=== PATIENT | female | born 1930 | race Caucasian/White ===

== ENCOUNTER 2016-11-25 12:44 | Inpatient (IN) | payer MEDICARE, BC ==
[~2016-11-25] VITALS: Ht 157.5 cm; Wt 88.9 kg
[2016-11-25] VITALS (26 sets, daily range): BP systolic 73–116; BP diastolic 43–83
[2016-11-25] MEDS ORDERED: XARELTO10 MG ORAL (12:52)
[2016-11-25] MEDS ORDERED: METFORMIN HCL500 M1 ORAL (12:52)
[2016-11-25] MEDS ORDERED: ATORVASTATIN CA20 MG ORAL (12:52)
[2016-11-25] MEDS ORDERED: TEMAZEPAM7.5 MG ORAL (12:52)
[2016-11-25] MEDS ORDERED: Ipratropium 0.02% Inh Soln 2.5ml UD HHN ONE (13:00)
[2016-11-25] MEDS ORDERED: Cefepime HCl 2 GM in NS 110 ML IV SCH (13:00)
[2016-11-25] MEDS ORDERED: Albuterol ud Inhalation HHN ONE (13:00)
[2016-11-25 13:15] LABS: MEAN CORPUSCULAR HEMOGLOBIN 27.9 PG (27.0-31.0); MEAN CORPUSCULAR HGB CONC 29.7 G/DL (32.0-36.0); MEAN CORPUSCULAR VOLUME 94 FL (80-99); MEAN PLATELET VOLUME 13.4 FL (6.5-10.1); PLATELET COUNT 172 K/UL (150-450); RED BLOOD COUNT 6.13 M/UL (4.20-5.40); RED CELL DISTRIBUTION WIDTH 17.2 % (11.6-14.8)
[2016-11-25 13:22] LABS: INR 1.2 (0.9-1.1); PROTHROMBIN TIME 12.8 SEC (9.30-11.50)
[2016-11-25] MEDS ORDERED: Cefepime 2gm ONE (13:22)
[2016-11-25 13:26] LABS: WHITE BLOOD COUNT 24.3 K/UL (4.8-10.8)
[2016-11-25 13:32] LABS: APPEARANCE,URINE CLOUDY; KETONES,URINE 1+ (NEGATIVE); LEUKOCYTE ESTERASE ,URINE 2+ (NEGATIVE); NITRITE,URINE NEGATIVE (NEGATIVE); PH,URINE 5 (4.5-8.0); PROTEIN,URINE 2+ (NEGATIVE); UROBILINOGEN,URINE 8 MG/DL (0.0-1.0)
[2016-11-25 13:34] LABS: ALANINE AMINOTRANSFERASE 67 U/L (3-33); ALBUMIN/GLOBULIN RATIO 1.2 (1.0-2.7); ANION GAP 28 (5-15); ASPARTATE AMINO TRANSFERASE 44 U/L (5-40); CALCIUM 9.4 mg/dL (8.6-10.2); CARBON DIOXIDE 19 mEQ/L (20-30); CHLORIDE 117 mEQ/L (98-107); HEMOLYSIS 33; POTASSIUM 5.7 mEQ/L (3.4-4.9); TOTAL PROTEIN 6.5 g/dL (6.6-8.7); TROPONIN I < 0.30 ng/mL (<=0.30)
[2016-11-25 13:35] LABS: REFLEX LACTIC ACID YES OR NO YES
[2016-11-25 13:36] LABS: SODIUM 164 mEQ/L (135-145)
[2016-11-25] MEDS ORDERED: Vancomycin 1 GM in D5W 275 ML IVPB ONE ×2 (13:45→18:00)
[2016-11-25 13:50] LABS: BACTERIA,URINE MANY /HPF; ICTOTEST NEGATIVE; SQUAMOUS EPITHELIAL CELL,UR MANY /LPF (NONE/OCC); WBC,URINE 15-20 /HPF (0 - 2)
[2016-11-25 13:51] LABS: ANISOCYTOSIS 1+; BAND NEUTROPHILS % (MANUAL) 0 % (0-8); BASOPHILS % (MANUAL) 0 % (0-2); EOSINOPHILS % (MANUAL) 0 % (0-3); LYMPHOCYTES % (MANUAL) 5 % (20-45); NEUTROPHILS % (MANUAL) 93 % (45-75); PLATELET ESTIMATE ADEQUATE; PLATELET MORPHOLOGY NORMAL; TOTAL CELLS COUNTED 100
--- NOTE | 2016-11-25 13:51 | Emergency Room Report ---
History of Present Illness General Chief Complaint: Dyspnea/Respdistress Source: EMS, Caregiver Present Illness HPI Patient presents via EMS with ALOC and hypoxia. Apparently not taking in PO for several days. This afternoon, decreased mentation. Also increased respiratory rate. O2 sats 88% in field. Glucose normal. Transport with IV and no other treatment. Full Code. Apparently, patient refused to go to MD or ER until today, where she was too obtunded to refuse. Apparent contact with PMD request take to [facility]. Alleged CVA this year. No other history available. 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 Nursing Documentation: PMH: Agreed, PSxH: Agreed Nursing Documentation-PMH Past Medical History Deferred: Pt Cognitively Impaired Past Medical History: No History, Except For Hx Diabetes: Yes Hx Neurological Problems: Yes Review of Systems All Other Systems: limited Physical Exam Vital Signs Date Time Temp Pulse Resp B/P Pulse Ox O2 Delivery O2 Flow Rate FiO2 11/25/16 12:46 97.5 113 25 90/51 99 Room Air 11/25/16 12:54 60 11/25/16 12:56 15.0 Sp02 EP Interpretation: reviewed, normal General Appearance: moderate distress, Chronically Ill, Stupor Head: normocephalic Eyes: bilateral eye PERRL, bilateral eye normal inspection ENT: dry mucus membranes - black caking of tongue Neck: other - some regidity Respiratory: lungs clear, other - tachypnea Cardiovascular #1: tachycardia Cardiovascular #2: 2+ radial (L), 2+ femoral (R) Gastrointestinal: non tender, abnormal bowel sounds - decreased Genitourinary: normal inspection Musculoskeletal: back normal, gait/station normal, normal range of motion Neurologic: responsive - to pain, other - moves arms, legs with weakness Psychiatric: other - stupor Reflexes: 1+ knee (R), 1+ knee (L) Skin: other - ecchymoses legs and arms with sacral decubitus Procedures Critical Care Time Critical Care Time Total Critical Care Time: 60 min of bedside evaluation and treatment excludes procedures Procedures: CVP, EKG, intubation Reason for Critical care: Hypotension, sepsis, metabolic acidosis, prevention of end organ injury Course: the patient presented with respiratory distress and inadequate tidal volumes. Immediately intubated. Patient responded to initial fluid bolus, but then became hypotensive therefore central line indicated. Somewhat more responsive with better blood pressure. Central line was started. The patient initially responded to aggressive fluid resuscitation but then dropped her pressure again. This required repeat evaluation and ordering more fluids. In addition, antibiotics were initiated. Treated for critical hyperkalemia. Levophed ordered. BP responded with this. Ventilator adjusted in response to blood gas. Consultations: nursing staff, admitting MD, respiratory, caretakers Alternative history: EMS, accounts receivable associate Result: Patient was improved but critical Performed by: Dr. Art Central Line Central Line : Consent: Emergent Central Line Lumen: triple Maximal Sterile Barrier Tech: yes cap, yes mask, yes sterile gown, yes sterile gloves, yes large sterile sheet, yes hand hygiene, yes chlorhexidine prep Central Line Postion: femoral (R) Complications: none Central Line Post Position: sutured, good blood return Attempts: Other - 2 Patient Tolerated: Well Complications: Other - arterial puncture X 1 Progress EBL = 3 ml and 10 ml for lab. After arterial puncture, pressure applied and hemostasis obtained. Intubation Intubation : Consent: Emergent Intubation Method: orotracheal Tube Size (cm): 7.5 Medications: Other - none Breath Sounds after Intubation: equal Intubation Complications: no complications Post Intubation Xray: Yes Attempts: One Patient Tolerated: Well Complications: None Medical Decision Making Diagnostic Impression: Primary Impression: Sepsis Qualified Codes: A41.9 - Sepsis, unspecified organism Additional Impressions: Respiratory failure Qualified Codes: J96.01 - Acute respiratory failure with hypoxia UTI (urinary tract infection) Qualified Codes: N39.0 - Urinary tract infection, site not specified Acute hypernatremia Dehydration Hyperkalemia Renal failure Qualified Codes: N17.9 - Acute kidney failure, unspecified ER Course Patient presents in extremis. Appears septic. See critical care note. Ddx: pneumonia, UTI, other source. Fluid resuscitation (sepsis protocol), antibiotics begun. EKG without acute injury. CXR ET OK. Lactic acid elevated. Elevated sodium and renal failure. Elevated potassium. Potassium treated. Improved mentation with improved BP. BP fluctuating. Discussed with caretakers and family. Discussed with Dr. Sotelo. After 30ml/kg bolus, patient still with hypotension. Levophed ordered. Vent adjusted per my recommendations. Admit ICU, Dr. Briones Laboratory Tests Test 11/25/16 12:58 11/25/16 13:15 11/25/16 14:07 11/25/16 14:19 White Blood Count 24.3 K/UL (4.8-10.8) *H Red Blood Count 6.13 M/UL (4.20-5.40) H Hemoglobin 17.1 G/DL (12.0-16.0) H Hematocrit 57.6 % (37.0-47.0) H Mean Corpuscular Volume 94 FL (80-99) Mean Corpuscular Hemoglobin 27.9 PG (27.0-31.0) Mean Corpuscular Hemoglobin Concent 29.7 G/DL (32.0-36.0) L Red Cell Distribution Width 17.2 % (11.6-14.8) H Platelet Count 172 K/UL (150-450) Mean Platelet Volume 13.4 FL (6.5-10.1) H Neutrophils (%) (Auto) % (45.0-75.0) Lymphocytes (%) (Auto) % (20.0-45.0) Monocytes (%) (Auto) % (1.0-10.0) Eosinophils (%) (Auto) % (0.0-3.0) Basophils (%) (Auto) % (0.0-2.0) Differential Total Cells Counted 100 Neutrophils % (Manual) 93 % (45-75) H Lymphocytes % (Manual) 5 % (20-45) L Monocytes % (Manual) 2 % (1-10) Eosinophils % (Manual) 0 % (0-3) Basophils % (Manual) 0 % (0-2) Band Neutrophils 0 % (0-8) Platelet Estimate Adequate Platelet Morphology Normal Hypochromasia 1+ Anisocytosis 1+ Prothrombin Time 12.8 SEC (9.30-11.50) H Prothrombin Time INR 1.2 (0.9-1.1) H PTT 27 SEC (23-33) Sodium Level 164 mEQ/L (135-145) *H Potassium Level 5.7 mEQ/L (3.4-4.9) H Chloride Level 117 mEQ/L (98-107) H Carbon Dioxide Level 19 mEQ/L (20-30) L Anion Gap 28 (5-15) H Blood Urea Nitrogen 67 mg/dL (7-23) H Creatinine 2.0 mg/dL (0.5-0.9) H Estimate Glomerular Filtration Rate mL/min (>60) Glucose Level 332 mg/dL (74-106) H Lactic Acid Level 7.60 mmol/L (0.66-2.22) H 6.30 mmol/L (0.66-2.22) H Calcium Level 9.4 mg/dL (8.6-10.2) Total Bilirubin 2.4 mg/dL (0.0-1.2) H Direct Bilirubin 1.1 mg/dL (0.1-0.3) H Aspartate Amino Transferase (AST) 44 U/L (5-40) H Alanine Aminotransferase (ALT) 67 U/L (3-33) H Alkaline Phosphatase 103 U/L (35-104) Total Creatine Kinase 60 U/L (26-140) Troponin I < 0.30 ng/mL (<=0.30) Pro-B-Type Natriuretic Peptide 6407 pg/mL (0-450) H Total Protein 6.5 g/dL (6.6-8.7) L Albumin 3.6 g/dL (3.5-5.2) Globulin 2.9 g/dL Albumin/Globulin Ratio 1.2 (1.0-2.7) Urine Color Yellow Urine Appearance Cloudy Urine pH 5 (4.5-8.0) Urine Specific [place] 1.025 (1.005-1.035) Urine Protein 2+ (NEGATIVE) H Urine Glucose (UA) Negative (NEGATIVE) Urine Ketones 1+ (NEGATIVE) H Urine Occult Blood 2+ (NEGATIVE) H Urine Nitrite Negative (NEGATIVE) Urine Bilirubin 2+ (NEGATIVE) H Urine Ictotest Negative Urine Urobilinogen 8 MG/DL (0.0-1.0) H Urine Leukocyte Esterase 2+ (NEGATIVE) H Urine RBC 5-10 /HPF (0 - 2) H Urine WBC 15-20 /HPF (0 - 2) H Urine Squamous Epithelial Cells Many /LPF (NONE/OCC) H Urine Bacteria Many /HPF (NONE) H Arterial Blood pH 7.368 (7.350-7.450) Arterial Blood Partial Pressure CO2 28.8 mmHg (35.0-45.0) L Arterial Blood Partial Pressure O2 199.0 mmHg (75.0-100.0) H Arterial Blood HCO3 16.2 mmol/L (22.0-26.0) L Arterial Blood Oxygen Saturation 98.9 % (92.0-98.0) H Arterial Blood Base Excess -7.6 Isael Test Positive Test 11/25/16 16:50 11/25/16 16:57 Urine Color Brown Urine Appearance Cloudy Urine pH 5 (4.5-8.0) Urine Specific [place] 1.025 (1.005-1.035) Urine Protein 2+ (NEGATIVE) H Urine Glucose (UA) 1+ (NEGATIVE) H Urine Ketones 1+ (NEGATIVE) H Urine Occult Blood 3+ (NEGATIVE) H Urine Nitrite Negative (NEGATIVE) Urine Bilirubin 2+ (NEGATIVE) H Urine Ictotest Pos Urine Urobilinogen 8 MG/DL (0.0-1.0) H Urine Leukocyte Esterase 3+ (NEGATIVE) H Urine RBC 2-4 /HPF (0 - 2) H Urine WBC 20-30 /HPF (0 - 2) H Urine Squamous Epithelial Cells Many /LPF (NONE/OCC) H Urine Bacteria Moderate /HPF (NONE) H Urine Eosinophils 0 Urine Osmolality Pending Urine Random Sodium 24 mmol/L Urine Random Chloride 25 mmol/L Urine Potassium Timed 76 mmol/L Sodium Level 162 mEQ/L (135-145) *H Potassium Level 3.8 mEQ/L (3.4-4.9) Chloride Level 121 mEQ/L (98-107) H Carbon Dioxide Level 20 mEQ/L (20-30) Anion Gap 21 (5-15) H Blood Urea Nitrogen 64 mg/dL (7-23) H Creatinine 1.8 mg/dL (0.5-0.9) H Estimate Glomerular Filtration Rate mL/min (>60) Glucose Level 380 mg/dL (74-106) H Plasma/Serum Osmolality Pending Uric Acid 13.1 mg/dL (3.0-7.5) H Calcium Level 8.0 mg/dL (8.6-10.2) L Phosphorus Level 4.8 mg/dL (2.5-4.8) Magnesium Level 2.4 mg/dL (1.7-2.5) Total Bilirubin 1.8 mg/dL (0.0-1.2) H Direct Bilirubin 1.1 mg/dL (0.1-0.3) H Aspartate Amino Transferase (AST) 36 U/L (5-40) Alanine Aminotransferase (ALT) 52 U/L (3-33) H Alkaline Phosphatase 81 U/L (35-104) Total Creatine Kinase 54 U/L (26-140) Total Protein 4.9 g/dL (6.6-8.7) L Albumin 2.9 g/dL (3.5-5.2) L Globulin 2.0 g/dL Albumin/Globulin Ratio 1.4 (1.0-2.7) Free Thyroxine 0.64 ng/dL (0.86-1.85) L EKG Diagnostic Results Rate: tachycardiac ST Segments: no acute changes Rhythm Strip Diag. Results EP Interpretation: yes Rhythm: no PVC's, no ectopy - Sinus tach Chest X-Ray Diagnostic Results Chest X-Ray Diagnostic Results : Chest X-Ray Ordered: Yes # of Views/Limited/Complete: 1 View Indication: Other Interpreting ER Provider: Electronically signed by Yassine Art MD Last Vital Signs Date Time Temp Pulse Resp B/P Pulse Ox O2 Delivery O2 Flow Rate FiO2 11/26/16 03:04 94/63 11/26/16 01:30 97 24 99 Mechanical Ventilator 40 11/26/16 00:00 98.4 11/25/16 16:00 15.0 Status: improved Disposition: ADMITTED INPATIENT Condition: Critical Referrals: NON PHYSICIAN (PCP) Yassine Art M.D. Nov 25, 2016 13:51
[2016-11-25 13:52] LABS: HYPOCHROMASIA 1+
[2016-11-25 13:55] LABS: BILIRUBIN,DIRECT 1.1 mg/dL (0.1-0.3)
[2016-11-25] MEDS ORDERED: Calcium Gluconate 1gm/10ml vial IVP ONE (14:00)
[2016-11-25 14:16] LABS: ABG ALLEN TEST POSITIVE; ABG BASE EXCESS -7.6; ABG PCO2 28.8 mmHg (35.0-45.0)
[2016-11-25] MEDS ORDERED: Cefepime HCl 2 GM in D5W 110 ML IVPB SCH (14:45)
--- NOTE | 2016-11-25 14:52 | Infectious Diseases Prog Note ---
Assessment/Plan Problems: (1) Septic shock Assessment & Plan: due to urine infection , possible pyelonephritis, will start cefepime and levaquin empiricaly , and send blood culture and urine culture (2) UTI (urinary tract infection) Assessment & Plan: possible pylonephritis, will send urien culture and start cefepime and levaquin empirically (3) MARYAM (acute kidney injury) Assessment & Plan: due to sepsis , continue ivf with boluses to improve her blood pressure , avoid nephrotixic meds, consult renal , monitor UOP (4) Shock liver Assessment & Plan: due to sepsis , will screen for hepatitis, monitor LFT (5) Acute respiratory failure Assessment & Plan: due to sepsis, S/P intubation , monitor ABG, and CXR , consult pulmonary for further care (6) Diabetes mellitus Assessment & Plan: hold po meds, continue to monitor blood glucose as per unit protocol, keep tight glycemic control (7) Acute hypernatremia Assessment & Plan: due to free volume loss, continue fluids for hydration, monitor sodium level. Subjective Allergies: Coded Allergies: No Known Allergies (Unverified , 11/25/16) Objective Vital Signs Last 24 Hour Vital Signs Date Time Temp Pulse Resp B/P Pulse Ox O2 Delivery O2 Flow Rate FiO2 11/25/16 14:32 109 24 50 11/25/16 13:32 118 28 Mechanical Ventilator 15.0 60 11/25/16 12:57 118 28 102/83 99 Mechanical Ventilator 60 11/25/16 12:56 112 26 60 11/25/16 12:56 112 26 Mechanical Ventilator 15.0 60 11/25/16 12:54 60 11/25/16 12:46 97.5 113 25 90/51 99 Room Air Height (Feet): 5 Height (Inches): 3.00 Weight (Pounds): 120 Laboratory Tests Test 11/25/16 12:58 11/25/16 13:15 11/25/16 14:07 11/25/16 14:19 White Blood Count 24.3 K/UL (4.8-10.8) *H Red Blood Count 6.13 M/UL (4.20-5.40) H Hemoglobin 17.1 G/DL (12.0-16.0) H Hematocrit 57.6 % (37.0-47.0) H Mean Corpuscular Volume 94 FL (80-99) Mean Corpuscular Hemoglobin 27.9 PG (27.0-31.0) Mean Corpuscular Hemoglobin Concent 29.7 G/DL (32.0-36.0) L Red Cell Distribution Width 17.2 % (11.6-14.8) H Platelet Count 172 K/UL (150-450) Mean Platelet Volume 13.4 FL (6.5-10.1) H Neutrophils (%) (Auto) % (45.0-75.0) Lymphocytes (%) (Auto) % (20.0-45.0) Monocytes (%) (Auto) % (1.0-10.0) Eosinophils (%) (Auto) % (0.0-3.0) Basophils (%) (Auto) % (0.0-2.0) Differential Total Cells Counted 100 Neutrophils % (Manual) 93 % (45-75) H Lymphocytes % (Manual) 5 % (20-45) L Monocytes % (Manual) 2 % (1-10) Eosinophils % (Manual) 0 % (0-3) Basophils % (Manual) 0 % (0-2) Band Neutrophils 0 % (0-8) Platelet Estimate Adequate Platelet Morphology Normal Hypochromasia 1+ Anisocytosis 1+ Prothrombin Time 12.8 SEC (9.30-11.50) H Prothromb Time International Ratio 1.2 (0.9-1.1) H Activated Partial Thromboplast Time 27 SEC (23-33) Sodium Level 164 mEQ/L (135-145) *H Potassium Level 5.7 mEQ/L (3.4-4.9) H Chloride Level 117 mEQ/L (98-107) H Carbon Dioxide Level 19 mEQ/L (20-30) L Anion Gap 28 (5-15) H Blood Urea Nitrogen 67 mg/dL (7-23) H Creatinine 2.0 mg/dL (0.5-0.9) H Estimat Glomerular Filtration Rate mL/min (>60) Glucose Level 332 mg/dL (74-106) H Lactic Acid Level 7.60 mmol/L (0.66-2.22) H Pending Calcium Level 9.4 mg/dL (8.6-10.2) Total Bilirubin 2.4 mg/dL (0.0-1.2) H Direct Bilirubin 1.1 mg/dL (0.1-0.3) H Aspartate Amino Transf (AST/SGOT) 44 U/L (5-40) H Alanine Aminotransferase (ALT/SGPT) 67 U/L (3-33) H Alkaline Phosphatase 103 U/L (35-104) Total Creatine Kinase 60 U/L (26-140) Troponin I < 0.30 ng/mL (<=0.30) Pro-B-Type Natriuretic Peptide 6407 pg/mL (0-450) H Total Protein 6.5 g/dL (6.6-8.7) L Albumin 3.6 g/dL (3.5-5.2) Globulin 2.9 g/dL Albumin/Globulin Ratio 1.2 (1.0-2.7) Urine Color Yellow Urine Appearance Cloudy Urine pH 5 (4.5-8.0) Urine Specific [place] 1.025 (1.005-1.035) Urine Protein 2+ (NEGATIVE) H Urine Glucose (UA) Negative (NEGATIVE) Urine Ketones 1+ (NEGATIVE) H Urine Occult Blood 2+ (NEGATIVE) H Urine Nitrite Negative (NEGATIVE) Urine Bilirubin 2+ (NEGATIVE) H Urine Ictotest Negative Urine Urobilinogen 8 MG/DL (0.0-1.0) H Urine Leukocyte Esterase 2+ (NEGATIVE) H Urine RBC 5-10 /HPF (0 - 2) H Urine WBC 15-20 /HPF (0 - 2) H Urine Squamous Epithelial Cells Many /LPF (NONE/OCC) H Urine Bacteria Many /HPF (NONE) H Arterial Blood pH 7.368 (7.350-7.450) Arterial Blood Partial Pressure CO2 28.8 mmHg (35.0-45.0) L Arterial Blood Partial Pressure O2 199.0 mmHg (75.0-100.0) H Arterial Blood HCO3 16.2 mmol/L (22.0-26.0) L Arterial Blood Oxygen Saturation 98.9 % (92.0-98.0) H Arterial Blood Base Excess -7.6 Isael Test Positive Current Medications Medications (Trade) Dose Ordered Sig/Flora Route PRN Reason Start Time Stop Time Status Last Admin Dose Admin Cefepime HCl 2 gm/ Sodium Chloride 110 ml @ 220 mls/hr Q8H IV 11/25/16 13:00 11/26/16 12:59 11/25/16 13:37 Levofloxacin 150 ml @ 150 mls/hr Q24H IV 11/25/16 13:00 11/26/16 12:59 11/25/16 14:08 Sodium Chloride 1,000 ml @ 300 mls/hr Q3H20M IV 11/25/16 13:00 12/25/16 12:59 11/25/16 14:09 Vancomycin HCl/ Dextrose (Vancomycin/D5W) 275 ml @ 183.708 mls/hr ONCE ONCE IVPB 11/25/16 13:45 11/25/16 15:14 Romelia Sotelo M.D. Nov 25, 2016 14:52
[2016-11-25] MEDS ORDERED: Levophed 4mg/4mL Inj IV ONE (15:17)
[2016-11-25] MEDS ORDERED: Vancomycin 1gm inj IVPB ONE (15:17)
[2016-11-25] MEDS ORDERED: Miralax 17gm pkt ORAL PRN (16:00)
[2016-11-25] MEDS ORDERED: Nitroglycerin Subl 0.4mg tab (Bottle Of 25) SL PRN (16:00)
[2016-11-25] MEDS ORDERED: Morphine Sulfate 2mg/ml Inj IVP PRN (16:00)
[2016-11-25] MEDS ORDERED: DuoNeb 0.5-3(2.5)mg/3ml neb HHN PRN (16:00)
--- NOTE | 2016-11-25 16:25 | General Progress Note ---
Assessment/Plan Assessment/Plan 1. Respiratory failure s/p intubation - transfer to ICU. 2. Sepsis 2nd to UTI - cont IV abx per ID. 3. Renal failure 2nd to sepsis 4. Dehydration - cont IVF. 5. Septic Shock - will Transfer to ICU. consult ID and Pulmonary 6. H/O Basal Ganglia ischemic stroke recently 7. 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 8. Hyperlipidemia - restart Lipitor 20 mg one po qhs 9. DM II - SSI ordered. Subjective Date patient seen: Nov 25, 2016 Time patient seen: 16:00 Constitutional: Reports: weakness Cardiovascular: Reports: other - hypotensive Respiratory: Reports: shortness of breath Gastrointestinal/Abdominal: Reports: no symptoms Genitourinary: Reports: no symptoms Neurologic/Psychiatric: Reports: no symptoms Endocrine: Reports: no symptoms Hematologic/Lymphatic: Reports: no symptoms Allergies: Coded Allergies: No Known Allergies (Unverified , 11/25/16) Subjective Pt came in with hypotension, tachypnea and tachycardia. she was intubated in ER and she was seen by ID and Pulm. Objective Last 24 Hour Vital Signs Date Time Temp Pulse Resp B/P Pulse Ox O2 Delivery O2 Flow Rate FiO2 11/25/16 15:50 40 11/25/16 15:39 104/69 11/25/16 15:34 111/64 11/25/16 15:29 73/50 11/25/16 15:24 69/47 11/25/16 14:32 109 24 50 11/25/16 14:30 103 20 82/43 98 Mechanical Ventilator 15.0 50 11/25/16 14:00 100 22 97/64 98 Mechanical Ventilator 15.0 60 11/25/16 13:32 118 28 Mechanical Ventilator 15.0 60 11/25/16 13:30 114 27 104/58 99 Mechanical Ventilator 15.0 60 11/25/16 12:57 118 28 102/83 99 Mechanical Ventilator 60 11/25/16 12:56 112 26 60 11/25/16 12:56 112 26 Mechanical Ventilator 15.0 60 11/25/16 12:54 60 11/25/16 12:46 97.5 113 25 90/51 99 Room Air Laboratory Tests 11/25/16 12:58: White Blood Count 24.3*H, Red Blood Count 6.13H, Hemoglobin 17.1H, Hematocrit 57.6H, Mean Corpuscular Volume 94, Mean Corpuscular Hemoglobin 27.9, Mean Corpuscular Hemoglobin Concent 29.7L, Red Cell Distribution Width 17.2H, Platelet Count 172, Mean Platelet Volume 13.4H, Neutrophils (%) (Auto) , Lymphocytes (%) (Auto) , Monocytes (%) (Auto) , Eosinophils (%) (Auto) , Basophils (%) (Auto) , Differential Total Cells Counted 100, Neutrophils % ( Manual) 93H, Lymphocytes % (Manual) 5L, Monocytes % (Manual) 2, Eosinophils % ( Manual) 0, Basophils % (Manual) 0, Band Neutrophils 0, Platelet Estimate Adequate, Platelet Morphology Normal, Hypochromasia 1+, Anisocytosis 1+, Prothrombin Time 12.8H, Prothromb Time International Ratio 1.2H, Activated Partial Thromboplast Time 27, Sodium Level 164*H, Potassium Level 5.7H, Chloride Level 117H, Carbon Dioxide Level 19L, Anion Gap 28H, Blood Urea Nitrogen 67H, Creatinine 2.0H, Estimat Glomerular Filtration Rate , Glucose Level 332H, Lactic Acid Level 7.60H, Calcium Level 9.4, Total Bilirubin 2.4H, Direct Bilirubin 1.1H, Aspartate Amino Transf (AST/SGOT) 44H, Alanine Aminotransferase (ALT/SGPT) 67H, Alkaline Phosphatase 103, Total Creatine Kinase 60, Troponin I < 0.30, Pro-B-Type Natriuretic Peptide 6407H, Total Protein 6.5L, Albumin 3.6, Globulin 2.9, Albumin/Globulin Ratio 1.2 11/25/16 13:15: Urine Color Yellow, Urine Appearance Cloudy, Urine pH 5, Urine Specific [place] 1.025, Urine Protein 2+H, Urine Glucose (UA) Negative, Urine Ketones 1+H, Urine Occult Blood 2+H, Urine Nitrite Negative, Urine Bilirubin 2+H, Urine Ictotest Negative, Urine Urobilinogen 8H, Urine Leukocyte Esterase 2+H, Urine RBC 5-10H, Urine WBC 15-20H, Urine Squamous Epithelial Cells ManyH, Urine Bacteria ManyH 11/25/16 14:07: Arterial Blood pH 7.368, Arterial Blood Partial Pressure CO2 28.8L, Arterial Blood Partial Pressure O2 199.0H, Arterial Blood HCO3 16.2L, Arterial Blood Oxygen Saturation 98.9H, Arterial Blood Base Excess -7.6, Isael Test Positive 11/25/16 14:19: Lactic Acid Level 6.30H Height (Feet): 5 Height (Inches): 3.00 Weight (Pounds): 120 General Appearance: lethargic, severe distress EENT: normal ENT inspection Neck: non-tender, supple Cardiovascular: tachycardia Respiratory/Chest: respiratory distress Abdomen: decreased bowel sounds, other - impaction Extremities: non-tender Edema: no edema noted Arm (L), no edema noted Arm (R), no edema noted Leg (L), no edema noted Leg (R), no edema noted Pedal (L), no edema noted Pedal (R), no edema noted Generalized Neurologic: responsive Skin: warm/dry Lymphatic: normal anterior cervical (L), normal anterior cervical (R), normal axillary (L), normal axillary (R), normal inguinal (L), normal inguinal (R), normal other, normal posterior cervical (L), normal posterior cervical (R), normal submandibular (L), normal submandibular (R), normal supraclavicular (L), normal supraclavicular (R) TERI JACKSON Nov 25, 2016 16:25
--- NOTE | 2016-11-25 16:58 | Consultation ---
Consult Note Assessment/Plan Renal consult dictated # [id number] OBINNA MADRIGAL Nov 25, 2016 16:58
[2016-11-25] MEDS ORDERED: NovoLOG Insulin Flexpen SUBQ SCH (17:00)
[2016-11-25 17:22] LABS: APPEARANCE,URINE CLOUDY; KETONES,URINE 1+ (NEGATIVE); LEUKOCYTE ESTERASE ,URINE 3+ (NEGATIVE); NITRITE,URINE NEGATIVE (NEGATIVE); PH,URINE 5 (4.5-8.0); PROTEIN,URINE 2+ (NEGATIVE); UROBILINOGEN,URINE 8 MG/DL (0.0-1.0)
[2016-11-25 17:34] LABS: ALANINE AMINOTRANSFERASE 52 U/L (3-33); ALBUMIN/GLOBULIN RATIO 1.4 (1.0-2.7); ANION GAP 21 (5-15); ASPARTATE AMINO TRANSFERASE 36 U/L (5-40); CARBON DIOXIDE 20 mEQ/L (20-30); CHLORIDE 121 mEQ/L (98-107); CREATININE 1.8 mg/dL (0.5-0.9); HEMOLYSIS 5; MAGNESIUM 2.4 mg/dL (1.7-2.5); PHOSPHORUS 4.8 mg/dL (2.5-4.8); POTASSIUM 3.8 mEQ/L (3.4-4.9); TOTAL PROTEIN 4.9 g/dL (6.6-8.7); URIC ACID 13.1 mg/dL (3.0-7.5)
[2016-11-25 17:43] LABS: SODIUM 162 mEQ/L (135-145)
[2016-11-25 18:04] LABS: BACTERIA,URINE MODERATE /HPF; ICTOTEST POS; SQUAMOUS EPITHELIAL CELL,UR MANY /LPF (NONE/OCC); WBC,URINE 20-30 /HPF (0 - 2)
[2016-11-25 18:17] LABS: BILIRUBIN,DIRECT 1.1 mg/dL (0.1-0.3)
--- NOTE | 2016-11-25 18:30 | Consultation ---
DATE OF CONSULTATION: 11/25/2016 INFECTIOUS DISEASE CONSULTATION REQUESTING PHYSICIAN: John Dodge M.D. REASON FOR CONSULTATION: Sepsis and urinary tract infection, recommendations for antibiotics treatment. HISTORY OF PRESENT ILLNESS: The patient is an 86-year-old female with past medical history of diabetes and dementia with cognition impairment, who was brought in by the caregiver to the emergency room at [facility] for respiratory failure and tachypnea. The patient has not been eating or drinking for a week as per the emergency room nursing staff. Unclear, whether she had fever or chills at home. No bowel movement for a week. She became more dehydrated and weak. Today, she was tachypneic with fast breathing. The primary provider was notified and she was sent to the emergency room for further evaluation. The patient was found to be in septic shock with blood pressure of 90/51 and tachypneic, so she was intubated on the scene immediately. Chest x-ray did not show any acute infiltration or effusion, but her urinalysis showed evidence of infection. Her white count was elevated around 24,000 suggesting of sepsis, so she received IV antibiotics in the emergency room and I was consulted by the primary provider for antibiotics treatment and further management. As of note, the patient is intubated and no family member available to provide any history. History was mainly obtained from the medical record and nursing staff in the emergency room. REVIEW OF SYSTEMS: Unable to obtain at this point. PAST MEDICAL HISTORY: Significant for diabetes and dementia. PAST SURGICAL HISTORY: Unknown. MEDICATIONS: The patient received levofloxacin and cefepime and dose of vancomycin in the emergency room. ALLERGIES: She has no known drug allergy. FAMILY HISTORY: Unknown. SOCIAL HISTORY: She lives at home with a caregiver 27/11. No recent drugs, tobacco, or alcohol. LABORATORY DATA: Labs showed white count of 24,023, hemoglobin of 17.1, and platelet count of 172,000. BUN of 67 and creatinine of 2. AST of 44 and ALT of 67. BNP of 6407. Lactic acid of 7.6. Urinalysis showed +2 leukocyte esterase, WBC 15 to 20 and many bacteria. IMAGING: Chest x-ray showed no acute infiltration or effusion. PHYSICAL EXAMINATION: GENERAL: Elderly female, intubated, not on sedation, unresponsive, and not in acute distress, comfortable. VITAL SIGNS: Temperature 97.5 degrees, pulse 109, respirations 24, blood pressure 102/83, and saturation 99% on mechanical ventilation with FiO2 of 60. HEENT: Pupils reactive to light mildly. Pale sclera. Dry oral mucosa with dry mucus. ET tube in place. No facial asymmetry or swelling. NECK: Supple. No lymphadenopathy. CARDIOVASCULAR: She is tachycardic. S1 and S2 positive. No murmur. LUNGS: Diminished breathing sound at the bases. No wheezing or rhonchi. ABDOMEN: Soft and not distended. No guarding. No rebound. Old surgical scar. EXTREMITIES: Dry skin with the bruises and ecchymosis on the upper and lower extremity and skin break mainly in the left lower extremity. SKIN: No hives or rash. Multiple bruises and ecchymosis on both upper and lower extremities. ASSESSMENT AND RECOMMENDATION: 1. Septic shock, suspect due to urine infection, possible pyelonephritis. We will start cefepime and Levaquin empiric treatment with clindamycin for now. Pending blood culture and urine culture results. Tailor antibiotics as needed. 2. Urinary tract infection, possible pyelonephritis. We will send urine culture and start cefepime and Levaquin empiric treatment for double coverage. Pending culture results. 3. Acute renal failure due to sepsis, hypotension, and dehydration. Continue IV fluids with boluses and pressor to improve her systolic blood pressure. Avoid nephrotoxic medicine. Consult Renal. Monitor urine output. 4. Shock liver due to sepsis. We will screen for hepatitis. Monitor liver function test. 5. Acute respiratory failure due to sepsis, status post intubation. Monitor ABG and chest x-ray. Consult Pulmonary for further care. 6. Diabetes. Hold by mouth medications. Monitor blood glucose as per unit protocol. Keep tight glycemic control. 7. Hypernatremia due to free water loss and dehydration. Continue fluids for hydration. Monitor sodium level as per protocol. Thank you for the consult. Infectious Disease will continue to follow. Romelia Sotelo M.D. DR: ARIN JOB#: [id number] CC:
[2016-11-25] MEDS: Heparin 5000 units/ml inj SUBQ SCH (20:51)
[2016-11-25] MEDS ORDERED: Cefepime HCl 2 GM in D5W 110 ML IV SCH (21:00)
[2016-11-25] MEDS ORDERED: Atorvastatin 20mg tab ORAL SCH (21:00)
--- NOTE | 2016-11-25 22:30 | Consultation ---
DATE OF CONSULTATION: 11/25/2016 NEPHROLOGY CONSULTATION: CONSULTING PHYSICIAN: Cesar Logan M.D. REFERRING PHYSICIAN: John Dodge M.D. REASON FOR CONSULTATION: Renal failure and hypernatremia. HISTORY OF PRESENT ILLNESS: This is a very unfortunate 86-year-old female, who was admitted today with a diagnosis of septic shock. The patient is on Levophed. She received a few liters of normal saline. She is intubated. Her eyes are open, but obviously, she cannot give any history. I was asked to see her, because of renal failure with BUN and creatinine of 67 and 2.0 respectively. The patient also has some hyperkalemia with potassium of 5.7 and she is severely hypernatremic with serum sodium of 164. PAST MEDICAL HISTORY: Unobtainable at this point, however per records, the patient has a history of diabetes, history of cognitive impairment, and some neurological problems. MEDICATIONS: Reviewed in the EMR. ALLERGIES: Unknown. SOCIAL HISTORY: Unobtainable. REVIEW OF SYSTEMS: Unobtainable. PHYSICAL EXAMINATION: GENERAL: The patient is an elderly female, eyes open, and she is orally intubated. VITAL SIGNS: Blood pressure is 105/67, pulse 95, and respiratory rate 18. HEENT: Pale conjunctivae. Anicteric sclerae. NECK: Supple. LUNGS: Bilateral rhonchi. HEART: S1 and S2 are without murmurs or rubs. ABDOMEN: Soft and nontender. EXTREMITIES: Bilateral pedal edema. The patient is able to move her both upper as well as lower extremities. LABORATORY FINDINGS: The chemistry panel shows serum sodium of 164, potassium 5.7, chloride 117, CO2 19, BUN 67, creatinine 2.0, and blood sugar 332. AST is 44 and ALT 67. Albumin is 3.6. UA shows 5 to 10 RBCs, 15 to 20 WBCs per high power field, and many bacteria. ASSESSMENT: This is an 86-year-old female, who was admitted with diagnosis of septic shock likely to have a result of urinary tract infection. She was intubated. She has severe hypernatremia and free water deficit. Also she has renal failure, which may be as a result of acute tubular necrosis or just prerenal azotemia. The patient has also underlying chronic kidney disease. PLAN: I would take the liberty to change intravenous fluid to half normal saline 200 mL an hour since the patient's serum sodium is very high and if it goes further up, the patient may have significant adverse reaction and even cardiopulmonary collapse. for hypertension, the patient is on Levophed and we will adjust the dose. The patient's kidney function will be followed very closely as well as her urine output and further recommendations will be given based on those results. The patient is already on IV antibiotics and fully ventilatory support. Thank you very much, Dr. Dodge for this consultation. Cesar Logan M.D. DR: Karla JOB#: [id number] CC: NICO
[2016-11-25] MEDS: NovoLOG Insulin Flexpen SUBQ SCH (23:47)
[2016-11-26] VITALS (42 sets, daily range): BP systolic 82–117; BP diastolic 36–83
--- NOTE | 2016-11-26 01:30 | History and Physical Report ---
DATE OF ADMISSION: 11/25/2016 CHIEF COMPLAINT: Tachycardia, constipation, and altered mental status. HISTORY OF PRESENT ILLNESS: This is an 86-year-old female, who was brought in by paramedics for complaint of tachypnea, tachycardia, and respiratory failure. The patient apparently was not eating for a week and has been constipated for a week at home, according to the patient's caregivers. The patient slowly got worse up until today when the patient started having tachypnea and tachycardia. She was brought in by paramedics for evaluation and in the emergency room. the patient was found to be in respiratory failure with sepsis and septic shock. She was intubated in the emergency room and was started with intravenous antibiotics. The patient received intravenous fluids as well in the emergency room. ID was consulted and the patient was started on levofloxacin, cefepime, and vancomycin in the emergency room. She will be followed by ID and will continue the IV antibiotics per ID. She will be admitted to the intensive care unit and will be followed up by the renal and computer engineering technician as well. PAST MEDICAL HISTORY: Includes history of dementia, diabetes, hypertension, history of basal ganglia, ischemic stroke recently in the [facility], history of right lower extremity DVT and was on Xarelto as outpatient, history of hyperlipidemia, and dementia. PAST SURGICAL HISTORY: Unknown. MEDICATIONS: At home includes Lipitor 20 mg at bedtime, Xarelto 20 mg daily, and metformin for her diabetes. ALLERGIES: No known drug allergies. FAMILY HISTORY: Noncontributory. SOCIAL HISTORY: The patient lives at home with a caregiver 24-hour a day. No history of alcohol use, drug use, or smoking. REVIEW OF SYSTEMS: Negative except per history of present illness. PHYSICAL EXAMINATION: VITAL SIGNS: Includes temperature 97.5, pulse 113, respirations 25, blood pressure 90/61, and pulse ox 99% on room air with O2 mask on the time of admission. GENERAL APPEARANCE: The patient is an elderly fragile woman, intubated, unresponsive, but in no acute distress, and comfortable after intubation. HEENT: Normocephalic and normochromic. Extraocular muscles intact. Pupils are reactive to light. ET-tube is in place. NECK: Supple. No lymphadenopathy. CARDIOVASCULAR: Tachycardiac. Normal S1 and S2. No murmur. LUNGS: Diminished breath sounds. No wheezing or rhonchi. ABDOMEN: Soft, nontender, and nondistended. Positive bowel sounds. EXTREMITIES: No edema, cyanosis, or clubbing. Positive dry skin with multiple bruises and ecchymosis on the upper arms and extremities. SKIN: Shows multiple bruising and ecchymosis on upper and lower extremities. LABORATORY AND DIAGNOSTIC DATA: Includes a WBC 24,000, hemoglobin 17.1, hematocrit 57.6, platelet count 172,000, neutrophil 93%, lymphocytes 5%. Chemistry shows sodium 152, potassium 3.8, chloride 121, bicarbonate 20, BUN 64, creatinine 1.8, and glucose 380. Lactic acid 7.6. Uric acid 13.1. Calcium 8.0, phosphorus 4.1, magnesium 2.4, and total bilirubin 1.8. AST 36, ALT 52, and alkaline phosphatase 81. Total creatine kinase 64. Troponin less than 0.3. Albumin is 2.9. Free T4 0.64, PT 12.8, INR 1.2, and PTT 27. Urine showed 5 to 10 RBCs, 15 to 20 WBCs, many squamous cells, and many bacteria. Urine random sodium is 24, urine random chloride 25, and urine potassium 76. Chest x-ray showed no acute changes. IMPRESSION: 1. This is an 86-year-old female who will be admitted for respiratory failure, septic shock, and sepsis. The patient will be admitted for minimum of 2 nights stay and will be transferred to the intensive care unit. She will be started on intravenous antibiotics Levaquin, cefepime, and Vancomycin. ID, Renal, and Pulmonary will follow the patient in the intensive care unit. 2. Urinary tract infection, possible pyelonephritis. Again continue the intravenous antibiotics. 3. Acute renal failure due to sepsis. Continue hydration and IV Antibiotics. 4. Hypernatremia due to dehydration and loss of free water. We will continue hydration and follow the sodium level. 5. Acute respiratory failure status post intubation will be followed up in the intensive care unit. 6. Diabetes mellitus type 2. The patient will be on sliding scale insulin. 7. History of right lower extremity deep venous thrombosis. We will order venous ultrasound of lower extremity to evaluate if the deep venous thrombosis has resolved. We will continue the patient on heparin and hold Xarelto. 8. History of basal ganglia ischemic stroke few months ago at [facility]. 9. History of hyperlipidemia. We will restart the Lipitor 20 mg at bedtime. John Dodge M.D. DR: GALILEA JOB#: [id number] CC: NICO
[2016-11-26 05:07] LABS: MEAN CORPUSCULAR HEMOGLOBIN 29.6 PG (27.0-31.0); MEAN CORPUSCULAR VOLUME 92 FL (80-99); PLATELET COUNT 115 K/UL (150-450); RED BLOOD COUNT 4.84 M/UL (4.20-5.40); RED CELL DISTRIBUTION WIDTH 16.3 % (11.6-14.8)
[2016-11-26 05:32] LABS: ALANINE AMINOTRANSFERASE 40 U/L (3-33); ALBUMIN/GLOBULIN RATIO 0.9 (1.0-2.7); ANION GAP 16 (5-15); ASPARTATE AMINO TRANSFERASE 23 U/L (5-40); CALCIUM 7.7 mg/dL (8.6-10.2); CARBON DIOXIDE 18 mEQ/L (20-30); CHLORIDE 115 mEQ/L (98-107); CREATININE 1.8 mg/dL (0.5-0.9); HEMOLYSIS 5; POTASSIUM 3.2 mEQ/L (3.4-4.9); SODIUM 149 mEQ/L (135-145); TOTAL PROTEIN 4.9 g/dL (6.6-8.7)
[2016-11-26] MEDS: NovoLOG Insulin Flexpen SUBQ SCH ×4 (05:45→23:37)
[2016-11-26 06:00] LABS: BILIRUBIN,DIRECT 0.6 mg/dL (0.1-0.3)
[2016-11-26 06:33] LABS: REFLEX LACTIC ACID YES OR NO YES
[2016-11-26 07:20] LABS: BAND NEUTROPHILS % (MANUAL) 3 % (0-8); LYMPHOCYTES % (MANUAL) 10 % (20-45); NEUTROPHILS % (MANUAL) 83 % (45-75); TOTAL CELLS COUNTED 100
[2016-11-26 07:21] LABS: ANISOCYTOSIS 1+; BASOPHILS % (MANUAL) 0 % (0-2); EOSINOPHILS % (MANUAL) 0 % (0-3); PLATELET ESTIMATE DECREASED; PLATELET MORPHOLOGY NORMAL
[2016-11-26] MEDS: Heparin 5000 units/ml inj SUBQ SCH ×2 (08:25→20:57)
[2016-11-26] MEDS: Dyna-Hex 2% Top Sol 8oz TOPIC SCH (08:30)
--- NOTE | 2016-11-26 10:57 | Nephrology Progress Note ---
Assessment/Plan Problem List: (1) Hypernatremia Assessment: better (2) ARF (acute renal failure) Assessment: No change oliguric (3) Septic shock (4) Acute respiratory failure (5) Diabetes mellitus (6) UTI (urinary tract infection) Plan Off 05/08 NS start D5W Abxs Vent support Follow BMP Subjective Subjective All noted Intubated Objective Objective Last 24 Hour Vital Signs Date Time Temp Pulse Resp B/P Pulse Ox O2 Delivery O2 Flow Rate FiO2 11/26/16 10:51 79 20 40 11/26/16 10:07 103/57 11/26/16 10:00 87 23 90/50 99 Mechanical Ventilator 40 11/26/16 09:06 86 20 40 11/26/16 09:00 85 20 99/59 100 Mechanical Ventilator 40 11/26/16 09:00 99/59 11/26/16 08:00 98.4 85 18 99/47 100 Mechanical Ventilator 40 11/26/16 08:00 40 11/26/16 08:00 99/47 11/26/16 08:00 84 11/26/16 07:00 82/42 11/26/16 07:00 86 20 82/48 100 Mechanical Ventilator 40 11/26/16 07:00 85 20 40 11/26/16 06:00 90 22 97/52 100 Mechanical Ventilator 40 11/26/16 06:00 97/52 11/26/16 05:30 95 24 93/62 100 Mechanical Ventilator 40 11/26/16 05:22 95 26 40 11/26/16 05:00 98 21 91/56 99 Mechanical Ventilator 40 11/26/16 05:00 93/62 11/26/16 04:30 98.2 94 22 92/60 100 Mechanical Ventilator 40 11/26/16 04:00 40 11/26/16 04:00 89/63 11/26/16 04:00 94 23 89/63 100 Mechanical Ventilator 40 11/26/16 04:00 94 11/26/16 03:30 94 23 91/58 99 Mechanical Ventilator 40 11/26/16 03:10 96 25 40 11/26/16 03:04 94/63 11/26/16 03:00 95 24 94/63 99 Mechanical Ventilator 40 11/26/16 02:30 95 25 90/57 99 Mechanical Ventilator 40 11/26/16 02:00 97 25 99/59 99 Mechanical Ventilator 40 11/26/16 02:00 99/59 11/26/16 01:30 97 24 90/57 99 Mechanical Ventilator 40 11/26/16 01:23 98 26 40 11/26/16 01:00 90/54 11/26/16 01:00 96 24 90/54 99 Mechanical Ventilator 40 11/26/16 00:30 96 24 100/56 99 Mechanical Ventilator 40 11/26/16 00:00 97 11/26/16 00:00 40 11/26/16 00:00 98.4 97 22 95/60 99 Mechanical Ventilator 40 11/26/16 00:00 95/60 11/25/16 23:30 98 22 90/60 99 Mechanical Ventilator 40 11/25/16 23:21 100 21 40 11/25/16 23:00 98 23 86/58 99 Mechanical Ventilator 40 11/25/16 23:00 86/58 11/25/16 22:30 97 23 91/58 99 Mechanical Ventilator 40 11/25/16 22:00 87/59 11/25/16 22:00 101 27 87/59 99 Mechanical Ventilator 40 11/25/16 21:30 99 23 92/67 99 Mechanical Ventilator 40 11/25/16 21:17 99 23 40 11/25/16 21:00 93/65 11/25/16 21:00 100 23 93/65 99 Mechanical Ventilator 40 11/25/16 20:30 100 24 92/65 99 Mechanical Ventilator 40 11/25/16 20:00 102 11/25/16 20:00 97.8 100 25 94/66 99 Mechanical Ventilator 40 11/25/16 20:00 94/66 11/25/16 20:00 40 11/25/16 19:51 104/70 11/25/16 19:30 105 27 106/76 100 Mechanical Ventilator 40 11/25/16 19:28 105 24 40 11/25/16 19:00 103 19 100/83 98 Mechanical Ventilator 40 11/25/16 19:00 108/71 11/25/16 18:30 102 19 104/78 98 Mechanical Ventilator 40 11/25/16 18:15 101 19 109/78 98 Mechanical Ventilator 40 11/25/16 18:00 101 19 108/78 98 Mechanical Ventilator 40 11/25/16 18:00 109/78 11/25/16 17:45 100 19 111/73 99 Mechanical Ventilator 40 11/25/16 17:30 100 19 83/62 99 Mechanical Ventilator 40 11/25/16 17:15 101 19 112/72 99 Mechanical Ventilator 40 11/25/16 17:06 101/68 11/25/16 17:00 101 19 101/68 98 Mechanical Ventilator 40 11/25/16 16:45 95 18 50 11/25/16 16:45 101 20 105/68 98 Mechanical Ventilator 40 11/25/16 16:30 97.4 105 22 116/79 98 Mechanical Ventilator 40 11/25/16 16:30 40 11/25/16 16:30 106 11/25/16 16:19 95 18 105/67 96 Mechanical Ventilator 40 11/25/16 16:00 98.2 99 18 114/61 97 Mechanical Ventilator 15.0 40 11/25/16 15:50 40 11/25/16 15:39 104/69 11/25/16 15:34 111/64 11/25/16 15:30 99 20 111/64 97 Mechanical Ventilator 15.0 50 11/25/16 15:29 73/50 11/25/16 15:24 69/47 11/25/16 15:00 98.0 99 19 73/46 96 Mechanical Ventilator 15.0 50 11/25/16 14:32 109 24 50 11/25/16 14:30 103 20 82/43 98 Mechanical Ventilator 15.0 50 11/25/16 14:00 100 22 97/64 98 Mechanical Ventilator 15.0 60 11/25/16 13:32 118 28 Mechanical Ventilator 15.0 60 11/25/16 13:30 114 27 104/58 99 Mechanical Ventilator 15.0 60 11/25/16 12:57 118 28 102/83 99 Mechanical Ventilator 60 11/25/16 12:56 112 26 60 11/25/16 12:56 112 26 Mechanical Ventilator 15.0 60 11/25/16 12:54 60 11/25/16 12:46 97.5 113 25 90/51 99 Room Air Intake and Output 11/25/16 11/26/16 19:00 07:00 Intake Total 1765.0 ml 2842.5 ml Output Total 110 ml 115 ml Balance 1655.0 ml 2727.5 ml Intake Oral 0 ml Free Water 30 ml IV Total 1765.0 ml 2812.5 ml Output Urine Total 110 ml 115 ml Laboratory Tests 11/25/16 12:58: White Blood Count 24.3*H, Red Blood Count 6.13H, Hemoglobin 17.1H, Hematocrit 57.6H, Mean Corpuscular Volume 94, Mean Corpuscular Hemoglobin 27.9, Mean Corpuscular Hemoglobin Concent 29.7L, Red Cell Distribution Width 17.2H, Platelet Count 172, Mean Platelet Volume 13.4H, Neutrophils (%) (Auto) , Lymphocytes (%) (Auto) , Monocytes (%) (Auto) , Eosinophils (%) (Auto) , Basophils (%) (Auto) , Differential Total Cells Counted 100, Neutrophils % ( Manual) 93H, Lymphocytes % (Manual) 5L, Monocytes % (Manual) 2, Eosinophils % ( Manual) 0, Basophils % (Manual) 0, Band Neutrophils 0, Platelet Estimate Adequate, Platelet Morphology Normal, Hypochromasia 1+, Anisocytosis 1+, Prothrombin Time 12.8H, Prothromb Time International Ratio 1.2H, Activated Partial Thromboplast Time 27, Sodium Level 164*H, Potassium Level 5.7H, Chloride Level 117H, Carbon Dioxide Level 19L, Anion Gap 28H, Blood Urea Nitrogen 67H, Creatinine 2.0H, Estimat Glomerular Filtration Rate , Glucose Level 332H, Lactic Acid Level 7.60H, Calcium Level 9.4, Total Bilirubin 2.4H, Direct Bilirubin 1.1H, Aspartate Amino Transf (AST/SGOT) 44H, Alanine Aminotransferase (ALT/SGPT) 67H, Alkaline Phosphatase 103, Total Creatine Kinase 60, Troponin I < 0.30, Pro-B-Type Natriuretic Peptide 6407H, Total Protein 6.5L, Albumin 3.6, Globulin 2.9, Albumin/Globulin Ratio 1.2 11/25/16 13:15: Urine Color Yellow, Urine Appearance Cloudy, Urine pH 5, Urine Specific [place] 1.025, Urine Protein 2+H, Urine Glucose (UA) Negative, Urine Ketones 1+H, Urine Occult Blood 2+H, Urine Nitrite Negative, Urine Bilirubin 2+H, Urine Ictotest Negative, Urine Urobilinogen 8H, Urine Leukocyte Esterase 2+H, Urine RBC 5-10H, Urine WBC 15-20H, Urine Squamous Epithelial Cells ManyH, Urine Bacteria ManyH 11/25/16 14:07: Arterial Blood pH 7.368, Arterial Blood Partial Pressure CO2 28.8L, Arterial Blood Partial Pressure O2 199.0H, Arterial Blood HCO3 16.2L, Arterial Blood Oxygen Saturation 98.9H, Arterial Blood Base Excess -7.6, Isael Test Positive 11/25/16 14:19: Lactic Acid Level 6.30H 11/25/16 16:50: Urine Color Brown, Urine Appearance Cloudy, Urine pH 5, Urine Specific [place] 1.025, Urine Protein 2+H, Urine Glucose (UA) 1+H, Urine Ketones 1+H, Urine Occult Blood 3+H, Urine Nitrite Negative, Urine Bilirubin 2+H, Urine Ictotest Pos, Urine Urobilinogen 8H, Urine Leukocyte Esterase 3+H, Urine RBC 2-4H, Urine WBC 20-30H, Urine Squamous Epithelial Cells ManyH, Urine Bacteria ModerateH, Urine Eosinophils 0, Urine Random Sodium 24, Urine Random Chloride 25, Urine Potassium Timed 76 11/25/16 16:57: Sodium Level 162*H, Potassium Level 3.8, Chloride Level 121H, Carbon Dioxide Level 20, Anion Gap 21H, Blood Urea Nitrogen 64H, Creatinine 1.8H, Estimat Glomerular Filtration Rate , Glucose Level 380H, Plasma/Serum Osmolality [ Pending], Uric Acid 13.1H, Calcium Level 8.0L, Phosphorus Level 4.8, Magnesium Level 2.4, Total Bilirubin 1.8H, Direct Bilirubin 1.1H, Aspartate Amino Transf ( AST/SGOT) 36, Alanine Aminotransferase (ALT/SGPT) 52H, Alkaline Phosphatase 81, Total Creatine Kinase 54, Total Protein 4.9L, Albumin 2.9L, Globulin 2.0, Albumin/Globulin Ratio 1.4, Free Thyroxine 0.64L 11/25/16 17:30: Urine Osmolality [Pending] 11/26/16 04:20: Sodium Level 149#H, Potassium Level 3.2L, Chloride Level 115H, Carbon Dioxide Level 18L, Anion Gap 16H, Blood Urea Nitrogen 64H, Creatinine 1.8H, Estimat Glomerular Filtration Rate , Glucose Level 248#H, Calcium Level 7.7L, Total Bilirubin 1.4H, Direct Bilirubin 0.6H, Aspartate Amino Transf (AST/SGOT) 23, Alanine Aminotransferase (ALT/SGPT) 40H, Alkaline Phosphatase 79, Total Protein 4.9L, Albumin 2.4L, Globulin 2.5, Albumin/Globulin Ratio 0.9L, White Blood Count 22.0H, Red Blood Count 4.84, Hemoglobin 14.3, Hematocrit 44.8, Mean Corpuscular Volume 92, Mean Corpuscular Hemoglobin 29.6, Mean Corpuscular Hemoglobin Concent 32.0, Red Cell Distribution Width 16.3H, Platelet Count 115L , Mean Platelet Volume 12.0H, Neutrophils (%) (Auto) , Lymphocytes (%) (Auto) , Monocytes (%) (Auto) , Eosinophils (%) (Auto) , Basophils (%) (Auto) , Differential Total Cells Counted 100, Neutrophils % (Manual) 83H, Lymphocytes % (Manual) 10L, Monocytes % (Manual) 4, Eosinophils % (Manual) 0, Basophils % ( Manual) 0, Band Neutrophils 3, Platelet Estimate DecreasedL, Platelet Morphology Normal, Anisocytosis 1+ 11/26/16 06:00: Lactic Acid Level 3.80H 11/26/16 09:30: Lactic Acid Level 2.50H Height (Feet): 5 Height (Inches): 2.00 Weight (Pounds): 173 Cardiovascular: regular rhythm Respiratory/Chest: rhonchi - bilaterally Extremities: trace edema OBINNA MADRIGAL Nov 26, 2016 10:57
[2016-11-26] MEDS ORDERED: 1/2 NS 1000ml IV ONE (11:08)
[2016-11-26] MEDS ORDERED: Cefepime 1gm/D5W 55ml IVPB SCH ×2 (12:00)
--- NOTE | 2016-11-26 12:05 | General Progress Note ---
Assessment/Plan Assessment/Plan 1. Respiratory failure s/p intubation 2. Sepsis 2nd to UTI - cont IV abx. 3. Renal failure 2nd to sepsis - possible ATN - oligouric. 4. Hypernatremia - improved. 5. Septic Shock - in ICU. on presser. 6. H/O Basal Ganglia ischemic stroke recently 7. 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 Venous U/S pending. 8. Hyperlipidemia - Lipitor 20 mg one po qhs 9. DM II - SSI ordered. Subjective Constitutional: Reports: weakness HEENT: Reports: no symptoms Cardiovascular: Reports: no symptoms Respiratory: Reports: other Gastrointestinal/Abdominal: Reports: no symptoms Genitourinary: Reports: other - oligouria Neurologic/Psychiatric: Reports: no symptoms Endocrine: Reports: no symptoms Hematologic/Lymphatic: Reports: no symptoms Allergies: Coded Allergies: No Known Allergies (Unverified , 11/25/16) Subjective Pt is oligouria this morning. no sob or chest pain. she is DNR per family Prachi Blount. Objective Last 24 Hour Vital Signs Date Time Temp Pulse Resp B/P Pulse Ox O2 Delivery O2 Flow Rate FiO2 11/26/16 10:51 79 20 40 11/26/16 10:07 103/57 11/26/16 10:00 87 23 90/50 99 Mechanical Ventilator 40 11/26/16 09:06 86 20 40 11/26/16 09:00 85 20 99/59 100 Mechanical Ventilator 40 11/26/16 09:00 99/59 11/26/16 08:00 98.4 85 18 99/47 100 Mechanical Ventilator 40 11/26/16 08:00 40 11/26/16 08:00 99/47 11/26/16 08:00 84 11/26/16 07:00 82/42 11/26/16 07:00 86 20 82/48 100 Mechanical Ventilator 40 11/26/16 07:00 85 20 40 11/26/16 06:00 90 22 97/52 100 Mechanical Ventilator 40 11/26/16 06:00 97/52 11/26/16 05:30 95 24 93/62 100 Mechanical Ventilator 40 11/26/16 05:22 95 26 40 11/26/16 05:00 98 21 91/56 99 Mechanical Ventilator 40 11/26/16 05:00 93/62 11/26/16 04:30 98.2 94 22 92/60 100 Mechanical Ventilator 40 11/26/16 04:00 40 11/26/16 04:00 89/63 11/26/16 04:00 94 23 89/63 100 Mechanical Ventilator 40 11/26/16 04:00 94 11/26/16 03:30 94 23 91/58 99 Mechanical Ventilator 40 11/26/16 03:10 96 25 40 11/26/16 03:04 94/63 11/26/16 03:00 95 24 94/63 99 Mechanical Ventilator 40 11/26/16 02:30 95 25 90/57 99 Mechanical Ventilator 40 11/26/16 02:00 97 25 99/59 99 Mechanical Ventilator 40 11/26/16 02:00 99/59 11/26/16 01:30 97 24 90/57 99 Mechanical Ventilator 40 11/26/16 01:23 98 26 40 11/26/16 01:00 90/54 11/26/16 01:00 96 24 90/54 99 Mechanical Ventilator 40 11/26/16 00:30 96 24 100/56 99 Mechanical Ventilator 40 11/26/16 00:00 97 11/26/16 00:00 40 11/26/16 00:00 98.4 97 22 95/60 99 Mechanical Ventilator 40 11/26/16 00:00 95/60 11/25/16 23:30 98 22 90/60 99 Mechanical Ventilator 40 11/25/16 23:21 100 21 40 11/25/16 23:00 98 23 86/58 99 Mechanical Ventilator 40 11/25/16 23:00 86/58 11/25/16 22:30 97 23 91/58 99 Mechanical Ventilator 40 11/25/16 22:00 87/59 11/25/16 22:00 101 27 87/59 99 Mechanical Ventilator 40 11/25/16 21:30 99 23 92/67 99 Mechanical Ventilator 40 11/25/16 21:17 99 23 40 11/25/16 21:00 93/65 11/25/16 21:00 100 23 93/65 99 Mechanical Ventilator 40 11/25/16 20:30 100 24 92/65 99 Mechanical Ventilator 40 11/25/16 20:00 102 11/25/16 20:00 97.8 100 25 94/66 99 Mechanical Ventilator 40 11/25/16 20:00 94/66 11/25/16 20:00 40 11/25/16 19:51 104/70 11/25/16 19:30 105 27 106/76 100 Mechanical Ventilator 40 11/25/16 19:28 105 24 40 11/25/16 19:00 103 19 100/83 98 Mechanical Ventilator 40 11/25/16 19:00 108/71 11/25/16 18:30 102 19 104/78 98 Mechanical Ventilator 40 11/25/16 18:15 101 19 109/78 98 Mechanical Ventilator 40 11/25/16 18:00 101 19 108/78 98 Mechanical Ventilator 40 11/25/16 18:00 109/78 11/25/16 17:45 100 19 111/73 99 Mechanical Ventilator 40 11/25/16 17:30 100 19 83/62 99 Mechanical Ventilator 40 11/25/16 17:15 101 19 112/72 99 Mechanical Ventilator 40 11/25/16 17:06 101/68 11/25/16 17:00 101 19 101/68 98 Mechanical Ventilator 40 11/25/16 16:45 95 18 50 11/25/16 16:45 101 20 105/68 98 Mechanical Ventilator 40 11/25/16 16:30 97.4 105 22 116/79 98 Mechanical Ventilator 40 11/25/16 16:30 40 11/25/16 16:30 106 11/25/16 16:19 95 18 105/67 96 Mechanical Ventilator 40 11/25/16 16:00 98.2 99 18 114/61 97 Mechanical Ventilator 15.0 40 11/25/16 15:50 40 11/25/16 15:39 104/69 11/25/16 15:34 111/64 11/25/16 15:30 99 20 111/64 97 Mechanical Ventilator 15.0 50 11/25/16 15:29 73/50 11/25/16 15:24 69/47 11/25/16 15:00 98.0 99 19 73/46 96 Mechanical Ventilator 15.0 50 11/25/16 14:32 109 24 50 11/25/16 14:30 103 20 82/43 98 Mechanical Ventilator 15.0 50 11/25/16 14:00 100 22 97/64 98 Mechanical Ventilator 15.0 60 17 13:32 118 28 Mechanical Ventilator 15.0 60 11/25/16 13:30 114 27 104/58 99 Mechanical Ventilator 15.0 60 11/25/16 12:57 118 28 102/83 99 Mechanical Ventilator 60 11/25/16 12:56 112 26 60 11/25/16 12:56 112 26 Mechanical Ventilator 15.0 60 11/25/16 12:54 60 11/25/16 12:46 97.5 113 25 90/51 99 Room Air Intake and Output 11/25/16 11/26/16 19:00 07:00 Intake Total 1765.0 ml 2842.5 ml Output Total 110 ml 115 ml Balance 1655.0 ml 2727.5 ml Intake Oral 0 ml Free Water 30 ml IV Total 1765.0 ml 2812.5 ml Output Urine Total 110 ml 115 ml Laboratory Tests 11/25/16 12:58: White Blood Count 24.3*H, Red Blood Count 6.13H, Hemoglobin 17.1H, Hematocrit 57.6H, Mean Corpuscular Volume 94, Mean Corpuscular Hemoglobin 27.9, Mean Corpuscular Hemoglobin Concent 29.7L, Red Cell Distribution Width 17.2H, Platelet Count 172, Mean Platelet Volume 13.4H, Neutrophils (%) (Auto) , Lymphocytes (%) (Auto) , Monocytes (%) (Auto) , Eosinophils (%) (Auto) , Basophils (%) (Auto) , Differential Total Cells Counted 100, Neutrophils % ( Manual) 93H, Lymphocytes % (Manual) 5L, Monocytes % (Manual) 2, Eosinophils % ( Manual) 0, Basophils % (Manual) 0, Band Neutrophils 0, Platelet Estimate Adequate, Platelet Morphology Normal, Hypochromasia 1+, Anisocytosis 1+, Prothrombin Time 12.8H, Prothromb Time International Ratio 1.2H, Activated Partial Thromboplast Time 27, Sodium Level 164*H, Potassium Level 5.7H, Chloride Level 117H, Carbon Dioxide Level 19L, Anion Gap 28H, Blood Urea Nitrogen 67H, Creatinine 2.0H, Estimat Glomerular Filtration Rate , Glucose Level 332H, Lactic Acid Level 7.60H, Calcium Level 9.4, Total Bilirubin 2.4H, Direct Bilirubin 1.1H, Aspartate Amino Transf (AST/SGOT) 44H, Alanine Aminotransferase (ALT/SGPT) 67H, Alkaline Phosphatase 103, Total Creatine Kinase 60, Troponin I < 0.30, Pro-B-Type Natriuretic Peptide 6407H, Total Protein 6.5L, Albumin 3.6, Globulin 2.9, Albumin/Globulin Ratio 1.2 11/25/16 13:15: Urine Color Yellow, Urine Appearance Cloudy, Urine pH 5, Urine Specific [place] 1.025, Urine Protein 2+H, Urine Glucose (UA) Negative, Urine Ketones 1+H, Urine Occult Blood 2+H, Urine Nitrite Negative, Urine Bilirubin 2+H, Urine Ictotest Negative, Urine Urobilinogen 8H, Urine Leukocyte Esterase 2+H, Urine RBC 5-10H, Urine WBC 15-20H, Urine Squamous Epithelial Cells ManyH, Urine Bacteria ManyH 11/25/16 14:07: Arterial Blood pH 7.368, Arterial Blood Partial Pressure CO2 28.8L, Arterial Blood Partial Pressure O2 199.0H, Arterial Blood HCO3 16.2L, Arterial Blood Oxygen Saturation 98.9H, Arterial Blood Base Excess -7.6, Isael Test Positive 11/25/16 14:19: Lactic Acid Level 6.30H 11/25/16 16:50: Urine Color Brown, Urine Appearance Cloudy, Urine pH 5, Urine Specific [place] 1.025, Urine Protein 2+H, Urine Glucose (UA) 1+H, Urine Ketones 1+H, Urine Occult Blood 3+H, Urine Nitrite Negative, Urine Bilirubin 2+H, Urine Ictotest Pos, Urine Urobilinogen 8H, Urine Leukocyte Esterase 3+H, Urine RBC 2-4H, Urine WBC 20-30H, Urine Squamous Epithelial Cells ManyH, Urine Bacteria ModerateH, Urine Eosinophils 0, Urine Random Sodium 24, Urine Random Chloride 25, Urine Potassium Timed 76 11/25/16 16:57: Sodium Level 162*H, Potassium Level 3.8, Chloride Level 121H, Carbon Dioxide Level 20, Anion Gap 21H, Blood Urea Nitrogen 64H, Creatinine 1.8H, Estimat Glomerular Filtration Rate , Glucose Level 380H, Plasma/Serum Osmolality [ Pending], Uric Acid 13.1H, Calcium Level 8.0L, Phosphorus Level 4.8, Magnesium Level 2.4, Total Bilirubin 1.8H, Direct Bilirubin 1.1H, Aspartate Amino Transf ( AST/SGOT) 36, Alanine Aminotransferase (ALT/SGPT) 52H, Alkaline Phosphatase 81, Total Creatine Kinase 54, Total Protein 4.9L, Albumin 2.9L, Globulin 2.0, Albumin/Globulin Ratio 1.4, Free Thyroxine 0.64L 7/22/17 17:30: Urine Osmolality [Pending] 11/26/16 04:20: Sodium Level 149#H, Potassium Level 3.2L, Chloride Level 115H, Carbon Dioxide Level 18L, Anion Gap 16H, Blood Urea Nitrogen 64H, Creatinine 1.8H, Estimat Glomerular Filtration Rate , Glucose Level 248#H, Calcium Level 7.7L, Total Bilirubin 1.4H, Direct Bilirubin 0.6H, Aspartate Amino Transf (AST/SGOT) 23, Alanine Aminotransferase (ALT/SGPT) 40H, Alkaline Phosphatase 79, Total Protein 4.9L, Albumin 2.4L, Globulin 2.5, Albumin/Globulin Ratio 0.9L, White Blood Count 22.0H, Red Blood Count 4.84, Hemoglobin 14.3, Hematocrit 44.8, Mean Corpuscular Volume 92, Mean Corpuscular Hemoglobin 29.6, Mean Corpuscular Hemoglobin Concent 32.0, Red Cell Distribution Width 16.3H, Platelet Count 115L , Mean Platelet Volume 12.0H, Neutrophils (%) (Auto) , Lymphocytes (%) (Auto) , Monocytes (%) (Auto) , Eosinophils (%) (Auto) , Basophils (%) (Auto) , Differential Total Cells Counted 100, Neutrophils % (Manual) 83H, Lymphocytes % (Manual) 10L, Monocytes % (Manual) 4, Eosinophils % (Manual) 0, Basophils % ( Manual) 0, Band Neutrophils 3, Platelet Estimate DecreasedL, Platelet Morphology Normal, Anisocytosis 1+ 11/26/16 06:00: Lactic Acid Level 3.80H 11/26/16 09:30: Lactic Acid Level 2.50H Height (Feet): 5 Height (Inches): 2.00 Weight (Pounds): 173 General Appearance: no apparent distress, alert, lethargic Neck: non-tender, normal alignment, supple Cardiovascular: normal peripheral pulses, normal rate, regular rhythm Respiratory/Chest: chest wall non-tender, lungs clear, other - intubated Abdomen: normal bowel sounds, non tender, soft Extremities: normal range of motion, non-tender Edema: no edema noted Arm (L), no edema noted Arm (R), no edema noted Leg (L), no edema noted Leg (R), no edema noted Pedal (L), no edema noted Pedal (R), no edema noted Generalized Neurologic: responsive Skin: warm/dry Lymphatic: normal anterior cervical (L), normal anterior cervical (R), normal axillary (L), normal axillary (R), normal inguinal (L), normal inguinal (R), normal other, normal posterior cervical (L), normal posterior cervical (R), normal submandibular (L), normal submandibular (R), normal supraclavicular (L), normal supraclavicular (R) TERI JACKSON Nov 26, 2016 12:05
--- NOTE | 2016-11-26 12:05 | Pulmonolgy Critical Care Note ---
Critical Care - Asmt/Plan Problems: (1) Respiratory failure (2) Septic shock (3) Acute encephalopathy (4) ARF (acute renal failure) (5) Hypernatremia (6) Diabetes mellitus Respiratory: monitor respiratory rate, adjust FIO2, CXR Cardiac: continue pressors, continue to monitor HR/BP Renal: F/U I&O, keep IV fluid, check electrolytes, other - on D5w 100 cc.hour Infectious Disease: add antibiotics Gastrointestinal: continue feedings/current rate Endocrine: monitor blood sugar, continue sliding scale insulin Hematologic: monitor H/H, transfuse if hgb<8.5 Neurologic: PRN Ativan Affect: PRN ativan Prophylaxis: Protonix Disposition: keep in ICU Notes Reviewed: renal Discussed with: nurses, consultants, case foldercardiology manager - Objective Last 24 Hour Vital Signs Date Time Temp Pulse Resp B/P Pulse Ox O2 Delivery O2 Flow Rate FiO2 11/26/16 10:51 79 20 40 11/26/16 10:07 103/57 11/26/16 10:00 87 23 90/50 99 Mechanical Ventilator 40 11/26/16 09:06 86 20 40 11/26/16 09:00 85 20 99/59 100 Mechanical Ventilator 40 11/26/16 09:00 99/59 11/26/16 08:00 98.4 85 18 99/47 100 Mechanical Ventilator 40 11/26/16 08:00 40 11/26/16 08:00 99/47 11/26/16 08:00 84 11/26/16 07:00 82/42 11/26/16 07:00 86 20 82/48 100 Mechanical Ventilator 40 11/26/16 07:00 85 20 40 11/26/16 06:00 90 22 97/52 100 Mechanical Ventilator 40 11/26/16 06:00 97/52 11/26/16 05:30 95 24 93/62 100 Mechanical Ventilator 40 11/26/16 05:22 95 26 40 11/26/16 05:00 98 21 91/56 99 Mechanical Ventilator 40 11/26/16 05:00 93/62 11/26/16 04:30 98.2 94 22 92/60 100 Mechanical Ventilator 40 11/26/16 04:00 40 11/26/16 04:00 89/63 11/26/16 04:00 94 23 89/63 100 Mechanical Ventilator 40 11/26/16 04:00 94 7/23/17 03:30 94 23 91/58 99 Mechanical Ventilator 40 11/26/16 03:10 96 25 40 11/26/16 03:04 94/63 11/26/16 03:00 95 24 94/63 99 Mechanical Ventilator 40 11/26/16 02:30 95 25 90/57 99 Mechanical Ventilator 40 11/26/16 02:00 97 25 99/59 99 Mechanical Ventilator 40 11/26/16 02:00 99/59 11/26/16 01:30 97 24 90/57 99 Mechanical Ventilator 40 11/26/16 01:23 98 26 40 11/26/16 01:00 90/54 11/26/16 01:00 96 24 90/54 99 Mechanical Ventilator 40 11/26/16 00:30 96 24 100/56 99 Mechanical Ventilator 40 11/26/16 00:00 97 11/26/16 00:00 40 11/26/16 00:00 98.4 97 22 95/60 99 Mechanical Ventilator 40 11/26/16 00:00 95/60 11/25/16 23:30 98 22 90/60 99 Mechanical Ventilator 40 11/25/16 23:21 100 21 40 11/25/16 23:00 98 23 86/58 99 Mechanical Ventilator 40 11/25/16 23:00 86/58 11/25/16 22:30 97 23 91/58 99 Mechanical Ventilator 40 11/25/16 22:00 87/59 11/25/16 22:00 101 27 87/59 99 Mechanical Ventilator 40 11/25/16 21:30 99 23 92/67 99 Mechanical Ventilator 40 11/25/16 21:17 99 23 40 11/25/16 21:00 93/65 11/25/16 21:00 100 23 93/65 99 Mechanical Ventilator 40 11/25/16 20:30 100 24 92/65 99 Mechanical Ventilator 40 11/25/16 20:00 102 11/25/16 20:00 97.8 100 25 94/66 99 Mechanical Ventilator 40 11/25/16 20:00 94/66 11/25/16 20:00 40 11/25/16 19:51 104/70 11/25/16 19:30 105 27 106/76 100 Mechanical Ventilator 40 11/25/16 19:28 105 24 40 11/25/16 19:00 103 19 100/83 98 Mechanical Ventilator 40 11/25/16 19:00 108/71 11/25/16 18:30 102 19 104/78 98 Mechanical Ventilator 40 11/25/16 18:15 101 19 109/78 98 Mechanical Ventilator 40 11/25/16 18:00 101 19 108/78 98 Mechanical Ventilator 40 11/25/16 18:00 109/78 11/25/16 17:45 100 19 111/73 99 Mechanical Ventilator 40 11/25/16 17:30 100 19 83/62 99 Mechanical Ventilator 40 11/25/16 17:15 101 19 112/72 99 Mechanical Ventilator 40 11/25/16 17:06 101/68 11/25/16 17:00 101 19 101/68 98 Mechanical Ventilator 40 11/25/16 16:45 95 18 50 11/25/16 16:45 101 20 105/68 98 Mechanical Ventilator 40 11/25/16 16:30 97.4 105 22 116/79 98 Mechanical Ventilator 40 11/25/16 16:30 40 11/25/16 16:30 106 11/25/16 16:19 95 18 105/67 96 Mechanical Ventilator 40 11/25/16 16:00 98.2 99 18 114/61 97 Mechanical Ventilator 15.0 40 11/25/16 15:50 40 11/25/16 15:39 104/69 11/25/16 15:34 111/64 11/25/16 15:30 99 20 111/64 97 Mechanical Ventilator 15.0 50 11/25/16 15:29 73/50 11/25/16 15:24 69/47 11/25/16 15:00 98.0 99 19 73/46 96 Mechanical Ventilator 15.0 50 11/25/16 14:32 109 24 50 11/25/16 14:30 103 20 82/43 98 Mechanical Ventilator 15.0 50 11/25/16 14:00 100 22 97/64 98 Mechanical Ventilator 15.0 60 11/25/16 13:32 118 28 Mechanical Ventilator 15.0 60 11/25/16 13:30 114 27 104/58 99 Mechanical Ventilator 15.0 60 11/25/16 12:57 118 28 102/83 99 Mechanical Ventilator 60 11/25/16 12:56 112 26 60 11/25/16 12:56 112 26 Mechanical Ventilator 15.0 60 11/25/16 12:54 60 11/25/16 12:46 97.5 113 25 90/51 99 Room Air Status: sedated Condition: critical HEENT: atraumatic Lungs: chest wall tender Heart: HR/BP stable, regular Abdomen: soft, non-tender Decubiti: location Micro: Microbiology Date/Time Source Procedure Growth Status 11/25/16 14:00 Stool Clostridium difficile Toxin Assay - Final Complete 11/25/16 16:50 Urine,Clean Catch Urine Culture - Preliminary NO GROWTH Resulted Accucheck: 190 Critical Care - Subjective ROS Limited/Unobtainable: Yes ICU Day: 2 Intubation Day: 2 Interval Events: 86 year old female BIBA yesterday with ALOC. Pt was in septic shock. got intubated and transferred to ICU. Currently pt is intubated, sedated and on Dopamine drip. FI02: 40 Vent Support Breath Rate: 18 Vent Support Mode: AC Vent Tidal Volume: 600 Sputum Amount: None PIP: 23 I&O: Intake and Output 11/25/16 11/26/16 19:00 07:00 Intake Total 1765.0 ml 2842.5 ml Output Total 110 ml 115 ml Balance 1655.0 ml 2727.5 ml Intake Oral 0 ml Free Water 30 ml IV Total 1765.0 ml 2812.5 ml Output Urine Total 110 ml 115 ml CXR: Clear, ET in good position ET-Tube: 7.5 ET Position: 22 Labs: Laboratory Tests Test 11/25/16 12:58 11/25/16 13:15 11/25/16 14:07 11/25/16 14:19 White Blood Count 24.3 K/UL (4.8-10.8) *H Red Blood Count 6.13 M/UL (4.20-5.40) H Hemoglobin 17.1 G/DL (12.0-16.0) H Hematocrit 57.6 % (37.0-47.0) H Mean Corpuscular Volume 94 FL (80-99) Mean Corpuscular Hemoglobin 27.9 PG (27.0-31.0) Mean Corpuscular Hemoglobin Concent 29.7 G/DL (32.0-36.0) L Red Cell Distribution Width 17.2 % (11.6-14.8) H Platelet Count 172 K/UL (150-450) Mean Platelet Volume 13.4 FL (6.5-10.1) H Neutrophils (%) (Auto) % (45.0-75.0) Lymphocytes (%) (Auto) % (20.0-45.0) Monocytes (%) (Auto) % (1.0-10.0) Eosinophils (%) (Auto) % (0.0-3.0) Basophils (%) (Auto) % (0.0-2.0) Differential Total Cells Counted 100 Neutrophils % (Manual) 93 % (45-75) H Lymphocytes % (Manual) 5 % (20-45) L Monocytes % (Manual) 2 % (1-10) Eosinophils % (Manual) 0 % (0-3) Basophils % (Manual) 0 % (0-2) Band Neutrophils 0 % (0-8) Platelet Estimate Adequate Platelet Morphology Normal Hypochromasia 1+ Anisocytosis 1+ Prothrombin Time 12.8 SEC (9.30-11.50) H Prothromb Time International Ratio 1.2 (0.9-1.1) H Activated Partial Thromboplast Time 27 SEC (23-33) Sodium Level 164 mEQ/L (135-145) *H Potassium Level 5.7 mEQ/L (3.4-4.9) H Chloride Level 117 mEQ/L (98-107) H Carbon Dioxide Level 19 mEQ/L (20-30) L Anion Gap 28 (5-15) H Blood Urea Nitrogen 67 mg/dL (7-23) H Creatinine 2.0 mg/dL (0.5-0.9) H Estimat Glomerular Filtration Rate mL/min (>60) Glucose Level 332 mg/dL (74-106) H Lactic Acid Level 7.60 mmol/L (0.66-2.22) H 6.30 mmol/L (0.66-2.22) H Calcium Level 9.4 mg/dL (8.6-10.2) Total Bilirubin 2.4 mg/dL (0.0-1.2) H Direct Bilirubin 1.1 mg/dL (0.1-0.3) H Aspartate Amino Transf (AST/SGOT) 44 U/L (5-40) H Alanine Aminotransferase (ALT/SGPT) 67 U/L (3-33) H Alkaline Phosphatase 103 U/L (35-104) Total Creatine Kinase 60 U/L (26-140) Troponin I < 0.30 ng/mL (<=0.30) Pro-B-Type Natriuretic Peptide 6407 pg/mL (0-450) H Total Protein 6.5 g/dL (6.6-8.7) L Albumin 3.6 g/dL (3.5-5.2) Globulin 2.9 g/dL Albumin/Globulin Ratio 1.2 (1.0-2.7) Urine Color Yellow Urine Appearance Cloudy Urine pH 5 (4.5-8.0) Urine Specific [place] 1.025 (1.005-1.035) Urine Protein 2+ (NEGATIVE) H Urine Glucose (UA) Negative (NEGATIVE) Urine Ketones 1+ (NEGATIVE) H Urine Occult Blood 2+ (NEGATIVE) H Urine Nitrite Negative (NEGATIVE) Urine Bilirubin 2+ (NEGATIVE) H Urine Ictotest Negative Urine Urobilinogen 8 MG/DL (0.0-1.0) H Urine Leukocyte Esterase 2+ (NEGATIVE) H Urine RBC 5-10 /HPF (0 - 2) H Urine WBC 15-20 /HPF (0 - 2) H Urine Squamous Epithelial Cells Many /LPF (NONE/OCC) H Urine Bacteria Many /HPF (NONE) H Arterial Blood pH 7.368 (7.350-7.450) Arterial Blood Partial Pressure CO2 28.8 mmHg (35.0-45.0) L Arterial Blood Partial Pressure O2 199.0 mmHg (75.0-100.0) H Arterial Blood HCO3 16.2 mmol/L (22.0-26.0) L Arterial Blood Oxygen Saturation 98.9 % (92.0-98.0) H Arterial Blood Base Excess -7.6 Isael Test Positive Test 11/25/16 16:50 11/25/16 16:57 11/25/16 17:30 11/26/16 04:20 Urine Color Brown Urine Appearance Cloudy Urine pH 5 (4.5-8.0) Urine Specific [place] 1.025 (1.005-1.035) Urine Protein 2+ (NEGATIVE) H Urine Glucose (UA) 1+ (NEGATIVE) H Urine Ketones 1+ (NEGATIVE) H Urine Occult Blood 3+ (NEGATIVE) H Urine Nitrite Negative (NEGATIVE) Urine Bilirubin 2+ (NEGATIVE) H Urine Ictotest Pos Urine Urobilinogen 8 MG/DL (0.0-1.0) H Urine Leukocyte Esterase 3+ (NEGATIVE) H Urine RBC 2-4 /HPF (0 - 2) H Urine WBC 20-30 /HPF (0 - 2) H Urine Squamous Epithelial Cells Many /LPF (NONE/OCC) H Urine Bacteria Moderate /HPF (NONE) H Urine Eosinophils 0 Urine Random Sodium 24 mmol/L Urine Random Chloride 25 mmol/L Urine Potassium Timed 76 mmol/L Sodium Level 162 mEQ/L (135-145) *H 149 mEQ/L (135-145) #H Potassium Level 3.8 mEQ/L (3.4-4.9) 3.2 mEQ/L (3.4-4.9) L Chloride Level 121 mEQ/L (98-107) H 115 mEQ/L (98-107) H Carbon Dioxide Level 20 mEQ/L (20-30) 18 mEQ/L (20-30) L Anion Gap 21 (5-15) H 16 (5-15) H Blood Urea Nitrogen 64 mg/dL (7-23) H 64 mg/dL (7-23) H Creatinine 1.8 mg/dL (0.5-0.9) H 1.8 mg/dL (0.5-0.9) H Estimat Glomerular Filtration Rate mL/min (>60) mL/min (>60) Glucose Level 380 mg/dL (74-106) H 248 mg/dL (74-106) #H Plasma/Serum Osmolality Pending Uric Acid 13.1 mg/dL (3.0-7.5) H Calcium Level 8.0 mg/dL (8.6-10.2) L 7.7 mg/dL (8.6-10.2) L Phosphorus Level 4.8 mg/dL (2.5-4.8) Magnesium Level 2.4 mg/dL (1.7-2.5) Total Bilirubin 1.8 mg/dL (0.0-1.2) H 1.4 mg/dL (0.0-1.2) H Direct Bilirubin 1.1 mg/dL (0.1-0.3) H 0.6 mg/dL (0.1-0.3) H Aspartate Amino Transf (AST/SGOT) 36 U/L (5-40) 23 U/L (5-40) Alanine Aminotransferase (ALT/SGPT) 52 U/L (3-33) H 40 U/L (3-33) H Alkaline Phosphatase 81 U/L (35-104) 79 U/L (35-104) Total Creatine Kinase 54 U/L (26-140) Total Protein 4.9 g/dL (6.6-8.7) L 4.9 g/dL (6.6-8.7) L Albumin 2.9 g/dL (3.5-5.2) L 2.4 g/dL (3.5-5.2) L Globulin 2.0 g/dL 2.5 g/dL Albumin/Globulin Ratio 1.4 (1.0-2.7) 0.9 (1.0-2.7) L Free Thyroxine 0.64 ng/dL (0.86-1.85) L Urine Osmolality Pending White Blood Count 22.0 K/UL (4.8-10.8) H Red Blood Count 4.84 M/UL (4.20-5.40) Hemoglobin 14.3 G/DL (12.0-16.0) Hematocrit 44.8 % (37.0-47.0) Mean Corpuscular Volume 92 FL (80-99) Mean Corpuscular Hemoglobin 29.6 PG (27.0-31.0) Mean Corpuscular Hemoglobin Concent 32.0 G/DL (32.0-36.0) Red Cell Distribution Width 16.3 % (11.6-14.8) H Platelet Count 115 K/UL (150-450) L Mean Platelet Volume 12.0 FL (6.5-10.1) H Neutrophils (%) (Auto) % (45.0-75.0) Lymphocytes (%) (Auto) % (20.0-45.0) Monocytes (%) (Auto) % (1.0-10.0) Eosinophils (%) (Auto) % (0.0-3.0) Basophils (%) (Auto) % (0.0-2.0) Differential Total Cells Counted 100 Neutrophils % (Manual) 83 % (45-75) H Lymphocytes % (Manual) 10 % (20-45) L Monocytes % (Manual) 4 % (1-10) Eosinophils % (Manual) 0 % (0-3) Basophils % (Manual) 0 % (0-2) Band Neutrophils 3 % (0-8) Platelet Estimate Decreased L Platelet Morphology Normal Anisocytosis 1+ Test 11/26/16 06:00 11/26/16 09:30 Lactic Acid Level 3.80 mmol/L (0.66-2.22) H 2.50 mmol/L (0.66-2.22) H STEVIE GUO Nov 26, 2016 12:05
[2016-11-26] MEDS ORDERED: DOPamine 400mg/250ml 250 ML IV SCH (12:15)
[2016-11-26] MEDS: DOPamine 400mg/250ml 250 ML IV SCH (12:23)
[2016-11-26 13:23] LABS: REFLEX LACTIC ACID YES OR NO YES
[2016-11-26 19:56] LABS: REFLEX LACTIC ACID YES OR NO YES
--- NOTE | 2016-11-26 20:40 | Infectious Diseases Prog Note ---
Assessment/Plan Problems: (1) Septic shock Assessment & Plan: due to urine infection , possible pyelonephritis, continue cefepime and levaquin empiricaly , await blood culture and urine culture (2) UTI (urinary tract infection) Assessment & Plan: possible pylonephritis, await urine culture and continue cefepime and levaquin empirically (3) MARYAM (acute kidney injury) Assessment & Plan: due to sepsis , continue ivf with boluses to improve her blood pressure , avoid nephrotixic meds, renal is following , monitor UOP (4) Shock liver Assessment & Plan: due to sepsis , will screen for hepatitis, monitor LFT (5) Acute respiratory failure Assessment & Plan: due to sepsis, S/P intubation , monitor ABG, and CXR , consult pulmonary for further care (6) Diabetes mellitus Assessment & Plan: hold po meds, continue to monitor blood glucose as per unit protocol, keep tight glycemic control (7) Acute hypernatremia Assessment & Plan: due to free volume loss, continue fluids for hydration, monitor sodium level. Subjective ROS Limited/Unobtainable: Yes Allergies: Coded Allergies: No Known Allergies (Unverified , 11/25/16) Subjective intubated, on pressor, remained in critical condition Objective Vital Signs Last 24 Hour Vital Signs Date Time Temp Pulse Resp B/P Pulse Ox O2 Delivery O2 Flow Rate FiO2 11/26/16 20:00 98.2 102 25 91/69 99 Mechanical Ventilator 40 11/26/16 20:00 40 11/26/16 20:00 107 11/26/16 19:30 109 22 97/39 98 Mechanical Ventilator 40 11/26/16 19:10 103 24 40 11/26/16 19:00 104 24 97/39 100 Mechanical Ventilator 40 11/26/16 19:00 97/39 11/26/16 18:30 101 24 98/66 100 Mechanical Ventilator 40 11/26/16 18:00 106 24 99/60 100 Mechanical Ventilator 40 11/26/16 18:00 98/66 11/26/16 17:30 105 22 92/56 100 Mechanical Ventilator 40 11/26/16 17:26 109/26 11/26/16 17:00 111 22 109/36 100 Mechanical Ventilator 40 11/26/16 16:51 110 24 40 11/26/16 16:30 99 22 96/60 100 Mechanical Ventilator 40 11/26/16 16:00 40 11/26/16 16:00 94 11/26/16 16:00 97.4 96 22 88/48 100 Mechanical Ventilator 40 11/26/16 16:00 88/48 11/26/16 15:30 95 21 90/44 100 Mechanical Ventilator 40 11/26/16 15:00 98 21 88/59 100 Mechanical Ventilator 40 11/26/16 15:00 88/59 11/26/16 14:57 106 20 40 11/26/16 14:30 105 20 95/57 100 Mechanical Ventilator 40 11/26/16 14:00 103 22 87/56 100 Mechanical Ventilator 40 11/26/16 13:11 103 21 40 11/26/16 13:00 108 20 117/58 100 Mechanical Ventilator 40 11/26/16 12:30 100 21 106/71 100 Mechanical Ventilator 40 11/26/16 12:23 99/56 11/26/16 12:07 102/65 11/26/16 12:00 40 11/26/16 12:00 84 11/26/16 12:00 98.1 88 23 99/56 100 Mechanical Ventilator 40 11/26/16 11:30 85 22 102/65 100 Mechanical Ventilator 40 11/26/16 11:07 113/83 11/26/16 11:00 85 21 113/83 100 Mechanical Ventilator 40 11/26/16 10:51 79 20 40 11/26/16 10:07 103/57 11/26/16 10:00 87 23 90/50 99 Mechanical Ventilator 40 11/26/16 09:06 86 20 40 11/26/16 09:00 85 20 99/59 100 Mechanical Ventilator 40 11/26/16 09:00 99/59 11/26/16 08:00 98.4 85 18 99/47 100 Mechanical Ventilator 40 11/26/16 08:00 40 11/26/16 08:00 99/47 11/26/16 08:00 84 11/26/16 07:00 82/42 11/26/16 07:00 86 20 82/48 100 Mechanical Ventilator 40 11/26/16 07:00 85 20 40 11/26/16 06:00 90 22 97/52 100 Mechanical Ventilator 40 11/26/16 06:00 97/52 11/26/16 05:30 95 24 93/62 100 Mechanical Ventilator 40 11/26/16 05:22 95 26 40 11/26/16 05:00 98 21 91/56 99 Mechanical Ventilator 40 11/26/16 05:00 93/62 11/26/16 04:30 98.2 94 22 92/60 100 Mechanical Ventilator 40 11/26/16 04:00 40 11/26/16 04:00 89/63 11/26/16 04:00 94 23 89/63 100 Mechanical Ventilator 40 11/26/16 04:00 94 11/26/16 03:30 94 23 91/58 99 Mechanical Ventilator 40 11/26/16 03:10 96 25 40 11/26/16 03:04 94/63 11/26/16 03:00 95 24 94/63 99 Mechanical Ventilator 40 11/26/16 02:30 95 25 90/57 99 Mechanical Ventilator 40 11/26/16 02:00 97 25 99/59 99 Mechanical Ventilator 40 11/26/16 02:00 99/59 11/26/16 01:30 97 24 90/57 99 Mechanical Ventilator 40 11/26/16 01:23 98 26 40 11/26/16 01:00 90/54 11/26/16 01:00 96 24 90/54 99 Mechanical Ventilator 40 11/26/16 00:30 96 24 100/56 99 Mechanical Ventilator 40 11/26/16 00:00 97 11/26/16 00:00 40 11/26/16 00:00 98.4 97 22 95/60 99 Mechanical Ventilator 40 11/26/16 00:00 95/60 11/25/16 23:30 98 22 90/60 99 Mechanical Ventilator 40 11/25/16 23:21 100 21 40 11/25/16 23:00 98 23 86/58 99 Mechanical Ventilator 40 11/25/16 23:00 86/58 11/25/16 22:30 97 23 91/58 99 Mechanical Ventilator 40 11/25/16 22:00 87/59 11/25/16 22:00 101 27 87/59 99 Mechanical Ventilator 40 11/25/16 21:30 99 23 92/67 99 Mechanical Ventilator 40 11/25/16 21:17 99 23 40 11/25/16 21:00 93/65 11/25/16 21:00 100 23 93/65 99 Mechanical Ventilator 40 Height (Feet): 5 Height (Inches): 2.00 Weight (Pounds): 173 General Appearance: WD/WN, no acute distress HEENT: normocephalic, atraumatic, anicteric, mucous membranes moist Respiratory/Chest: no respiratory distress, no accessory muscle use, decreased breath sounds, crackles/rales Cardiovascular: normal peripheral pulses, normal rate, regular rhythm, no gallop/murmur, no JVD Abdomen: normal bowel sounds, no organomegaly, non distended, no mass, no scars Extremities: no cyanosis, no clubbing, other - bruises Skin: no rash, no lesions, ulcers Microbiology Date/Time Source Procedure Growth Status 11/25/16 13:31 Blood Blood Culture - Preliminary Resulted 11/25/16 14:00 Stool Clostridium difficile Toxin Assay - Final Complete 11/25/16 16:50 Urine,Clean Catch Urine Culture - Preliminary NO GROWTH Resulted Laboratory Tests Test 11/26/16 04:20 11/26/16 06:00 11/26/16 09:30 11/26/16 12:30 White Blood Count 22.0 K/UL (4.8-10.8) H Red Blood Count 4.84 M/UL (4.20-5.40) Hemoglobin 14.3 G/DL (12.0-16.0) Hematocrit 44.8 % (37.0-47.0) Mean Corpuscular Volume 92 FL (80-99) Mean Corpuscular Hemoglobin 29.6 PG (27.0-31.0) Mean Corpuscular Hemoglobin Concent 32.0 G/DL (32.0-36.0) Red Cell Distribution Width 16.3 % (11.6-14.8) H Platelet Count 115 K/UL (150-450) L Mean Platelet Volume 12.0 FL (6.5-10.1) H Neutrophils (%) (Auto) % (45.0-75.0) Lymphocytes (%) (Auto) % (20.0-45.0) Monocytes (%) (Auto) % (1.0-10.0) Eosinophils (%) (Auto) % (0.0-3.0) Basophils (%) (Auto) % (0.0-2.0) Differential Total Cells Counted 100 Neutrophils % (Manual) 83 % (45-75) H Lymphocytes % (Manual) 10 % (20-45) L Monocytes % (Manual) 4 % (1-10) Eosinophils % (Manual) 0 % (0-3) Basophils % (Manual) 0 % (0-2) Band Neutrophils 3 % (0-8) Platelet Estimate Decreased L Platelet Morphology Normal Anisocytosis 1+ Sodium Level 149 mEQ/L (135-145) #H Potassium Level 3.2 mEQ/L (3.4-4.9) L Chloride Level 115 mEQ/L (98-107) H Carbon Dioxide Level 18 mEQ/L (20-30) L Anion Gap 16 (5-15) H Blood Urea Nitrogen 64 mg/dL (7-23) H Creatinine 1.8 mg/dL (0.5-0.9) H Estimat Glomerular Filtration Rate mL/min (>60) Glucose Level 248 mg/dL (74-106) #H Calcium Level 7.7 mg/dL (8.6-10.2) L Total Bilirubin 1.4 mg/dL (0.0-1.2) H Direct Bilirubin 0.6 mg/dL (0.1-0.3) H Aspartate Amino Transf (AST/SGOT) 23 U/L (5-40) Alanine Aminotransferase (ALT/SGPT) 40 U/L (3-33) H Alkaline Phosphatase 79 U/L (35-104) Total Protein 4.9 g/dL (6.6-8.7) L Albumin 2.4 g/dL (3.5-5.2) L Globulin 2.5 g/dL Albumin/Globulin Ratio 0.9 (1.0-2.7) L Lactic Acid Level 3.80 mmol/L (0.66-2.22) H 2.50 mmol/L (0.66-2.22) H 2.60 mmol/L (0.66-2.22) H Test 11/26/16 19:20 Lactic Acid Level 2.80 mmol/L (0.66-2.22) H Current Medications Medications (Trade) Dose Ordered Sig/Flora Route PRN Reason Start Time Stop Time Status Last Admin Dose Admin Acetaminophen (Tylenol) 650 mg Q4H PRN ORAL fever 11/25/16 16:00 12/25/16 15:59 Albuterol/ Ipratropium (DuoNeb 0.5-3(2.5)mg/3ml) 3 ml Q4H PRN HHN Shortness of Breath 11/25/16 16:00 11/30/16 15:59 Cefepime HCl/ Dextrose (Maxipime/D5W) 55 ml @ 110 mls/hr Q24H IVPB 11/26/16 12:00 12/03/16 11:59 11/26/16 11:09 Chlorhexidine Gluconate 1 applic 1 applic DAILY TOPIC 11/26/16 09:00 12/26/16 08:59 11/26/16 08:30 Dextrose 1,000 ml @ 50 mls/hr Q20H IV 11/26/16 11:00 12/26/16 10:59 11/26/16 11:09 Dextrose (Dextrose 50%) STAT PRN IV Hypoglycemia 11/25/16 16:00 12/25/16 15:59 Dopamine HCl/ Dextrose (DOPamine 400mg/ 250ml) 250 ml @ 14.724 mls/ hr Q24H IV 11/26/16 12:15 12/26/16 12:14 11/26/16 12:23 Heparin Sodium (Porcine) (Heparin 5000 units/ml) 5,000 units EVERY 12 HOURS SUBQ 11/25/16 21:00 12/25/16 20:59 11/25/16 20:51 Insulin Aspart (NovoLOG) EVERY 6 HOURS SUBQ 11/26/16 00:00 12/26/16 00:00 11/26/16 17:27 Levofloxacin 100 ml @ 100 mls/hr Q48H IVPB 11/27/16 14:00 12/04/16 13:59 Morphine Sulfate (Morphine Sulfate) 2 mg Q4H PRN IVP Moderate Pain (Pain Scale 4-6) 11/25/16 16:00 12/02/16 15:59 Nitroglycerin (Ntg) 0.4 mg Q5M PRN SL Prn Chest Pain 11/25/16 16:00 12/25/16 15:59 Norepinephrine Bitartrate/ Dextrose (Levophed/D5W) 250 ml @ 0 mls/hr Q24H IV 11/25/16 17:00 12/25/16 16:59 11/26/16 17:26 Ondansetron HCl (Zofran) 4 mg Q6H PRN IVP Nausea & Vomiting 11/25/16 16:00 12/25/16 15:59 Polyethylene Glycol (Miralax) 17 gm DAILYPRN PRN ORAL Constipation 11/25/16 16:00 12/25/16 15:59 Temazepam (Restoril) 15 mg HSPRN PRN ORAL Insomnia 11/25/16 16:00 12/02/16 15:59 Vancomycin HCl 1 ea 1 ea DAILY PRN MISC PER RX PROTOCOL 11/25/16 16:45 12/25/16 16:44 Romelia Sotelo M.D. Nov 26, 2016 20:40
[2016-11-27] VITALS (38 sets, daily range): BP systolic 61–163; BP diastolic 34–88
[2016-11-27 05:20] LABS: MEAN CORPUSCULAR HEMOGLOBIN 30.3 PG (27.0-31.0); MEAN CORPUSCULAR HGB CONC 33.7 G/DL (32.0-36.0); MEAN CORPUSCULAR VOLUME 90 FL (80-99); MEAN PLATELET VOLUME 13.3 FL (6.5-10.1); PLATELET COUNT 87 K/UL (150-450); RED BLOOD COUNT 4.19 M/UL (4.20-5.40)
[2016-11-27] MEDS: NovoLOG Insulin Flexpen SUBQ SCH ×3 (05:25→18:03)
[2016-11-27 05:44] LABS: WHITE BLOOD COUNT 24.1 K/UL (4.8-10.8)
[2016-11-27 05:55] LABS: ALANINE AMINOTRANSFERASE 28 U/L (3-33); ALBUMIN/GLOBULIN RATIO 1.2 (1.0-2.7); ANION GAP 15 (5-15); ASPARTATE AMINO TRANSFERASE 13 U/L (5-40); CALCIUM 7.5 mg/dL (8.6-10.2); CARBON DIOXIDE 18 mEQ/L (20-30); CHLORIDE 107 mEQ/L (98-107); CREATININE 1.6 mg/dL (0.5-0.9); HEMOLYSIS 39; POTASSIUM 3.4 mEQ/L (3.4-4.9); SODIUM 140 mEQ/L (135-145); TOTAL PROTEIN 4.4 g/dL (6.6-8.7)
[2016-11-27 06:01] LABS: REFLEX LACTIC ACID YES OR NO YES
[2016-11-27 06:27] LABS: MAGNESIUM 1.8 mg/dL (1.7-2.5); PHOSPHORUS 1.5 mg/dL (2.5-4.8)
[2016-11-27] MEDS ORDERED: Vancomycin 1gm/D5W 275ml IVPB ONE ×2 (06:30)
[2016-11-27] MEDS: Dyna-Hex 2% Top Sol 8oz TOPIC SCH (08:24)
[2016-11-27] MEDS: Heparin 5000 units/ml inj SUBQ SCH ×2 (08:30→21:32)
[2016-11-27 08:59] LABS: BAND NEUTROPHILS % (MANUAL) 4 % (0-8); BASOPHILS % (MANUAL) 0 % (0-2); EOSINOPHILS % (MANUAL) 0 % (0-3); LYMPHOCYTES % (MANUAL) 7 % (20-45); NEUTROPHILS % (MANUAL) 86 % (45-75); PLATELET ESTIMATE DECREASED; PLATELET MORPHOLOGY NORMAL; TOTAL CELLS COUNTED 100
[2016-11-27 09:00] LABS: ANISOCYTOSIS 1+
--- NOTE | 2016-11-27 09:15 | Diagnostic Imaging Report ---
Indication: DYSPNEA Technique: XRAY CHEST 1 V Comparison:None Findings: The heart is normal in size. The lungs are clear. There is no pleural fluid. Clips are noted in the left axilla from previous surgery. An endotracheal tube is in place with tip in good position above the karrie. There is scoliosis convex to the right. Degenerative changes are noted in the thoracic spine. Impression: Scoliosis with degenerative change of the spine. Endotracheal tube in good position. Evidence of previous surgery in the left axilla. No acute abnormality.
[2016-11-27 09:49] LABS: ABG ALLEN TEST POSITIVE; ABG BASE EXCESS -5.6
--- NOTE | 2016-11-27 10:55 | Pulmonolgy Critical Care Note ---
Critical Care - Asmt/Plan Problems: (1) Respiratory failure (2) Septic shock (3) Acute encephalopathy (4) ARF (acute renal failure) (5) Hypernatremia (6) Diabetes mellitus Respiratory: monitor respiratory rate, adjust FIO2 Cardiac: continue pressors, continue to monitor HR/BP Renal: F/U I&O Infectious Disease: continue antibiotics Gastrointestinal: continue feedings/current rate Endocrine: monitor blood sugar, check TSH, check HgA1C, continue sliding scale insulin Hematologic: transfuse if hgb<8.5 Neurologic: PRN Ativan, PRN Morphine, keep patient comfortable Affect: PRN ativan Notes Reviewed: quality control auditor, renal Discussed with: nurses, consultants, manager rn casemanager analytical - Objective Last 24 Hour Vital Signs Date Time Temp Pulse Resp B/P Pulse Ox O2 Delivery O2 Flow Rate FiO2 11/27/16 10:40 99 30 40 11/27/16 10:30 107 18 110/70 100 Mechanical Ventilator 40 11/27/16 10:00 98 22 110/68 98 Mechanical Ventilator 40 11/27/16 09:29 100 25 40 11/27/16 09:00 97 22 94/67 97 Mechanical Ventilator 40 11/27/16 09:00 94/67 11/27/16 08:00 98.1 93 22 118/73 97 Mechanical Ventilator 40 11/27/16 08:00 40 11/27/16 08:00 118/73 11/27/16 08:00 103 11/27/16 07:20 92 24 40 11/27/16 07:00 97/66 11/27/16 07:00 99 24 97/66 94 Mechanical Ventilator 40 11/27/16 06:30 98 26 101/76 95 Mechanical Ventilator 40 11/27/16 06:00 114/76 11/27/16 06:00 101 24 114/76 99 Mechanical Ventilator 40 11/27/16 05:30 98 25 106/64 100 Mechanical Ventilator 40 11/27/16 05:21 108/87 11/27/16 05:01 97 24 40 11/27/16 05:00 99 24 108/87 99 Mechanical Ventilator 40 11/27/16 05:00 108/87 11/27/16 04:30 101 23 91/65 100 Mechanical Ventilator 40 11/27/16 04:02 98 11/27/16 04:02 40 11/27/16 04:00 98.5 98 23 90/49 100 Mechanical Ventilator 40 11/27/16 04:00 91/65 11/27/16 03:30 100 23 99/66 100 Mechanical Ventilator 40 11/27/16 03:11 99 21 40 11/27/16 03:00 129/77 11/27/16 03:00 103 24 129/77 100 Mechanical Ventilator 40 11/27/16 02:30 97 23 104/63 100 Mechanical Ventilator 40 11/27/16 02:03 97 23 93/65 99 Mechanical Ventilator 40 11/27/16 02:00 93/65 11/27/16 01:30 99 23 106/66 99 Mechanical Ventilator 40 11/27/16 01:01 99 22 40 11/27/16 01:00 104 23 112/67 100 Mechanical Ventilator 40 11/27/16 01:00 112/67 11/27/16 00:30 98.2 96 22 107/63 100 Mechanical Ventilator 40 11/27/16 00:00 97 20 107/75 98 Mechanical Ventilator 40 11/27/16 00:00 107/75 11/27/16 00:00 97 11/27/16 00:00 40 11/26/16 23:30 92 20 93/57 98 Mechanical Ventilator 40 11/26/16 23:00 92/60 11/26/16 23:00 90 19 40 11/26/16 23:00 91 20 92/60 99 Mechanical Ventilator 40 11/26/16 22:30 92 19 96/56 99 Mechanical Ventilator 40 11/26/16 22:00 104/62 11/26/16 22:00 104/62 11/26/16 22:00 93 20 104/62 99 Mechanical Ventilator 40 11/26/16 21:30 96 20 100/59 100 Mechanical Ventilator 40 11/26/16 21:00 103/50 11/26/16 21:00 103/50 11/26/16 21:00 100 26 103/50 99 Mechanical Ventilator 40 11/26/16 20:52 95 19 40 11/26/16 20:30 102 25 107/74 100 Mechanical Ventilator 40 11/26/16 20:00 98.2 102 25 91/69 99 Mechanical Ventilator 40 11/26/16 20:00 91/69 11/26/16 20:00 91/69 11/26/16 20:00 40 11/26/16 20:00 107 11/26/16 19:30 109 22 97/39 98 Mechanical Ventilator 40 11/26/16 19:10 103 24 40 11/26/16 19:00 104 24 97/39 100 Mechanical Ventilator 40 11/26/16 19:00 97/39 11/26/16 18:30 101 24 98/66 100 Mechanical Ventilator 40 11/26/16 18:00 106 24 99/60 100 Mechanical Ventilator 40 11/26/16 18:00 98/66 11/26/16 17:30 105 22 92/56 100 Mechanical Ventilator 40 11/26/16 17:26 109/26 11/26/16 17:00 111 22 109/36 100 Mechanical Ventilator 40 11/26/16 16:51 110 24 40 11/26/16 16:30 99 22 96/60 100 Mechanical Ventilator 40 11/26/16 16:00 40 11/26/16 16:00 94 11/26/16 16:00 97.4 96 22 88/48 100 Mechanical Ventilator 40 11/26/16 16:00 88/48 11/26/16 15:30 95 21 90/44 100 Mechanical Ventilator 40 11/26/16 15:00 98 21 88/59 100 Mechanical Ventilator 40 11/26/16 15:00 88/59 11/26/16 14:57 106 20 40 11/26/16 14:30 105 20 95/57 100 Mechanical Ventilator 40 11/26/16 14:00 103 22 87/56 100 Mechanical Ventilator 40 11/26/16 13:11 103 21 40 11/26/16 13:00 108 20 117/58 100 Mechanical Ventilator 40 11/26/16 12:30 100 21 106/71 100 Mechanical Ventilator 40 11/26/16 12:23 99/56 11/26/16 12:07 102/65 11/26/16 12:00 40 11/26/16 12:00 84 11/26/16 12:00 98.1 88 23 99/56 100 Mechanical Ventilator 40 11/26/16 11:30 85 22 102/65 100 Mechanical Ventilator 40 11/26/16 11:07 113/83 11/26/16 11:00 85 21 113/83 100 Mechanical Ventilator 40 Status: sedated Condition: critical HEENT: atraumatic Neck: full ROM Lungs: chest wall tender Heart: HR/BP stable, HR/BP unstable Abdomen: soft, non-tender, feeding tube Extremities: no C/C/E, edema Decubiti: location Micro: Microbiology Date/Time Source Procedure Growth Status 11/25/16 13:31 Blood Blood Culture - Preliminary Gram Negative Bacillus 1 Gram Positive Cocci Resulted 11/25/16 12:58 Blood Blood Culture - Preliminary NO GROWTH AFTER 24 HOURS Resulted 11/25/16 13:33 Nasal Nares MRSA Culture - Final NO METHICILLIN RESISTANT STAPH AUREUS... Complete 11/25/16 14:00 Stool Clostridium difficile Toxin Assay - Final Complete 11/25/16 16:50 Urine,Clean Catch Urine Culture - Preliminary NO GROWTH Resulted 11/25/16 13:15 Urine,Clean Catch Urine Culture - Preliminary Gram Negative Bacillus 1 Resulted 11/25/16 13:33 Rectum VRE Culture - Final Enterococcus Faecalis - Vre Complete Accucheck: 234 Critical Care - Subjective ROS Limited/Unobtainable: Yes ICU Day: 3 Intubation Day: 3 Condition: critical EKG Rhythm: Sinus Rhythm FI02: 40 Vent Support Breath Rate: 18 Vent Support Mode: AC Vent Tidal Volume: 600 Sputum Amount: Moderate PIP: 21 Fluids: d5 w 50 cc/hour Drips: levophed and dopamine Tube Feeding Amount: 30 I&O: Intake and Output 11/26/16 11/27/16 19:00 07:00 Intake Total 1685.0 ml 1199.71 ml Output Total 150 ml 770 ml Balance 1535.0 ml 429.71 ml Intake Oral 0 ml 0 ml IV Total 1685.0 ml 899.71 ml Tube Feeding 300 ml Output Urine Total 150 ml 770 ml CXR: clear, ET in good position ET-Tube: 7.5 ET Position: 22 Labs: Laboratory Tests Test 11/26/16 12:30 11/26/16 19:20 11/27/16 05:00 11/27/16 07:45 Lactic Acid Level 2.60 mmol/L (0.66-2.22) H 2.80 mmol/L (0.66-2.22) H 3.90 mmol/L (0.66-2.22) H 3.40 mmol/L (0.66-2.22) H White Blood Count 24.1 K/UL (4.8-10.8) *H Red Blood Count 4.19 M/UL (4.20-5.40) L Hemoglobin 12.7 G/DL (12.0-16.0) Hematocrit 37.7 % (37.0-47.0) Mean Corpuscular Volume 90 FL (80-99) Mean Corpuscular Hemoglobin 30.3 PG (27.0-31.0) Mean Corpuscular Hemoglobin Concent 33.7 G/DL (32.0-36.0) Red Cell Distribution Width 16.0 % (11.6-14.8) H Platelet Count 87 K/UL (150-450) L Mean Platelet Volume 13.3 FL (6.5-10.1) H Neutrophils (%) (Auto) % (45.0-75.0) Lymphocytes (%) (Auto) % (20.0-45.0) Monocytes (%) (Auto) % (1.0-10.0) Eosinophils (%) (Auto) % (0.0-3.0) Basophils (%) (Auto) % (0.0-2.0) Differential Total Cells Counted 100 Neutrophils % (Manual) 86 % (45-75) H Lymphocytes % (Manual) 7 % (20-45) L Monocytes % (Manual) 3 % (1-10) Eosinophils % (Manual) 0 % (0-3) Basophils % (Manual) 0 % (0-2) Band Neutrophils 4 % (0-8) Platelet Estimate Decreased L Platelet Morphology Normal Anisocytosis 1+ Sodium Level 140 mEQ/L (135-145) Potassium Level 3.4 mEQ/L (3.4-4.9) Chloride Level 107 mEQ/L (98-107) Carbon Dioxide Level 18 mEQ/L (20-30) L Anion Gap 15 (5-15) Blood Urea Nitrogen 53 mg/dL (7-23) H Creatinine 1.6 mg/dL (0.5-0.9) H Estimat Glomerular Filtration Rate mL/min (>60) Glucose Level 271 mg/dL (74-106) H Calcium Level 7.5 mg/dL (8.6-10.2) L Phosphorus Level 1.5 mg/dL (2.5-4.8) L Magnesium Level 1.8 mg/dL (1.7-2.5) Total Bilirubin 0.9 mg/dL (0.0-1.2) Aspartate Amino Transf (AST/SGOT) 13 U/L (5-40) Alanine Aminotransferase (ALT/SGPT) 28 U/L (3-33) Alkaline Phosphatase 73 U/L (35-104) Total Protein 4.4 g/dL (6.6-8.7) L Albumin 2.4 g/dL (3.5-5.2) L Globulin 2.0 g/dL Albumin/Globulin Ratio 1.2 (1.0-2.7) Random Vancomycin Level 9.6 ug/mL Test 11/27/16 09:35 Arterial Blood pH 7.456 (7.350-7.450) Arterial Blood Partial Pressure CO2 24.0 mmHg (35.0-45.0) *L Arterial Blood Partial Pressure O2 80.3 mmHg (75.0-100.0) Arterial Blood HCO3 16.8 mmol/L (22.0-26.0) L Arterial Blood Oxygen Saturation 95.2 % (92.0-98.0) Arterial Blood Base Excess -5.6 Isael Test Positive STEVIE GUO Nov 27, 2016 10:55
[2016-11-27] MEDS ORDERED: Meropenem 1 GM in NS 110 ML IVPB ONE (11:00)
[2016-11-27] MEDS: DOPamine 400mg/250ml 250 ML IV SCH (11:40)
--- NOTE | 2016-11-27 12:15 | Diagnostic Imaging Report ---
Indication: Shortness of breath Technique: One view of the chest Comparison: 11/25/2016 Findings: Interim development of patchy consolidation in the left infrahilar region. There is also slight obscuration of left hemidiaphragm, indicating a disease of lung base and possibly small amount of pleural fluid. Right lung and pleural space remain clear. Stable satisfactory position of endotracheal tube. Interim placement of a nasogastric tube, tip of which projects beyond the edge of the image. There are left axillary surgical clips Impression: Patchy left infrahilar and basilar consolidation and possibly pleural fluid, developing over 2 days
--- NOTE | 2016-11-27 14:30 | Infectious Diseases Prog Note ---
Assessment/Plan Problems: (1) HCAP (healthcare-associated pneumonia) Assessment & Plan: with new left infrahilar infiltrates , and persistant leukocytosis , suspect resistant organisms, will start meropenem empirically and send sputum culture, continu levaquin and vancomycin for now (2) Septic shock Assessment & Plan: due to urine infection/ possible pyelonephritis, and pneumonia , with persistant leukocytosis suspect resistant organisms , will switch cefepime to meropenem and continue levaquin with vancomycin empiricaly , pending blood culture and urine culture (3) UTI (urinary tract infection) Assessment & Plan: due to gram negative rods , with possible pylonephritis, will start meropenem , stop cefepime and continue levaquin empirically for now (4) MARYAM (acute kidney injury) Assessment & Plan: improving, due to sepsis , continue ivf with pressors , avoid nephrotixic meds, renal is following , monitor UOP (5) Shock liver Assessment & Plan: due to sepsis , will screen for hepatitis, monitor LFT (6) Acute respiratory failure Assessment & Plan: due to sepsis, S/P intubation , monitor ABG, and CXR , consult pulmonary for further care (7) Diabetes mellitus Assessment & Plan: hold po meds, continue to monitor blood glucose as per unit protocol, keep tight glycemic control (8) Acute hypernatremia Assessment & Plan: due to volume loss, continue fluids for hydration, monitor sodium level. Subjective ROS Limited/Unobtainable: Yes Allergies: Coded Allergies: No Known Allergies (Unverified , 11/25/16) Subjective she is still intubated, on mechanical ventilation and pressor, remained in critical condition Objective Vital Signs Last 24 Hour Vital Signs Date Time Temp Pulse Resp B/P Pulse Ox O2 Delivery O2 Flow Rate FiO2 11/27/16 13:00 93/48 11/27/16 13:00 90 19 93/49 100 Mechanical Ventilator 40 11/27/16 12:58 92 21 40 11/27/16 12:30 91 22 107/57 99 Mechanical Ventilator 40 11/27/16 12:01 97/48 11/27/16 12:00 98.1 80 20 110/70 100 Mechanical Ventilator 40 11/27/16 12:00 110 11/27/16 12:00 40 11/27/16 11:40 88/54 11/27/16 11:18 99 30 Mechanical Ventilator 40 11/27/16 11:00 98/47 11/27/16 11:00 103 20 95/57 100 Mechanical Ventilator 40 11/27/16 10:40 99 30 40 11/27/16 10:30 107 18 110/70 100 Mechanical Ventilator 40 11/27/16 10:00 110/68 11/27/16 10:00 98 22 110/68 98 Mechanical Ventilator 40 11/27/16 09:29 100 25 40 11/27/16 09:00 97 22 94/67 97 Mechanical Ventilator 40 11/27/16 09:00 94/67 11/27/16 08:00 98.1 93 22 118/73 97 Mechanical Ventilator 40 11/27/16 08:00 40 11/27/16 08:00 118/73 11/27/16 08:00 103 11/27/16 07:20 92 24 40 11/27/16 07:00 97/66 11/27/16 07:00 99 24 97/66 94 Mechanical Ventilator 40 11/27/16 06:30 98 26 101/76 95 Mechanical Ventilator 40 11/27/16 06:00 114/76 11/27/16 06:00 101 24 114/76 99 Mechanical Ventilator 40 11/27/16 05:30 98 25 106/64 100 Mechanical Ventilator 40 11/27/16 05:21 108/87 11/27/16 05:01 97 24 40 11/27/16 05:00 99 24 108/87 99 Mechanical Ventilator 40 11/27/16 05:00 108/87 11/27/16 04:30 101 23 91/65 100 Mechanical Ventilator 40 11/27/16 04:02 98 11/27/16 04:02 40 11/27/16 04:00 98.5 98 23 90/49 100 Mechanical Ventilator 40 11/27/16 04:00 91/65 11/27/16 03:30 100 23 99/66 100 Mechanical Ventilator 40 11/27/16 03:11 99 21 40 11/27/16 03:00 129/77 11/27/16 03:00 103 24 129/77 100 Mechanical Ventilator 40 11/27/16 02:30 97 23 104/63 100 Mechanical Ventilator 40 11/27/16 02:03 97 23 93/65 99 Mechanical Ventilator 40 11/27/16 02:00 93/65 11/27/16 01:30 99 23 106/66 99 Mechanical Ventilator 40 11/27/16 01:01 99 22 40 11/27/16 01:00 104 23 112/67 100 Mechanical Ventilator 40 11/27/16 01:00 112/67 11/27/16 00:30 98.2 96 22 107/63 100 Mechanical Ventilator 40 11/27/16 00:00 97 20 107/75 98 Mechanical Ventilator 40 11/27/16 00:00 107/75 11/27/16 00:00 97 11/27/16 00:00 40 11/26/16 23:30 92 20 93/57 98 Mechanical Ventilator 40 11/26/16 23:00 92/60 11/26/16 23:00 90 19 40 11/26/16 23:00 91 20 92/60 99 Mechanical Ventilator 40 11/26/16 22:30 92 19 96/56 99 Mechanical Ventilator 40 11/26/16 22:00 104/62 11/26/16 22:00 104/62 11/26/16 22:00 93 20 104/62 99 Mechanical Ventilator 40 11/26/16 21:30 96 20 100/59 100 Mechanical Ventilator 40 11/26/16 21:00 103/50 11/26/16 21:00 103/50 11/26/16 21:00 100 26 103/50 99 Mechanical Ventilator 40 11/26/16 20:52 95 19 40 11/26/16 20:30 102 25 107/74 100 Mechanical Ventilator 40 11/26/16 20:00 98.2 102 25 91/69 99 Mechanical Ventilator 40 11/26/16 20:00 91/69 11/26/16 20:00 91/69 11/26/16 20:00 40 11/26/16 20:00 107 11/26/16 19:30 109 22 97/39 98 Mechanical Ventilator 40 11/26/16 19:10 103 24 40 11/26/16 19:00 104 24 97/39 100 Mechanical Ventilator 40 11/26/16 19:00 97/39 11/26/16 18:30 101 24 98/66 100 Mechanical Ventilator 40 11/26/16 18:00 106 24 99/60 100 Mechanical Ventilator 40 11/26/16 18:00 98/66 11/26/16 17:30 105 22 92/56 100 Mechanical Ventilator 40 11/26/16 17:26 109/26 11/26/16 17:00 111 22 109/36 100 Mechanical Ventilator 40 11/26/16 16:51 110 24 40 11/26/16 16:30 99 22 96/60 100 Mechanical Ventilator 40 11/26/16 16:00 40 11/26/16 16:00 94 11/26/16 16:00 97.4 96 22 88/48 100 Mechanical Ventilator 40 11/26/16 16:00 88/48 11/26/16 15:30 95 21 90/44 100 Mechanical Ventilator 40 11/26/16 15:00 98 21 88/59 100 Mechanical Ventilator 40 11/26/16 15:00 88/59 11/26/16 14:57 106 20 40 11/26/16 14:30 105 20 95/57 100 Mechanical Ventilator 40 Height (Feet): 5 Height (Inches): 2.00 Weight (Pounds): 175 General Appearance: WD/WN, no acute distress HEENT: normocephalic, atraumatic, anicteric, mucous membranes moist, supple, no JVD Respiratory/Chest: normal breath sounds, no respiratory distress, no accessory muscle use, decreased breath sounds, crackles/rales Cardiovascular: normal peripheral pulses, normal rate, regular rhythm, no gallop/murmur, no JVD Abdomen: normal bowel sounds, soft, non tender, no organomegaly, non distended , no mass Extremities: no cyanosis, no clubbing Skin: no rash, no lesions, ulcers, other - bruises and ecchymosis Lymphatic: no neck adenopathy, no groin adenopathy Microbiology Date/Time Source Procedure Growth Status 11/25/16 13:31 Blood Blood Culture - Preliminary Gram Negative Bacillus 1 Gram Positive Cocci Resulted 11/25/16 12:58 Blood Blood Culture - Preliminary NO GROWTH AFTER 24 HOURS Resulted 11/25/16 13:33 Nasal Nares MRSA Culture - Final NO METHICILLIN RESISTANT STAPH AUREUS... Complete 11/25/16 14:00 Stool Clostridium difficile Toxin Assay - Final Complete 11/25/16 16:50 Urine,Clean Catch Urine Culture - Preliminary NO GROWTH Resulted 11/25/16 13:15 Urine,Clean Catch Urine Culture - Preliminary Gram Negative Bacillus 1 Resulted 11/25/16 13:33 Rectum VRE Culture - Final Enterococcus Faecalis - Vre Complete Laboratory Tests Test 11/26/16 19:20 11/27/16 05:00 7/24/17 07:45 11/27/16 09:35 Lactic Acid Level 2.80 mmol/L (0.66-2.22) H 3.90 mmol/L (0.66-2.22) H 3.40 mmol/L (0.66-2.22) H White Blood Count 24.1 K/UL (4.8-10.8) *H Red Blood Count 4.19 M/UL (4.20-5.40) L Hemoglobin 12.7 G/DL (12.0-16.0) Hematocrit 37.7 % (37.0-47.0) Mean Corpuscular Volume 90 FL (80-99) Mean Corpuscular Hemoglobin 30.3 PG (27.0-31.0) Mean Corpuscular Hemoglobin Concent 33.7 G/DL (32.0-36.0) Red Cell Distribution Width 16.0 % (11.6-14.8) H Platelet Count 87 K/UL (150-450) L Mean Platelet Volume 13.3 FL (6.5-10.1) H Neutrophils (%) (Auto) % (45.0-75.0) Lymphocytes (%) (Auto) % (20.0-45.0) Monocytes (%) (Auto) % (1.0-10.0) Eosinophils (%) (Auto) % (0.0-3.0) Basophils (%) (Auto) % (0.0-2.0) Differential Total Cells Counted 100 Neutrophils % (Manual) 86 % (45-75) H Lymphocytes % (Manual) 7 % (20-45) L Monocytes % (Manual) 3 % (1-10) Eosinophils % (Manual) 0 % (0-3) Basophils % (Manual) 0 % (0-2) Band Neutrophils 4 % (0-8) Platelet Estimate Decreased L Platelet Morphology Normal Anisocytosis 1+ Sodium Level 140 mEQ/L (135-145) Potassium Level 3.4 mEQ/L (3.4-4.9) Chloride Level 107 mEQ/L (98-107) Carbon Dioxide Level 18 mEQ/L (20-30) L Anion Gap 15 (5-15) Blood Urea Nitrogen 53 mg/dL (7-23) H Creatinine 1.6 mg/dL (0.5-0.9) H Estimat Glomerular Filtration Rate mL/min (>60) Glucose Level 271 mg/dL (74-106) H Calcium Level 7.5 mg/dL (8.6-10.2) L Phosphorus Level 1.5 mg/dL (2.5-4.8) L Magnesium Level 1.8 mg/dL (1.7-2.5) Total Bilirubin 0.9 mg/dL (0.0-1.2) Aspartate Amino Transf (AST/SGOT) 13 U/L (5-40) Alanine Aminotransferase (ALT/SGPT) 28 U/L (3-33) Alkaline Phosphatase 73 U/L (35-104) Total Protein 4.4 g/dL (6.6-8.7) L Albumin 2.4 g/dL (3.5-5.2) L Globulin 2.0 g/dL Albumin/Globulin Ratio 1.2 (1.0-2.7) Random Vancomycin Level 9.6 ug/mL Arterial Blood pH 7.456 (7.350-7.450) Arterial Blood Partial Pressure CO2 24.0 mmHg (35.0-45.0) *L Arterial Blood Partial Pressure O2 80.3 mmHg (75.0-100.0) Arterial Blood HCO3 16.8 mmol/L (22.0-26.0) L Arterial Blood Oxygen Saturation 95.2 % (92.0-98.0) Arterial Blood Base Excess -5.6 Isael Test Positive Current Medications Medications (Trade) Dose Ordered Sig/Flora Route PRN Reason Start Time Stop Time Status Last Admin Dose Admin Acetaminophen (Tylenol) 650 mg Q4H PRN ORAL fever 11/25/16 16:00 12/25/16 15:59 Albuterol/ Ipratropium (DuoNeb 0.5-3(2.5)mg/3ml) 3 ml Q4H PRN HHN Shortness of Breath 11/25/16 16:00 11/30/16 15:59 Chlorhexidine Gluconate 1 applic 1 applic DAILY TOPIC 11/26/16 09:00 12/26/16 08:59 11/27/16 08:24 Dextrose (Dextrose 50%) STAT PRN IV Hypoglycemia 11/25/16 16:00 12/25/16 15:59 Dopamine HCl/ Dextrose 250 ml @ 14.724 mls/ hr Q24H IV 11/26/16 12:15 12/26/16 12:14 11/27/16 11:40 Heparin Sodium (Porcine) (Heparin 5000 units/ml) 5,000 units EVERY 12 HOURS SUBQ 11/25/16 21:00 12/25/16 20:59 11/26/16 20:57 Insulin Aspart (NovoLOG) EVERY 6 HOURS SUBQ 11/26/16 00:00 12/26/16 00:00 11/27/16 11:41 Levofloxacin (Levaquin) 100 ml @ 100 mls/hr Q48H IVPB 11/27/16 14:00 12/04/16 13:59 11/27/16 13:47 Meropenem 500 mg/ Sodium Chloride 55 ml @ 110 mls/hr Q12HR IVPB 11/27/16 21:00 12/02/16 20:59 Morphine Sulfate (Morphine Sulfate) 2 mg Q4H PRN IVP Moderate Pain (Pain Scale 4-6) 11/25/16 16:00 12/02/16 15:59 Nitroglycerin (Ntg) 0.4 mg Q5M PRN SL Prn Chest Pain 11/25/16 16:00 12/25/16 15:59 Norepinephrine Bitartrate/ Dextrose (Levophed/D5W) 250 ml @ 0 mls/hr Q24H IV 11/25/16 17:00 12/25/16 16:59 11/27/16 05:21 Ondansetron HCl (Zofran) 4 mg Q6H PRN IVP Nausea & Vomiting 11/25/16 16:00 12/25/16 15:59 Pantoprazole (Protonix) 40 mg DAILY IVP 11/28/16 09:00 12/28/16 08:59 Polyethylene Glycol (Miralax) 17 gm DAILYPRN PRN ORAL Constipation 11/25/16 16:00 12/25/16 15:59 Sodium Chloride (0.45% NS 1000ml) 1,000 ml @ 75 mls/hr [id number] IV 11/27/16 12:00 12/27/16 11:59 11/27/16 12:01 Temazepam (Restoril) 15 mg HSPRN PRN ORAL Insomnia 11/25/16 16:00 12/02/16 15:59 Vancomycin HCl 1 ea 1 ea DAILY PRN MISC PER RX PROTOCOL 11/25/16 16:45 12/25/16 16:44 Romelia Sotelo M.D. Nov 27, 2016 14:30
--- NOTE | 2016-11-27 14:41 | Wound Care Consultation ---
Wound Assessment Wound Assessment #1: Wound Number: #1 Wound Present on Admission: Yes New Wound: No Status Change of Wound: No Wound Location Body Site: sacral Wound Type: pressure ulcer Robbie Test: Does not Robbie Pressure Ulcer Stage: IV/unstageable - unstageable. two ulcers very close in proximity also noted scattered UTD to sacral area extending to left and right aspect of sacral Wound Thickness: Full Thickness Wound Length: 9.0 Wound Width: 15.0 Wound Depth: utd Percent of Wound Luna/Red: 40 Percent of Wound Bed Yellow/Wh: 40 - scattered Percent of Wound Purple/Maroon: 20 Wound Drainage Description: Serosanguineous Wound Drainage Amount: Moderate Wound Drainage Odor: None/Absent Tissue Surrounding Wound: Macerated Wound General Appearance: Reddened, Draining, Necrotic Wound Assessment #2: Wound Number: #2 Wound Present on Admission: Yes New Wound: No Status Change of Wound: No Wound Location Body Site Modif: right, upper Wound Location Body Site: buttocks Wound Type: pressure ulcer Robbie Test: Does not Robbie Pressure Ulcer Stage: IV/unstageable - unstageable. Wound Thickness: Full Thickness Wound Length: 2.0 Wound Width: 2.0 Wound Depth: utd Percent of Wound Luna/Red: 50 Percent of Wound Bed Yellow/Wh: 50 Wound Drainage Description: Serosanguineous Wound Drainage Amount: Moderate Wound Drainage Odor: None/Absent Tissue Surrounding Wound: Macerated Wound General Appearance: Reddened, Necrotic Wound Assessment #3: Wound Number: #3 Wound Present on Admission: Yes New Wound: No Status Change of Wound: No Wound Location Body Site Modif: left, mid, lateral Wound Location Body Site: leg Wound Type: ecchymosis - ruptured. Robbie Test: Does not Robbie Wound Thickness: Partial Thickness Wound Length: 1.0 Wound Width: 1.0 Percent of Wound Luna/Red: 100 Wound Drainage Amount: None Wound Drainage Odor: None/Absent Tissue Surrounding Wound: Denuded Wound General Appearance: Reddened Wound Comment #1 Sacral pressure ulcer UNSTAGEABLE two ulcers very close in proxmity. scattered pressure ulcer UNSTAGEABLE noted to to surrounding sacral wound. #2 Right upper buttock UNSTAGEABLE pressure ulcer. #3 Scattered ecchymosis to left and right upper extremities. #4 Scattered ecchymosis to left lower extremity. noted intact and on site ruptured to left mid lateral leg. noted skin at risk for breakdown. #5 Scattered ecchymosis to right lower extremity. Recommendation. -Local wound care as ordered. -Apply low air loss p200 mattress. -Turn and reposition. -Keep clean and dry. -Optimize nutrition. -Avoid shear and friction. -Heel protectors. -Offload affected sites. -Offload heels and feet. -Assess and notify MD for any further changes of condition to skin noted. ELIZABET JONES Nov 27, 2016 14:41
--- NOTE | 2016-11-27 14:51 | Diagnostic Imaging Report ---
Indication: ABN LABS abnormal renal function tests Technique: Grayscale and duplex images of the kidneys, retroperitoneum, and bladder were obtained. Comparison:None Findings: Right kidney measures 9.3 cm in length. Left kidney measures 10.4 cm in length. Both kidneys demonstrate normal echogenicity. No hydronephrosis. No focal abnormality. Normal inferior vena cava. Bladder is nearly empty, contains a Oliveira catheter. Impression: Oliveira catheter within the bladder. Negative for hydronephrosis.
--- NOTE | 2016-11-27 15:54 | Nephrology Progress Note ---
Assessment/Plan Problem List: (1) Hypernatremia Assessment: resolved (2) ARF (acute renal failure) Assessment: better makes more urine (3) Septic shock Assessment: still on pressors (4) Acute respiratory failure (5) Diabetes mellitus (6) UTI (urinary tract infection) Plan Dc IVF taper pressors as tolerated TF follow labs vent support Discussed with RN Subjective Subjective Eyes open Intubated Objective Objective Last 24 Hour Vital Signs Date Time Temp Pulse Resp B/P Pulse Ox O2 Delivery O2 Flow Rate FiO2 11/27/16 15:28 96 25 40 11/27/16 15:00 88 21 93/53 100 Mechanical Ventilator 40 11/27/16 14:30 94 20 90/39 100 Mechanical Ventilator 40 11/27/16 14:00 98.2 57 19 90/48 100 Mechanical Ventilator 40 11/27/16 13:00 93/48 11/27/16 13:00 90 19 93/49 100 Mechanical Ventilator 40 11/27/16 12:58 92 21 40 11/27/16 12:30 91 22 107/57 99 Mechanical Ventilator 40 11/27/16 12:01 97/48 11/27/16 12:00 98.1 80 20 110/70 100 Mechanical Ventilator 40 11/27/16 12:00 110 11/27/16 12:00 40 11/27/16 11:40 88/54 11/27/16 11:18 99 30 Mechanical Ventilator 40 11/27/16 11:00 98/47 11/27/16 11:00 103 20 95/57 100 Mechanical Ventilator 40 11/27/16 10:40 99 30 40 11/27/16 10:30 107 18 110/70 100 Mechanical Ventilator 40 11/27/16 10:00 110/68 11/27/16 10:00 98 22 110/68 98 Mechanical Ventilator 40 11/27/16 09:29 100 25 40 11/27/16 09:00 97 22 94/67 97 Mechanical Ventilator 40 11/27/16 09:00 94/67 11/27/16 08:00 98.1 93 22 118/73 97 Mechanical Ventilator 40 11/27/16 08:00 40 11/27/16 08:00 118/73 11/27/16 08:00 103 11/27/16 07:20 92 24 40 11/27/16 07:00 97/66 11/27/16 07:00 99 24 97/66 94 Mechanical Ventilator 40 11/27/16 06:30 98 26 101/76 95 Mechanical Ventilator 40 11/27/16 06:00 114/76 11/27/16 06:00 101 24 114/76 99 Mechanical Ventilator 40 11/27/16 05:30 98 25 106/64 100 Mechanical Ventilator 40 11/27/16 05:21 108/87 11/27/16 05:01 97 24 40 11/27/16 05:00 99 24 108/87 99 Mechanical Ventilator 40 11/27/16 05:00 108/87 11/27/16 04:30 101 23 91/65 100 Mechanical Ventilator 40 11/27/16 04:02 98 11/27/16 04:02 40 11/27/16 04:00 98.5 98 23 90/49 100 Mechanical Ventilator 40 11/27/16 04:00 91/65 11/27/16 03:30 100 23 99/66 100 Mechanical Ventilator 40 11/27/16 03:11 99 21 40 11/27/16 03:00 129/77 11/27/16 03:00 103 24 129/77 100 Mechanical Ventilator 40 11/27/16 02:30 97 23 104/63 100 Mechanical Ventilator 40 11/27/16 02:03 97 23 93/65 99 Mechanical Ventilator 40 11/27/16 02:00 93/65 11/27/16 01:30 99 23 106/66 99 Mechanical Ventilator 40 11/27/16 01:01 99 22 40 11/27/16 01:00 104 23 112/67 100 Mechanical Ventilator 40 11/27/16 01:00 112/67 11/27/16 00:30 98.2 96 22 107/63 100 Mechanical Ventilator 40 11/27/16 00:00 97 20 107/75 98 Mechanical Ventilator 40 11/27/16 00:00 107/75 11/27/16 00:00 97 11/27/16 00:00 40 11/26/16 23:30 92 20 93/57 98 Mechanical Ventilator 40 11/26/16 23:00 92/60 11/26/16 23:00 90 19 40 11/26/16 23:00 91 20 92/60 99 Mechanical Ventilator 40 11/26/16 22:30 92 19 96/56 99 Mechanical Ventilator 40 11/26/16 22:00 104/62 11/26/16 22:00 104/62 11/26/16 22:00 93 20 104/62 99 Mechanical Ventilator 40 11/26/16 21:30 96 20 100/59 100 Mechanical Ventilator 40 11/26/16 21:00 103/50 11/26/16 21:00 103/50 11/26/16 21:00 100 26 103/50 99 Mechanical Ventilator 40 11/26/16 20:52 95 19 40 11/26/16 20:30 102 25 107/74 100 Mechanical Ventilator 40 11/26/16 20:00 98.2 102 25 91/69 99 Mechanical Ventilator 40 11/26/16 20:00 91/69 11/26/16 20:00 91/69 11/26/16 20:00 40 11/26/16 20:00 107 11/26/16 19:30 109 22 97/39 98 Mechanical Ventilator 40 11/26/16 19:10 103 24 40 11/26/16 19:00 104 24 97/39 100 Mechanical Ventilator 40 11/26/16 19:00 97/39 11/26/16 18:30 101 24 98/66 100 Mechanical Ventilator 40 11/26/16 18:00 106 24 99/60 100 Mechanical Ventilator 40 11/26/16 18:00 98/66 11/26/16 17:30 105 22 92/56 100 Mechanical Ventilator 40 11/26/16 17:26 109/26 11/26/16 17:00 111 22 109/36 100 Mechanical Ventilator 40 11/26/16 16:51 110 24 40 11/26/16 16:30 99 22 96/60 100 Mechanical Ventilator 40 11/26/16 16:00 40 11/26/16 16:00 94 11/26/16 16:00 97.4 96 22 88/48 100 Mechanical Ventilator 40 11/26/16 16:00 88/48 Intake and Output 11/26/16 11/27/16 19:00 07:00 Intake Total 1685.0 ml 1199.71 ml Output Total 150 ml 770 ml Balance 1535.0 ml 429.71 ml Intake Oral 0 ml 0 ml IV Total 1685.0 ml 899.71 ml Tube Feeding 300 ml Output Urine Total 150 ml 770 ml Laboratory Tests 11/26/16 19:20: Lactic Acid Level 2.80H 11/27/16 05:00: Lactic Acid Level 3.90H, White Blood Count 24.1*H, Red Blood Count 4.19L, Hemoglobin 12.7, Hematocrit 37.7, Mean Corpuscular Volume 90, Mean Corpuscular Hemoglobin 30.3, Mean Corpuscular Hemoglobin Concent 33.7, Red Cell Distribution Width 16.0H, Platelet Count 87L, Mean Platelet Volume 13.3H, Neutrophils (%) (Auto) , Lymphocytes (%) (Auto) , Monocytes (%) (Auto) , Eosinophils (%) (Auto) , Basophils (%) (Auto) , Differential Total Cells Counted 100, Neutrophils % (Manual) 86H, Lymphocytes % (Manual) 7L, Monocytes % (Manual) 3, Eosinophils % (Manual) 0, Basophils % (Manual) 0, Band Neutrophils 4 , Platelet Estimate DecreasedL, Platelet Morphology Normal, Anisocytosis 1+, Sodium Level 140, Potassium Level 3.4, Chloride Level 107, Carbon Dioxide Level 18L, Anion Gap 15, Blood Urea Nitrogen 53H, Creatinine 1.6H, Estimat Glomerular Filtration Rate , Glucose Level 271H, Calcium Level 7.5L, Phosphorus Level 1.5L , Magnesium Level 1.8, Total Bilirubin 0.9, Aspartate Amino Transf (AST/SGOT) 13 , Alanine Aminotransferase (ALT/SGPT) 28, Alkaline Phosphatase 73, Total Protein 4.4L, Albumin 2.4L, Globulin 2.0, Albumin/Globulin Ratio 1.2, Random Vancomycin Level 9.6 11/27/16 07:45: Lactic Acid Level 3.40H 11/27/16 09:35: Arterial Blood pH 7.456H, Arterial Blood Partial Pressure CO2 24.0*L, Arterial Blood Partial Pressure O2 80.3, Arterial Blood HCO3 16.8L, Arterial Blood Oxygen Saturation 95.2, Arterial Blood Base Excess -5.6, Isael Test Positive Height (Feet): 5 Height (Inches): 2.00 Weight (Pounds): 175 Cardiovascular: normal rate Respiratory/Chest: rhonchi - bilaterally Extremities: moderate edema OBINNA MADRIGAL Nov 27, 2016 15:53
[2016-11-27] MEDS ORDERED: 1/2 NS 1000ml IV ONE (16:17)
[2016-11-27] MEDS ORDERED: NS 275ml ONE (16:17)
[2016-11-27] MEDS ORDERED: Tubing IV Secondary IV ONE (16:17)
[2016-11-27] MEDS ORDERED: Potassium Phosphate 30 MM in NS 275 ML IV ONE (17:00)
--- NOTE | 2016-11-27 17:26 | General Progress Note ---
Assessment/Plan Status: stable Assessment/Plan 1. Respiratory failure s/p intubation 2. Sepsis 2nd to UTI - cont IV abx. 3. Renal failure 2nd to sepsis - improved and making more urine. 4. Pneumonia - cont IV abx. 5. Septic Shock - in ICU. on presser and trying to meghan off. 6. H/O Basal Ganglia ischemic stroke recently 7. 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 Venous U/S negative for DVT. 8. Hypernatremia - improved. 9. Hyperlipidemia - Lipitor 20 mg one po qhs 10. DM II - On SSI 11. Sacral Pressure ulcer - cont wound care. Subjective Date patient seen: Nov 27, 2016 Time patient seen: 05:00 Constitutional: Reports: weakness HEENT: Reports: no symptoms Cardiovascular: Reports: no symptoms Respiratory: Reports: other - on Ventilator Gastrointestinal/Abdominal: Reports: no symptoms Genitourinary: Reports: no symptoms Neurologic/Psychiatric: Reports: no symptoms Endocrine: Reports: no symptoms Hematologic/Lymphatic: Reports: no symptoms Allergies: Coded Allergies: No Known Allergies (Unverified , 11/25/16) Subjective Pt is better and started making more urine. No sob or chest pain. she is DNR per family Prachi Blount. Her CXR today showed Lt sided infiltrate. Objective Last 24 Hour Vital Signs Date Time Temp Pulse Resp B/P Pulse Ox O2 Delivery O2 Flow Rate FiO2 11/27/16 16:00 40 11/27/16 16:00 93/65 11/27/16 16:00 90 11/27/16 16:00 100 20 87/40 100 Mechanical Ventilator 40 11/27/16 15:28 96 25 40 11/27/16 15:00 88 21 93/53 100 Mechanical Ventilator 40 11/27/16 15:00 87/40 11/27/16 14:30 94 20 90/39 100 Mechanical Ventilator 40 11/27/16 14:00 98.2 57 19 90/48 100 Mechanical Ventilator 40 11/27/16 14:00 90/39 11/27/16 13:00 93/48 11/27/16 13:00 90 19 93/49 100 Mechanical Ventilator 40 11/27/16 12:58 92 21 40 11/27/16 12:30 91 22 107/57 99 Mechanical Ventilator 40 11/27/16 12:01 97/48 11/27/16 12:00 98.1 80 20 110/70 100 Mechanical Ventilator 40 11/27/16 12:00 110 11/27/16 12:00 40 11/27/16 11:40 88/54 11/27/16 11:18 99 30 Mechanical Ventilator 40 11/27/16 11:00 98/47 11/27/16 11:00 103 20 95/57 100 Mechanical Ventilator 40 11/27/16 10:40 99 30 40 11/27/16 10:30 107 18 110/70 100 Mechanical Ventilator 40 11/27/16 10:00 110/68 11/27/16 10:00 98 22 110/68 98 Mechanical Ventilator 40 11/27/16 09:29 100 25 40 11/27/16 09:00 97 22 94/67 97 Mechanical Ventilator 40 11/27/16 09:00 94/67 11/27/16 08:00 98.1 93 22 118/73 97 Mechanical Ventilator 40 11/27/16 08:00 40 11/27/16 08:00 118/73 11/27/16 08:00 103 11/27/16 07:20 92 24 40 11/27/16 07:00 97/66 11/27/16 07:00 99 24 97/66 94 Mechanical Ventilator 40 11/27/16 06:30 98 26 101/76 95 Mechanical Ventilator 40 11/27/16 06:00 114/76 11/27/16 06:00 101 24 114/76 99 Mechanical Ventilator 40 11/27/16 05:30 98 25 106/64 100 Mechanical Ventilator 40 11/27/16 05:21 108/87 11/27/16 05:01 97 24 40 11/27/16 05:00 99 24 108/87 99 Mechanical Ventilator 40 11/27/16 05:00 108/87 11/27/16 04:30 101 23 91/65 100 Mechanical Ventilator 40 11/27/16 04:02 98 11/27/16 04:02 40 11/27/16 04:00 98.5 98 23 90/49 100 Mechanical Ventilator 40 11/27/16 04:00 91/65 11/27/16 03:30 100 23 99/66 100 Mechanical Ventilator 40 11/27/16 03:11 99 21 40 11/27/16 03:00 129/77 11/27/16 03:00 103 24 129/77 100 Mechanical Ventilator 40 11/27/16 02:30 97 23 104/63 100 Mechanical Ventilator 40 11/27/16 02:03 97 23 93/65 99 Mechanical Ventilator 40 11/27/16 02:00 93/65 11/27/16 01:30 99 23 106/66 99 Mechanical Ventilator 40 11/27/16 01:01 99 22 40 11/27/16 01:00 104 23 112/67 100 Mechanical Ventilator 40 11/27/16 01:00 112/67 11/27/16 00:30 98.2 96 22 107/63 100 Mechanical Ventilator 40 11/27/16 00:00 97 20 107/75 98 Mechanical Ventilator 40 11/27/16 00:00 107/75 11/27/16 00:00 97 11/27/16 00:00 40 11/26/16 23:30 92 20 93/57 98 Mechanical Ventilator 40 11/26/16 23:00 92/60 11/26/16 23:00 90 19 40 11/26/16 23:00 91 20 92/60 99 Mechanical Ventilator 40 11/26/16 22:30 92 19 96/56 99 Mechanical Ventilator 40 11/26/16 22:00 104/62 11/26/16 22:00 104/62 11/26/16 22:00 93 20 104/62 99 Mechanical Ventilator 40 11/26/16 21:30 96 20 100/59 100 Mechanical Ventilator 40 11/26/16 21:00 103/50 11/26/16 21:00 103/50 11/26/16 21:00 100 26 103/50 99 Mechanical Ventilator 40 11/26/16 20:52 95 19 40 11/26/16 20:30 102 25 107/74 100 Mechanical Ventilator 40 11/26/16 20:00 98.2 102 25 91/69 99 Mechanical Ventilator 40 11/26/16 20:00 91/69 11/26/16 20:00 91/69 11/26/16 20:00 40 11/26/16 20:00 107 11/26/16 19:30 109 22 97/39 98 Mechanical Ventilator 40 11/26/16 19:10 103 24 40 11/26/16 19:00 104 24 97/39 100 Mechanical Ventilator 40 11/26/16 19:00 97/39 11/26/16 18:30 101 24 98/66 100 Mechanical Ventilator 40 11/26/16 18:00 106 24 99/60 100 Mechanical Ventilator 40 11/26/16 18:00 98/66 11/26/16 17:30 105 22 92/56 100 Mechanical Ventilator 40 11/26/16 17:26 109/26 Intake and Output 11/26/16 11/27/16 19:00 07:00 Intake Total 1685.0 ml 1199.71 ml Output Total 150 ml 770 ml Balance 1535.0 ml 429.71 ml Intake Oral 0 ml 0 ml IV Total 1685.0 ml 899.71 ml Tube Feeding 300 ml Output Urine Total 150 ml 770 ml Laboratory Tests 11/26/16 19:20: Lactic Acid Level 2.80H 11/27/16 05:00: Lactic Acid Level 3.90H, White Blood Count 24.1*H, Red Blood Count 4.19L, Hemoglobin 12.7, Hematocrit 37.7, Mean Corpuscular Volume 90, Mean Corpuscular Hemoglobin 30.3, Mean Corpuscular Hemoglobin Concent 33.7, Red Cell Distribution Width 16.0H, Platelet Count 87L, Mean Platelet Volume 13.3H, Neutrophils (%) (Auto) , Lymphocytes (%) (Auto) , Monocytes (%) (Auto) , Eosinophils (%) (Auto) , Basophils (%) (Auto) , Differential Total Cells Counted 100, Neutrophils % (Manual) 86H, Lymphocytes % (Manual) 7L, Monocytes % (Manual) 3, Eosinophils % (Manual) 0, Basophils % (Manual) 0, Band Neutrophils 4 , Platelet Estimate DecreasedL, Platelet Morphology Normal, Anisocytosis 1+, Sodium Level 140, Potassium Level 3.4, Chloride Level 107, Carbon Dioxide Level 18L, Anion Gap 15, Blood Urea Nitrogen 53H, Creatinine 1.6H, Estimat Glomerular Filtration Rate , Glucose Level 271H, Calcium Level 7.5L, Phosphorus Level 1.5L , Magnesium Level 1.8, Total Bilirubin 0.9, Aspartate Amino Transf (AST/SGOT) 13 , Alanine Aminotransferase (ALT/SGPT) 28, Alkaline Phosphatase 73, Total Protein 4.4L, Albumin 2.4L, Globulin 2.0, Albumin/Globulin Ratio 1.2, Random Vancomycin Level 9.6 11/27/16 07:45: Lactic Acid Level 3.40H 11/27/16 09:35: Arterial Blood pH 7.456H, Arterial Blood Partial Pressure CO2 24.0*L, Arterial Blood Partial Pressure O2 80.3, Arterial Blood HCO3 16.8L, Arterial Blood Oxygen Saturation 95.2, Arterial Blood Base Excess -5.6, Isael Test Positive 11/27/16 16:00: Hepatitis A IgM Antibody [Pending], Hepatitis B Surface Antigen [Pending], Hepatitis B Core IgM Antibody [Pending], Hepatitis C Antibody [Pending] Height (Feet): 5 Height (Inches): 2.00 Weight (Pounds): 175 General Appearance: no apparent distress, alert EENT: normal ENT inspection Neck: non-tender, normal alignment, supple Cardiovascular: normal peripheral pulses, normal rate Respiratory/Chest: other - on Ventilator Abdomen: normal bowel sounds, non tender, soft Extremities: normal range of motion, non-tender Edema: no edema noted Arm (L), no edema noted Arm (R), no edema noted Leg (L), no edema noted Leg (R), no edema noted Pedal (L), no edema noted Pedal (R), no edema noted Generalized Neurologic: no motor/sensory deficits, alert, responsive Skin: warm/dry Lymphatic: normal anterior cervical (L), normal anterior cervical (R), normal axillary (L), normal axillary (R), normal inguinal (L), normal inguinal (R), normal other, normal posterior cervical (L), normal posterior cervical (R), normal submandibular (L), normal submandibular (R), normal supraclavicular (L), normal supraclavicular (R) TERI JACKSON Nov 27, 2016 17:26
[2016-11-27] MEDS: Meropenem 500mg/NS 55ml IVPB SCH ×2 (21:31)
[2016-11-28] VITALS (40 sets, daily range): BP systolic 59–140; BP diastolic 37–85
[2016-11-28] MEDS: NovoLOG Insulin Flexpen SUBQ SCH ×4 (00:33→18:13)
[2016-11-28 05:26] LABS: MEAN CORPUSCULAR HEMOGLOBIN 29.4 PG (27.0-31.0); MEAN CORPUSCULAR HGB CONC 32.9 G/DL (32.0-36.0); MEAN CORPUSCULAR VOLUME 89 FL (80-99); MEAN PLATELET VOLUME 14.2 FL (6.5-10.1); PLATELET COUNT 77 K/UL (150-450); RED BLOOD COUNT 4.31 M/UL (4.20-5.40); RED CELL DISTRIBUTION WIDTH 16.1 % (11.6-14.8)
[2016-11-28 05:42] LABS: WHITE BLOOD COUNT 26.4 K/UL (4.8-10.8)
[2016-11-28 05:47] LABS: ALANINE AMINOTRANSFERASE 22 U/L (3-33); ANION GAP 14 (5-15); ASPARTATE AMINO TRANSFERASE 13 U/L (5-40); CALCIUM 7.7 mg/dL (8.6-10.2); CARBON DIOXIDE 21 mEQ/L (20-30); CHLORIDE 109 mEQ/L (98-107); CREATININE 1.2 mg/dL (0.5-0.9); HEMOLYSIS 3; MAGNESIUM 1.5 mg/dL (1.7-2.5); PHOSPHORUS 3.3 mg/dL (2.5-4.8); SODIUM 144 mEQ/L (135-145); TOTAL PROTEIN 4.7 g/dL (6.6-8.7)
[2016-11-28] MEDS ORDERED: Lidocaine 1% Plain 30 ml INJ ONE (06:00)
[2016-11-28] MEDS ORDERED: Heparin 2000 units/Ns 1000ml INJ ONE (06:00)
[2016-11-28] MEDS: Meropenem 500mg/NS 55ml IVPB SCH ×4 (09:00→21:23)
[2016-11-28] MEDS: Pantoprazole Inj IVP SCH (09:00)
[2016-11-28] MEDS: Dyna-Hex 2% Top Sol 8oz TOPIC SCH (09:00)
[2016-11-28] MEDS: Heparin 5000 units/ml inj SUBQ SCH ×2 (09:00→21:24)
--- NOTE | 2016-11-28 09:19 | Pulmonolgy Critical Care Note ---
Critical Care - Asmt/Plan Problems: (1) Respiratory failure (2) Septic shock (3) Acute encephalopathy (4) ARF (acute renal failure) (5) Hypernatremia (6) Diabetes mellitus Respiratory: monitor respiratory rate, adjust FIO2, CXR Cardiac: continue to monitor HR/BP Renal: F/U I&O, keep IV fluid, check electrolytes, other - mg and K supplelemtn Infectious Disease: check cultures, continue antibiotics Gastrointestinal: continue feedings/current rate Endocrine: monitor blood sugar Hematologic: monitor H/H, transfuse if hgb<8.5 Neurologic: PRN Ativan, keep patient comfortable Affect: PRN ativan Prophylaxis: Protonix, Heparin Notes Reviewed: account support associate, renal, ID Discussed with: nurses, consultants Critical Care - Objective Last 24 Hour Vital Signs Date Time Temp Pulse Resp B/P Pulse Ox O2 Delivery O2 Flow Rate FiO2 11/28/16 09:00 82 19 100/41 100 Mechanical Ventilator 40 11/28/16 08:30 82 19 89/60 100 Mechanical Ventilator 40 11/28/16 08:00 81 11/28/16 08:00 40 11/28/16 08:00 98.3 86 18 86/49 100 Mechanical Ventilator 40 11/28/16 08:00 86/49 11/28/16 07:49 87 23 40 11/28/16 07:30 87 22 99/45 100 Mechanical Ventilator 40 11/28/16 07:00 86 21 84/45 100 Mechanical Ventilator 40 11/28/16 06:00 80 22 111/53 100 Mechanical Ventilator 40 11/28/16 06:00 111/53 11/28/16 05:30 83 23 110/85 100 Mechanical Ventilator 40 11/28/16 05:00 87 24 101/85 100 Mechanical Ventilator 40 11/28/16 05:00 101/85 11/28/16 04:54 92 27 40 11/28/16 04:30 85 23 95/72 100 Mechanical Ventilator 40 11/28/16 04:00 99.2 91 23 63/41 100 Mechanical Ventilator 40 11/28/16 04:00 85 11/28/16 04:00 40 11/28/16 04:00 61/37 11/28/16 03:30 89 20 134/83 99 Mechanical Ventilator 40 11/28/16 03:06 112 24 40 11/28/16 03:00 97 20 120/76 99 Mechanical Ventilator 40 11/28/16 03:00 134/83 11/28/16 02:30 101 19 126/74 98 Mechanical Ventilator 40 11/28/16 02:00 101 20 127/68 99 Mechanical Ventilator 40 11/28/16 02:00 127/68 11/28/16 01:30 97 21 120/75 99 Mechanical Ventilator 40 11/28/16 01:00 97 21 140/75 99 Mechanical Ventilator 40 11/28/16 01:00 140/75 11/28/16 00:45 90 19 40 11/28/16 00:30 81 20 131/74 99 Mechanical Ventilator 40 11/28/16 00:09 57/35 11/28/16 00:00 40 11/28/16 00:00 98.8 81 20 59/37 99 Mechanical Ventilator 40 11/28/16 00:00 98 11/28/16 00:00 59/37 11/27/16 23:30 89 23 61/34 99 Mechanical Ventilator 40 11/27/16 23:27 112 24 40 11/27/16 23:00 97 20 163/88 100 Mechanical Ventilator 40 11/27/16 23:00 163/88 11/27/16 22:30 100 20 89/54 100 Mechanical Ventilator 40 11/27/16 22:00 101 19 118/63 100 Mechanical Ventilator 40 11/27/16 22:00 118/63 11/27/16 21:16 98 18 40 11/27/16 21:00 102/67 11/27/16 21:00 97 19 90/37 100 Mechanical Ventilator 40 11/27/16 20:30 98.6 99 19 67/37 100 Mechanical Ventilator 40 11/27/16 20:00 40 11/27/16 20:00 98.6 97 19 99/67 100 Mechanical Ventilator 40 11/27/16 20:00 92 11/27/16 19:13 99 18 40 11/27/16 19:00 98.3 59 19 98/45 100 Mechanical Ventilator 40 11/27/16 18:00 99/72 11/27/16 18:00 98 20 99/72 100 Mechanical Ventilator 40 11/27/16 17:30 97 19 99/56 100 Mechanical Ventilator 40 11/27/16 17:12 99 21 40 11/27/16 17:00 99/56 11/27/16 17:00 94 19 100/57 99 Mechanical Ventilator 40 11/27/16 16:00 40 11/27/16 16:00 93/65 11/27/16 16:00 90 11/27/16 16:00 100 20 87/40 100 Mechanical Ventilator 40 11/27/16 15:28 96 25 40 11/27/16 15:00 88 21 93/53 100 Mechanical Ventilator 40 11/27/16 15:00 87/40 11/27/16 14:30 94 20 90/39 100 Mechanical Ventilator 40 11/27/16 14:00 98.2 57 19 90/48 100 Mechanical Ventilator 40 11/27/16 14:00 90/39 11/27/16 13:00 93/48 11/27/16 13:00 90 19 93/49 100 Mechanical Ventilator 40 11/27/16 12:58 92 21 40 11/27/16 12:30 91 22 107/57 99 Mechanical Ventilator 40 11/27/16 12:01 97/48 11/27/16 12:00 98.1 80 20 110/70 100 Mechanical Ventilator 40 11/27/16 12:00 110 11/27/16 12:00 40 11/27/16 11:40 88/54 11/27/16 11:18 99 30 Mechanical Ventilator 40 11/27/16 11:00 98/47 11/27/16 11:00 103 20 95/57 100 Mechanical Ventilator 40 11/27/16 10:40 99 30 40 11/27/16 10:30 107 18 110/70 100 Mechanical Ventilator 40 11/27/16 10:00 110/68 11/27/16 10:00 98 22 110/68 98 Mechanical Ventilator 40 11/27/16 09:29 100 25 40 Status: awake Condition: critical HEENT: atraumatic, normocephalic Lungs: clear, chest wall tender Heart: HR/BP stable Abdomen: soft, non-tender, active bowel sounds Extremities: no C/C/E, edema Micro: Microbiology Date/Time Source Procedure Growth Status 11/25/16 13:31 Blood Blood Culture - Preliminary Gram Negative Bacillus 1 Staphylococcus Simulans Resulted 11/25/16 12:58 Blood Blood Culture - Preliminary NO GROWTH AFTER 48 HOURS Resulted 11/25/16 13:33 Nasal Nares MRSA Culture - Final NO METHICILLIN RESISTANT STAPH AUREUS... Complete 11/25/16 14:00 Stool Clostridium difficile Toxin Assay - Final Complete 11/25/16 16:50 Urine,Clean Catch Urine Culture - Final NO GROWTH AFTER 48 HOURS Complete 11/25/16 13:15 Urine,Clean Catch Urine Culture - Final Escherichia Coli Complete 11/25/16 13:33 Rectum VRE Culture - Final Enterococcus Faecalis - Vre Complete Accucheck: 150 Critical Care - Subjective ROS Limited/Unobtainable: No Condition: critical EKG Rhythm: Sinus Rhythm FI02: 40 Vent Support Breath Rate: 18 Vent Support Mode: AC Vent Tidal Volume: 600 Sputum Amount: None PIP: 23 Secretions: small Fluids: levophed 5 ug, dopamin 3 ug Drips: 1/2 NS 75 cc/hour Tube Feeding Amount: 30 I&O: Intake and Output 11/27/16 11/28/16 19:00 07:00 Intake Total 2072.80 ml 1548.46 ml Output Total 1440 ml 2060 ml Balance 632.80 ml -511.54 ml Free Water 120 ml 220 ml IV Total 1622.80 ml 1118.46 ml Tube Feeding 330 ml 210 ml Output Urine Total 1440 ml 2060 ml # Bowel Movements 6 2 CXR: no acute disease ET-Tube: 7.5 ET Position: 22 Labs: Laboratory Tests Test 11/27/16 09:35 11/27/16 16:00 11/28/16 05:00 11/28/16 06:15 Arterial Blood pH 7.456 (7.350-7.450) Arterial Blood Partial Pressure CO2 24.0 mmHg (35.0-45.0) *L Arterial Blood Partial Pressure O2 80.3 mmHg (75.0-100.0) Arterial Blood HCO3 16.8 mmol/L (22.0-26.0) L Arterial Blood Oxygen Saturation 95.2 % (92.0-98.0) Arterial Blood Base Excess -5.6 Isael Test Positive Hepatitis A IgM Antibody Pending Hepatitis B Surface Antigen Pending Hepatitis B Core IgM Antibody Pending Hepatitis C Antibody Pending White Blood Count 26.4 K/UL (4.8-10.8) *H Red Blood Count 4.31 M/UL (4.20-5.40) Hemoglobin 12.6 G/DL (12.0-16.0) Hematocrit 38.4 % (37.0-47.0) Mean Corpuscular Volume 89 FL (80-99) Mean Corpuscular Hemoglobin 29.4 PG (27.0-31.0) Mean Corpuscular Hemoglobin Concent 32.9 G/DL (32.0-36.0) Red Cell Distribution Width 16.1 % (11.6-14.8) H Platelet Count 77 K/UL (150-450) L Mean Platelet Volume 14.2 FL (6.5-10.1) H Neutrophils (%) (Auto) % (45.0-75.0) Lymphocytes (%) (Auto) % (20.0-45.0) Monocytes (%) (Auto) % (1.0-10.0) Eosinophils (%) (Auto) % (0.0-3.0) Basophils (%) (Auto) % (0.0-2.0) Neutrophils % (Manual) Pending Lymphocytes % (Manual) Pending Platelet Estimate Pending Platelet Morphology Pending Sodium Level 144 mEQ/L (135-145) Potassium Level 3.0 mEQ/L (3.4-4.9) L Chloride Level 109 mEQ/L (98-107) H Carbon Dioxide Level 21 mEQ/L (20-30) Anion Gap 14 (5-15) Blood Urea Nitrogen 38 mg/dL (7-23) H Creatinine 1.2 mg/dL (0.5-0.9) H Estimat Glomerular Filtration Rate mL/min (>60) Glucose Level 201 mg/dL (74-106) H Calcium Level 7.7 mg/dL (8.6-10.2) L Phosphorus Level 3.3 mg/dL (2.5-4.8) Magnesium Level 1.5 mg/dL (1.7-2.5) L Total Bilirubin 0.9 mg/dL (0.0-1.2) Aspartate Amino Transf (AST/SGOT) 13 U/L (5-40) Alanine Aminotransferase (ALT/SGPT) 22 U/L (3-33) Alkaline Phosphatase 103 U/L (35-104) Total Protein 4.7 g/dL (6.6-8.7) L Albumin 2.4 g/dL (3.5-5.2) L Globulin 2.3 g/dL Albumin/Globulin Ratio 1.0 (1.0-2.7) Vancomycin Level Trough 16.5 ug/mL (5.0-12.0) H STEVIE GUO Nov 28, 2016 09:19
[2016-11-28 09:37] LABS: BAND NEUTROPHILS % (MANUAL) 10 % (0-8); LYMPHOCYTES % (MANUAL) 7 % (20-45); NEUTROPHILS % (MANUAL) 80 % (45-75); TOTAL CELLS COUNTED 100
[2016-11-28 09:45] LABS: ANISOCYTOSIS 1+; BASOPHILS % (MANUAL) 0 % (0-2); EOSINOPHILS % (MANUAL) 0 % (0-3); PLATELET ESTIMATE DECREASED; PLATELET MORPHOLOGY NORMAL
[2016-11-28] MEDS ORDERED: Metoclopramide 10mg/2ml Inj IVP PRN (09:45)
--- NOTE | 2016-11-28 11:57 | Diagnostic Imaging Report ---
Indication: Chest pain Technique: One view of the chest Comparison: 11/27/2016 Findings: Interim retraction of nasogastric tube, tip projected just within the stomach, proximal port at or above the expected region of the gastroesophageal junction. Left infrahilar infiltrate persists. Stable satisfactory position of endotracheal tube. Right lung and pleural space are clear except for some perihilar atelectasis Impression: Interim retraction of nasogastric tube, now in insufficiently deep. Recommend advancement Other stable findings as described Findings discussed by phone with patient's nurse at the time of interpretation
[2016-11-28] MEDS: DOPamine 400mg/250ml 250 ML IV SCH (12:04)
--- NOTE | 2016-11-28 12:28 | Diagnostic Imaging Report ---
APPROVED REPORT CPT Code: 34127 Present Symptoms Lower Extremity Pain: Bilateral BILATERAL: Imaging reveals a patent deep venous system bilaterally. There is no evidence of thrombus within the femoral, popliteal or tibial segments. The greater saphenous veins are also within normal limits. Doppler indicates normal spontaneous flow within these segments.
[2016-11-28] MEDS ORDERED: Vancomycin 1gm/D5W 275ml IVPB ONE ×2 (13:00)
--- NOTE | 2016-11-28 14:54 | Infectious Diseases Prog Note ---
Assessment/Plan Problems: (1) HCAP (healthcare-associated pneumonia) Assessment & Plan: on meropenem , levaquin and vancomycin empirically, await sputum culture, improving (2) Septic shock Assessment & Plan: with gram negative rods , source most likely due to urine infection/ possible pyelonephritis, and pneumonia , continue meropenem, levaquin and vancomycin empirically , pending blood culture. one set grew staph simulans which is most likely contamination (3) UTI (urinary tract infection) Assessment & Plan: due to pansensitive E coli , with possible pylonephritis, on meropenem , and levaquin empirically for double coverage pending blood culture results (4) MARYAM (acute kidney injury) Assessment & Plan: improving, due to sepsis , continue ivf with pressors , avoid nephrotixic meds, renal is following , monitor UOP (5) Shock liver Assessment & Plan: due to sepsis , will screen for hepatitis, monitor LFT (6) Acute respiratory failure Assessment & Plan: due to sepsis, S/P intubation , monitor ABG, and CXR , consult pulmonary for further care (7) Diabetes mellitus Assessment & Plan: hold po meds, continue to monitor blood glucose as per unit protocol, keep tight glycemic control (8) Acute hypernatremia Assessment & Plan: due to volume loss, improved , continue fluids for hydration, monitor sodium level. Subjective ROS Limited/Unobtainable: Yes Allergies: Coded Allergies: No Known Allergies (Unverified , 11/25/16) Subjective she is still intubated, on mechanical ventilation , but more awake and alert , tracks with her eyes , on pressor, afebrile Objective Vital Signs Last 24 Hour Vital Signs Date Time Temp Pulse Resp B/P Pulse Ox O2 Delivery O2 Flow Rate FiO2 11/28/16 14:00 90 20 119/57 100 Mechanical Ventilator 40 11/28/16 14:00 119/57 11/28/16 13:30 92 19 109/55 100 Mechanical Ventilator 40 11/28/16 13:04 109/55 11/28/16 13:00 96 20 101/67 100 Mechanical Ventilator 40 11/28/16 12:55 98 18 40 11/28/16 12:04 95/57 11/28/16 12:04 93/56 11/28/16 12:00 98.0 102 20 93/56 100 Mechanical Ventilator 40 11/28/16 12:00 40 11/28/16 12:00 95 11/28/16 11:11 104 20 40 11/28/16 11:00 105 20 95/57 100 Mechanical Ventilator 40 11/28/16 11:00 95/57 11/28/16 10:30 107 20 91/50 98 Mechanical Ventilator 40 11/28/16 10:00 98 19 91/50 100 Mechanical Ventilator 40 11/28/16 09:57 149/78 11/28/16 09:40 105 23 40 11/28/16 09:00 82 19 100/41 100 Mechanical Ventilator 40 11/28/16 08:30 82 19 89/60 100 Mechanical Ventilator 40 11/28/16 08:00 81 11/28/16 08:00 40 11/28/16 08:00 98.3 86 18 86/49 100 Mechanical Ventilator 40 11/28/16 08:00 86/49 11/28/16 07:49 87 23 40 11/28/16 07:30 87 22 99/45 100 Mechanical Ventilator 40 11/28/16 07:00 86 21 84/45 100 Mechanical Ventilator 40 11/28/16 06:00 80 22 111/53 100 Mechanical Ventilator 40 11/28/16 06:00 111/53 11/28/16 05:30 83 23 110/85 100 Mechanical Ventilator 40 11/28/16 05:00 87 24 101/85 100 Mechanical Ventilator 40 11/28/16 05:00 101/85 11/28/16 04:54 92 27 40 11/28/16 04:30 85 23 95/72 100 Mechanical Ventilator 40 11/28/16 04:00 99.2 91 23 63/41 100 Mechanical Ventilator 40 11/28/16 04:00 85 11/28/16 04:00 40 11/28/16 04:00 61/37 11/28/16 03:30 89 20 134/83 99 Mechanical Ventilator 40 11/28/16 03:06 112 24 40 11/28/16 03:00 97 20 120/76 99 Mechanical Ventilator 40 11/28/16 03:00 134/83 11/28/16 02:30 101 19 126/74 98 Mechanical Ventilator 40 11/28/16 02:00 101 20 127/68 99 Mechanical Ventilator 40 11/28/16 02:00 127/68 11/28/16 01:30 97 21 120/75 99 Mechanical Ventilator 40 11/28/16 01:00 97 21 140/75 99 Mechanical Ventilator 40 11/28/16 01:00 140/75 11/28/16 00:45 90 19 40 11/28/16 00:30 81 20 131/74 99 Mechanical Ventilator 40 11/28/16 00:09 57/35 11/28/16 00:00 40 11/28/16 00:00 98.8 81 20 59/37 99 Mechanical Ventilator 40 11/28/16 00:00 98 11/28/16 00:00 59/37 11/27/16 23:30 89 23 61/34 99 Mechanical Ventilator 40 11/27/16 23:27 112 24 40 11/27/16 23:00 97 20 163/88 100 Mechanical Ventilator 40 11/27/16 23:00 163/88 11/27/16 22:30 100 20 89/54 100 Mechanical Ventilator 40 11/27/16 22:00 101 19 118/63 100 Mechanical Ventilator 40 11/27/16 22:00 118/63 11/27/16 21:16 98 18 40 11/27/16 21:00 102/67 11/27/16 21:00 97 19 90/37 100 Mechanical Ventilator 40 11/27/16 20:30 98.6 99 19 67/37 100 Mechanical Ventilator 40 11/27/16 20:00 40 11/27/16 20:00 98.6 97 19 99/67 100 Mechanical Ventilator 40 11/27/16 20:00 92 11/27/16 19:13 99 18 40 11/27/16 19:00 98.3 59 19 98/45 100 Mechanical Ventilator 40 11/27/16 18:00 99/72 11/27/16 18:00 98 20 99/72 100 Mechanical Ventilator 40 11/27/16 17:30 97 19 99/56 100 Mechanical Ventilator 40 11/27/16 17:12 99 21 40 11/27/16 17:00 99/56 11/27/16 17:00 94 19 100/57 99 Mechanical Ventilator 40 11/27/16 16:00 40 11/27/16 16:00 93/65 11/27/16 16:00 90 11/27/16 16:00 100 20 87/40 100 Mechanical Ventilator 40 11/27/16 15:28 96 25 40 11/27/16 15:00 88 21 93/53 100 Mechanical Ventilator 40 11/27/16 15:00 87/40 Height (Feet): 5 Height (Inches): 2.00 Weight (Pounds): 172 General Appearance: WD/WN, no acute distress HEENT: normocephalic, atraumatic, anicteric, mucous membranes moist, supple, no JVD, other - pupils dilated due to cataracts surgery Respiratory/Chest: normal breath sounds, no respiratory distress, no accessory muscle use, decreased breath sounds, crackles/rales Cardiovascular: normal peripheral pulses, normal rate, regular rhythm, no gallop/murmur, no JVD Abdomen: normal bowel sounds, soft, non tender, no organomegaly, non distended , no mass, no scars Extremities: no cyanosis, no clubbing Skin: no rash, no lesions Neurologic/Psychiatric: alert, oriented x 3 Lymphatic: no neck adenopathy, no groin adenopathy Musculoskeletal: normal muscle bulk Microbiology Date/Time Source Procedure Growth Status 11/27/16 21:30 Sputum Gram Stain - Final Resulted 11/27/16 21:30 Sputum Sputum Culture Pending Resulted 11/25/16 16:50 Urine,Clean Catch Urine Culture - Final NO GROWTH AFTER 48 HOURS Complete Laboratory Tests Test 11/27/16 16:00 11/28/16 05:00 11/28/16 06:15 Hepatitis A IgM Antibody Negative (Negative) Hepatitis B Surface Antigen Negative (Negative) Hepatitis B Core IgM Antibody Negative (Negative) Hepatitis C Antibody <0.1 s/co ratio White Blood Count 26.4 K/UL (4.8-10.8) *H Red Blood Count 4.31 M/UL (4.20-5.40) Hemoglobin 12.6 G/DL (12.0-16.0) Hematocrit 38.4 % (37.0-47.0) Mean Corpuscular Volume 89 FL (80-99) Mean Corpuscular Hemoglobin 29.4 PG (27.0-31.0) Mean Corpuscular Hemoglobin Concent 32.9 G/DL (32.0-36.0) Red Cell Distribution Width 16.1 % (11.6-14.8) H Platelet Count 77 K/UL (150-450) L Mean Platelet Volume 14.2 FL (6.5-10.1) H Neutrophils (%) (Auto) % (45.0-75.0) Lymphocytes (%) (Auto) % (20.0-45.0) Monocytes (%) (Auto) % (1.0-10.0) Eosinophils (%) (Auto) % (0.0-3.0) Basophils (%) (Auto) % (0.0-2.0) Differential Total Cells Counted 100 Neutrophils % (Manual) 80 % (45-75) H Lymphocytes % (Manual) 7 % (20-45) L Monocytes % (Manual) 3 % (1-10) Eosinophils % (Manual) 0 % (0-3) Basophils % (Manual) 0 % (0-2) Band Neutrophils 10 % (0-8) H Platelet Estimate Decreased L Platelet Morphology Normal Anisocytosis 1+ Sodium Level 144 mEQ/L (135-145) Potassium Level 3.0 mEQ/L (3.4-4.9) L Chloride Level 109 mEQ/L (98-107) H Carbon Dioxide Level 21 mEQ/L (20-30) Anion Gap 14 (5-15) Blood Urea Nitrogen 38 mg/dL (7-23) H Creatinine 1.2 mg/dL (0.5-0.9) H Estimat Glomerular Filtration Rate mL/min (>60) Glucose Level 201 mg/dL (74-106) H Calcium Level 7.7 mg/dL (8.6-10.2) L Phosphorus Level 3.3 mg/dL (2.5-4.8) Magnesium Level 1.5 mg/dL (1.7-2.5) L Total Bilirubin 0.9 mg/dL (0.0-1.2) Aspartate Amino Transf (AST/SGOT) 13 U/L (5-40) Alanine Aminotransferase (ALT/SGPT) 22 U/L (3-33) Alkaline Phosphatase 103 U/L (35-104) Total Protein 4.7 g/dL (6.6-8.7) L Albumin 2.4 g/dL (3.5-5.2) L Globulin 2.3 g/dL Albumin/Globulin Ratio 1.0 (1.0-2.7) Vancomycin Level Trough 16.5 ug/mL (5.0-12.0) H Current Medications Medications (Trade) Dose Ordered Sig/Flora Route PRN Reason Start Time Stop Time Status Last Admin Dose Admin Acetaminophen (Tylenol) 650 mg Q4H PRN ORAL fever 11/25/16 16:00 12/25/16 15:59 Albuterol/ Ipratropium (DuoNeb 0.5-3(2.5)mg/3ml) 3 ml Q4H PRN HHN Shortness of Breath 11/25/16 16:00 11/30/16 15:59 Chlorhexidine Gluconate 1 applic 1 applic DAILY TOPIC 11/26/16 09:00 12/26/16 08:59 11/28/16 09:00 Dextrose (Dextrose 50%) STAT PRN IV Hypoglycemia 11/25/16 16:00 12/25/16 15:59 Dopamine HCl/ Dextrose 250 ml @ 14.724 mls/ hr Q24H IV 11/26/16 12:15 12/26/16 12:14 11/28/16 12:04 Heparin Sodium (Porcine) (Heparin 5000 units/ml) 5,000 units EVERY 12 HOURS SUBQ 11/25/16 21:00 12/25/16 20:59 11/27/16 21:32 Insulin Aspart (NovoLOG) EVERY 6 HOURS SUBQ 11/26/16 00:00 12/26/16 00:00 11/28/16 11:40 Levofloxacin (Levaquin) 100 ml @ 100 mls/hr Q48H IVPB 11/27/16 14:00 12/04/16 13:59 11/27/16 13:47 Meropenem 500 mg/ Sodium Chloride 55 ml @ 110 mls/hr Q12HR IVPB 11/27/16 21:00 12/02/16 20:59 11/28/16 09:00 Metoclopramide HCl (Reglan) 5 mg Q6H PRN IVP Nausea & Vomiting 11/28/16 09:45 12/28/16 09:44 Morphine Sulfate (Morphine Sulfate) 2 mg Q4H PRN IVP Moderate Pain (Pain Scale 4-6) 11/25/16 16:00 12/02/16 15:59 Nitroglycerin (Ntg) 0.4 mg Q5M PRN SL Prn Chest Pain 11/25/16 16:00 12/25/16 15:59 Norepinephrine Bitartrate/ Dextrose (Levophed/D5W) 250 ml @ 0 mls/hr Q24H IV 11/25/16 17:00 12/25/16 16:59 11/28/16 09:57 Ondansetron HCl (Zofran) 4 mg Q6H PRN IVP Nausea & Vomiting 11/25/16 16:00 12/25/16 15:59 Pantoprazole (Protonix) 40 mg DAILY IVP 11/28/16 09:00 12/28/16 08:59 11/28/16 09:00 Polyethylene Glycol (Miralax) 17 gm DAILYPRN PRN ORAL Constipation 11/25/16 16:00 12/25/16 15:59 Sodium Chloride (0.45% NS 1000ml) 1,000 ml @ 75 mls/hr [id number] IV 11/27/16 12:00 12/27/16 11:59 11/28/16 01:36 Temazepam (Restoril) 15 mg HSPRN PRN ORAL Insomnia 11/25/16 16:00 12/02/16 15:59 Vancomycin HCl 1 ea 1 ea DAILY PRN MISC PER RX PROTOCOL 11/25/16 16:45 12/25/16 16:44 Romelia Sotelo M.D. Nov 28, 2016 14:54
--- NOTE | 2016-11-28 16:10 | Nephrology Progress Note ---
Assessment/Plan Problem List: (1) Hypernatremia Assessment: resolved (2) ARF (acute renal failure) Assessment: better (3) Septic shock Assessment: still on pressors but better (4) Acute respiratory failure (5) Diabetes mellitus (6) UTI (urinary tract infection) Plan Dc IVF taper pressors as tolerated TF follow labs vent support Discussed with RN Subjective Subjective In NAD Intubated Objective Objective Last 24 Hour Vital Signs Date Time Temp Pulse Resp B/P Pulse Ox O2 Delivery O2 Flow Rate FiO2 11/28/16 15:30 91 20 97/60 99 Mechanical Ventilator 40 11/28/16 15:06 97 20 40 11/28/16 15:00 97/60 11/28/16 15:00 97 20 85/60 100 Mechanical Ventilator 40 11/28/16 14:00 90 20 119/57 100 Mechanical Ventilator 40 11/28/16 14:00 119/57 11/28/16 13:30 92 19 109/55 100 Mechanical Ventilator 40 11/28/16 13:04 109/55 11/28/16 13:00 96 20 101/67 100 Mechanical Ventilator 40 11/28/16 12:55 98 18 40 11/28/16 12:04 95/57 11/28/16 12:04 93/56 11/28/16 12:00 98.0 102 20 93/56 100 Mechanical Ventilator 40 11/28/16 12:00 40 11/28/16 12:00 95 11/28/16 11:11 104 20 40 11/28/16 11:00 105 20 95/57 100 Mechanical Ventilator 40 11/28/16 11:00 95/57 11/28/16 10:30 107 20 91/50 98 Mechanical Ventilator 40 11/28/16 10:00 98 19 91/50 100 Mechanical Ventilator 40 11/28/16 09:57 149/78 11/28/16 09:40 105 23 40 11/28/16 09:00 82 19 100/41 100 Mechanical Ventilator 40 11/28/16 08:30 82 19 89/60 100 Mechanical Ventilator 40 11/28/16 08:00 81 11/28/16 08:00 40 11/28/16 08:00 98.3 86 18 86/49 100 Mechanical Ventilator 40 11/28/16 08:00 86/49 11/28/16 07:49 87 23 40 11/28/16 07:30 87 22 99/45 100 Mechanical Ventilator 40 11/28/16 07:00 86 21 84/45 100 Mechanical Ventilator 40 11/28/16 06:00 80 22 111/53 100 Mechanical Ventilator 40 11/28/16 06:00 111/53 11/28/16 05:30 83 23 110/85 100 Mechanical Ventilator 40 11/28/16 05:00 87 24 101/85 100 Mechanical Ventilator 40 11/28/16 05:00 101/85 11/28/16 04:54 92 27 40 11/28/16 04:30 85 23 95/72 100 Mechanical Ventilator 40 11/28/16 04:00 99.2 91 23 63/41 100 Mechanical Ventilator 40 11/28/16 04:00 85 11/28/16 04:00 40 11/28/16 04:00 61/37 11/28/16 03:30 89 20 134/83 99 Mechanical Ventilator 40 11/28/16 03:06 112 24 40 11/28/16 03:00 97 20 120/76 99 Mechanical Ventilator 40 11/28/16 03:00 134/83 11/28/16 02:30 101 19 126/74 98 Mechanical Ventilator 40 11/28/16 02:00 101 20 127/68 99 Mechanical Ventilator 40 11/28/16 02:00 127/68 11/28/16 01:30 97 21 120/75 99 Mechanical Ventilator 40 11/28/16 01:00 97 21 140/75 99 Mechanical Ventilator 40 11/28/16 01:00 140/75 11/28/16 00:45 90 19 40 11/28/16 00:30 81 20 131/74 99 Mechanical Ventilator 40 11/28/16 00:09 57/35 11/28/16 00:00 40 11/28/16 00:00 98.8 81 20 59/37 99 Mechanical Ventilator 40 11/28/16 00:00 98 11/28/16 00:00 59/37 11/27/16 23:30 89 23 61/34 99 Mechanical Ventilator 40 11/27/16 23:27 112 24 40 11/27/16 23:00 97 20 163/88 100 Mechanical Ventilator 40 11/27/16 23:00 163/88 11/27/16 22:30 100 20 89/54 100 Mechanical Ventilator 40 11/27/16 22:00 101 19 118/63 100 Mechanical Ventilator 40 11/27/16 22:00 118/63 11/27/16 21:16 98 18 40 11/27/16 21:00 102/67 11/27/16 21:00 97 19 90/37 100 Mechanical Ventilator 40 11/27/16 20:30 98.6 99 19 67/37 100 Mechanical Ventilator 40 11/27/16 20:00 40 11/27/16 20:00 98.6 97 19 99/67 100 Mechanical Ventilator 40 11/27/16 20:00 92 11/27/16 19:13 99 18 40 11/27/16 19:00 98.3 59 19 98/45 100 Mechanical Ventilator 40 11/27/16 18:00 99/72 11/27/16 18:00 98 20 99/72 100 Mechanical Ventilator 40 11/27/16 17:30 97 19 99/56 100 Mechanical Ventilator 40 11/27/16 17:12 99 21 40 11/27/16 17:00 99/56 11/27/16 17:00 94 19 100/57 99 Mechanical Ventilator 40 Intake and Output 11/27/16 11/28/16 19:00 07:00 Intake Total 2072.80 ml 1548.46 ml Output Total 1440 ml 2060 ml Balance 632.80 ml -511.54 ml Free Water 120 ml 220 ml IV Total 1622.80 ml 1118.46 ml Tube Feeding 330 ml 210 ml Output Urine Total 1440 ml 2060 ml # Bowel Movements 6 2 Laboratory Tests 11/28/16 05:00: White Blood Count 26.4*H, Red Blood Count 4.31, Hemoglobin 12.6, Hematocrit 38.4 , Mean Corpuscular Volume 89, Mean Corpuscular Hemoglobin 29.4, Mean Corpuscular Hemoglobin Concent 32.9, Red Cell Distribution Width 16.1H, Platelet Count 77L, Mean Platelet Volume 14.2H, Neutrophils (%) (Auto) , Lymphocytes (%) (Auto) , Monocytes (%) (Auto) , Eosinophils (%) (Auto) , Basophils (%) (Auto) , Differential Total Cells Counted 100, Neutrophils % ( Manual) 80H, Lymphocytes % (Manual) 7L, Monocytes % (Manual) 3, Eosinophils % ( Manual) 0, Basophils % (Manual) 0, Band Neutrophils 10H, Platelet Estimate DecreasedL, Platelet Morphology Normal, Anisocytosis 1+, Sodium Level 144, Potassium Level 3.0L, Chloride Level 109H, Carbon Dioxide Level 21, Anion Gap 14 , Blood Urea Nitrogen 38H, Creatinine 1.2H, Estimat Glomerular Filtration Rate , Glucose Level 201H, Calcium Level 7.7L, Phosphorus Level 3.3, Magnesium Level 1.5L, Total Bilirubin 0.9, Aspartate Amino Transf (AST/SGOT) 13, Alanine Aminotransferase (ALT/SGPT) 22, Alkaline Phosphatase 103, Total Protein 4.7L, Albumin 2.4L, Globulin 2.3, Albumin/Globulin Ratio 1.0 11/28/16 06:15: Vancomycin Level Trough 16.5H Height (Feet): 5 Height (Inches): 2.00 Weight (Pounds): 172 Cardiovascular: normal rate Respiratory/Chest: rhonchi - bilaterally OBINNA MADRIGAL Nov 28, 2016 16:10
[2016-11-28] MEDS ORDERED: KCl 10% 40mEq/30ml liquid NG ONE (16:45)
--- NOTE | 2016-11-28 16:57 | General Progress Note ---
Assessment/Plan Status: stable Assessment/Plan 1. Respiratory failure s/p intubation 2. Sepsis 2nd to UTI - cont IV abx. needs central line. awaiting consent from family. if can't reach them, it is OK to put central line for continue IV abx. with two doctors approval. 3. Renal failure 2nd to sepsis - improved. 4. Pneumonia - cont IV abx. 5. Septic Shock - in ICU. on presser and trying to meghan off. 6. H/O Basal Ganglia ischemic stroke recently 7. 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 Venous U/S negative for DVT. 8. Hypernatremia - resolved. 9. Hyperlipidemia - Lipitor 20 mg one po qhs 10. DM II - On SSI 11. Sacral Pressure ulcer - cont wound care. Subjective Date patient seen: Nov 28, 2016 Time patient seen: 16:45 Constitutional: Reports: no symptoms HEENT: Reports: no symptoms Cardiovascular: Reports: other - hypotension Respiratory: Reports: other - intubated Gastrointestinal/Abdominal: Reports: no symptoms Genitourinary: Reports: no symptoms Neurologic/Psychiatric: Reports: no symptoms Endocrine: Reports: no symptoms Hematologic/Lymphatic: Reports: no symptoms Allergies: Coded Allergies: No Known Allergies (Unverified , 11/25/16) Subjective Pt is better and started making more urine. No sob or chest pain. she still DNR today. Objective Last 24 Hour Vital Signs Date Time Temp Pulse Resp B/P Pulse Ox O2 Delivery O2 Flow Rate FiO2 11/28/16 16:00 40 11/28/16 16:00 90 11/28/16 16:00 105/56 11/28/16 16:00 91 20 95/52 99 Mechanical Ventilator 40 11/28/16 15:30 91 20 97/60 99 Mechanical Ventilator 40 11/28/16 15:06 97 20 40 11/28/16 15:00 97/60 11/28/16 15:00 97 20 85/60 100 Mechanical Ventilator 40 11/28/16 14:00 90 20 119/57 100 Mechanical Ventilator 40 11/28/16 14:00 119/57 11/28/16 13:30 92 19 109/55 100 Mechanical Ventilator 40 11/28/16 13:04 109/55 11/28/16 13:00 96 20 101/67 100 Mechanical Ventilator 40 11/28/16 12:55 98 18 40 11/28/16 12:04 95/57 11/28/16 12:04 93/56 11/28/16 12:00 98.0 102 20 93/56 100 Mechanical Ventilator 40 11/28/16 12:00 40 11/28/16 12:00 95 11/28/16 11:11 104 20 40 11/28/16 11:00 105 20 95/57 100 Mechanical Ventilator 40 11/28/16 11:00 95/57 11/28/16 10:30 107 20 91/50 98 Mechanical Ventilator 40 11/28/16 10:00 98 19 91/50 100 Mechanical Ventilator 40 11/28/16 09:57 149/78 11/28/16 09:40 105 23 40 11/28/16 09:00 82 19 100/41 100 Mechanical Ventilator 40 11/28/16 08:30 82 19 89/60 100 Mechanical Ventilator 40 11/28/16 08:00 81 11/28/16 08:00 40 11/28/16 08:00 98.3 86 18 86/49 100 Mechanical Ventilator 40 11/28/16 08:00 86/49 11/28/16 07:49 87 23 40 11/28/16 07:30 87 22 99/45 100 Mechanical Ventilator 40 11/28/16 07:00 86 21 84/45 100 Mechanical Ventilator 40 11/28/16 06:00 80 22 111/53 100 Mechanical Ventilator 40 11/28/16 06:00 111/53 11/28/16 05:30 83 23 110/85 100 Mechanical Ventilator 40 11/28/16 05:00 87 24 101/85 100 Mechanical Ventilator 40 11/28/16 05:00 101/85 11/28/16 04:54 92 27 40 11/28/16 04:30 85 23 95/72 100 Mechanical Ventilator 40 11/28/16 04:00 99.2 91 23 63/41 100 Mechanical Ventilator 40 11/28/16 04:00 85 11/28/16 04:00 40 11/28/16 04:00 61/37 11/28/16 03:30 89 20 134/83 99 Mechanical Ventilator 40 11/28/16 03:06 112 24 40 11/28/16 03:00 97 20 120/76 99 Mechanical Ventilator 40 11/28/16 03:00 134/83 11/28/16 02:30 101 19 126/74 98 Mechanical Ventilator 40 11/28/16 02:00 101 20 127/68 99 Mechanical Ventilator 40 11/28/16 02:00 127/68 11/28/16 01:30 97 21 120/75 99 Mechanical Ventilator 40 11/28/16 01:00 97 21 140/75 99 Mechanical Ventilator 40 11/28/16 01:00 140/75 11/28/16 00:45 90 19 40 11/28/16 00:30 81 20 131/74 99 Mechanical Ventilator 40 11/28/16 00:09 57/35 11/28/16 00:00 40 11/28/16 00:00 98.8 81 20 59/37 99 Mechanical Ventilator 40 11/28/16 00:00 98 11/28/16 00:00 59/37 11/27/16 23:30 89 23 61/34 99 Mechanical Ventilator 40 11/27/16 23:27 112 24 40 11/27/16 23:00 97 20 163/88 100 Mechanical Ventilator 40 11/27/16 23:00 163/88 11/27/16 22:30 100 20 89/54 100 Mechanical Ventilator 40 11/27/16 22:00 101 19 118/63 100 Mechanical Ventilator 40 11/27/16 22:00 118/63 11/27/16 21:16 98 18 40 11/27/16 21:00 102/67 11/27/16 21:00 97 19 90/37 100 Mechanical Ventilator 40 11/27/16 20:30 98.6 99 19 67/37 100 Mechanical Ventilator 40 11/27/16 20:00 40 11/27/16 20:00 98.6 97 19 99/67 100 Mechanical Ventilator 40 11/27/16 20:00 92 11/27/16 19:13 99 18 40 11/27/16 19:00 98.3 59 19 98/45 100 Mechanical Ventilator 40 11/27/16 18:00 99/72 11/27/16 18:00 98 20 99/72 100 Mechanical Ventilator 40 11/27/16 17:30 97 19 99/56 100 Mechanical Ventilator 40 11/27/16 17:12 99 21 40 11/27/16 17:00 99/56 11/27/16 17:00 94 19 100/57 99 Mechanical Ventilator 40 Intake and Output 11/27/16 11/28/16 19:00 07:00 Intake Total 2072.80 ml 1548.46 ml Output Total 1440 ml 2060 ml Balance 632.80 ml -511.54 ml Free Water 120 ml 220 ml IV Total 1622.80 ml 1118.46 ml Tube Feeding 330 ml 210 ml Output Urine Total 1440 ml 2060 ml # Bowel Movements 6 2 Laboratory Tests 11/28/16 05:00: White Blood Count 26.4*H, Red Blood Count 4.31, Hemoglobin 12.6, Hematocrit 38.4 , Mean Corpuscular Volume 89, Mean Corpuscular Hemoglobin 29.4, Mean Corpuscular Hemoglobin Concent 32.9, Red Cell Distribution Width 16.1H, Platelet Count 77L, Mean Platelet Volume 14.2H, Neutrophils (%) (Auto) , Lymphocytes (%) (Auto) , Monocytes (%) (Auto) , Eosinophils (%) (Auto) , Basophils (%) (Auto) , Differential Total Cells Counted 100, Neutrophils % ( Manual) 80H, Lymphocytes % (Manual) 7L, Monocytes % (Manual) 3, Eosinophils % ( Manual) 0, Basophils % (Manual) 0, Band Neutrophils 10H, Platelet Estimate DecreasedL, Platelet Morphology Normal, Anisocytosis 1+, Sodium Level 144, Potassium Level 3.0L, Chloride Level 109H, Carbon Dioxide Level 21, Anion Gap 14 , Blood Urea Nitrogen 38H, Creatinine 1.2H, Estimat Glomerular Filtration Rate , Glucose Level 201H, Calcium Level 7.7L, Phosphorus Level 3.3, Magnesium Level 1.5L, Total Bilirubin 0.9, Aspartate Amino Transf (AST/SGOT) 13, Alanine Aminotransferase (ALT/SGPT) 22, Alkaline Phosphatase 103, Total Protein 4.7L, Albumin 2.4L, Globulin 2.3, Albumin/Globulin Ratio 1.0 11/28/16 06:15: Vancomycin Level Trough 16.5H Height (Feet): 5 Height (Inches): 2.00 Weight (Pounds): 172 General Appearance: no apparent distress, alert Neck: non-tender, normal alignment, supple Cardiovascular: normal peripheral pulses, normal rate, regular rhythm Respiratory/Chest: lungs clear, normal breath sounds, other - intubated Abdomen: normal bowel sounds, non tender, soft, no organomegaly Extremities: normal range of motion, non-tender Edema: no edema noted Arm (L), no edema noted Arm (R), no edema noted Leg (L), no edema noted Leg (R), no edema noted Pedal (L), no edema noted Pedal (R), no edema noted Generalized Neurologic: no motor/sensory deficits, alert, responsive Skin: warm/dry Lymphatic: normal anterior cervical (L), normal anterior cervical (R), normal axillary (L), normal axillary (R), normal inguinal (L), normal inguinal (R), normal other, normal posterior cervical (L), normal posterior cervical (R), normal submandibular (L), normal submandibular (R), normal supraclavicular (L), normal supraclavicular (R) TERI JACKSON Nov 28, 2016 16:57
[2016-11-29] VITALS (46 sets, daily range): BP systolic 81–159; BP diastolic 53–90
[2016-11-29] MEDS: NovoLOG Insulin Flexpen SUBQ SCH ×5 (00:16→23:37)
[2016-11-29 05:20] LABS: MEAN CORPUSCULAR HEMOGLOBIN 29.4 PG (27.0-31.0); MEAN CORPUSCULAR HGB CONC 33.2 G/DL (32.0-36.0); MEAN CORPUSCULAR VOLUME 89 FL (80-99); MEAN PLATELET VOLUME 14.3 FL (6.5-10.1); PLATELET COUNT 70 K/UL (150-450); RED BLOOD COUNT 4.02 M/UL (4.20-5.40); RED CELL DISTRIBUTION WIDTH 16.5 % (11.6-14.8)
[2016-11-29 05:53] LABS: WHITE BLOOD COUNT 23.2 K/UL (4.8-10.8)
[2016-11-29 05:58] LABS: ALANINE AMINOTRANSFERASE 18 U/L (3-33); ALBUMIN/GLOBULIN RATIO 0.8 (1.0-2.7); ANION GAP 13 (5-15); ASPARTATE AMINO TRANSFERASE 14 U/L (5-40); CALCIUM 7.6 mg/dL (8.6-10.2); CARBON DIOXIDE 19 mEQ/L (20-30); CHLORIDE 112 mEQ/L (98-107); CREATININE 0.8 mg/dL (0.5-0.9); HEMOLYSIS 7; MAGNESIUM 1.8 mg/dL (1.7-2.5); PHOSPHORUS 1.9 mg/dL (2.5-4.8); POTASSIUM 4.3 mEQ/L (3.4-4.9); SODIUM 144 mEQ/L (135-145); TOTAL PROTEIN 4.5 g/dL (6.6-8.7)
[2016-11-29 05:59] LABS: PROTHROMBIN TIME 10.6 SEC (9.30-11.50)
[2016-11-29 08:40] LABS: LYMPHOCYTES % (MANUAL) 6 % (20-45); NEUTROPHILS % (MANUAL) 90 % (45-75); TOTAL CELLS COUNTED 100
[2016-11-29 08:41] LABS: ANISOCYTOSIS 1+; BAND NEUTROPHILS % (MANUAL) 0 % (0-8); BASOPHILS % (MANUAL) 0 % (0-2); EOSINOPHILS % (MANUAL) 0 % (0-3); PLATELET ESTIMATE DECREASED; PLATELET MORPHOLOGY NORMAL
--- NOTE | 2016-11-29 08:45 | General Progress Note ---
Assessment/Plan Status: stable Assessment/Plan 1. Respiratory failure s/p intubation 2. Sepsis 2nd to UTI - improving. WBC decreasing. cont IV abx. needs central line. awaiting consent from family. if can't reach them, it is OK to put central line for continue IV abx. with two doctors approval. 3. Renal failure 2nd to sepsis - resolved. 4. Pneumonia - cont IV abx. 5. Septic Shock - in ICU. on presser and trying to meghan off. 6. H/O Basal Ganglia ischemic stroke recently 7. 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 Venous U/S negative for DVT. 8. Hypernatremia - resolved. 9. Hyperlipidemia - start lipitor 20 mg in a few days when she is better. 10. DM II - On SSI 11. Sacral Pressure ulcer - cont wound care. Subjective Date patient seen: Nov 29, 2016 Time patient seen: 08:30 Constitutional: Reports: no symptoms HEENT: Reports: no symptoms Cardiovascular: Reports: no symptoms Respiratory: Reports: other - intubated Gastrointestinal/Abdominal: Reports: no symptoms Genitourinary: Reports: no symptoms Neurologic/Psychiatric: Reports: no symptoms Endocrine: Reports: no symptoms Hematologic/Lymphatic: Reports: no symptoms Allergies: Coded Allergies: No Known Allergies (Unverified , 11/25/16) Subjective Pt is better and renal function returned to normal. No sob or chest pain. she still intubated and her WBC decreasing today. Awake and respond to command by closing her eyes. Objective Last 24 Hour Vital Signs Date Time Temp Pulse Resp B/P Pulse Ox O2 Delivery O2 Flow Rate FiO2 11/29/16 08:00 40 11/29/16 07:02 100 22 40 11/29/16 06:00 105/64 11/29/16 06:00 90 20 110/59 100 Mechanical Ventilator 40 11/29/16 05:30 95 20 101/60 100 Mechanical Ventilator 40 11/29/16 05:08 81 18 40 11/29/16 05:00 90 19 120/65 100 Mechanical Ventilator 40 11/29/16 04:30 87 18 124/67 100 Mechanical Ventilator 40 11/29/16 04:16 122/67 11/29/16 04:00 40 11/29/16 04:00 108/68 11/29/16 04:00 98.2 90 18 108/68 100 Mechanical Ventilator 40 11/29/16 04:00 95 11/29/16 03:12 90 18 40 11/29/16 03:00 106/70 11/29/16 03:00 90 18 115/61 100 Mechanical Ventilator 40 11/29/16 02:30 92 18 96/64 100 Mechanical Ventilator 40 11/29/16 02:00 90 18 115/61 100 Mechanical Ventilator 40 11/29/16 02:00 115/61 11/29/16 01:11 96 23 40 11/29/16 01:00 93 20 110/58 97 Mechanical Ventilator 40 11/29/16 01:00 87/57 11/29/16 00:30 94 20 109/58 97 Mechanical Ventilator 40 11/29/16 00:00 96 11/29/16 00:00 93/59 11/29/16 00:00 98.8 96 20 93/59 99 Mechanical Ventilator 40 11/29/16 00:00 40 11/28/16 23:30 96 20 99/55 99 Mechanical Ventilator 40 11/28/16 23:16 92 18 40 11/28/16 23:00 106/57 11/28/16 23:00 84 21 108/68 100 Mechanical Ventilator 40 11/28/16 22:30 92 18 102/60 100 Mechanical Ventilator 40 11/28/16 22:00 84 21 108/68 100 Mechanical Ventilator 40 11/28/16 22:00 102/66 11/28/16 21:30 83 21 110/62 100 Mechanical Ventilator 40 11/28/16 21:05 86 20 40 11/28/16 21:00 111/71 11/28/16 21:00 82 22 111/71 100 Mechanical Ventilator 40 11/28/16 20:30 79 22 72/48 100 Mechanical Ventilator 40 11/28/16 20:00 98.6 87 22 74/45 100 Mechanical Ventilator 40 11/28/16 20:00 88 11/28/16 20:00 40 11/28/16 20:00 74/45 11/28/16 19:18 96 21 40 11/28/16 19:00 108/65 11/28/16 19:00 92 20 109/61 99 Mechanical Ventilator 40 11/28/16 18:00 95/56 11/28/16 18:00 93 19 86/58 99 Mechanical Ventilator 40 11/28/16 17:30 93 19 40 11/28/16 17:30 91 20 87/55 99 Mechanical Ventilator 40 11/28/16 17:00 87/52 11/28/16 17:00 98.1 94 21 91/58 98 Mechanical Ventilator 40 11/28/16 16:00 40 11/28/16 16:00 90 11/28/16 16:00 105/56 11/28/16 16:00 91 20 95/52 99 Mechanical Ventilator 40 11/28/16 15:30 91 20 97/60 99 Mechanical Ventilator 40 11/28/16 15:06 97 20 40 11/28/16 15:00 97/60 11/28/16 15:00 97 20 85/60 100 Mechanical Ventilator 40 11/28/16 14:00 90 20 119/57 100 Mechanical Ventilator 40 11/28/16 14:00 119/57 11/28/16 13:30 92 19 109/55 100 Mechanical Ventilator 40 11/28/16 13:04 109/55 11/28/16 13:00 96 20 101/67 100 Mechanical Ventilator 40 11/28/16 12:55 98 18 40 11/28/16 12:04 95/57 11/28/16 12:04 93/56 11/28/16 12:00 98.0 102 20 93/56 100 Mechanical Ventilator 40 11/28/16 12:00 40 11/28/16 12:00 95 11/28/16 11:11 104 20 40 11/28/16 11:00 105 20 95/57 100 Mechanical Ventilator 40 11/28/16 11:00 95/57 11/28/16 10:30 107 20 91/50 98 Mechanical Ventilator 40 11/28/16 10:00 98 19 91/50 100 Mechanical Ventilator 40 11/28/16 09:57 149/78 11/28/16 09:40 105 23 40 11/28/16 09:00 82 19 100/41 100 Mechanical Ventilator 40 Intake and Output 11/28/16 11/29/16 19:00 07:00 Intake Total 1801.890 ml 810.96 ml Output Total 2285 ml 1250 ml Balance -483.110 ml -439.04 ml Free Water 120 ml 180 ml IV Total 1291.890 ml 270.96 ml Tube Feeding 360 ml 360 ml Other 30 ml Output Urine Total 2285 ml 1250 ml Laboratory Tests 11/29/16 04:20: White Blood Count 23.2*H, Red Blood Count 4.02L, Hemoglobin 11.8L, Hematocrit 35.6L, Mean Corpuscular Volume 89, Mean Corpuscular Hemoglobin 29.4, Mean Corpuscular Hemoglobin Concent 33.2, Red Cell Distribution Width 16.5H, Platelet Count 70L, Mean Platelet Volume 14.3H, Neutrophils (%) (Auto) , Lymphocytes (%) (Auto) , Monocytes (%) (Auto) , Eosinophils (%) (Auto) , Basophils (%) (Auto) , Neutrophils % (Manual) [Pending], Lymphocytes % (Manual) [Pending], Platelet Estimate [Pending], Platelet Morphology [Pending], Prothrombin Time 10.6, Prothromb Time International Ratio 1.0, Activated Partial Thromboplast Time 40H, Sodium Level 144, Potassium Level 4.3, Chloride Level 112H, Carbon Dioxide Level 19L, Anion Gap 13, Blood Urea Nitrogen 27H, Creatinine 0.8, Estimat Glomerular Filtration Rate , Glucose Level 188H, Calcium Level 7.6L, Phosphorus Level 1.9L, Magnesium Level 1.8, Total Bilirubin 0.7, Aspartate Amino Transf (AST/SGOT) 14, Alanine Aminotransferase (ALT/SGPT) 18, Alkaline Phosphatase 145H, Total Protein 4.5L, Albumin 2.0L, Globulin 2.5, Albumin/Globulin Ratio 0.8L Height (Feet): 5 Height (Inches): 2.00 Weight (Pounds): 190 General Appearance: no apparent distress, alert EENT: normal ENT inspection Neck: non-tender, normal alignment, supple Cardiovascular: normal peripheral pulses, normal rate, regular rhythm Respiratory/Chest: lungs clear, normal breath sounds, other - intubated Abdomen: normal bowel sounds, non tender, soft Extremities: normal range of motion, non-tender Edema: no edema noted Arm (L), no edema noted Arm (R), no edema noted Leg (L), no edema noted Leg (R), no edema noted Pedal (L), no edema noted Pedal (R), no edema noted Generalized Neurologic: alert, responsive Skin: warm/dry Lymphatic: normal anterior cervical (L), normal anterior cervical (R), normal axillary (L), normal axillary (R), normal inguinal (L), normal inguinal (R), normal other, normal posterior cervical (L), normal posterior cervical (R), normal submandibular (L), normal submandibular (R), normal supraclavicular (L), normal supraclavicular (R) TERI JACKSON Nov 29, 2016 08:45
[2016-11-29] MEDS: Meropenem 500mg/NS 55ml IVPB SCH ×2 (08:59)
[2016-11-29] MEDS: Pantoprazole Inj IVP SCH (08:59)
[2016-11-29] MEDS: Heparin 5000 units/ml inj SUBQ SCH ×2 (08:59→20:40)
[2016-11-29] MEDS: Dyna-Hex 2% Top Sol 8oz TOPIC SCH (09:00)
[2016-11-29 09:42] LABS: ABG BASE EXCESS -1.9; ABG PCO2 28.8 mmHg (35.0-45.0)
[2016-11-29 09:43] LABS: ABG ALLEN TEST POSITIVE
--- NOTE | 2016-11-29 11:16 | Pulmonolgy Critical Care Note ---
Critical Care - Asmt/Plan Problems: (1) Respiratory failure (2) Septic shock (3) Acute encephalopathy (4) ARF (acute renal failure) (5) Hypernatremia (6) Diabetes mellitus Respiratory: adjust tidal volume, adjust FIO2, CXR, ABG Cardiac: continue pressors, continue to monitor HR/BP Renal: F/U I&O, keep IV fluid Infectious Disease: check cultures, continue antibiotics Gastrointestinal: continue feedings/current rate Endocrine: monitor blood sugar, check TSH, continue sliding scale insulin Hematologic: monitor H/H, transfuse if hgb<8.5 Neurologic: PRN Ativan, keep patient comfortable Affect: PRN ativan Prophylaxis: Protonix Notes Reviewed: coding compliance manager, cardio Discussed with: nurses, consultants, disability case managerpre press manager - Objective Last 24 Hour Vital Signs Date Time Temp Pulse Resp B/P Pulse Ox O2 Delivery O2 Flow Rate FiO2 11/29/16 11:00 102 20 89/55 97 Mechanical Ventilator 40 11/29/16 10:30 109 19 90/62 97 Mechanical Ventilator 40 11/29/16 10:00 91 19 101/64 99 Mechanical Ventilator 40 11/29/16 09:30 90 19 106/64 100 Mechanical Ventilator 40 11/29/16 09:04 100 20 40 11/29/16 09:00 100 20 99/60 99 Mechanical Ventilator 40 11/29/16 08:30 97 19 99/62 98 Mechanical Ventilator 40 11/29/16 08:00 40 11/29/16 08:00 98.2 102 20 92/58 98 Mechanical Ventilator 40 11/29/16 08:00 100 11/29/16 07:30 96 21 109/71 99 Mechanical Ventilator 40 11/29/16 07:02 100 22 40 11/29/16 07:00 92 19 102/66 99 Mechanical Ventilator 40 11/29/16 06:30 92 19 105/64 97 Mechanical Ventilator 40 11/29/16 06:00 105/64 11/29/16 06:00 90 20 110/59 100 Mechanical Ventilator 40 11/29/16 05:30 95 20 101/60 100 Mechanical Ventilator 40 11/29/16 05:08 81 18 40 11/29/16 05:00 90 19 120/65 100 Mechanical Ventilator 40 11/29/16 04:30 87 18 124/67 100 Mechanical Ventilator 40 11/29/16 04:16 122/67 11/29/16 04:00 40 11/29/16 04:00 108/68 11/29/16 04:00 98.2 90 18 108/68 100 Mechanical Ventilator 40 11/29/16 04:00 95 11/29/16 03:12 90 18 40 11/29/16 03:00 106/70 11/29/16 03:00 90 18 115/61 100 Mechanical Ventilator 40 11/29/16 02:30 92 18 96/64 100 Mechanical Ventilator 40 11/29/16 02:00 90 18 115/61 100 Mechanical Ventilator 40 11/29/16 02:00 115/61 11/29/16 01:11 96 23 40 11/29/16 01:00 93 20 110/58 97 Mechanical Ventilator 40 11/29/16 01:00 87/57 11/29/16 00:30 94 20 109/58 97 Mechanical Ventilator 40 11/29/16 00:00 96 11/29/16 00:00 93/59 11/29/16 00:00 98.8 96 20 93/59 99 Mechanical Ventilator 40 11/29/16 00:00 40 11/28/16 23:30 96 20 99/55 99 Mechanical Ventilator 40 11/28/16 23:16 92 18 40 11/28/16 23:00 106/57 11/28/16 23:00 84 21 108/68 100 Mechanical Ventilator 40 11/28/16 22:30 92 18 102/60 100 Mechanical Ventilator 40 11/28/16 22:00 84 21 108/68 100 Mechanical Ventilator 40 11/28/16 22:00 102/66 11/28/16 21:30 83 21 110/62 100 Mechanical Ventilator 40 11/28/16 21:05 86 20 40 11/28/16 21:00 111/71 11/28/16 21:00 82 22 111/71 100 Mechanical Ventilator 40 11/28/16 20:30 79 22 72/48 100 Mechanical Ventilator 40 11/28/16 20:00 98.6 87 22 74/45 100 Mechanical Ventilator 40 11/28/16 20:00 88 11/28/16 20:00 40 11/28/16 20:00 74/45 11/28/16 19:18 96 21 40 11/28/16 19:00 108/65 11/28/16 19:00 92 20 109/61 99 Mechanical Ventilator 40 11/28/16 18:00 95/56 11/28/16 18:00 93 19 86/58 99 Mechanical Ventilator 40 11/28/16 17:30 93 19 40 11/28/16 17:30 91 20 87/55 99 Mechanical Ventilator 40 11/28/16 17:00 87/52 11/28/16 17:00 98.1 94 21 91/58 98 Mechanical Ventilator 40 11/28/16 16:00 40 11/28/16 16:00 90 11/28/16 16:00 105/56 11/28/16 16:00 91 20 95/52 99 Mechanical Ventilator 40 11/28/16 15:30 91 20 97/60 99 Mechanical Ventilator 40 11/28/16 15:06 97 20 40 11/28/16 15:00 97/60 11/28/16 15:00 97 20 85/60 100 Mechanical Ventilator 40 11/28/16 14:00 90 20 119/57 100 Mechanical Ventilator 40 11/28/16 14:00 119/57 11/28/16 13:30 92 19 109/55 100 Mechanical Ventilator 40 11/28/16 13:04 109/55 11/28/16 13:00 96 20 101/67 100 Mechanical Ventilator 40 11/28/16 12:55 98 18 40 11/28/16 12:04 95/57 11/28/16 12:04 93/56 11/28/16 12:00 98.0 102 20 93/56 100 Mechanical Ventilator 40 11/28/16 12:00 40 11/28/16 12:00 95 Status: sedated Condition: critical Neck: full ROM Lungs: clear, chest wall tender Heart: HR/BP stable, HR/BP unstable Abdomen: soft, active bowel sounds, feeding tube Decubiti: stage Micro: Microbiology Date/Time Source Procedure Growth Status 11/27/16 21:30 Sputum Gram Stain - Final Resulted 11/27/16 21:30 Sputum Sputum Culture Pending Resulted Accucheck: 158 Critical Care - Subjective ROS Limited/Unobtainable: Yes ICU Day: 4 Intubation Day: 4 Condition: critical EKG Rhythm: Sinus Rhythm FI02: 40 Vent Support Breath Rate: 18 Vent Support Mode: AC Vent Tidal Volume: 600 Sputum Amount: Small PIP: 26 Drips: levophed 3, dopamin 3 ug Tube Feeding Amount: 30 I&O: Intake and Output 11/28/16 11/29/16 19:00 07:00 Intake Total 1801.890 ml 810.96 ml Output Total 2285 ml 1250 ml Balance -483.110 ml -439.04 ml Free Water 120 ml 180 ml IV Total 1291.890 ml 270.96 ml Tube Feeding 360 ml 360 ml Other 30 ml Output Urine Total 2285 ml 1250 ml CXR: no change ET-Tube: 7.5 ET Position: 23 Labs: Laboratory Tests Test 11/29/16 04:20 11/29/16 09:15 White Blood Count 23.2 K/UL (4.8-10.8) *H Red Blood Count 4.02 M/UL (4.20-5.40) L Hemoglobin 11.8 G/DL (12.0-16.0) L Hematocrit 35.6 % (37.0-47.0) L Mean Corpuscular Volume 89 FL (80-99) Mean Corpuscular Hemoglobin 29.4 PG (27.0-31.0) Mean Corpuscular Hemoglobin Concent 33.2 G/DL (32.0-36.0) Red Cell Distribution Width 16.5 % (11.6-14.8) H Platelet Count 70 K/UL (150-450) L Mean Platelet Volume 14.3 FL (6.5-10.1) H Neutrophils (%) (Auto) % (45.0-75.0) Lymphocytes (%) (Auto) % (20.0-45.0) Monocytes (%) (Auto) % (1.0-10.0) Eosinophils (%) (Auto) % (0.0-3.0) Basophils (%) (Auto) % (0.0-2.0) Differential Total Cells Counted 100 Neutrophils % (Manual) 90 % (45-75) H Lymphocytes % (Manual) 6 % (20-45) L Monocytes % (Manual) 4 % (1-10) Eosinophils % (Manual) 0 % (0-3) Basophils % (Manual) 0 % (0-2) Band Neutrophils 0 % (0-8) Platelet Estimate Decreased L Platelet Morphology Normal Anisocytosis 1+ Prothrombin Time 10.6 SEC (9.30-11.50) Prothromb Time International Ratio 1.0 (0.9-1.1) Activated Partial Thromboplast Time 40 SEC (23-33) H Sodium Level 144 mEQ/L (135-145) Potassium Level 4.3 mEQ/L (3.4-4.9) Chloride Level 112 mEQ/L (98-107) H Carbon Dioxide Level 19 mEQ/L (20-30) L Anion Gap 13 (5-15) Blood Urea Nitrogen 27 mg/dL (7-23) H Creatinine 0.8 mg/dL (0.5-0.9) Estimat Glomerular Filtration Rate mL/min (>60) Glucose Level 188 mg/dL (74-106) H Calcium Level 7.6 mg/dL (8.6-10.2) L Phosphorus Level 1.9 mg/dL (2.5-4.8) L Magnesium Level 1.8 mg/dL (1.7-2.5) Total Bilirubin 0.7 mg/dL (0.0-1.2) Aspartate Amino Transf (AST/SGOT) 14 U/L (5-40) Alanine Aminotransferase (ALT/SGPT) 18 U/L (3-33) Alkaline Phosphatase 145 U/L (35-104) H Total Protein 4.5 g/dL (6.6-8.7) L Albumin 2.0 g/dL (3.5-5.2) L Globulin 2.5 g/dL Albumin/Globulin Ratio 0.8 (1.0-2.7) L Arterial Blood pH 7.467 (7.350-7.450) Arterial Blood Partial Pressure CO2 28.8 mmHg (35.0-45.0) L Arterial Blood Partial Pressure O2 86.1 mmHg (75.0-100.0) Arterial Blood HCO3 20.3 mmol/L (22.0-26.0) L Arterial Blood Oxygen Saturation 96.6 % (92.0-98.0) Arterial Blood Base Excess -1.9 Isael Test Positive STEVIE GUO Nov 29, 2016 11:16
[2016-11-29] MEDS ORDERED: Sodium Phosphate 20 MM in NS 275 ML IVPB ONE (12:00)
[2016-11-29] MEDS: DOPamine 400mg/250ml 250 ML IV SCH (12:15)
[2016-11-29] MEDS ORDERED: 1/2 NS 1000ml IV ONE ×2 (13:39→13:56)
[2016-11-29] MEDS ORDERED: NS 275ml ONE ×2 (13:39→13:56)
[2016-11-29] MEDS ORDERED: Tubing IV Secondary IV ONE ×2 (13:39→13:56)
--- NOTE | 2016-11-29 14:05 | Nephrology Progress Note ---
Assessment/Plan Problem List: (1) Hypernatremia Assessment: resolved (2) ARF (acute renal failure) Assessment: ok (3) Septic shock Assessment: still on pressors but better (4) Acute respiratory failure (5) Diabetes mellitus (6) UTI (urinary tract infection) Plan taper pressors as tolerated TF follow labs vent support Discussed with RN Subjective Subjective In NAD Intubated Objective Objective Last 24 Hour Vital Signs Date Time Temp Pulse Resp B/P Pulse Ox O2 Delivery O2 Flow Rate FiO2 11/29/16 13:12 92 18 40 11/29/16 12:15 113/69 11/29/16 12:00 98.3 84 18 113/69 100 Mechanical Ventilator 40 11/29/16 12:00 87 11/29/16 12:00 40 11/29/16 11:30 98 18 94/58 99 Mechanical Ventilator 40 11/29/16 11:29 98 24 40 11/29/16 11:00 102 20 89/55 97 Mechanical Ventilator 40 11/29/16 10:30 109 19 90/62 97 Mechanical Ventilator 40 11/29/16 10:00 91 19 101/64 99 Mechanical Ventilator 40 11/29/16 09:30 90 19 106/64 100 Mechanical Ventilator 40 11/29/16 09:04 100 20 40 11/29/16 09:00 100 20 99/60 99 Mechanical Ventilator 40 11/29/16 08:30 97 19 99/62 98 Mechanical Ventilator 40 11/29/16 08:00 40 11/29/16 08:00 98.2 102 20 92/58 98 Mechanical Ventilator 40 11/29/16 08:00 100 11/29/16 07:30 96 21 109/71 99 Mechanical Ventilator 40 11/29/16 07:02 100 22 40 11/29/16 07:00 92 19 102/66 99 Mechanical Ventilator 40 11/29/16 06:30 92 19 105/64 97 Mechanical Ventilator 40 11/29/16 06:00 105/64 11/29/16 06:00 90 20 110/59 100 Mechanical Ventilator 40 11/29/16 05:30 95 20 101/60 100 Mechanical Ventilator 40 11/29/16 05:08 81 18 40 11/29/16 05:00 90 19 120/65 100 Mechanical Ventilator 40 11/29/16 04:30 87 18 124/67 100 Mechanical Ventilator 40 11/29/16 04:16 122/67 7/26/17 04:00 40 11/29/16 04:00 108/68 11/29/16 04:00 98.2 90 18 108/68 100 Mechanical Ventilator 40 11/29/16 04:00 95 11/29/16 03:12 90 18 40 11/29/16 03:00 106/70 11/29/16 03:00 90 18 115/61 100 Mechanical Ventilator 40 11/29/16 02:30 92 18 96/64 100 Mechanical Ventilator 40 11/29/16 02:00 90 18 115/61 100 Mechanical Ventilator 40 11/29/16 02:00 115/61 11/29/16 01:11 96 23 40 11/29/16 01:00 93 20 110/58 97 Mechanical Ventilator 40 11/29/16 01:00 87/57 11/29/16 00:30 94 20 109/58 97 Mechanical Ventilator 40 11/29/16 00:00 96 11/29/16 00:00 93/59 11/29/16 00:00 98.8 96 20 93/59 99 Mechanical Ventilator 40 11/29/16 00:00 40 11/28/16 23:30 96 20 99/55 99 Mechanical Ventilator 40 11/28/16 23:16 92 18 40 11/28/16 23:00 106/57 11/28/16 23:00 84 21 108/68 100 Mechanical Ventilator 40 11/28/16 22:30 92 18 102/60 100 Mechanical Ventilator 40 11/28/16 22:00 84 21 108/68 100 Mechanical Ventilator 40 11/28/16 22:00 102/66 11/28/16 21:30 83 21 110/62 100 Mechanical Ventilator 40 11/28/16 21:05 86 20 40 11/28/16 21:00 111/71 11/28/16 21:00 82 22 111/71 100 Mechanical Ventilator 40 11/28/16 20:30 79 22 72/48 100 Mechanical Ventilator 40 11/28/16 20:00 98.6 87 22 74/45 100 Mechanical Ventilator 40 11/28/16 20:00 88 11/28/16 20:00 40 11/28/16 20:00 74/45 11/28/16 19:18 96 21 40 11/28/16 19:00 108/65 11/28/16 19:00 92 20 109/61 99 Mechanical Ventilator 40 11/28/16 18:00 95/56 11/28/16 18:00 93 19 86/58 99 Mechanical Ventilator 40 11/28/16 17:30 93 19 40 11/28/16 17:30 91 20 87/55 99 Mechanical Ventilator 40 11/28/16 17:00 87/52 11/28/16 17:00 98.1 94 21 91/58 98 Mechanical Ventilator 40 11/28/16 16:00 40 11/28/16 16:00 90 11/28/16 16:00 105/56 11/28/16 16:00 91 20 95/52 99 Mechanical Ventilator 40 11/28/16 15:30 91 20 97/60 99 Mechanical Ventilator 40 11/28/16 15:06 97 20 40 11/28/16 15:00 97/60 11/28/16 15:00 97 20 85/60 100 Mechanical Ventilator 40 Intake and Output 11/28/16 11/29/16 19:00 07:00 Intake Total 1801.890 ml 810.96 ml Output Total 2285 ml 1250 ml Balance -483.110 ml -439.04 ml Free Water 120 ml 180 ml IV Total 1291.890 ml 270.96 ml Tube Feeding 360 ml 360 ml Other 30 ml Output Urine Total 2285 ml 1250 ml Laboratory Tests 11/29/16 04:20: White Blood Count 23.2*H, Red Blood Count 4.02L, Hemoglobin 11.8L, Hematocrit 35.6L, Mean Corpuscular Volume 89, Mean Corpuscular Hemoglobin 29.4, Mean Corpuscular Hemoglobin Concent 33.2, Red Cell Distribution Width 16.5H, Platelet Count 70L, Mean Platelet Volume 14.3H, Neutrophils (%) (Auto) , Lymphocytes (%) (Auto) , Monocytes (%) (Auto) , Eosinophils (%) (Auto) , Basophils (%) (Auto) , Differential Total Cells Counted 100, Neutrophils % ( Manual) 90H, Lymphocytes % (Manual) 6L, Monocytes % (Manual) 4, Eosinophils % ( Manual) 0, Basophils % (Manual) 0, Band Neutrophils 0, Platelet Estimate DecreasedL, Platelet Morphology Normal, Anisocytosis 1+, Prothrombin Time 10.6, Prothromb Time International Ratio 1.0, Activated Partial Thromboplast Time 40H , Sodium Level 144, Potassium Level 4.3, Chloride Level 112H, Carbon Dioxide Level 19L, Anion Gap 13, Blood Urea Nitrogen 27H, Creatinine 0.8, Estimat Glomerular Filtration Rate , Glucose Level 188H, Calcium Level 7.6L, Phosphorus Level 1.9L, Magnesium Level 1.8, Total Bilirubin 0.7, Aspartate Amino Transf ( AST/SGOT) 14, Alanine Aminotransferase (ALT/SGPT) 18, Alkaline Phosphatase 145H , Total Protein 4.5L, Albumin 2.0L, Globulin 2.5, Albumin/Globulin Ratio 0.8L 11/29/16 09:15: Arterial Blood pH 7.467H, Arterial Blood Partial Pressure CO2 28.8L, Arterial Blood Partial Pressure O2 86.1, Arterial Blood HCO3 20.3L, Arterial Blood Oxygen Saturation 96.6, Arterial Blood Base Excess -1.9, Isael Test Positive Height (Feet): 5 Height (Inches): 2.00 Weight (Pounds): 190 Cardiovascular: normal rate Respiratory/Chest: rhonchi - bilaterally Extremities: other - no edema OBINNA MADRIGAL Nov 29, 2016 14:05
--- NOTE | 2016-11-29 15:46 | Diagnostic Imaging Report ---
Indications: Needs long-term IV access Technique: Procedure performed at bedside. Procedural timeout performed. Ultrasound confirms patent compressible right basilic vein. Total sterile technique, including sterile probe cover and sterile gel, sterile gloves, hand hygiene, hat, mask,, sterile gown, large sterile drape, and preparation with 2% chlorhexidine utilized. Local anesthesia with 1% lidocaine. Under real-time ultrasound guidance, puncture right basilic vein using 21-gauge needle, passage 0.018 guidewire, exchange for 5 [place] peel-away sheath. 5 [place] dual-lumen power PICC cut to 38 cm. It was inserted through the peel-away sheath. Peel-away sheath and guidewire removed. Catheter fixed to the skin. Both catheter ports aspirated and flushed. Patient tolerated procedure well, without immediate complication. Followup chest x-ray obtained, documents catheter tip position at the mid superior vena cava Impression: Successful bedside placement of right arm PICC under sonographic guidance, as described above.
--- NOTE | 2016-11-29 15:49 | Diagnostic Imaging Report ---
Indication: DYSPNEA Technique: One view of the chest Comparison: 7 25 x 17 Findings: Stable satisfactory position of endotracheal tube. Improved position of nasogastric tube. Left infrahilar disease persists. Questionable minimal left pleural fluid, unchanged free of. Right lung and pleural space remain clear. Left axillary surgical clips are again demonstrated Impression: Improved position of nasogastric tube Otherwise unchanged, over one day, findings as described
--- NOTE | 2016-11-29 17:02 | Infectious Diseases Prog Note ---
Assessment/Plan Problems: (1) HCAP (healthcare-associated pneumonia) Assessment & Plan: on meropenem , levaquin and vancomycin empirically, will stop levaquin and meropenem and start ertapenem for bacteremia(proteus mirabilis ), continue vancomycin await sputum culture. (2) Septic shock Assessment & Plan: with MDR proteus mirabilis , source most likely due to urine infection/ possible pyelonephritis, will switch meropenem to ertapenem , stop levaquin and continue vancomycin empirically for now , pending sputum culture. one set grew staph simulans which is most likely contamination (3) UTI (urinary tract infection) Assessment & Plan: due to pansensitive E coli , with possible pylonephritis, now on ertapenem to cover bacteremia (4) MARYAM (acute kidney injury) Assessment & Plan: improving, due to sepsis , continue ivf with pressors , avoid nephrotixic meds, renal is following , monitor UOP (5) Shock liver Assessment & Plan: due to sepsis , screening for hepatitis is negative , monitor LFT (6) Acute respiratory failure Assessment & Plan: due to sepsis, S/P intubation , monitor ABG, and CXR , consult pulmonary for further care (7) Diabetes mellitus Assessment & Plan: hold po meds, continue to monitor blood glucose as per unit protocol, keep tight glycemic control (8) Acute hypernatremia Assessment & Plan: due to volume loss, improved , continue fluids for hydration, monitor sodium level. Subjective ROS Limited/Unobtainable: Yes Allergies: Coded Allergies: No Known Allergies (Unverified , 11/25/16) Subjective she is still intubated, on mechanical ventilation , awake and alert , tracks with her eyes , on pressor, afebrile Objective Vital Signs Last 24 Hour Vital Signs Date Time Temp Pulse Resp B/P Pulse Ox O2 Delivery O2 Flow Rate FiO2 11/29/16 16:53 101 29 40 11/29/16 16:00 98.7 97 20 113/70 100 Mechanical Ventilator 40 11/29/16 16:00 99 11/29/16 16:00 40 11/29/16 15:30 94 18 110/70 100 Mechanical Ventilator 40 11/29/16 15:25 90 18 40 11/29/16 15:00 93 20 106/81 100 Mechanical Ventilator 40 11/29/16 14:30 97 18 115/65 100 Mechanical Ventilator 40 11/29/16 14:00 94 18 114/70 100 Mechanical Ventilator 40 11/29/16 13:30 94 18 91/59 100 Mechanical Ventilator 40 11/29/16 13:12 92 18 40 11/29/16 13:00 89 18 118/69 100 Mechanical Ventilator 40 11/29/16 12:30 90 18 114/69 100 Mechanical Ventilator 40 11/29/16 12:15 113/69 11/29/16 12:00 98.3 84 18 113/69 100 Mechanical Ventilator 40 11/29/16 12:00 87 11/29/16 12:00 40 11/29/16 11:30 98 18 94/58 99 Mechanical Ventilator 40 11/29/16 11:29 98 24 40 11/29/16 11:00 102 20 89/55 97 Mechanical Ventilator 40 11/29/16 10:30 109 19 90/62 97 Mechanical Ventilator 40 11/29/16 10:00 91 19 101/64 99 Mechanical Ventilator 40 11/29/16 09:30 90 19 106/64 100 Mechanical Ventilator 40 11/29/16 09:04 100 20 40 11/29/16 09:00 100 20 99/60 99 Mechanical Ventilator 40 11/29/16 08:30 97 19 99/62 98 Mechanical Ventilator 40 11/29/16 08:00 40 11/29/16 08:00 98.2 102 20 92/58 98 Mechanical Ventilator 40 11/29/16 08:00 100 11/29/16 07:30 96 21 109/71 99 Mechanical Ventilator 40 11/29/16 07:02 100 22 40 11/29/16 07:00 92 19 102/66 99 Mechanical Ventilator 40 11/29/16 06:30 92 19 105/64 97 Mechanical Ventilator 40 11/29/16 06:00 105/64 11/29/16 06:00 90 20 110/59 100 Mechanical Ventilator 40 11/29/16 05:30 95 20 101/60 100 Mechanical Ventilator 40 11/29/16 05:08 81 18 40 11/29/16 05:00 90 19 120/65 100 Mechanical Ventilator 40 11/29/16 04:30 87 18 124/67 100 Mechanical Ventilator 40 11/29/16 04:16 122/67 11/29/16 04:00 40 11/29/16 04:00 108/68 11/29/16 04:00 98.2 90 18 108/68 100 Mechanical Ventilator 40 11/29/16 04:00 95 11/29/16 03:12 90 18 40 11/29/16 03:00 106/70 11/29/16 03:00 90 18 115/61 100 Mechanical Ventilator 40 11/29/16 02:30 92 18 96/64 100 Mechanical Ventilator 40 11/29/16 02:00 90 18 115/61 100 Mechanical Ventilator 40 11/29/16 02:00 115/61 11/29/16 01:11 96 23 40 11/29/16 01:00 93 20 110/58 97 Mechanical Ventilator 40 11/29/16 01:00 87/57 11/29/16 00:30 94 20 109/58 97 Mechanical Ventilator 40 11/29/16 00:00 96 11/29/16 00:00 93/59 11/29/16 00:00 98.8 96 20 93/59 99 Mechanical Ventilator 40 11/29/16 00:00 40 11/28/16 23:30 96 20 99/55 99 Mechanical Ventilator 40 11/28/16 23:16 92 18 40 11/28/16 23:00 106/57 11/28/16 23:00 84 21 108/68 100 Mechanical Ventilator 40 11/28/16 22:30 92 18 102/60 100 Mechanical Ventilator 40 11/28/16 22:00 84 21 108/68 100 Mechanical Ventilator 40 11/28/16 22:00 102/66 11/28/16 21:30 83 21 110/62 100 Mechanical Ventilator 40 11/28/16 21:05 86 20 40 11/28/16 21:00 111/71 11/28/16 21:00 82 22 111/71 100 Mechanical Ventilator 40 11/28/16 20:30 79 22 72/48 100 Mechanical Ventilator 40 11/28/16 20:00 98.6 87 22 74/45 100 Mechanical Ventilator 40 11/28/16 20:00 88 11/28/16 20:00 40 11/28/16 20:00 74/45 11/28/16 19:18 96 21 40 11/28/16 19:00 108/65 11/28/16 19:00 92 20 109/61 99 Mechanical Ventilator 40 11/28/16 18:00 95/56 11/28/16 18:00 93 19 86/58 99 Mechanical Ventilator 40 11/28/16 17:30 93 19 40 11/28/16 17:30 91 20 87/55 99 Mechanical Ventilator 40 11/28/16 17:00 87/52 11/28/16 17:00 98.1 94 21 91/58 98 Mechanical Ventilator 40 Height (Feet): 5 Height (Inches): 2.00 Weight (Pounds): 190 General Appearance: WD/WN, no acute distress HEENT: normocephalic, atraumatic, anicteric, mucous membranes moist, supple, no JVD Respiratory/Chest: chest wall non-tender, normal breath sounds, no respiratory distress, no accessory muscle use, decreased breath sounds, crackles/rales Cardiovascular: normal peripheral pulses, normal rate, regular rhythm, no gallop/murmur, no JVD Abdomen: normal bowel sounds, soft, non tender, no organomegaly, non distended , no mass Extremities: no cyanosis, no clubbing Skin: no rash, no lesions Microbiology Date/Time Source Procedure Growth Status 11/27/16 21:30 Sputum Gram Stain - Final Resulted 11/27/16 21:30 Sputum Sputum Culture Pending Resulted Laboratory Tests Test 11/29/16 04:20 11/29/16 09:15 White Blood Count 23.2 K/UL (4.8-10.8) *H Red Blood Count 4.02 M/UL (4.20-5.40) L Hemoglobin 11.8 G/DL (12.0-16.0) L Hematocrit 35.6 % (37.0-47.0) L Mean Corpuscular Volume 89 FL (80-99) Mean Corpuscular Hemoglobin 29.4 PG (27.0-31.0) Mean Corpuscular Hemoglobin Concent 33.2 G/DL (32.0-36.0) Red Cell Distribution Width 16.5 % (11.6-14.8) H Platelet Count 70 K/UL (150-450) L Mean Platelet Volume 14.3 FL (6.5-10.1) H Neutrophils (%) (Auto) % (45.0-75.0) Lymphocytes (%) (Auto) % (20.0-45.0) Monocytes (%) (Auto) % (1.0-10.0) Eosinophils (%) (Auto) % (0.0-3.0) Basophils (%) (Auto) % (0.0-2.0) Differential Total Cells Counted 100 Neutrophils % (Manual) 90 % (45-75) H Lymphocytes % (Manual) 6 % (20-45) L Monocytes % (Manual) 4 % (1-10) Eosinophils % (Manual) 0 % (0-3) Basophils % (Manual) 0 % (0-2) Band Neutrophils 0 % (0-8) Platelet Estimate Decreased L Platelet Morphology Normal Anisocytosis 1+ Prothrombin Time 10.6 SEC (9.30-11.50) Prothromb Time International Ratio 1.0 (0.9-1.1) Activated Partial Thromboplast Time 40 SEC (23-33) H Sodium Level 144 mEQ/L (135-145) Potassium Level 4.3 mEQ/L (3.4-4.9) Chloride Level 112 mEQ/L (98-107) H Carbon Dioxide Level 19 mEQ/L (20-30) L Anion Gap 13 (5-15) Blood Urea Nitrogen 27 mg/dL (7-23) H Creatinine 0.8 mg/dL (0.5-0.9) Estimat Glomerular Filtration Rate mL/min (>60) Glucose Level 188 mg/dL (74-106) H Calcium Level 7.6 mg/dL (8.6-10.2) L Phosphorus Level 1.9 mg/dL (2.5-4.8) L Magnesium Level 1.8 mg/dL (1.7-2.5) Total Bilirubin 0.7 mg/dL (0.0-1.2) Aspartate Amino Transf (AST/SGOT) 14 U/L (5-40) Alanine Aminotransferase (ALT/SGPT) 18 U/L (3-33) Alkaline Phosphatase 145 U/L (35-104) H Total Protein 4.5 g/dL (6.6-8.7) L Albumin 2.0 g/dL (3.5-5.2) L Globulin 2.5 g/dL Albumin/Globulin Ratio 0.8 (1.0-2.7) L Arterial Blood pH 7.467 (7.350-7.450) Arterial Blood Partial Pressure CO2 28.8 mmHg (35.0-45.0) L Arterial Blood Partial Pressure O2 86.1 mmHg (75.0-100.0) Arterial Blood HCO3 20.3 mmol/L (22.0-26.0) L Arterial Blood Oxygen Saturation 96.6 % (92.0-98.0) Arterial Blood Base Excess -1.9 Isael Test Positive Current Medications Medications (Trade) Dose Ordered Sig/Flora Route PRN Reason Start Time Stop Time Status Last Admin Dose Admin Acetaminophen (Tylenol) 650 mg Q4H PRN ORAL fever 11/25/16 16:00 12/25/16 15:59 Albuterol/ Ipratropium (DuoNeb 0.5-3(2.5)mg/3ml) 3 ml Q4H PRN HHN Shortness of Breath 11/25/16 16:00 11/30/16 15:59 Chlorhexidine Gluconate 1 applic 1 applic DAILY TOPIC 11/26/16 09:00 12/26/16 08:59 11/28/16 09:00 Dextrose (Dextrose 50%) STAT PRN IV Hypoglycemia 11/25/16 16:00 12/25/16 15:59 Dopamine HCl/ Dextrose (DOPamine 400mg/ 250ml) 250 ml @ 14.724 mls/ hr Q24H IV 11/26/16 12:15 12/26/16 12:14 11/28/16 12:04 Ertapenem/Sodium Chloride (INVanz/Sodium Chloride) 55 ml @ 110 mls/hr ONCE ONCE IV 11/29/16 21:00 11/29/16 21:29 Heparin Sodium (Porcine) (Heparin 5000 units/ml) 5,000 units EVERY 12 HOURS SUBQ 11/25/16 21:00 12/25/16 20:59 11/29/16 08:59 Insulin Aspart (NovoLOG) EVERY 6 HOURS SUBQ 11/26/16 00:00 12/26/16 00:00 11/29/16 12:22 Metoclopramide HCl 5 mg 5 mg Q6H PRN IVP Nausea & Vomiting 11/28/16 09:45 12/28/16 09:44 Morphine Sulfate (Morphine Sulfate) 2 mg Q4H PRN IVP Moderate Pain (Pain Scale 4-6) 11/25/16 16:00 12/02/16 15:59 Nitroglycerin (Ntg) 0.4 mg Q5M PRN SL Prn Chest Pain 11/25/16 16:00 12/25/16 15:59 Norepinephrine Bitartrate/ Dextrose (Levophed/D5W) 250 ml @ 0 mls/hr Q24H IV 11/25/16 17:00 12/25/16 16:59 11/29/16 04:16 Ondansetron HCl (Zofran) 4 mg Q6H PRN IVP Nausea & Vomiting 11/25/16 16:00 12/25/16 15:59 Pantoprazole (Protonix) 40 mg DAILY IVP 11/28/16 09:00 12/28/16 08:59 11/29/16 08:59 Polyethylene Glycol (Miralax) 17 gm DAILYPRN PRN ORAL Constipation 11/25/16 16:00 12/25/16 15:59 Temazepam (Restoril) 15 mg HSPRN PRN ORAL Insomnia 11/25/16 16:00 12/02/16 15:59 Vancomycin HCl 1 ea 1 ea DAILY PRN MISC PER RX PROTOCOL 11/25/16 16:45 12/25/16 16:44 Romelia Sotelo M.D. Nov 29, 2016 17:02
[2016-11-29] MEDS ORDERED: Ertapenem 1 GM in NS 55 ML IV ONE (21:00)
[2016-11-30] VITALS (51 sets, daily range): BP systolic 74–130; BP diastolic 51–102
[2016-11-30] MEDS: DOPamine 400mg/250ml 250 ML IV SCH ×2 (00:26→14:00)
--- NOTE | 2016-11-30 01:01 | Cardiology Report ---
APPROVED REPORT EKG Measurement Heart [id number] CO 124P86 [id number] Sinus tachycardia Biatrial enlargement Pulmonary disease pattern Left anterior fascicular block Nonspecific ST and T wave abnormality Abnormal ECG
[2016-11-30] MEDS: Dyna-Hex 2% Top Sol 8oz TOPIC SCH (04:22)
[2016-11-30] MEDS: NovoLOG Insulin Flexpen SUBQ SCH ×4 (05:40→23:32)
[2016-11-30 06:01] LABS: MEAN CORPUSCULAR HEMOGLOBIN 28.8 PG (27.0-31.0); MEAN CORPUSCULAR HGB CONC 32.5 G/DL (32.0-36.0); MEAN CORPUSCULAR VOLUME 89 FL (80-99); MEAN PLATELET VOLUME 15.1 FL (6.5-10.1); PLATELET COUNT 72 K/UL (150-450); RED BLOOD COUNT 4.51 M/UL (4.20-5.40); RED CELL DISTRIBUTION WIDTH 16.5 % (11.6-14.8)
[2016-11-30 06:22] LABS: ALANINE AMINOTRANSFERASE 25 U/L (3-33); ALBUMIN/GLOBULIN RATIO 0.7 (1.0-2.7); ANION GAP 13 (5-15); ASPARTATE AMINO TRANSFERASE 22 U/L (5-40); CALCIUM 8.2 mg/dL (8.6-10.2); CARBON DIOXIDE 18 mEQ/L (20-30); CHLORIDE 111 mEQ/L (98-107); CREATININE 0.7 mg/dL (0.5-0.9); HEMOLYSIS 14; MAGNESIUM 1.8 mg/dL (1.7-2.5); PHOSPHORUS 2.9 mg/dL (2.5-4.8); POTASSIUM 4.1 mEQ/L (3.4-4.9); SODIUM 142 mEQ/L (135-145)
[2016-11-30 07:38] LABS: ANISOCYTOSIS 1+; BAND NEUTROPHILS % (MANUAL) 0 % (0-8); BASOPHILS % (MANUAL) 0 % (0-2); EOSINOPHILS % (MANUAL) 0 % (0-3); LYMPHOCYTES % (MANUAL) 3 % (20-45); NEUTROPHILS % (MANUAL) 89 % (45-75); PLATELET ESTIMATE DECREASED; PLATELET MORPHOLOGY NORMAL; TOTAL CELLS COUNTED 100
--- NOTE | 2016-11-30 08:36 | General Progress Note ---
Assessment/Plan Status: stable Assessment/Plan 1. Respiratory failure s/p intubation - May consider weaning off by Pulmonary. 2. Sepsis 2nd to UTI - improving. WBC decreasing. 3. Renal failure 2nd to sepsis - resolved. 4. Pneumonia - improved. cont IV abx. 5. Septic Shock - in ICU. on presser and trying to meghan off. 6. H/O Basal Ganglia ischemic stroke recently 7. 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 Venous U/S negative for DVT. 8. Hypernatremia - resolved. 9. Hyperlipidemia - start lipitor 20 mg in a few days when she is better and off vent. 10. DM II - On SSI 11. Sacral Pressure ulcer - cont wound care. Subjective Date patient seen: Nov 30, 2016 Time patient seen: 08:30 Constitutional: Reports: no symptoms HEENT: Reports: no symptoms Cardiovascular: Reports: no symptoms Respiratory: Reports: other - on Vent Gastrointestinal/Abdominal: Reports: no symptoms Genitourinary: Reports: no symptoms Neurologic/Psychiatric: Reports: no symptoms Endocrine: Reports: no symptoms Hematologic/Lymphatic: Reports: no symptoms Allergies: Coded Allergies: No Known Allergies (Unverified , 11/25/16) Subjective Pt is better and renal function returned to normal. No sob or chest pain. she still intubated and her WBC decreasing as well. Awake and respond to command by closing her eyes and continue to improve. Objective Last 24 Hour Vital Signs Date Time Temp Pulse Resp B/P Pulse Ox O2 Delivery O2 Flow Rate FiO2 11/30/16 08:00 108 20 91/53 100 Mechanical Ventilator 40 11/30/16 07:14 98 18 40 11/30/16 07:00 90 18 127/77 100 Mechanical Ventilator 40 11/30/16 06:30 101 18 85/68 100 Mechanical Ventilator 40 11/30/16 06:00 115 18 88/61 100 Mechanical Ventilator 40 11/30/16 05:30 106 18 130/102 100 Mechanical Ventilator 40 11/30/16 05:21 116 18 40 11/30/16 05:00 112 18 94/62 99 Mechanical Ventilator 40 11/30/16 04:30 94 18 124/83 100 Mechanical Ventilator 40 11/30/16 04:00 98.3 112 18 107/75 99 Mechanical Ventilator 40 11/30/16 04:00 108 11/30/16 04:00 40 11/30/16 03:30 99 18 107/75 99 Mechanical Ventilator 40 11/30/16 03:19 99 18 40 11/30/16 03:00 96 18 127/71 99 Mechanical Ventilator 40 11/30/16 02:30 98 17 112/74 99 Mechanical Ventilator 40 11/30/16 02:00 105 18 91/64 100 Mechanical Ventilator 40 11/30/16 01:30 92 18 110/71 100 Mechanical Ventilator 40 11/30/16 01:08 102 18 40 11/30/16 01:00 104 18 113/60 99 Mechanical Ventilator 40 11/30/16 00:30 99 18 118/71 99 Mechanical Ventilator 40 11/30/16 00:26 113/68 11/30/16 00:00 40 11/30/16 00:00 109 11/30/16 00:00 96 18 116/75 100 Mechanical Ventilator 40 11/29/16 23:30 97.9 109 18 159/87 100 Mechanical Ventilator 40 11/29/16 23:19 116 18 40 11/29/16 23:00 91 18 159/87 100 Mechanical Ventilator 40 11/29/16 22:30 85 18 125/80 99 Mechanical Ventilator 40 11/29/16 22:00 99 18 83/58 99 Mechanical Ventilator 40 11/29/16 21:30 118 18 83/58 100 Mechanical Ventilator 40 11/29/16 21:00 125 18 81/53 100 Mechanical Ventilator 40 11/29/16 20:56 126 18 40 11/29/16 20:30 96 18 115/90 100 Mechanical Ventilator 40 11/29/16 20:00 92 11/29/16 20:00 115 18 93/69 100 Mechanical Ventilator 40 11/29/16 20:00 40 11/29/16 19:40 93/69 11/29/16 19:30 91 18 93/69 100 Mechanical Ventilator 40 11/29/16 19:10 115 18 40 11/29/16 19:00 98.1 104 18 119/72 99 Mechanical Ventilator 40 11/29/16 18:30 99 18 119/72 99 Mechanical Ventilator 40 17 18:00 87 18 109/65 99 Mechanical Ventilator 40 17 17:30 96 18 109/69 99 Mechanical Ventilator 40 11/29/16 17:00 94 18 110/70 100 Mechanical Ventilator 40 17 16:53 101 29 40 11/29/16 16:30 94 18 110/59 99 Mechanical Ventilator 40 11/29/16 16:00 98.7 97 20 113/70 100 Mechanical Ventilator 40 11/29/16 16:00 99 11/29/16 16:00 40 11/29/16 15:30 94 18 110/70 100 Mechanical Ventilator 40 11/29/16 15:25 90 18 40 11/29/16 15:00 93 20 106/81 100 Mechanical Ventilator 40 11/29/16 14:30 97 18 115/65 100 Mechanical Ventilator 40 11/29/16 14:00 94 18 114/70 100 Mechanical Ventilator 40 11/29/16 13:30 94 18 91/59 100 Mechanical Ventilator 40 11/29/16 13:12 92 18 40 11/29/16 13:00 89 18 118/69 100 Mechanical Ventilator 40 11/29/16 12:30 90 18 114/69 100 Mechanical Ventilator 40 11/29/16 12:15 113/69 11/29/16 12:00 98.3 84 18 113/69 100 Mechanical Ventilator 40 11/29/16 12:00 87 11/29/16 12:00 40 11/29/16 11:30 98 18 94/58 99 Mechanical Ventilator 40 11/29/16 11:29 98 24 40 11/29/16 11:00 102 20 89/55 97 Mechanical Ventilator 40 11/29/16 10:30 109 19 90/62 97 Mechanical Ventilator 40 11/29/16 10:00 91 19 101/64 99 Mechanical Ventilator 40 11/29/16 09:30 90 19 106/64 100 Mechanical Ventilator 40 11/29/16 09:04 100 20 40 11/29/16 09:00 100 20 99/60 99 Mechanical Ventilator 40 Intake and Output 11/29/16 11/30/16 19:00 07:00 Intake Total 635.33 ml 604.23 ml Output Total 380 ml 450 ml Balance 255.33 ml 154.23 ml Free Water 60 ml 60 ml IV Total 275.33 ml 184.23 ml Tube Feeding 300 ml 360 ml Output Urine Total 380 ml 450 ml Laboratory Tests 11/29/16 09:15: Arterial Blood pH 7.467H, Arterial Blood Partial Pressure CO2 28.8L, Arterial Blood Partial Pressure O2 86.1, Arterial Blood HCO3 20.3L, Arterial Blood Oxygen Saturation 96.6, Arterial Blood Base Excess -1.9, Isael Test Positive 11/30/16 04:50: White Blood Count 17.0H, Red Blood Count 4.51, Hemoglobin 13.0, Hematocrit 39.9 , Mean Corpuscular Volume 89, Mean Corpuscular Hemoglobin 28.8, Mean Corpuscular Hemoglobin Concent 32.5, Red Cell Distribution Width 16.5H, Platelet Count 72L, Mean Platelet Volume 15.1H, Neutrophils (%) (Auto) , Lymphocytes (%) (Auto) , Monocytes (%) (Auto) , Eosinophils (%) (Auto) , Basophils (%) (Auto) , Differential Total Cells Counted 100, Neutrophils % ( Manual) 89H, Lymphocytes % (Manual) 3L, Monocytes % (Manual) 8, Eosinophils % ( Manual) 0, Basophils % (Manual) 0, Band Neutrophils 0, Platelet Estimate DecreasedL, Platelet Morphology Normal, Anisocytosis 1+, Sodium Level 142, Potassium Level 4.1, Chloride Level 111H, Carbon Dioxide Level 18L, Anion Gap 13 , Blood Urea Nitrogen 22, Creatinine 0.7, Estimat Glomerular Filtration Rate , Glucose Level 231H, Calcium Level 8.2L, Phosphorus Level 2.9, Magnesium Level 1.8, Total Bilirubin 0.7, Aspartate Amino Transf (AST/SGOT) 22, Alanine Aminotransferase (ALT/SGPT) 25, Alkaline Phosphatase 113H, Total Protein 5.0L, Albumin 2.1L, Globulin 2.9, Albumin/Globulin Ratio 0.7L Height (Feet): 5 Height (Inches): 2.00 Weight (Pounds): 189 General Appearance: no apparent distress, alert Neck: non-tender, normal alignment, supple Cardiovascular: normal peripheral pulses, normal rate, regular rhythm Respiratory/Chest: chest wall non-tender, lungs clear, normal breath sounds Abdomen: normal bowel sounds, non tender, soft Extremities: normal range of motion, non-tender Edema: no edema noted Arm (L), no edema noted Arm (R), no edema noted Leg (L), no edema noted Leg (R), no edema noted Pedal (L), no edema noted Pedal (R), no edema noted Generalized Neurologic: alert, responsive Skin: warm/dry Lymphatic: normal anterior cervical (L), normal anterior cervical (R), normal axillary (L), normal axillary (R), normal inguinal (L), normal inguinal (R), normal other, normal posterior cervical (L), normal posterior cervical (R), normal submandibular (L), normal submandibular (R), normal supraclavicular (L), normal supraclavicular (R) TERI JACKSON Nov 30, 2016 08:36
[2016-11-30 08:50] LABS: ABG BASE EXCESS -1.9; ABG PCO2 23.9 mmHg (35.0-45.0)
[2016-11-30 08:51] LABS: ABG ALLEN TEST POSITIVE
[2016-11-30] MEDS: Heparin 5000 units/ml inj SUBQ SCH ×2 (09:00→20:15)
[2016-11-30] MEDS: Pantoprazole Inj IVP SCH (09:09)
--- NOTE | 2016-11-30 09:17 | Wound Care Consultation ---
Wound Assessment Wound Assessment : Wound Number: #1 Wound Present on Admission: Yes New Wound: No Status Change of Wound: Yes - ruptured ecchymosis Wound Location Body Site Modif: right Wound Location Body Site: arm - forearm Wound Type: ecchymosis - ruptured. Robbie Test: Does not Robbie Wound Thickness: Partial Thickness Wound Length: 1.0 Wound Width: 1.0 Percent of Wound [place]/Red: 100 Wound Drainage Amount: None Wound Drainage Odor: None/Absent Tissue Surrounding Wound: Intact - with scattered ecchymosis Wound General Appearance: Reddened, Bleeding - minimal Wound Comment #1 right forearm ruptured ecchymosis with out flap . Recommendation. -Local wound care as ordered. -Keep clean and dry. - Turn and reposition. -Offload. -Avoid shear and friction. -Assess and notify MD for any further changes of condition noted to skin. ELIZABET JONES Nov 30, 2016 09:17
--- NOTE | 2016-11-30 10:53 | Diagnostic Imaging Report ---
Indications: DYSPNEA Technique: Portal AP chest Findings: Comparison: 11/29/16 Mild left lung volume loss, hazy opacity in or overlying the left lung base persist, unchanged. Right lung and pleura remain relatively clear. Heart size and pulmonary vasculature remain within normal limits. Lines and tubes remain in place. IMPRESSION: Stable left basal pleural/parenchymal opacity No new abnormality
--- NOTE | 2016-11-30 11:27 | Pulmonolgy Critical Care Note ---
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 Discussed with: nurses, consultants Critical Care - Objective Last 24 Hour Vital Signs Date Time Temp Pulse Resp B/P Pulse Ox O2 Delivery O2 Flow Rate FiO2 11/30/16 11:00 91/52 11/30/16 11:00 100 22 91/62 100 Mechanical Ventilator 40 11/30/16 10:30 104 21 90/58 100 Mechanical Ventilator 40 11/30/16 10:00 100 21 92/63 100 Mechanical Ventilator 40 11/30/16 10:00 90/58 11/30/16 09:30 102 22 82/55 100 Mechanical Ventilator 40 11/30/16 09:00 101/55 11/30/16 09:00 108 21 101/55 100 Mechanical Ventilator 40 11/30/16 08:43 110 21 40 11/30/16 08:30 113 20 93/57 100 Mechanical Ventilator 40 11/30/16 08:00 108 20 91/53 100 Mechanical Ventilator 40 11/30/16 08:00 110 11/30/16 08:00 91/53 11/30/16 08:00 40 11/30/16 07:45 109 22 102/60 100 Mechanical Ventilator 40 11/30/16 07:30 110 20 110/74 100 Mechanical Ventilator 40 11/30/16 07:15 98.5 108 20 99/67 100 Mechanical Ventilator 40 11/30/16 07:14 98 18 40 11/30/16 07:00 117/77 11/30/16 07:00 90 18 127/77 100 Mechanical Ventilator 40 11/30/16 06:30 101 18 85/68 100 Mechanical Ventilator 40 11/30/16 06:00 115 18 88/61 100 Mechanical Ventilator 40 11/30/16 05:30 106 18 130/102 100 Mechanical Ventilator 40 11/30/16 05:21 116 18 40 11/30/16 05:00 112 18 94/62 99 Mechanical Ventilator 40 11/30/16 04:30 94 18 124/83 100 Mechanical Ventilator 40 11/30/16 04:00 98.3 112 18 107/75 99 Mechanical Ventilator 40 11/30/16 04:00 108 11/30/16 04:00 40 11/30/16 03:30 99 18 107/75 99 Mechanical Ventilator 40 11/30/16 03:19 99 18 40 11/30/16 03:00 96 18 127/71 99 Mechanical Ventilator 40 11/30/16 02:30 98 17 112/74 99 Mechanical Ventilator 40 11/30/16 02:00 105 18 91/64 100 Mechanical Ventilator 40 11/30/16 01:30 92 18 110/71 100 Mechanical Ventilator 40 11/30/16 01:08 102 18 40 11/30/16 01:00 104 18 113/60 99 Mechanical Ventilator 40 11/30/16 00:30 99 18 118/71 99 Mechanical Ventilator 40 11/30/16 00:26 113/68 11/30/16 00:00 40 11/30/16 00:00 109 11/30/16 00:00 96 18 116/75 100 Mechanical Ventilator 40 11/29/16 23:30 97.9 109 18 159/87 100 Mechanical Ventilator 40 11/29/16 23:19 116 18 40 11/29/16 23:00 91 18 159/87 100 Mechanical Ventilator 40 11/29/16 22:30 85 18 125/80 99 Mechanical Ventilator 40 11/29/16 22:00 99 18 83/58 99 Mechanical Ventilator 40 11/29/16 21:30 118 18 83/58 100 Mechanical Ventilator 40 11/29/16 21:00 125 18 81/53 100 Mechanical Ventilator 40 11/29/16 20:56 126 18 40 11/29/16 20:30 96 18 115/90 100 Mechanical Ventilator 40 11/29/16 20:00 92 11/29/16 20:00 115 18 93/69 100 Mechanical Ventilator 40 11/29/16 20:00 40 11/29/16 19:40 93/69 11/29/16 19:30 91 18 93/69 100 Mechanical Ventilator 40 11/29/16 19:10 115 18 40 11/29/16 19:00 98.1 104 18 119/72 99 Mechanical Ventilator 40 11/29/16 18:30 99 18 119/72 99 Mechanical Ventilator 40 11/29/16 18:00 87 18 109/65 99 Mechanical Ventilator 40 11/29/16 17:30 96 18 109/69 99 Mechanical Ventilator 40 11/29/16 17:00 94 18 110/70 100 Mechanical Ventilator 40 11/29/16 16:53 101 29 40 11/29/16 16:30 94 18 110/59 99 Mechanical Ventilator 40 11/29/16 16:00 98.7 97 20 113/70 100 Mechanical Ventilator 40 11/29/16 16:00 99 11/29/16 16:00 40 11/29/16 15:30 94 18 110/70 100 Mechanical Ventilator 40 11/29/16 15:25 90 18 40 11/29/16 15:00 93 20 106/81 100 Mechanical Ventilator 40 11/29/16 14:30 97 18 115/65 100 Mechanical Ventilator 40 11/29/16 14:00 94 18 114/70 100 Mechanical Ventilator 40 11/29/16 13:30 94 18 91/59 100 Mechanical Ventilator 40 11/29/16 13:12 92 18 40 11/29/16 13:00 89 18 118/69 100 Mechanical Ventilator 40 11/29/16 12:30 90 18 114/69 100 Mechanical Ventilator 40 11/29/16 12:15 113/69 11/29/16 12:00 98.3 84 18 113/69 100 Mechanical Ventilator 40 11/29/16 12:00 87 11/29/16 12:00 40 11/29/16 11:30 98 18 94/58 99 Mechanical Ventilator 40 11/29/16 11:29 98 24 40 Status: sedated Condition: critical HEENT: atraumatic Neck: full ROM Lungs: clear Heart: HR/BP stable, HR/BP unstable, regular Abdomen: soft, active bowel sounds, feeding tube Extremities: edema Decubiti: location Micro: Microbiology Date/Time Source Procedure Growth Status 11/28/16 17:40 Blood Blood Culture - Preliminary NO GROWTH AFTER 24 HOURS Resulted 11/28/16 16:25 Blood Blood Culture - Preliminary NO GROWTH AFTER 24 HOURS Resulted 11/27/16 21:30 Sputum Gram Stain - Final Resulted 11/27/16 21:30 Sputum Culture - Preliminary YEAST Resulted Accucheck: 208 Critical Care - Subjective FI02: 40 Vent Support Breath Rate: 18 Vent Support Mode: AC Vent Tidal Volume: 600 Sputum Amount: Small PIP: 16 Tube Feeding Amount: 30 I&O: Intake and Output 11/29/16 11/30/16 19:00 07:00 Intake Total 635.33 ml 624.31 ml Output Total 380 ml 450 ml Balance 255.33 ml 174.31 ml Free Water 60 ml 60 ml IV Total 275.33 ml 204.31 ml Tube Feeding 300 ml 360 ml Output Urine Total 380 ml 450 ml ET-Tube: 7.5 ET Position: 23 STEVIE GUO Nov 30, 2016 11:27
--- NOTE | 2016-11-30 15:22 | Nephrology Progress Note ---
Assessment/Plan Problem List: (1) Hypernatremia Assessment: resolved (2) ARF (acute renal failure) Assessment: ok (3) Septic shock Assessment: still on pressors but better (4) Acute respiratory failure (5) Diabetes mellitus (6) UTI (urinary tract infection) Plan taper pressors as tolerated TF follow labs vent support Discussed with RN Discussed with ID IVF only boluses for SBP in low 80s Subjective Subjective In NAD Intubated Objective Objective Last 24 Hour Vital Signs Date Time Temp Pulse Resp B/P Pulse Ox O2 Delivery O2 Flow Rate FiO2 11/30/16 15:00 108 19 90/63 100 Mechanical Ventilator 40 11/30/16 14:42 109 17 40 11/30/16 14:30 101 22 91/58 97 Mechanical Ventilator 40 11/30/16 14:00 108 19 90/58 97 Mechanical Ventilator 40 11/30/16 14:00 80/53 11/30/16 13:50 85/58 11/30/16 13:30 117 22 81/58 97 Mechanical Ventilator 40 11/30/16 13:00 112 20 88/59 100 Mechanical Ventilator 40 11/30/16 13:00 88/59 11/30/16 12:40 126 18 40 11/30/16 12:30 40 11/30/16 12:30 105 22 124/58 100 Mechanical Ventilator 40 11/30/16 12:00 40 11/30/16 12:00 104 11/30/16 12:00 103/62 11/30/16 12:00 98.5 103 22 103/62 100 Mechanical Ventilator 40 11/30/16 11:30 40 11/30/16 11:30 105 22 90/58 100 Mechanical Ventilator 40 11/30/16 11:25 107 19 40 11/30/16 11:00 91/52 11/30/16 11:00 90/63 11/30/16 11:00 100 22 91/62 100 Mechanical Ventilator 40 11/30/16 10:30 104 21 90/58 100 Mechanical Ventilator 40 11/30/16 10:00 100 21 92/63 100 Mechanical Ventilator 40 11/30/16 10:00 90/58 11/30/16 09:30 102 22 82/55 100 Mechanical Ventilator 40 11/30/16 09:00 101/55 11/30/16 09:00 108 21 101/55 100 Mechanical Ventilator 40 11/30/16 08:43 110 21 40 11/30/16 08:30 113 20 93/57 100 Mechanical Ventilator 40 11/30/16 08:00 108 20 91/53 100 Mechanical Ventilator 40 11/30/16 08:00 110 11/30/16 08:00 91/53 11/30/16 08:00 40 11/30/16 07:45 109 22 102/60 100 Mechanical Ventilator 40 11/30/16 07:30 110 20 110/74 100 Mechanical Ventilator 40 11/30/16 07:15 98.5 108 20 99/67 100 Mechanical Ventilator 40 11/30/16 07:14 98 18 40 11/30/16 07:00 117/77 11/30/16 07:00 90 18 127/77 100 Mechanical Ventilator 40 11/30/16 06:30 101 18 85/68 100 Mechanical Ventilator 40 11/30/16 06:00 115 18 88/61 100 Mechanical Ventilator 40 11/30/16 05:30 106 18 130/102 100 Mechanical Ventilator 40 11/30/16 05:21 116 18 40 11/30/16 05:00 112 18 94/62 99 Mechanical Ventilator 40 11/30/16 04:30 94 18 124/83 100 Mechanical Ventilator 40 11/30/16 04:00 98.3 112 18 107/75 99 Mechanical Ventilator 40 11/30/16 04:00 108 11/30/16 04:00 40 11/30/16 03:30 99 18 107/75 99 Mechanical Ventilator 40 11/30/16 03:19 99 18 40 11/30/16 03:00 96 18 127/71 99 Mechanical Ventilator 40 11/30/16 02:30 98 17 112/74 99 Mechanical Ventilator 40 11/30/16 02:00 105 18 91/64 100 Mechanical Ventilator 40 11/30/16 01:30 92 18 110/71 100 Mechanical Ventilator 40 11/30/16 01:08 102 18 40 11/30/16 01:00 104 18 113/60 99 Mechanical Ventilator 40 11/30/16 00:30 99 18 118/71 99 Mechanical Ventilator 40 11/30/16 00:26 113/68 11/30/16 00:00 40 11/30/16 00:00 109 11/30/16 00:00 96 18 116/75 100 Mechanical Ventilator 40 11/29/16 23:30 97.9 109 18 159/87 100 Mechanical Ventilator 40 11/29/16 23:19 116 18 40 11/29/16 23:00 91 18 159/87 100 Mechanical Ventilator 40 11/29/16 22:30 85 18 125/80 99 Mechanical Ventilator 40 11/29/16 22:00 99 18 83/58 99 Mechanical Ventilator 40 11/29/16 21:30 118 18 83/58 100 Mechanical Ventilator 40 11/29/16 21:00 125 18 81/53 100 Mechanical Ventilator 40 11/29/16 20:56 126 18 40 11/29/16 20:30 96 18 115/90 100 Mechanical Ventilator 40 11/29/16 20:00 92 11/29/16 20:00 115 18 93/69 100 Mechanical Ventilator 40 11/29/16 20:00 40 11/29/16 19:40 93/69 11/29/16 19:30 91 18 93/69 100 Mechanical Ventilator 40 11/29/16 19:10 115 18 40 11/29/16 19:00 98.1 104 18 119/72 99 Mechanical Ventilator 40 11/29/16 18:30 99 18 119/72 99 Mechanical Ventilator 40 11/29/16 18:00 87 18 109/65 99 Mechanical Ventilator 40 11/29/16 17:30 96 18 109/69 99 Mechanical Ventilator 40 11/29/16 17:00 94 18 110/70 100 Mechanical Ventilator 40 11/29/16 16:53 101 29 40 11/29/16 16:30 94 18 110/59 99 Mechanical Ventilator 40 11/29/16 16:00 98.7 97 20 113/70 100 Mechanical Ventilator 40 11/29/16 16:00 99 11/29/16 16:00 40 11/29/16 15:30 94 18 110/70 100 Mechanical Ventilator 40 11/29/16 15:25 90 18 40 Intake and Output 11/29/16 11/30/16 19:00 07:00 Intake Total 635.33 ml 624.31 ml Output Total 380 ml 450 ml Balance 255.33 ml 174.31 ml Free Water 60 ml 60 ml IV Total 275.33 ml 204.31 ml Tube Feeding 300 ml 360 ml Output Urine Total 380 ml 450 ml Laboratory Tests 11/30/16 04:50: White Blood Count 17.0H, Red Blood Count 4.51, Hemoglobin 13.0, Hematocrit 39.9 , Mean Corpuscular Volume 89, Mean Corpuscular Hemoglobin 28.8, Mean Corpuscular Hemoglobin Concent 32.5, Red Cell Distribution Width 16.5H, Platelet Count 72L, Mean Platelet Volume 15.1H, Neutrophils (%) (Auto) , Lymphocytes (%) (Auto) , Monocytes (%) (Auto) , Eosinophils (%) (Auto) , Basophils (%) (Auto) , Differential Total Cells Counted 100, Neutrophils % ( Manual) 89H, Lymphocytes % (Manual) 3L, Monocytes % (Manual) 8, Eosinophils % ( Manual) 0, Basophils % (Manual) 0, Band Neutrophils 0, Platelet Estimate DecreasedL, Platelet Morphology Normal, Anisocytosis 1+, Sodium Level 142, Potassium Level 4.1, Chloride Level 111H, Carbon Dioxide Level 18L, Anion Gap 13 , Blood Urea Nitrogen 22, Creatinine 0.7, Estimat Glomerular Filtration Rate , Glucose Level 231H, Calcium Level 8.2L, Phosphorus Level 2.9, Magnesium Level 1.8, Total Bilirubin 0.7, Aspartate Amino Transf (AST/SGOT) 22, Alanine Aminotransferase (ALT/SGPT) 25, Alkaline Phosphatase 113H, Total Protein 5.0L, Albumin 2.1L, Globulin 2.9, Albumin/Globulin Ratio 0.7L 11/30/16 08:39: Arterial Blood pH 7.520H, Arterial Blood Partial Pressure CO2 23.9*L, Arterial Blood Partial Pressure O2 115.6H, Arterial Blood HCO3 19.3L, Arterial Blood Oxygen Saturation 98.1H, Arterial Blood Base Excess -1.9, Isael Test Positive Height (Feet): 5 Height (Inches): 2.00 Weight (Pounds): 189 Cardiovascular: normal rate Respiratory/Chest: rhonchi - bilaterally Extremities: moderate edema OBINNA MDARIGAL Nov 30, 2016 15:22
--- NOTE | 2016-11-30 15:47 | Infectious Diseases Prog Note ---
Assessment/Plan Problems: (1) HCAP (healthcare-associated pneumonia) Assessment & Plan: on ertapenem and vancomycin for bacteremia (proteus mirabilis ), sputum culture grew yeast, most likely contaminant. (2) Septic shock Assessment & Plan: refractory to pressors , rule out adrenal insufficiency , will order cortisol level , blood culture grew MDR proteus mirabilis , source most likely urine infection/ possible pyelonephritis, on ertapenem , and vancomycin . one set grew staph simulans which is most likely contamination (3) UTI (urinary tract infection) Assessment & Plan: due to pansensitive E coli , with possible pylonephritis, on ertapenem to cover for bacteremia too (4) MARYAM (acute kidney injury) Assessment & Plan: improving, due to sepsis , continue ivf with pressors, avoid nephrotixic meds, renal is following , monitor UOP (5) Shock liver Assessment & Plan: improving, due to sepsis , screening for hepatitis is negative , monitor LFT (6) Acute respiratory failure Assessment & Plan: due to sepsis, S/P intubation , monitor ABG, and CXR , consult pulmonary for further care (7) Diabetes mellitus Assessment & Plan: hold po meds, continue to monitor blood glucose as per unit protocol, keep tight glycemic control Subjective ROS Limited/Unobtainable: Yes Allergies: Coded Allergies: No Known Allergies (Unverified , 11/25/16) Subjective she is still intubated, on mechanical ventilation , alert , tracks with her eyes , dosen't follow commands, still on two pressors, afebrile Objective Vital Signs Last 24 Hour Vital Signs Date Time Temp Pulse Resp B/P Pulse Ox O2 Delivery O2 Flow Rate FiO2 11/30/16 15:00 108 19 90/63 100 Mechanical Ventilator 40 11/30/16 14:42 109 17 40 11/30/16 14:30 101 22 91/58 97 Mechanical Ventilator 40 11/30/16 14:00 108 19 90/58 97 Mechanical Ventilator 40 11/30/16 14:00 80/53 11/30/16 13:50 85/58 11/30/16 13:30 117 22 81/58 97 Mechanical Ventilator 40 11/30/16 13:00 112 20 88/59 100 Mechanical Ventilator 40 11/30/16 13:00 88/59 11/30/16 12:40 126 18 40 11/30/16 12:30 40 11/30/16 12:30 105 22 124/58 100 Mechanical Ventilator 40 11/30/16 12:00 40 11/30/16 12:00 104 11/30/16 12:00 103/62 11/30/16 12:00 98.5 103 22 103/62 100 Mechanical Ventilator 40 11/30/16 11:30 40 11/30/16 11:30 105 22 90/58 100 Mechanical Ventilator 40 11/30/16 11:25 107 19 40 11/30/16 11:00 91/52 11/30/16 11:00 90/63 11/30/16 11:00 100 22 91/62 100 Mechanical Ventilator 40 11/30/16 10:30 104 21 90/58 100 Mechanical Ventilator 40 11/30/16 10:00 100 21 92/63 100 Mechanical Ventilator 40 11/30/16 10:00 90/58 11/30/16 09:30 102 22 82/55 100 Mechanical Ventilator 40 11/30/16 09:00 101/55 11/30/16 09:00 108 21 101/55 100 Mechanical Ventilator 40 11/30/16 08:43 110 21 40 11/30/16 08:30 113 20 93/57 100 Mechanical Ventilator 40 11/30/16 08:00 108 20 91/53 100 Mechanical Ventilator 40 11/30/16 08:00 110 11/30/16 08:00 91/53 11/30/16 08:00 40 11/30/16 07:45 109 22 102/60 100 Mechanical Ventilator 40 11/30/16 07:30 110 20 110/74 100 Mechanical Ventilator 40 11/30/16 07:15 98.5 108 20 99/67 100 Mechanical Ventilator 40 11/30/16 07:14 98 18 40 11/30/16 07:00 117/77 11/30/16 07:00 90 18 127/77 100 Mechanical Ventilator 40 11/30/16 06:30 101 18 85/68 100 Mechanical Ventilator 40 11/30/16 06:00 115 18 88/61 100 Mechanical Ventilator 40 11/30/16 05:30 106 18 130/102 100 Mechanical Ventilator 40 11/30/16 05:21 116 18 40 11/30/16 05:00 112 18 94/62 99 Mechanical Ventilator 40 11/30/16 04:30 94 18 124/83 100 Mechanical Ventilator 40 11/30/16 04:00 98.3 112 18 107/75 99 Mechanical Ventilator 40 11/30/16 04:00 108 11/30/16 04:00 40 11/30/16 03:30 99 18 107/75 99 Mechanical Ventilator 40 11/30/16 03:19 99 18 40 11/30/16 03:00 96 18 127/71 99 Mechanical Ventilator 40 11/30/16 02:30 98 17 112/74 99 Mechanical Ventilator 40 11/30/16 02:00 105 18 91/64 100 Mechanical Ventilator 40 11/30/16 01:30 92 18 110/71 100 Mechanical Ventilator 40 11/30/16 01:08 102 18 40 11/30/16 01:00 104 18 113/60 99 Mechanical Ventilator 40 11/30/16 00:30 99 18 118/71 99 Mechanical Ventilator 40 11/30/16 00:26 113/68 11/30/16 00:00 40 11/30/16 00:00 109 11/30/16 00:00 96 18 116/75 100 Mechanical Ventilator 40 11/29/16 23:30 97.9 109 18 159/87 100 Mechanical Ventilator 40 11/29/16 23:19 116 18 40 11/29/16 23:00 91 18 159/87 100 Mechanical Ventilator 40 11/29/16 22:30 85 18 125/80 99 Mechanical Ventilator 40 11/29/16 22:00 99 18 83/58 99 Mechanical Ventilator 40 11/29/16 21:30 118 18 83/58 100 Mechanical Ventilator 40 11/29/16 21:00 125 18 81/53 100 Mechanical Ventilator 40 11/29/16 20:56 126 18 40 11/29/16 20:30 96 18 115/90 100 Mechanical Ventilator 40 11/29/16 20:00 92 11/29/16 20:00 115 18 93/69 100 Mechanical Ventilator 40 11/29/16 20:00 40 11/29/16 19:40 93/69 11/29/16 19:30 91 18 93/69 100 Mechanical Ventilator 40 11/29/16 19:10 115 18 40 11/29/16 19:00 98.1 104 18 119/72 99 Mechanical Ventilator 40 11/29/16 18:30 99 18 119/72 99 Mechanical Ventilator 40 11/29/16 18:00 87 18 109/65 99 Mechanical Ventilator 40 11/29/16 17:30 96 18 109/69 99 Mechanical Ventilator 40 11/29/16 17:00 94 18 110/70 100 Mechanical Ventilator 40 11/29/16 16:53 101 29 40 11/29/16 16:30 94 18 110/59 99 Mechanical Ventilator 40 11/29/16 16:00 98.7 97 20 113/70 100 Mechanical Ventilator 40 11/29/16 16:00 99 11/29/16 16:00 40 Height (Feet): 5 Height (Inches): 2.00 Weight (Pounds): 189 General Appearance: WD/WN, no acute distress HEENT: normocephalic, atraumatic, anicteric, mucous membranes moist Respiratory/Chest: chest wall non-tender, normal breath sounds, no respiratory distress, no accessory muscle use, decreased breath sounds, crackles/rales Cardiovascular: normal peripheral pulses, normal rate, regular rhythm, no gallop/murmur Abdomen: normal bowel sounds, soft, non tender, non distended, no mass Extremities: no cyanosis, no clubbing Skin: no rash, no lesions Microbiology Date/Time Source Procedure Growth Status 11/28/16 17:40 Blood Blood Culture - Preliminary NO GROWTH AFTER 24 HOURS Resulted 11/28/16 16:25 Blood Blood Culture - Preliminary NO GROWTH AFTER 24 HOURS Resulted 11/27/16 21:30 Sputum Gram Stain - Final Resulted 11/27/16 21:30 Sputum Culture - Preliminary YEAST Resulted Laboratory Tests Test 11/30/16 04:50 11/30/16 08:39 White Blood Count 17.0 K/UL (4.8-10.8) H Red Blood Count 4.51 M/UL (4.20-5.40) Hemoglobin 13.0 G/DL (12.0-16.0) Hematocrit 39.9 % (37.0-47.0) Mean Corpuscular Volume 89 FL (80-99) Mean Corpuscular Hemoglobin 28.8 PG (27.0-31.0) Mean Corpuscular Hemoglobin Concent 32.5 G/DL (32.0-36.0) Red Cell Distribution Width 16.5 % (11.6-14.8) H Platelet Count 72 K/UL (150-450) L Mean Platelet Volume 15.1 FL (6.5-10.1) H Neutrophils (%) (Auto) % (45.0-75.0) Lymphocytes (%) (Auto) % (20.0-45.0) Monocytes (%) (Auto) % (1.0-10.0) Eosinophils (%) (Auto) % (0.0-3.0) Basophils (%) (Auto) % (0.0-2.0) Differential Total Cells Counted 100 Neutrophils % (Manual) 89 % (45-75) H Lymphocytes % (Manual) 3 % (20-45) L Monocytes % (Manual) 8 % (1-10) Eosinophils % (Manual) 0 % (0-3) Basophils % (Manual) 0 % (0-2) Band Neutrophils 0 % (0-8) Platelet Estimate Decreased L Platelet Morphology Normal Anisocytosis 1+ Sodium Level 142 mEQ/L (135-145) Potassium Level 4.1 mEQ/L (3.4-4.9) Chloride Level 111 mEQ/L (98-107) H Carbon Dioxide Level 18 mEQ/L (20-30) L Anion Gap 13 (5-15) Blood Urea Nitrogen 22 mg/dL (7-23) Creatinine 0.7 mg/dL (0.5-0.9) Estimat Glomerular Filtration Rate mL/min (>60) Glucose Level 231 mg/dL (74-106) H Calcium Level 8.2 mg/dL (8.6-10.2) L Phosphorus Level 2.9 mg/dL (2.5-4.8) Magnesium Level 1.8 mg/dL (1.7-2.5) Total Bilirubin 0.7 mg/dL (0.0-1.2) Aspartate Amino Transf (AST/SGOT) 22 U/L (5-40) Alanine Aminotransferase (ALT/SGPT) 25 U/L (3-33) Alkaline Phosphatase 113 U/L (35-104) H Total Protein 5.0 g/dL (6.6-8.7) L Albumin 2.1 g/dL (3.5-5.2) L Globulin 2.9 g/dL Albumin/Globulin Ratio 0.7 (1.0-2.7) L Arterial Blood pH 7.520 (7.350-7.450) Arterial Blood Partial Pressure CO2 23.9 mmHg (35.0-45.0) *L Arterial Blood Partial Pressure O2 115.6 mmHg (75.0-100.0) H Arterial Blood HCO3 19.3 mmol/L (22.0-26.0) L Arterial Blood Oxygen Saturation 98.1 % (92.0-98.0) H Arterial Blood Base Excess -1.9 Isael Test Positive Current Medications Medications (Trade) Dose Ordered Sig/Flora Route PRN Reason Start Time Stop Time Status Last Admin Dose Admin Acetaminophen (Tylenol) 650 mg Q4H PRN ORAL fever 11/25/16 16:00 12/25/16 15:59 Albuterol/ Ipratropium (DuoNeb 0.5-3(2.5)mg/3ml) 3 ml Q4H PRN HHN Shortness of Breath 11/25/16 16:00 11/30/16 15:59 Chlorhexidine Gluconate (Emmie-Hex 2%) 1 applic DAILY TOPIC 11/26/16 09:00 12/26/16 08:59 11/30/16 04:22 Dextrose (Dextrose 50%) STAT PRN IV Hypoglycemia 11/25/16 16:00 12/25/16 15:59 Dopamine HCl/ Dextrose 250 ml @ 9.66 mls/hr Q24H IV 11/30/16 14:00 12/30/16 13:59 11/30/16 14:00 Ertapenem 1 gm/ Sodium Chloride 55 ml @ 110 mls/hr Q24H IVPB 11/30/16 21:00 12/05/16 20:59 Heparin Sodium (Porcine) (Heparin 5000 units/ml) 5,000 units EVERY 12 HOURS SUBQ 11/25/16 21:00 12/25/16 20:59 11/29/16 08:59 Insulin Aspart (NovoLOG) EVERY 6 HOURS SUBQ 11/26/16 00:00 12/26/16 00:00 11/30/16 11:17 Metoclopramide HCl 5 mg 5 mg Q6H PRN IVP Nausea & Vomiting 11/28/16 09:45 12/28/16 09:44 Morphine Sulfate (Morphine Sulfate) 2 mg Q4H PRN IVP Moderate Pain (Pain Scale 4-6) 11/25/16 16:00 12/02/16 15:59 Nitroglycerin (Ntg) 0.4 mg Q5M PRN SL Prn Chest Pain 11/25/16 16:00 12/25/16 15:59 Norepinephrine Bitartrate/ Dextrose (Levophed/D5W) 250 ml @ 0 mls/hr Q24H IV 11/25/16 17:00 12/25/16 16:59 11/30/16 13:50 Ondansetron HCl (Zofran) 4 mg Q6H PRN IVP Nausea & Vomiting 11/25/16 16:00 12/25/16 15:59 Pantoprazole (Protonix) 40 mg DAILY IVP 11/28/16 09:00 12/28/16 08:59 11/30/16 09:09 Polyethylene Glycol (Miralax) 17 gm DAILYPRN PRN ORAL Constipation 11/25/16 16:00 12/25/16 15:59 Sodium Chloride (NS) 250 ml @ 999 mls/hr ONCE PRN IV PRN SBP < 90 11/30/16 14:30 12/30/16 14:29 Temazepam (Restoril) 15 mg HSPRN PRN ORAL Insomnia 11/25/16 16:00 12/02/16 15:59 Vancomycin HCl 1 ea 1 ea DAILY PRN MISC PER RX PROTOCOL 11/25/16 16:45 12/25/16 16:44 Romelia Sotelo M.D. Nov 30, 2016 15:47
[2016-11-30] MEDS: Ertapenem 1gm in NS 55ml IVPB SCH (20:15)
[2016-11-30] MEDS ORDERED: Metoclopramide 10mg/2ml Inj IVP PRN (23:00)
[2016-12-01] VITALS (46 sets, daily range): BP systolic 78–142; BP diastolic 49–85
[2016-12-01] MEDS: Dyna-Hex 2% Top Sol 8oz TOPIC SCH (03:13)
[2016-12-01] MEDS: NovoLOG Insulin Flexpen SUBQ SCH ×4 (05:37→23:57)
[2016-12-01 05:53] LABS: ALANINE AMINOTRANSFERASE 26 U/L (3-33); ANION GAP 12 (5-15); ASPARTATE AMINO TRANSFERASE 26 U/L (5-40); CALCIUM 8.2 mg/dL (8.6-10.2); CARBON DIOXIDE 21 mEQ/L (20-30); CHLORIDE 110 mEQ/L (98-107); CREATININE 0.6 mg/dL (0.5-0.9); HEMOLYSIS 3; SODIUM 143 mEQ/L (135-145); TOTAL PROTEIN 4.6 g/dL (6.6-8.7)
[2016-12-01 06:09] LABS: MEAN CORPUSCULAR HEMOGLOBIN 30.7 PG (27.0-31.0); MEAN CORPUSCULAR HGB CONC 34.2 G/DL (32.0-36.0); MEAN CORPUSCULAR VOLUME 90 FL (80-99); MEAN PLATELET VOLUME 13.7 FL (6.5-10.1); PLATELET COUNT 58 K/UL (150-450); RED BLOOD COUNT 3.87 M/UL (4.20-5.40); RED CELL DISTRIBUTION WIDTH 16.4 % (11.6-14.8); WHITE BLOOD COUNT 15.7 K/UL (4.8-10.8)
[2016-12-01 07:20] LABS: PHOSPHORUS 2.2 MG/DL (2.5-4.9)
[2016-12-01 07:21] LABS: MAGNESIUM 1.7 MG/DL (1.5-2.4)
[2016-12-01 08:31] LABS: ANISOCYTOSIS 1+; BAND NEUTROPHILS % (MANUAL) 0 % (0-8); BASOPHILS % (MANUAL) 0 % (0-2); EOSINOPHILS % (MANUAL) 0 % (0-3); LYMPHOCYTES % (MANUAL) 11 % (20-45); METAMYELOCYTES % 3 % (0-0); NEUTROPHILS % (MANUAL) 70 % (45-75); PLATELET ESTIMATE DECREASED; PLATELET MORPHOLOGY NORMAL; TOTAL CELLS COUNTED 100
[2016-12-01] MEDS: Pantoprazole Inj IVP SCH (08:49)
--- NOTE | 2016-12-01 08:49 | General Progress Note ---
Assessment/Plan Status: stable Assessment/Plan 1. Respiratory failure s/p intubation - continue trials for weaning off vent. 2. Sepsis 2nd to UTI - improving. WBC decreasing. 3. Renal failure 2nd to sepsis - resolved. 4. Pneumonia - improved. cont IV abx. 5. Septic Shock - in ICU. on presser and trying to meghan off. 6. H/O Basal Ganglia ischemic stroke recently 7. 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 Venous U/S negative for DVT. 8. Hypernatremia - resolved. 9. Therombocytopenia - hold heparin for now. recheck CBC tomorrow. 10. Hyperlipidemia - start lipitor 20 mg in a few days when she is better and off vent. 11. DM II - On SSI 12. Sacral Pressure ulcer - cont wound care. Subjective Date patient seen: Dec 01, 2016 Time patient seen: 08:20 Constitutional: Reports: no symptoms HEENT: Reports: no symptoms Cardiovascular: Reports: no symptoms Respiratory: Reports: other - intubated Gastrointestinal/Abdominal: Reports: no symptoms Genitourinary: Reports: no symptoms Neurologic/Psychiatric: Reports: no symptoms Endocrine: Reports: no symptoms Hematologic/Lymphatic: Reports: no symptoms Allergies: Coded Allergies: No Known Allergies (Unverified , 11/25/16) Subjective Pt is better and but still intubated. she became bradycardic when try to wean her off vent yesterday. Her WBC improving. Awake and respond to command by closing her eyes. Objective Last 24 Hour Vital Signs Date Time Temp Pulse Resp B/P Pulse Ox O2 Delivery O2 Flow Rate FiO2 12/01/16 08:00 40 12/01/16 08:00 104 12/01/16 07:04 99 18 40 12/01/16 07:00 99 18 108/71 99 Mechanical Ventilator 40 12/01/16 06:00 101 18 112/68 99 Mechanical Ventilator 40 12/01/16 05:30 102 18 111/76 99 Mechanical Ventilator 40 12/01/16 05:24 94 18 40 12/01/16 05:00 97 18 106/73 99 Mechanical Ventilator 40 12/01/16 04:30 97 18 115/71 98 Mechanical Ventilator 40 12/01/16 04:00 98.3 101 18 104/73 98 Mechanical Ventilator 40 12/01/16 04:00 40 12/01/16 04:00 112 12/01/16 03:30 96 18 110/68 99 Mechanical Ventilator 40 12/01/16 03:21 97 18 40 12/01/16 03:00 99 18 106/70 99 Mechanical Ventilator 40 12/01/16 02:30 99 18 122/73 99 Mechanical Ventilator 40 12/01/16 02:00 92 18 123/83 99 Mechanical Ventilator 40 12/01/16 01:30 97 18 114/74 99 Mechanical Ventilator 40 12/01/16 01:25 96 18 40 12/01/16 01:00 97 18 104/71 99 Mechanical Ventilator 40 12/01/16 00:30 100 18 105/65 99 Mechanical Ventilator 40 12/01/16 00:00 105 12/01/16 00:00 40 12/01/16 00:00 98.3 103 18 113/70 99 Mechanical Ventilator 40 11/30/16 23:30 101 18 117/66 98 Mechanical Ventilator 40 11/30/16 23:26 99 18 40 11/30/16 23:00 99 18 116/74 98 Mechanical Ventilator 40 11/30/16 22:30 98 18 111/69 98 Mechanical Ventilator 40 11/30/16 22:00 100 18 98/69 99 Mechanical Ventilator 40 11/30/16 21:30 102 18 102/75 98 Mechanical Ventilator 40 11/30/16 21:17 96 18 40 11/30/16 21:00 100 18 98/69 99 Mechanical Ventilator 40 11/30/16 20:30 105 18 81/51 98 Mechanical Ventilator 40 11/30/16 20:00 40 11/30/16 20:00 97.5 103 18 91/62 98 Mechanical Ventilator 40 11/30/16 20:00 104 11/30/16 19:14 103 18 40 11/30/16 19:00 100 18 111/65 99 Mechanical Ventilator 40 11/30/16 18:30 103 20 86/54 98 Mechanical Ventilator 40 11/30/16 18:00 111 18 74/51 97 Mechanical Ventilator 40 11/30/16 17:30 120 20 103/70 96 Mechanical Ventilator 40 11/30/16 17:01 95 17 40 11/30/16 17:00 93 19 85/55 99 Mechanical Ventilator 40 11/30/16 16:30 98.3 99 18 84/59 97 Mechanical Ventilator 40 11/30/16 16:00 106 11/30/16 16:00 101 22 98/66 100 Mechanical Ventilator 40 11/30/16 16:00 98/66 11/30/16 15:45 103 20 96/65 98 Mechanical Ventilator 40 11/30/16 15:30 106 20 87/62 100 Mechanical Ventilator 40 11/30/16 15:15 104 19 89/59 100 Mechanical Ventilator 40 11/30/16 15:00 108 19 90/63 100 Mechanical Ventilator 40 11/30/16 15:00 89/59 11/30/16 14:42 109 17 40 11/30/16 14:30 101 22 91/58 97 Mechanical Ventilator 40 11/30/16 14:00 108 19 90/58 97 Mechanical Ventilator 40 11/30/16 14:00 80/53 11/30/16 13:50 85/58 11/30/16 13:30 117 22 81/58 97 Mechanical Ventilator 40 11/30/16 13:00 112 20 88/59 100 Mechanical Ventilator 40 11/30/16 13:00 88/59 11/30/16 12:40 126 18 40 11/30/16 12:30 40 11/30/16 12:30 105 22 124/58 100 Mechanical Ventilator 40 11/30/16 12:00 40 11/30/16 12:00 104 11/30/16 12:00 103/62 11/30/16 12:00 98.5 103 22 103/62 100 Mechanical Ventilator 40 11/30/16 11:30 40 11/30/16 11:30 105 22 90/58 100 Mechanical Ventilator 40 11/30/16 11:25 107 19 40 11/30/16 11:00 91/52 11/30/16 11:00 90/63 11/30/16 11:00 100 22 91/62 100 Mechanical Ventilator 40 11/30/16 10:30 104 21 90/58 100 Mechanical Ventilator 40 11/30/16 10:00 100 21 92/63 100 Mechanical Ventilator 40 11/30/16 10:00 90/58 11/30/16 09:30 102 22 82/55 100 Mechanical Ventilator 40 11/30/16 09:00 101/55 11/30/16 09:00 108 21 101/55 100 Mechanical Ventilator 40 11/30/16 08:43 110 21 40 Intake and Output 11/30/16 12/01/16 19:00 07:00 Intake Total 783.94 ml 306.04 ml Output Total 285 ml 215 ml Balance 498.94 ml 91.04 ml Free Water 200 ml IV Total 223.94 ml 306.04 ml Tube Feeding 360 ml Output Urine Total 285 ml 215 ml Laboratory Tests 11/30/16 18:00: Cortisol 35.8 12/01/16 04:10: White Blood Count 15.7H, Red Blood Count 3.87L, Hemoglobin 11.9L, Hematocrit 34.8L, Mean Corpuscular Volume 90, Mean Corpuscular Hemoglobin 30.7, Mean Corpuscular Hemoglobin Concent 34.2, Red Cell Distribution Width 16.4H, Platelet Count 58L, Mean Platelet Volume 13.7H, Neutrophils (%) (Auto) , Lymphocytes (%) (Auto) , Monocytes (%) (Auto) , Eosinophils (%) (Auto) , Basophils (%) (Auto) , Differential Total Cells Counted 100, Neutrophils % ( Manual) 70, Lymphocytes % (Manual) 11L, Monocytes % (Manual) 16H, Eosinophils % (Manual) 0, Basophils % (Manual) 0, Metamyelocytes % 3H, Band Neutrophils 0, Platelet Estimate DecreasedL, Platelet Morphology Normal, Anisocytosis 1+, Sodium Level 143, Potassium Level 4.0, Chloride Level 110H, Carbon Dioxide Level 21, Anion Gap 12, Blood Urea Nitrogen 22, Creatinine 0.6, Estimat Glomerular Filtration Rate , Glucose Level 215H, Lactic Acid Level 1.90, Calcium Level 8.2L, Phosphorus Level 2.2L, Magnesium Level 1.7, Total Bilirubin 0.6, Aspartate Amino Transf (AST/SGOT) 26, Alanine Aminotransferase (ALT/SGPT) 26, Alkaline Phosphatase 107H, Total Protein 4.6L, Albumin 2.3L, Globulin 2.3, Albumin/Globulin Ratio 1.0, Cortisol AM Sample 24.2H, Random Vancomycin Level 10.2 Height (Feet): 5 Height (Inches): 2.00 Weight (Pounds): 195 General Appearance: no apparent distress, alert EENT: normal ENT inspection Neck: non-tender, normal alignment, supple Cardiovascular: normal peripheral pulses, normal rate, regular rhythm Respiratory/Chest: chest wall non-tender, lungs clear, normal breath sounds, other - intubated Abdomen: normal bowel sounds, non tender, soft Extremities: normal range of motion, non-tender Edema: no edema noted Arm (L), no edema noted Arm (R), no edema noted Leg (L), no edema noted Leg (R), no edema noted Pedal (L), no edema noted Pedal (R), no edema noted Generalized Neurologic: responsive Skin: warm/dry Lymphatic: normal anterior cervical (L), normal anterior cervical (R), normal axillary (L), normal axillary (R), normal inguinal (L), normal inguinal (R), normal other, normal posterior cervical (L), normal posterior cervical (R), normal submandibular (L), normal submandibular (R), normal supraclavicular (L), normal supraclavicular (R) TERI JACKSON Dec 01, 2016 08:49
[2016-12-01] MEDS: Heparin 5000 units/ml inj SUBQ SCH ×2 (08:50→21:00)
[2016-12-01] MEDS: Vancomycin 1250mg/D5W 250ml IVPB SCH (08:52)
[2016-12-01 08:56] LABS: ABG ALLEN TEST POSITIVE; ABG BASE EXCESS -0.6; ABG PCO2 28.3 mmHg (35.0-45.0)
--- NOTE | 2016-12-01 11:25 | Pulmonolgy Critical Care Note ---
Critical Care - Asmt/Plan Problems: (1) Respiratory failure (2) Septic shock (3) Acute encephalopathy (4) ARF (acute renal failure) (5) Hypernatremia (6) Diabetes mellitus Respiratory: monitor respiratory rate, adjust FIO2, weaning trial Cardiac: continue pressors, continue to monitor HR/BP Renal: F/U I&O, keep IV fluid Infectious Disease: check cultures Gastrointestinal: continue feedings/current rate, hold feedings Endocrine: monitor blood sugar, check HgA1C, continue sliding scale insulin Hematologic: transfuse if hgb<8.5 Neurologic: PRN Ativan, PRN Morphine, keep patient comfortable Affect: PRN ativan Notes Reviewed: surgical processor, renal Discussed with: nurses, consultants, case management coordinatortouring production manager - Objective Last 24 Hour Vital Signs Date Time Temp Pulse Resp B/P Pulse Ox O2 Delivery O2 Flow Rate FiO2 12/01/16 11:10 95 22 40 12/01/16 10:30 63 20 100/66 98 Mechanical Ventilator 40 12/01/16 10:00 95 21 100/64 98 Mechanical Ventilator 40 12/01/16 09:30 99 18 107/71 98 Mechanical Ventilator 40 12/01/16 09:00 97 18 112/70 98 Mechanical Ventilator 40 12/01/16 08:59 98 12/01/16 08:59 100 12 40 12/01/16 08:30 102 18 101/60 98 Mechanical Ventilator 40 12/01/16 08:00 40 12/01/16 08:00 104 12/01/16 08:00 102 18 101/65 99 Mechanical Ventilator 40 12/01/16 07:30 97.8 102 18 104/66 99 Mechanical Ventilator 40 12/01/16 07:04 99 18 40 12/01/16 07:00 99 18 108/71 99 Mechanical Ventilator 40 12/01/16 06:00 101 18 112/68 99 Mechanical Ventilator 40 12/01/16 05:30 102 18 111/76 99 Mechanical Ventilator 40 12/01/16 05:24 94 18 40 12/01/16 05:00 97 18 106/73 99 Mechanical Ventilator 40 12/01/16 04:30 97 18 115/71 98 Mechanical Ventilator 40 12/01/16 04:00 98.3 101 18 104/73 98 Mechanical Ventilator 40 12/01/16 04:00 40 12/01/16 04:00 112 12/01/16 03:30 96 18 110/68 99 Mechanical Ventilator 40 12/01/16 03:21 97 18 40 12/01/16 03:00 99 18 106/70 99 Mechanical Ventilator 40 12/01/16 02:30 99 18 122/73 99 Mechanical Ventilator 40 12/01/16 02:00 92 18 123/83 99 Mechanical Ventilator 40 12/01/16 01:30 97 18 114/74 99 Mechanical Ventilator 40 12/01/16 01:25 96 18 40 12/01/16 01:00 97 18 104/71 99 Mechanical Ventilator 40 12/01/16 00:30 100 18 105/65 99 Mechanical Ventilator 40 12/01/16 00:00 105 12/01/16 00:00 40 12/01/16 00:00 98.3 103 18 113/70 99 Mechanical Ventilator 40 11/30/16 23:30 101 18 117/66 98 Mechanical Ventilator 40 11/30/16 23:26 99 18 40 11/30/16 23:00 99 18 116/74 98 Mechanical Ventilator 40 11/30/16 22:30 98 18 111/69 98 Mechanical Ventilator 40 11/30/16 22:00 100 18 98/69 99 Mechanical Ventilator 40 11/30/16 21:30 102 18 102/75 98 Mechanical Ventilator 40 11/30/16 21:17 96 18 40 11/30/16 21:00 100 18 98/69 99 Mechanical Ventilator 40 11/30/16 20:30 105 18 81/51 98 Mechanical Ventilator 40 11/30/16 20:00 40 11/30/16 20:00 97.5 103 18 91/62 98 Mechanical Ventilator 40 11/30/16 20:00 104 11/30/16 19:14 103 18 40 11/30/16 19:00 100 18 111/65 99 Mechanical Ventilator 40 11/30/16 18:30 103 20 86/54 98 Mechanical Ventilator 40 11/30/16 18:00 111 18 74/51 97 Mechanical Ventilator 40 11/30/16 17:30 120 20 103/70 96 Mechanical Ventilator 40 11/30/16 17:01 95 17 40 11/30/16 17:00 93 19 85/55 99 Mechanical Ventilator 40 11/30/16 16:30 98.3 99 18 84/59 97 Mechanical Ventilator 40 11/30/16 16:00 106 11/30/16 16:00 101 22 98/66 100 Mechanical Ventilator 40 11/30/16 16:00 98/66 11/30/16 15:45 103 20 96/65 98 Mechanical Ventilator 40 11/30/16 15:30 106 20 87/62 100 Mechanical Ventilator 40 11/30/16 15:15 104 19 89/59 100 Mechanical Ventilator 40 11/30/16 15:00 108 19 90/63 100 Mechanical Ventilator 40 11/30/16 15:00 89/59 11/30/16 14:42 109 17 40 11/30/16 14:30 101 22 91/58 97 Mechanical Ventilator 40 11/30/16 14:00 108 19 90/58 97 Mechanical Ventilator 40 11/30/16 14:00 80/53 11/30/16 13:50 85/58 11/30/16 13:30 117 22 81/58 97 Mechanical Ventilator 40 11/30/16 13:00 112 20 88/59 100 Mechanical Ventilator 40 11/30/16 13:00 88/59 11/30/16 12:40 126 18 40 11/30/16 12:30 40 11/30/16 12:30 105 22 124/58 100 Mechanical Ventilator 40 11/30/16 12:00 40 11/30/16 12:00 104 11/30/16 12:00 103/62 11/30/16 12:00 98.5 103 22 103/62 100 Mechanical Ventilator 40 11/30/16 11:30 40 11/30/16 11:30 105 22 90/58 100 Mechanical Ventilator 40 11/30/16 11:25 107 19 40 Status: sedated Condition: critical HEENT: atraumatic Neck: full ROM Lungs: clear Heart: HR/BP stable, HR/BP unstable Abdomen: non-tender, active bowel sounds Extremities: no C/C/E, edema Decubiti: location Micro: Microbiology Date/Time Source Procedure Growth Status 11/28/16 17:40 Blood Blood Culture - Preliminary NO GROWTH AFTER 48 HOURS Resulted 11/28/16 16:25 Blood Blood Culture - Preliminary NO GROWTH AFTER 48 HOURS Resulted Accucheck: 194 Critical Care - Subjective ROS Limited/Unobtainable: No Condition: critical EKG Rhythm: Sinus Rhythm FI02: 40 Vent Support Breath Rate: 10 Vent Support Mode: IMV/SIMV Vent Tidal Volume: 600 Sputum Amount: Small PIP: 20 Drips: levophed 3 ug, dopamin Tube Feeding Amount: 30 I&O: Intake and Output 11/30/16 12/01/16 18:59 06:59 Intake Total 783.11 ml 336.03 ml Output Total 300 ml 225 ml Balance 483.11 ml 111.03 ml Free Water 200 ml IV Total 223.11 ml 306.03 ml Tube Feeding 360 ml 30 ml Output Urine Total 300 ml 225 ml CXR: no change ET-Tube: 7.5 ET Position: 23 Labs: Laboratory Tests Test 11/30/16 18:00 12/01/16 04:10 12/01/16 08:48 Cortisol 35.8 ug/dL White Blood Count 15.7 K/UL (4.8-10.8) H Red Blood Count 3.87 M/UL (4.20-5.40) L Hemoglobin 11.9 G/DL (12.0-16.0) L Hematocrit 34.8 % (37.0-47.0) L Mean Corpuscular Volume 90 FL (80-99) Mean Corpuscular Hemoglobin 30.7 PG (27.0-31.0) Mean Corpuscular Hemoglobin Concent 34.2 G/DL (32.0-36.0) Red Cell Distribution Width 16.4 % (11.6-14.8) H Platelet Count 58 K/UL (150-450) L Mean Platelet Volume 13.7 FL (6.5-10.1) H Neutrophils (%) (Auto) % (45.0-75.0) Lymphocytes (%) (Auto) % (20.0-45.0) Monocytes (%) (Auto) % (1.0-10.0) Eosinophils (%) (Auto) % (0.0-3.0) Basophils (%) (Auto) % (0.0-2.0) Differential Total Cells Counted 100 Neutrophils % (Manual) 70 % (45-75) Lymphocytes % (Manual) 11 % (20-45) L Monocytes % (Manual) 16 % (1-10) H Eosinophils % (Manual) 0 % (0-3) Basophils % (Manual) 0 % (0-2) Metamyelocytes % 3 % (0-0) H Band Neutrophils 0 % (0-8) Platelet Estimate Decreased L Platelet Morphology Normal Anisocytosis 1+ Sodium Level 143 mEQ/L (135-145) Potassium Level 4.0 mEQ/L (3.4-4.9) Chloride Level 110 mEQ/L (98-107) H Carbon Dioxide Level 21 mEQ/L (20-30) Anion Gap 12 (5-15) Blood Urea Nitrogen 22 mg/dL (7-23) Creatinine 0.6 mg/dL (0.5-0.9) Estimat Glomerular Filtration Rate mL/min (>60) Glucose Level 215 mg/dL (74-106) H Lactic Acid Level 1.90 mmol/L (0.66-2.22) Calcium Level 8.2 mg/dL (8.6-10.2) L Phosphorus Level 2.2 MG/DL (2.5-4.9) L Magnesium Level 1.7 MG/DL (1.5-2.4) Total Bilirubin 0.6 mg/dL (0.0-1.2) Aspartate Amino Transf (AST/SGOT) 26 U/L (5-40) Alanine Aminotransferase (ALT/SGPT) 26 U/L (3-33) Alkaline Phosphatase 107 U/L (35-104) H Total Protein 4.6 g/dL (6.6-8.7) L Albumin 2.3 g/dL (3.5-5.2) L Globulin 2.3 g/dL Albumin/Globulin Ratio 1.0 (1.0-2.7) Cortisol AM Sample 24.2 ug/dL (6.0-20.0) H Random Vancomycin Level 10.2 ug/mL Arterial Blood pH 7.499 (7.350-7.450) Arterial Blood Partial Pressure CO2 28.3 mmHg (35.0-45.0) L Arterial Blood Partial Pressure O2 83.0 mmHg (75.0-100.0) Arterial Blood HCO3 21.5 mmol/L (22.0-26.0) L Arterial Blood Oxygen Saturation 96.1 % (92.0-98.0) Arterial Blood Base Excess -0.6 Isael Test Positive TSEVIE GUO Dec 01, 2016 11:25
[2016-12-01] MEDS: DOPamine 400mg/250ml 250 ML IV SCH (13:57)
--- NOTE | 2016-12-01 14:49 | Nephrology Progress Note ---
Assessment/Plan Problem List: (1) Hypernatremia Assessment: resolved (2) ARF (acute renal failure) Assessment: ok (3) Septic shock Assessment: still on pressors but better (4) Acute respiratory failure (5) Diabetes mellitus (6) UTI (urinary tract infection) Plan taper pressors as tolerated TF follow labs vent support Discussed with RN IVF only boluses for SBP in low 80s Subjective Subjective In NAD Intubated Objective Objective Last 24 Hour Vital Signs Date Time Temp Pulse Resp B/P Pulse Ox O2 Delivery O2 Flow Rate FiO2 12/01/16 13:57 105/67 12/01/16 13:57 106/57 12/01/16 13:00 105 20 111/70 99 Mechanical Ventilator 40 12/01/16 13:00 103 19 40 12/01/16 13:00 40 12/01/16 12:30 104 22 108/70 98 Mechanical Ventilator 40 12/01/16 12:00 97.7 102 23 90/49 98 Mechanical Ventilator 40 12/01/16 12:00 40 12/01/16 12:00 98 12/01/16 11:30 96 23 115/71 98 Mechanical Ventilator 40 12/01/16 11:10 95 22 40 12/01/16 11:00 97 20 108/61 98 Mechanical Ventilator 40 12/01/16 10:30 63 20 100/66 98 Mechanical Ventilator 40 12/01/16 10:00 95 21 100/64 98 Mechanical Ventilator 40 12/01/16 09:30 99 18 107/71 98 Mechanical Ventilator 40 12/01/16 09:00 97 18 112/70 98 Mechanical Ventilator 40 12/01/16 09:00 40 12/01/16 08:59 98 12/01/16 08:59 100 12 40 12/01/16 08:30 102 18 101/60 98 Mechanical Ventilator 40 12/01/16 08:00 40 12/01/16 08:00 104 12/01/16 08:00 102 18 101/65 99 Mechanical Ventilator 40 12/01/16 07:30 97.8 102 18 104/66 99 Mechanical Ventilator 40 12/01/16 07:04 99 18 40 12/01/16 07:00 99 18 108/71 99 Mechanical Ventilator 40 12/01/16 06:00 101 18 112/68 99 Mechanical Ventilator 40 12/01/16 05:30 102 18 111/76 99 Mechanical Ventilator 40 12/01/16 05:24 94 18 40 12/01/16 05:00 97 18 106/73 99 Mechanical Ventilator 40 12/01/16 04:30 97 18 115/71 98 Mechanical Ventilator 40 12/01/16 04:00 98.3 101 18 104/73 98 Mechanical Ventilator 40 12/01/16 04:00 40 12/01/16 04:00 112 12/01/16 03:30 96 18 110/68 99 Mechanical Ventilator 40 12/01/16 03:21 97 18 40 12/01/16 03:00 99 18 106/70 99 Mechanical Ventilator 40 12/01/16 02:30 99 18 122/73 99 Mechanical Ventilator 40 12/01/16 02:00 92 18 123/83 99 Mechanical Ventilator 40 12/01/16 01:30 97 18 114/74 99 Mechanical Ventilator 40 12/01/16 01:25 96 18 40 12/01/16 01:00 97 18 104/71 99 Mechanical Ventilator 40 12/01/16 00:30 100 18 105/65 99 Mechanical Ventilator 40 12/01/16 00:00 105 12/01/16 00:00 40 12/01/16 00:00 98.3 103 18 113/70 99 Mechanical Ventilator 40 11/30/16 23:30 101 18 117/66 98 Mechanical Ventilator 40 11/30/16 23:26 99 18 40 11/30/16 23:00 99 18 116/74 98 Mechanical Ventilator 40 11/30/16 22:30 98 18 111/69 98 Mechanical Ventilator 40 11/30/16 22:00 100 18 98/69 99 Mechanical Ventilator 40 11/30/16 21:30 102 18 102/75 98 Mechanical Ventilator 40 11/30/16 21:17 96 18 40 11/30/16 21:00 100 18 98/69 99 Mechanical Ventilator 40 11/30/16 20:30 105 18 81/51 98 Mechanical Ventilator 40 11/30/16 20:00 40 11/30/16 20:00 97.5 103 18 91/62 98 Mechanical Ventilator 40 11/30/16 20:00 104 11/30/16 19:14 103 18 40 11/30/16 19:00 100 18 111/65 99 Mechanical Ventilator 40 11/30/16 18:30 103 20 86/54 98 Mechanical Ventilator 40 11/30/16 18:00 111 18 74/51 97 Mechanical Ventilator 40 11/30/16 17:30 120 20 103/70 96 Mechanical Ventilator 40 11/30/16 17:01 95 17 40 11/30/16 17:00 93 19 85/55 99 Mechanical Ventilator 40 11/30/16 16:30 98.3 99 18 84/59 97 Mechanical Ventilator 40 11/30/16 16:00 106 11/30/16 16:00 101 22 98/66 100 Mechanical Ventilator 40 11/30/16 16:00 98/66 11/30/16 15:45 103 20 96/65 98 Mechanical Ventilator 40 11/30/16 15:30 106 20 87/62 100 Mechanical Ventilator 40 11/30/16 15:15 104 19 89/59 100 Mechanical Ventilator 40 11/30/16 15:00 108 19 90/63 100 Mechanical Ventilator 40 11/30/16 15:00 89/59 Intake and Output 11/30/16 12/01/16 19:00 07:00 Intake Total 783.94 ml 306.04 ml Output Total 285 ml 215 ml Balance 498.94 ml 91.04 ml Free Water 200 ml IV Total 223.94 ml 306.04 ml Tube Feeding 360 ml Output Urine Total 285 ml 215 ml Laboratory Tests 11/30/16 18:00: Cortisol 35.8 12/01/16 04:10: White Blood Count 15.7H, Red Blood Count 3.87L, Hemoglobin 11.9L, Hematocrit 34.8L, Mean Corpuscular Volume 90, Mean Corpuscular Hemoglobin 30.7, Mean Corpuscular Hemoglobin Concent 34.2, Red Cell Distribution Width 16.4H, Platelet Count 58L, Mean Platelet Volume 13.7H, Neutrophils (%) (Auto) , Lymphocytes (%) (Auto) , Monocytes (%) (Auto) , Eosinophils (%) (Auto) , Basophils (%) (Auto) , Differential Total Cells Counted 100, Neutrophils % ( Manual) 70, Lymphocytes % (Manual) 11L, Monocytes % (Manual) 16H, Eosinophils % (Manual) 0, Basophils % (Manual) 0, Metamyelocytes % 3H, Band Neutrophils 0, Platelet Estimate DecreasedL, Platelet Morphology Normal, Anisocytosis 1+, Sodium Level 143, Potassium Level 4.0, Chloride Level 110H, Carbon Dioxide Level 21, Anion Gap 12, Blood Urea Nitrogen 22, Creatinine 0.6, Estimat Glomerular Filtration Rate , Glucose Level 215H, Lactic Acid Level 1.90, Calcium Level 8.2L, Phosphorus Level 2.2L, Magnesium Level 1.7, Total Bilirubin 0.6, Aspartate Amino Transf (AST/SGOT) 26, Alanine Aminotransferase (ALT/SGPT) 26, Alkaline Phosphatase 107H, Total Protein 4.6L, Albumin 2.3L, Globulin 2.3, Albumin/Globulin Ratio 1.0, Cortisol AM Sample 24.2H, Random Vancomycin Level 10.2 12/01/16 08:48: Arterial Blood pH 7.499H, Arterial Blood Partial Pressure CO2 28.3L, Arterial Blood Partial Pressure O2 83.0, Arterial Blood HCO3 21.5L, Arterial Blood Oxygen Saturation 96.1, Arterial Blood Base Excess -0.6, Isael Test Positive Height (Feet): 5 Height (Inches): 2.00 Weight (Pounds): 195 Cardiovascular: normal rate Respiratory/Chest: rhonchi - bilaterally Extremities: moderate edema OBINNA MADRIGAL Dec 01, 2016 14:49
[2016-12-01] MEDS ORDERED: NS 275ml ONE (16:37)
[2016-12-01] MEDS ORDERED: Tubing IV Secondary IV ONE (16:37)
--- NOTE | 2016-12-01 17:51 | Infectious Diseases Prog Note ---
Assessment/Plan Problems: (1) HCAP (healthcare-associated pneumonia) Assessment & Plan: on ertapenem and vancomycin for bacteremia (proteus mirabilis ), sputum culture grew yeast, most likely contaminant. (2) Septic shock Assessment & Plan: refractory to pressors , rule out adrenal insufficiency , will order cortisol level , blood culture grew MDR proteus mirabilis , source most likely urine infection/ possible pyelonephritis, on ertapenem , and vancomycin . one set grew staph simulans which is most likely contamination (3) UTI (urinary tract infection) Assessment & Plan: due to pansensitive E coli , with possible pylonephritis, on ertapenem to cover for bacteremia too (4) MARYAM (acute kidney injury) Assessment & Plan: improving, due to sepsis , continue ivf with pressors, avoid nephrotixic meds, renal is following , monitor UOP (5) Shock liver Assessment & Plan: improving, due to sepsis , screening for hepatitis is negative , monitor LFT (6) Acute respiratory failure Assessment & Plan: due to sepsis, S/P intubation , monitor ABG, and CXR , consult pulmonary for further care (7) Diabetes mellitus Assessment & Plan: hold po meds, continue to monitor blood glucose as per unit protocol, keep tight glycemic control Subjective ROS Limited/Unobtainable: Yes Allergies: Coded Allergies: No Known Allergies (Unverified , 11/25/16) Subjective she is still intubated, on mechanical ventilation , alert , tracks with her eyes , dosen't follow commands, still on two pressors, afebrile Objective Vital Signs Last 24 Hour Vital Signs Date Time Temp Pulse Resp B/P Pulse Ox O2 Delivery O2 Flow Rate FiO2 12/01/16 17:06 97 20 40 12/01/16 16:00 99 12/01/16 15:00 103 21 93/61 99 Mechanical Ventilator 40 12/01/16 14:35 106 20 40 12/01/16 14:30 101 21 86/63 99 Mechanical Ventilator 40 12/01/16 14:00 104 20 83/52 99 Mechanical Ventilator 40 12/01/16 13:57 105/67 12/01/16 13:57 106/57 12/01/16 13:30 100 19 105/67 99 Mechanical Ventilator 40 12/01/16 13:00 105 20 111/70 99 Mechanical Ventilator 40 12/01/16 13:00 103 19 40 12/01/16 13:00 40 12/01/16 12:30 104 22 108/70 98 Mechanical Ventilator 40 12/01/16 12:00 97.7 102 23 90/49 98 Mechanical Ventilator 40 12/01/16 12:00 40 12/01/16 12:00 98 12/01/16 11:30 96 23 115/71 98 Mechanical Ventilator 40 12/01/16 11:10 95 22 40 12/01/16 11:00 97 20 108/61 98 Mechanical Ventilator 40 12/01/16 10:30 63 20 100/66 98 Mechanical Ventilator 40 12/01/16 10:00 95 21 100/64 98 Mechanical Ventilator 40 12/01/16 09:30 99 18 107/71 98 Mechanical Ventilator 40 12/01/16 09:00 97 18 112/70 98 Mechanical Ventilator 40 12/01/16 09:00 40 12/01/16 08:59 98 12/01/16 08:59 100 12 40 12/01/16 08:30 102 18 101/60 98 Mechanical Ventilator 40 12/01/16 08:00 40 12/01/16 08:00 104 12/01/16 08:00 102 18 101/65 99 Mechanical Ventilator 40 12/01/16 07:30 97.8 102 18 104/66 99 Mechanical Ventilator 40 12/01/16 07:04 99 18 40 12/01/16 07:00 99 18 108/71 99 Mechanical Ventilator 40 12/01/16 06:00 101 18 112/68 99 Mechanical Ventilator 40 12/01/16 05:30 102 18 111/76 99 Mechanical Ventilator 40 12/01/16 05:24 94 18 40 12/01/16 05:00 97 18 106/73 99 Mechanical Ventilator 40 12/01/16 04:30 97 18 115/71 98 Mechanical Ventilator 40 12/01/16 04:00 98.3 101 18 104/73 98 Mechanical Ventilator 40 12/01/16 04:00 40 12/01/16 04:00 112 12/01/16 03:30 96 18 110/68 99 Mechanical Ventilator 40 12/01/16 03:21 97 18 40 12/01/16 03:00 99 18 106/70 99 Mechanical Ventilator 40 12/01/16 02:30 99 18 122/73 99 Mechanical Ventilator 40 12/01/16 02:00 92 18 123/83 99 Mechanical Ventilator 40 12/01/16 01:30 97 18 114/74 99 Mechanical Ventilator 40 12/01/16 01:25 96 18 40 12/01/16 01:00 97 18 104/71 99 Mechanical Ventilator 40 12/01/16 00:30 100 18 105/65 99 Mechanical Ventilator 40 12/01/16 00:00 105 12/01/16 00:00 40 12/01/16 00:00 98.3 103 18 113/70 99 Mechanical Ventilator 40 11/30/16 23:30 101 18 117/66 98 Mechanical Ventilator 40 11/30/16 23:26 99 18 40 11/30/16 23:00 99 18 116/74 98 Mechanical Ventilator 40 11/30/16 22:30 98 18 111/69 98 Mechanical Ventilator 40 11/30/16 22:00 100 18 98/69 99 Mechanical Ventilator 40 11/30/16 21:30 102 18 102/75 98 Mechanical Ventilator 40 11/30/16 21:17 96 18 40 11/30/16 21:00 100 18 98/69 99 Mechanical Ventilator 40 11/30/16 20:30 105 18 81/51 98 Mechanical Ventilator 40 11/30/16 20:00 40 11/30/16 20:00 97.5 103 18 91/62 98 Mechanical Ventilator 40 11/30/16 20:00 104 11/30/16 19:14 103 18 40 11/30/16 19:00 100 18 111/65 99 Mechanical Ventilator 40 11/30/16 18:30 103 20 86/54 98 Mechanical Ventilator 40 11/30/16 18:00 111 18 74/51 97 Mechanical Ventilator 40 Height (Feet): 5 Height (Inches): 2.00 Weight (Pounds): 195 General Appearance: WD/WN, no acute distress HEENT: normocephalic, atraumatic, anicteric, mucous membranes moist, supple, no JVD Respiratory/Chest: no respiratory distress, no accessory muscle use, decreased breath sounds, crackles/rales Cardiovascular: normal peripheral pulses, normal rate, regular rhythm, no gallop/murmur, no JVD Abdomen: normal bowel sounds, soft, non tender, no organomegaly, non distended , no mass Extremities: no cyanosis, no clubbing Skin: no rash, no lesions, ulcers Laboratory Tests Test 11/30/16 18:00 12/01/16 04:10 12/01/16 08:48 Cortisol 35.8 ug/dL White Blood Count 15.7 K/UL (4.8-10.8) H Red Blood Count 3.87 M/UL (4.20-5.40) L Hemoglobin 11.9 G/DL (12.0-16.0) L Hematocrit 34.8 % (37.0-47.0) L Mean Corpuscular Volume 90 FL (80-99) Mean Corpuscular Hemoglobin 30.7 PG (27.0-31.0) Mean Corpuscular Hemoglobin Concent 34.2 G/DL (32.0-36.0) Red Cell Distribution Width 16.4 % (11.6-14.8) H Platelet Count 58 K/UL (150-450) L Mean Platelet Volume 13.7 FL (6.5-10.1) H Neutrophils (%) (Auto) % (45.0-75.0) Lymphocytes (%) (Auto) % (20.0-45.0) Monocytes (%) (Auto) % (1.0-10.0) Eosinophils (%) (Auto) % (0.0-3.0) Basophils (%) (Auto) % (0.0-2.0) Differential Total Cells Counted 100 Neutrophils % (Manual) 70 % (45-75) Lymphocytes % (Manual) 11 % (20-45) L Monocytes % (Manual) 16 % (1-10) H Eosinophils % (Manual) 0 % (0-3) Basophils % (Manual) 0 % (0-2) Metamyelocytes % 3 % (0-0) H Band Neutrophils 0 % (0-8) Platelet Estimate Decreased L Platelet Morphology Normal Anisocytosis 1+ Sodium Level 143 mEQ/L (135-145) Potassium Level 4.0 mEQ/L (3.4-4.9) Chloride Level 110 mEQ/L (98-107) H Carbon Dioxide Level 21 mEQ/L (20-30) Anion Gap 12 (5-15) Blood Urea Nitrogen 22 mg/dL (7-23) Creatinine 0.6 mg/dL (0.5-0.9) Estimat Glomerular Filtration Rate mL/min (>60) Glucose Level 215 mg/dL (74-106) H Lactic Acid Level 1.90 mmol/L (0.66-2.22) Calcium Level 8.2 mg/dL (8.6-10.2) L Phosphorus Level 2.2 MG/DL (2.5-4.9) L Magnesium Level 1.7 MG/DL (1.5-2.4) Total Bilirubin 0.6 mg/dL (0.0-1.2) Aspartate Amino Transf (AST/SGOT) 26 U/L (5-40) Alanine Aminotransferase (ALT/SGPT) 26 U/L (3-33) Alkaline Phosphatase 107 U/L (35-104) H Total Protein 4.6 g/dL (6.6-8.7) L Albumin 2.3 g/dL (3.5-5.2) L Globulin 2.3 g/dL Albumin/Globulin Ratio 1.0 (1.0-2.7) Cortisol AM Sample 24.2 ug/dL (6.0-20.0) H Random Vancomycin Level 10.2 ug/mL Arterial Blood pH 7.499 (7.350-7.450) Arterial Blood Partial Pressure CO2 28.3 mmHg (35.0-45.0) L Arterial Blood Partial Pressure O2 83.0 mmHg (75.0-100.0) Arterial Blood HCO3 21.5 mmol/L (22.0-26.0) L Arterial Blood Oxygen Saturation 96.1 % (92.0-98.0) Arterial Blood Base Excess -0.6 Isael Test Positive Current Medications Medications (Trade) Dose Ordered Sig/Flora Route PRN Reason Start Time Stop Time Status Last Admin Dose Admin Acetaminophen (Tylenol) 650 mg Q4H PRN ORAL fever 11/25/16 16:00 12/25/16 15:59 Chlorhexidine Gluconate (Emmie-Hex 2%) 1 applic DAILY TOPIC 11/26/16 09:00 12/26/16 08:59 12/01/16 03:13 Dextrose (Dextrose 50%) STAT PRN IV Hypoglycemia 11/25/16 16:00 12/25/16 15:59 Dopamine HCl/ Dextrose 250 ml @ 9.66 mls/hr Q24H IV 11/30/16 14:00 12/30/16 13:59 12/01/16 13:57 Ertapenem 1 gm/ Sodium Chloride 55 ml @ 110 mls/hr Q24H IVPB 11/30/16 21:00 12/05/16 20:59 11/30/16 20:15 Heparin Sodium (Porcine) (Heparin 5000 units/ml) 5,000 units EVERY 12 HOURS SUBQ 11/25/16 21:00 12/25/16 20:59 11/29/16 08:59 Insulin Aspart (NovoLOG) EVERY 6 HOURS SUBQ 11/26/16 00:00 12/26/16 00:00 12/01/16 12:53 Metoclopramide HCl 5 mg 5 mg Q6H PRN IVP Nausea & Vomiting 11/28/16 09:45 12/28/16 09:44 11/30/16 23:10 Morphine Sulfate (Morphine Sulfate) 2 mg Q4H PRN IVP Moderate Pain (Pain Scale 4-6) 11/25/16 16:00 12/02/16 15:59 Nitroglycerin (Ntg) 0.4 mg Q5M PRN SL Prn Chest Pain 11/25/16 16:00 12/25/16 15:59 Norepinephrine Bitartrate/ Dextrose (Levophed/D5W) 250 ml @ 0 mls/hr Q24H IV 11/25/16 17:00 12/25/16 16:59 12/01/16 13:57 Ondansetron HCl (Zofran) 4 mg Q6H PRN IVP Nausea & Vomiting 11/25/16 16:00 12/25/16 15:59 Pantoprazole (Protonix) 40 mg DAILY IVP 11/28/16 09:00 12/28/16 08:59 12/01/16 08:49 Polyethylene Glycol (Miralax) 17 gm DAILYPRN PRN ORAL Constipation 11/25/16 16:00 12/25/16 15:59 Sodium Chloride 250 ml @ 999 mls/hr ONCE PRN IV PRN SBP < 90 11/30/16 14:30 12/30/16 14:29 Temazepam (Restoril) 15 mg HSPRN PRN ORAL Insomnia 11/25/16 16:00 12/02/16 15:59 Vancomycin HCl 1 ea 1 ea DAILY PRN MISC PER RX PROTOCOL 11/25/16 16:45 12/25/16 16:44 Vancomycin HCl/ Dextrose (Vancomycin 1250mg/D5W 250ml) 250 ml @ 166.667 mls/hr Q24H IVPB 12/01/16 09:00 12/06/16 08:59 12/01/16 08:52 Romelia Sotelo M.D. Dec 01, 2016 17:51
[2016-12-01] MEDS: Ertapenem 1gm in NS 55ml IVPB SCH (21:01)
[2016-12-02] VITALS (48 sets, daily range): BP systolic 66–122; BP diastolic 24–71
[2016-12-02] MEDS: NovoLOG Insulin Flexpen SUBQ SCH ×3 (06:23→17:38)
[2016-12-02] MEDS: Vancomycin 1250mg/D5W 250ml IVPB SCH (08:39)
[2016-12-02] MEDS: Pantoprazole Inj IVP SCH (08:39)
[2016-12-02] MEDS: Heparin 5000 units/ml inj SUBQ SCH (08:39)
[2016-12-02 09:00] LABS: MEAN CORPUSCULAR HEMOGLOBIN 29.3 PG (27.0-31.0); MEAN CORPUSCULAR VOLUME 89 FL (80-99); MEAN PLATELET VOLUME 12.9 FL (6.5-10.1); PLATELET COUNT 65 K/UL (150-450); RED BLOOD COUNT 3.89 M/UL (4.20-5.40); RED CELL DISTRIBUTION WIDTH 16.3 % (11.6-14.8); WHITE BLOOD COUNT 14.3 K/UL (4.8-10.8)
[2016-12-02 09:47] LABS: ANION GAP 8 (5-15); CALCIUM 8.1 mg/dL (8.6-10.2); CARBON DIOXIDE 26 mEQ/L (20-30); CHLORIDE 104 mEQ/L (98-107); CREATININE 0.6 mg/dL (0.5-0.9); HEMOLYSIS 6; POTASSIUM 3.7 mEQ/L (3.4-4.9); SODIUM 138 mEQ/L (135-145)
[2016-12-02 10:46] LABS: BAND NEUTROPHILS % (MANUAL) 3 % (0-8); BASOPHILS % (MANUAL) 0 % (0-2); EOSINOPHILS % (MANUAL) 4 % (0-3); LYMPHOCYTES % (MANUAL) 14 % (20-45); NEUTROPHILS % (MANUAL) 73 % (45-75); PLATELET ESTIMATE DECREASED; PLATELET MORPHOLOGY NORMAL; TOTAL CELLS COUNTED 100
--- NOTE | 2016-12-02 11:16 | Pulmonolgy Critical Care Note ---
Critical Care - Asmt/Plan Problems: (1) Respiratory failure (2) Septic shock (3) Acute encephalopathy (4) ARF (acute renal failure) (5) Hypernatremia (6) Diabetes mellitus Respiratory: monitor respiratory rate, adjust FIO2, CXR Cardiac: continue pressors - taper off dopmain, titrate levophed, continue to monitor HR/BP Renal: check electrolytes Infectious Disease: check cultures, continue antibiotics Gastrointestinal: continue feedings/current rate Endocrine: monitor blood sugar, check TSH Hematologic: monitor H/H Neurologic: PRN Ativan Notes Reviewed: topographical drafter, cardio, renal Discussed with: nurses, consultants, case linerathletic equipment manager - Objective Last 24 Hour Vital Signs Date Time Temp Pulse Resp B/P Pulse Ox O2 Delivery O2 Flow Rate FiO2 12/02/16 11:04 97 22 Mechanical Ventilator 40 12/02/16 11:03 98 22 40 12/02/16 11:00 92 20 118/58 98 Mechanical Ventilator 40 12/02/16 11:00 113/69 12/02/16 10:30 93 20 113/64 99 Mechanical Ventilator 40 12/02/16 10:00 92 20 118/58 98 Mechanical Ventilator 40 12/02/16 09:30 102 22 84/49 98 Mechanical Ventilator 40 12/02/16 09:15 98 22 84/56 98 Mechanical Ventilator 40 12/02/16 09:05 102 22 40 12/02/16 09:05 98 12/02/16 09:00 40 12/02/16 09:00 96 20 94/56 100 Mechanical Ventilator 40 12/02/16 08:45 96 22 93/54 100 Mechanical Ventilator 40 12/02/16 08:30 102 18 90/55 100 Mechanical Ventilator 40 12/02/16 08:15 101 22 103/62 98 Mechanical Ventilator 40 12/02/16 08:00 101 12/02/16 08:00 40 12/02/16 08:00 98.7 82 20 90/55 100 Mechanical Ventilator 40 12/02/16 07:30 96 22 104/62 100 Mechanical Ventilator 40 12/02/16 07:00 87 18 110/71 100 Mechanical Ventilator 40 12/02/16 07:00 101/74 12/02/16 06:59 96 18 40 12/02/16 06:00 91 18 107/66 99 Mechanical Ventilator 40 12/02/16 05:30 98 18 103/66 99 Mechanical Ventilator 40 12/02/16 05:28 97 18 40 12/02/16 05:00 95 18 107/63 99 Mechanical Ventilator 40 12/02/16 04:30 93 18 107/62 99 Mechanical Ventilator 40 12/02/16 04:00 40 12/02/16 04:00 90 12/02/16 04:00 98.0 92 18 110/60 100 Mechanical Ventilator 40 12/02/16 03:33 100 19 40 12/02/16 03:30 94 18 84/57 99 Mechanical Ventilator 40 12/02/16 03:00 95 18 95/60 100 Mechanical Ventilator 40 12/02/16 02:30 95 18 82/54 100 Mechanical Ventilator 40 12/02/16 02:00 94 18 84/55 99 Mechanical Ventilator 40 12/02/16 01:46 95 18 40 12/02/16 01:30 94 18 98/67 99 Mechanical Ventilator 40 12/02/16 01:00 92 18 95/63 100 Mechanical Ventilator 40 12/02/16 00:30 93 18 85/61 100 Mechanical Ventilator 40 12/02/16 00:00 98.2 92 18 95/63 100 Mechanical Ventilator 40 12/02/16 00:00 40 12/02/16 00:00 92 12/01/16 23:39 90 18 40 12/01/16 23:30 93 18 87/63 100 Mechanical Ventilator 40 12/01/16 23:00 93 18 88/57 100 Mechanical Ventilator 40 12/01/16 22:30 100 18 89/57 100 Mechanical Ventilator 40 12/01/16 22:00 99 18 82/58 100 Mechanical Ventilator 40 12/01/16 21:40 110 18 40 12/01/16 21:30 100 18 78/56 100 Mechanical Ventilator 40 12/01/16 21:00 104 18 142/85 100 Mechanical Ventilator 40 12/01/16 20:30 98 18 99/68 100 Mechanical Ventilator 40 12/01/16 20:00 95 12/01/16 20:00 98.0 99 18 89/60 100 Mechanical Ventilator 40 12/01/16 20:00 40 12/01/16 19:29 106 19 40 12/01/16 19:00 105 18 109/68 99 Mechanical Ventilator 40 12/01/16 18:30 101 18 115/69 99 Mechanical Ventilator 40 12/01/16 18:00 102 18 101/62 99 Mechanical Ventilator 40 12/01/16 17:30 98 18 92/73 99 Mechanical Ventilator 40 12/01/16 17:06 97 20 40 12/01/16 17:00 99 18 92/62 99 Mechanical Ventilator 40 12/01/16 16:30 100 18 80/63 96 Mechanical Ventilator 40 12/01/16 16:00 99 12/01/16 16:00 97.9 102 18 100/59 99 Mechanical Ventilator 40 12/01/16 15:30 102 18 80/50 99 Mechanical Ventilator 40 12/01/16 15:00 103 21 93/61 99 Mechanical Ventilator 40 12/01/16 14:35 106 20 40 12/01/16 14:30 101 21 86/63 99 Mechanical Ventilator 40 12/01/16 14:00 104 20 83/52 99 Mechanical Ventilator 40 12/01/16 13:57 105/67 12/01/16 13:57 106/57 12/01/16 13:30 100 19 105/67 99 Mechanical Ventilator 40 12/01/16 13:00 105 20 111/70 99 Mechanical Ventilator 40 12/01/16 13:00 103 19 40 12/01/16 13:00 40 12/01/16 12:30 104 22 108/70 98 Mechanical Ventilator 40 12/01/16 12:00 97.7 102 23 90/49 98 Mechanical Ventilator 40 12/01/16 12:00 40 12/01/16 12:00 98 12/01/16 11:30 96 23 115/71 98 Mechanical Ventilator 40 Status: awake Condition: critical HEENT: atraumatic, normocephalic Lungs: chest wall tender Heart: HR/BP stable Abdomen: soft, non-tender, feeding tube Extremities: no C/C/E, edema Decubiti: location Accucheck: 135 Critical Care - Subjective ROS Limited/Unobtainable: Yes ICU Day: 7 Intubation Day: 7 Condition: critical EKG Rhythm: Sinus Rhythm FI02: 40 Vent Support Breath Rate: 10 Vent Support Mode: IMV/SIMV Vent Tidal Volume: 600 Sputum Amount: None PIP: 14 Fluids: kvo Drips: levophed and dopamin drip Tube Feeding Amount: 30 I&O: Intake and Output 12/01/16 12/02/16 19:00 07:00 Intake Total 1004.57 ml 896.04 ml Output Total 290 ml 420 ml Balance 714.57 ml 476.04 ml Free Water 100 ml 300 ml IV Total 544.57 ml 236.04 ml Tube Feeding 360 ml 360 ml Output Urine Total 290 ml 420 ml CXR: no change ET-Tube: 7.5 ET Position: 23 Labs: Laboratory Tests Test 12/02/16 08:35 12/02/16 08:56 Sodium Level 138 mEQ/L (135-145) Potassium Level 3.7 mEQ/L (3.4-4.9) Chloride Level 104 mEQ/L (98-107) Carbon Dioxide Level 26 mEQ/L (20-30) Anion Gap 8 (5-15) Blood Urea Nitrogen 20 mg/dL (7-23) Creatinine 0.6 mg/dL (0.5-0.9) Estimat Glomerular Filtration Rate mL/min (>60) Glucose Level 176 mg/dL (74-106) H Calcium Level 8.1 mg/dL (8.6-10.2) L White Blood Count 14.3 K/UL (4.8-10.8) H Red Blood Count 3.89 M/UL (4.20-5.40) L Hemoglobin 11.4 G/DL (12.0-16.0) L Hematocrit 34.6 % (37.0-47.0) L Mean Corpuscular Volume 89 FL (80-99) Mean Corpuscular Hemoglobin 29.3 PG (27.0-31.0) Mean Corpuscular Hemoglobin Concent 33.0 G/DL (32.0-36.0) Red Cell Distribution Width 16.3 % (11.6-14.8) H Platelet Count 65 K/UL (150-450) L Mean Platelet Volume 12.9 FL (6.5-10.1) H Neutrophils (%) (Auto) % (45.0-75.0) Lymphocytes (%) (Auto) % (20.0-45.0) Monocytes (%) (Auto) % (1.0-10.0) Eosinophils (%) (Auto) % (0.0-3.0) Basophils (%) (Auto) % (0.0-2.0) Differential Total Cells Counted 100 Neutrophils % (Manual) 73 % (45-75) Lymphocytes % (Manual) 14 % (20-45) L Monocytes % (Manual) 6 % (1-10) Eosinophils % (Manual) 4 % (0-3) H Basophils % (Manual) 0 % (0-2) Band Neutrophils 3 % (0-8) Platelet Estimate Decreased L Platelet Morphology Normal Red Blood Cell Morphology Normal STEVIE GUO Dec 02, 2016 11:16
--- NOTE | 2016-12-02 12:00 | General Progress Note ---
Assessment/Plan Status: stable Assessment/Plan 1. Respiratory failure s/p intubation - continue trials for weaning off vent. 2. Sepsis 2nd to UTI - improved. WBC decreasing. 3. Renal failure 2nd to sepsis - resolved. 4. Pneumonia - improved. cont IV abx. 5. Septic Shock - in ICU. on presser and trying to meghan off. 6. H/O Basal Ganglia ischemic stroke recently 7. H/O Rt lower ext DVT - D/C heparin. Venous U/S negative for DVT. on SCD 8. Hypernatremia - resolved. 9. Thrombocytopenia - D/C heparin due to Thrombocytopenia. improved platlet since yesterday. recheck CBC tomorrow. 10. Hyperlipidemia - start lipitor 20 mg in a few days when she is better and off vent. 11. DM II - On SSI 12. Sacral Pressure ulcer - cont wound care. Subjective Date patient seen: Dec 02, 2016 Time patient seen: 11:30 Constitutional: Reports: no symptoms HEENT: Reports: no symptoms Cardiovascular: Reports: no symptoms Respiratory: Reports: other - intubated Gastrointestinal/Abdominal: Reports: no symptoms Genitourinary: Reports: no symptoms Neurologic/Psychiatric: Reports: no symptoms Endocrine: Reports: no symptoms Hematologic/Lymphatic: Reports: no symptoms Allergies: Coded Allergies: No Known Allergies (Unverified , 11/25/16) Subjective Pt continue to improve. she is better but still intubated. Her WBC improving. Awake and respond to command by closing her eyes. trial of weaning in progress. Objective Last 24 Hour Vital Signs Date Time Temp Pulse Resp B/P Pulse Ox O2 Delivery O2 Flow Rate FiO2 12/02/16 11:15 99 21 94/56 98 Mechanical Ventilator 40 12/02/16 11:04 97 22 Mechanical Ventilator 40 12/02/16 11:03 98 22 40 12/02/16 11:00 92 20 118/58 98 Mechanical Ventilator 40 12/02/16 11:00 113/69 12/02/16 10:30 93 20 113/64 99 Mechanical Ventilator 40 12/02/16 10:00 92 20 118/58 98 Mechanical Ventilator 40 12/02/16 09:30 102 22 84/49 98 Mechanical Ventilator 40 12/02/16 09:15 98 22 84/56 98 Mechanical Ventilator 40 12/02/16 09:05 102 22 40 12/02/16 09:05 98 12/02/16 09:00 40 12/02/16 09:00 96 20 94/56 100 Mechanical Ventilator 40 12/02/16 08:45 96 22 93/54 100 Mechanical Ventilator 40 12/02/16 08:30 102 18 90/55 100 Mechanical Ventilator 40 12/02/16 08:15 101 22 103/62 98 Mechanical Ventilator 40 12/02/16 08:00 101 12/02/16 08:00 40 12/02/16 08:00 98.7 82 20 90/55 100 Mechanical Ventilator 40 12/02/16 07:30 96 22 104/62 100 Mechanical Ventilator 40 12/02/16 07:00 87 18 110/71 100 Mechanical Ventilator 40 12/02/16 07:00 101/74 12/02/16 06:59 96 18 40 12/02/16 06:00 91 18 107/66 99 Mechanical Ventilator 40 12/02/16 05:30 98 18 103/66 99 Mechanical Ventilator 40 12/02/16 05:28 97 18 40 12/02/16 05:00 95 18 107/63 99 Mechanical Ventilator 40 12/02/16 04:30 93 18 107/62 99 Mechanical Ventilator 40 12/02/16 04:00 40 12/02/16 04:00 90 12/02/16 04:00 98.0 92 18 110/60 100 Mechanical Ventilator 40 12/02/16 03:33 100 19 40 12/02/16 03:30 94 18 84/57 99 Mechanical Ventilator 40 12/02/16 03:00 95 18 95/60 100 Mechanical Ventilator 40 12/02/16 02:30 95 18 82/54 100 Mechanical Ventilator 40 12/02/16 02:00 94 18 84/55 99 Mechanical Ventilator 40 12/02/16 01:46 95 18 40 12/02/16 01:30 94 18 98/67 99 Mechanical Ventilator 40 12/02/16 01:00 92 18 95/63 100 Mechanical Ventilator 40 12/02/16 00:30 93 18 85/61 100 Mechanical Ventilator 40 12/02/16 00:00 98.2 92 18 95/63 100 Mechanical Ventilator 40 12/02/16 00:00 40 12/02/16 00:00 92 12/01/16 23:39 90 18 40 12/01/16 23:30 93 18 87/63 100 Mechanical Ventilator 40 12/01/16 23:00 93 18 88/57 100 Mechanical Ventilator 40 12/01/16 22:30 100 18 89/57 100 Mechanical Ventilator 40 12/01/16 22:00 99 18 82/58 100 Mechanical Ventilator 40 12/01/16 21:40 110 18 40 17 21:30 100 18 78/56 100 Mechanical Ventilator 40 12/01/16 21:00 104 18 142/85 100 Mechanical Ventilator 40 12/01/16 20:30 98 18 99/68 100 Mechanical Ventilator 40 12/01/16 20:00 95 12/01/16 20:00 98.0 99 18 89/60 100 Mechanical Ventilator 40 12/01/16 20:00 40 12/01/16 19:29 106 19 40 12/01/16 19:00 105 18 109/68 99 Mechanical Ventilator 40 12/01/16 18:30 101 18 115/69 99 Mechanical Ventilator 40 12/01/16 18:00 102 18 101/62 99 Mechanical Ventilator 40 12/01/16 17:30 98 18 92/73 99 Mechanical Ventilator 40 12/01/16 17:06 97 20 40 12/01/16 17:00 99 18 92/62 99 Mechanical Ventilator 40 12/01/16 16:30 100 18 80/63 96 Mechanical Ventilator 40 12/01/16 16:00 99 12/01/16 16:00 97.9 102 18 100/59 99 Mechanical Ventilator 40 12/01/16 15:30 102 18 80/50 99 Mechanical Ventilator 40 12/01/16 15:00 103 21 93/61 99 Mechanical Ventilator 40 12/01/16 14:35 106 20 40 12/01/16 14:30 101 21 86/63 99 Mechanical Ventilator 40 12/01/16 14:00 104 20 83/52 99 Mechanical Ventilator 40 12/01/16 13:57 105/67 12/01/16 13:57 106/57 12/01/16 13:30 100 19 105/67 99 Mechanical Ventilator 40 12/01/16 13:00 105 20 111/70 99 Mechanical Ventilator 40 12/01/16 13:00 103 19 40 12/01/16 13:00 40 12/01/16 12:30 104 22 108/70 98 Mechanical Ventilator 40 12/01/16 12:00 97.7 102 23 90/49 98 Mechanical Ventilator 40 12/01/16 12:00 40 12/01/16 12:00 98 Intake and Output 12/01/16 12/02/16 19:00 07:00 Intake Total 1004.57 ml 896.04 ml Output Total 290 ml 420 ml Balance 714.57 ml 476.04 ml Free Water 100 ml 300 ml IV Total 544.57 ml 236.04 ml Tube Feeding 360 ml 360 ml Output Urine Total 290 ml 420 ml Laboratory Tests 12/02/16 08:35: Sodium Level 138, Potassium Level 3.7, Chloride Level 104, Carbon Dioxide Level 26, Anion Gap 8, Blood Urea Nitrogen 20, Creatinine 0.6, Estimat Glomerular Filtration Rate , Glucose Level 176H, Calcium Level 8.1L 12/02/16 08:56: White Blood Count 14.3H, Red Blood Count 3.89L, Hemoglobin 11.4L, Hematocrit 34.6L, Mean Corpuscular Volume 89, Mean Corpuscular Hemoglobin 29.3, Mean Corpuscular Hemoglobin Concent 33.0, Red Cell Distribution Width 16.3H, Platelet Count 65L, Mean Platelet Volume 12.9H, Neutrophils (%) (Auto) , Lymphocytes (%) (Auto) , Monocytes (%) (Auto) , Eosinophils (%) (Auto) , Basophils (%) (Auto) , Differential Total Cells Counted 100, Neutrophils % ( Manual) 73, Lymphocytes % (Manual) 14L, Monocytes % (Manual) 6, Eosinophils % ( Manual) 4H, Basophils % (Manual) 0, Band Neutrophils 3, Platelet Estimate DecreasedL, Platelet Morphology Normal, Red Blood Cell Morphology Normal Height (Feet): 5 Height (Inches): 2.00 Weight (Pounds): 198 General Appearance: no apparent distress, alert EENT: normal ENT inspection Neck: non-tender, normal alignment, supple Cardiovascular: normal peripheral pulses, normal rate, regular rhythm Respiratory/Chest: chest wall non-tender, lungs clear, normal breath sounds, no respiratory distress Abdomen: normal bowel sounds, non tender, soft Extremities: normal range of motion, non-tender Edema: no edema noted Arm (L), no edema noted Arm (R), no edema noted Leg (L), no edema noted Leg (R), no edema noted Pedal (L), no edema noted Pedal (R), no edema noted Generalized Neurologic: alert, responsive Skin: warm/dry Lymphatic: normal anterior cervical (L), normal anterior cervical (R), normal axillary (L), normal axillary (R), normal inguinal (L), normal inguinal (R), normal other, normal posterior cervical (L), normal posterior cervical (R), normal submandibular (L), normal submandibular (R), normal supraclavicular (L), normal supraclavicular (R) TERI JACKSON Dec 02, 2016 12:00
--- NOTE | 2016-12-02 16:43 | Nephrology Progress Note ---
Assessment/Plan Problem List: (1) Hypernatremia Assessment: resolved (2) ARF (acute renal failure) Assessment: ok (3) Septic shock Assessment: still on pressors but better (4) Acute respiratory failure (5) Diabetes mellitus (6) UTI (urinary tract infection) Plan off Dopamine TF follow labs vent support Discussed with RN Subjective Subjective In NAD Intubated Objective Objective Last 24 Hour Vital Signs Date Time Temp Pulse Resp B/P Pulse Ox O2 Delivery O2 Flow Rate FiO2 12/02/16 16:30 72 18 93/49 100 Mechanical Ventilator 40 12/02/16 16:25 89/49 12/02/16 16:00 40 12/02/16 16:00 98.6 74 22 93/56 100 Mechanical Ventilator 40 12/02/16 16:00 75 12/02/16 15:30 72 20 93/54 100 Mechanical Ventilator 40 12/02/16 15:08 74 23 40 12/02/16 15:00 76 22 89/53 100 Mechanical Ventilator 40 12/02/16 14:30 75 20 86/54 98 Mechanical Ventilator 40 12/02/16 14:00 75 20 95/56 98 Mechanical Ventilator 40 12/02/16 13:30 76 22 88/51 100 Mechanical Ventilator 40 12/02/16 13:00 80 22 89/55 100 Mechanical Ventilator 40 12/02/16 12:59 77 21 40 12/02/16 12:30 78 24 86/49 100 Mechanical Ventilator 40 12/02/16 12:00 98.7 86 20 81/46 100 Mechanical Ventilator 40 12/02/16 12:00 89 12/02/16 12:00 81/46 12/02/16 11:30 98 20 86/52 100 Mechanical Ventilator 40 12/02/16 11:15 99 21 94/56 98 Mechanical Ventilator 40 12/02/16 11:04 97 22 Mechanical Ventilator 40 12/02/16 11:03 98 22 40 12/02/16 11:00 92 20 118/58 98 Mechanical Ventilator 40 12/02/16 11:00 113/69 12/02/16 10:30 93 20 113/64 99 Mechanical Ventilator 40 12/02/16 10:00 92 20 118/58 98 Mechanical Ventilator 40 12/02/16 09:30 102 22 84/49 98 Mechanical Ventilator 40 12/02/16 09:15 98 22 84/56 98 Mechanical Ventilator 40 12/02/16 09:05 102 22 40 12/02/16 09:05 98 12/02/16 09:00 40 12/02/16 09:00 96 20 94/56 100 Mechanical Ventilator 40 12/02/16 08:45 96 22 93/54 100 Mechanical Ventilator 40 12/02/16 08:30 102 18 90/55 100 Mechanical Ventilator 40 12/02/16 08:15 101 22 103/62 98 Mechanical Ventilator 40 12/02/16 08:00 101 12/02/16 08:00 40 12/02/16 08:00 98.7 82 20 90/55 100 Mechanical Ventilator 40 12/02/16 07:30 96 22 104/62 100 Mechanical Ventilator 40 12/02/16 07:00 87 18 110/71 100 Mechanical Ventilator 40 12/02/16 07:00 101/74 12/02/16 06:59 96 18 40 12/02/16 06:00 91 18 107/66 99 Mechanical Ventilator 40 12/02/16 05:30 98 18 103/66 99 Mechanical Ventilator 40 12/02/16 05:28 97 18 40 12/02/16 05:00 95 18 107/63 99 Mechanical Ventilator 40 12/02/16 04:30 93 18 107/62 99 Mechanical Ventilator 40 12/02/16 04:00 40 12/02/16 04:00 90 12/02/16 04:00 98.0 92 18 110/60 100 Mechanical Ventilator 40 12/02/16 03:33 100 19 40 12/02/16 03:30 94 18 84/57 99 Mechanical Ventilator 40 12/02/16 03:00 95 18 95/60 100 Mechanical Ventilator 40 12/02/16 02:30 95 18 82/54 100 Mechanical Ventilator 40 12/02/16 02:00 94 18 84/55 99 Mechanical Ventilator 40 12/02/16 01:46 95 18 40 12/02/16 01:30 94 18 98/67 99 Mechanical Ventilator 40 12/02/16 01:00 92 18 95/63 100 Mechanical Ventilator 40 12/02/16 00:30 93 18 85/61 100 Mechanical Ventilator 40 12/02/16 00:00 98.2 92 18 95/63 100 Mechanical Ventilator 40 12/02/16 00:00 40 12/02/16 00:00 92 12/01/16 23:39 90 18 40 12/01/16 23:30 93 18 87/63 100 Mechanical Ventilator 40 12/01/16 23:00 93 18 88/57 100 Mechanical Ventilator 40 12/01/16 22:30 100 18 89/57 100 Mechanical Ventilator 40 12/01/16 22:00 99 18 82/58 100 Mechanical Ventilator 40 12/01/16 21:40 110 18 40 12/01/16 21:30 100 18 78/56 100 Mechanical Ventilator 40 12/01/16 21:00 104 18 142/85 100 Mechanical Ventilator 40 12/01/16 20:30 98 18 99/68 100 Mechanical Ventilator 40 12/01/16 20:00 95 12/01/16 20:00 98.0 99 18 89/60 100 Mechanical Ventilator 40 12/01/16 20:00 40 12/01/16 19:29 106 19 40 12/01/16 19:00 105 18 109/68 99 Mechanical Ventilator 40 12/01/16 18:30 101 18 115/69 99 Mechanical Ventilator 40 12/01/16 18:00 102 18 101/62 99 Mechanical Ventilator 40 12/01/16 17:30 98 18 92/73 99 Mechanical Ventilator 40 12/01/16 17:06 97 20 40 12/01/16 17:00 99 18 92/62 99 Mechanical Ventilator 40 Intake and Output 12/01/16 12/02/16 19:00 07:00 Intake Total 1004.57 ml 896.04 ml Output Total 290 ml 420 ml Balance 714.57 ml 476.04 ml Free Water 100 ml 300 ml IV Total 544.57 ml 236.04 ml Tube Feeding 360 ml 360 ml Output Urine Total 290 ml 420 ml Laboratory Tests 12/02/16 08:35: Sodium Level 138, Potassium Level 3.7, Chloride Level 104, Carbon Dioxide Level 26, Anion Gap 8, Blood Urea Nitrogen 20, Creatinine 0.6, Estimat Glomerular Filtration Rate , Glucose Level 176H, Calcium Level 8.1L 12/02/16 08:56: White Blood Count 14.3H, Red Blood Count 3.89L, Hemoglobin 11.4L, Hematocrit 34.6L, Mean Corpuscular Volume 89, Mean Corpuscular Hemoglobin 29.3, Mean Corpuscular Hemoglobin Concent 33.0, Red Cell Distribution Width 16.3H, Platelet Count 65L, Mean Platelet Volume 12.9H, Neutrophils (%) (Auto) , Lymphocytes (%) (Auto) , Monocytes (%) (Auto) , Eosinophils (%) (Auto) , Basophils (%) (Auto) , Differential Total Cells Counted 100, Neutrophils % ( Manual) 73, Lymphocytes % (Manual) 14L, Monocytes % (Manual) 6, Eosinophils % ( Manual) 4H, Basophils % (Manual) 0, Band Neutrophils 3, Platelet Estimate DecreasedL, Platelet Morphology Normal, Red Blood Cell Morphology Normal Height (Feet): 5 Height (Inches): 2.00 Weight (Pounds): 198 Cardiovascular: normal rate Respiratory/Chest: lungs clear Extremities: moderate edema OBINNA MADRIGAL Dec 02, 2016 16:43
[2016-12-02] MEDS: Dyna-Hex 2% Top Sol 8oz TOPIC SCH (20:55)
[2016-12-02] MEDS: Ertapenem 1gm in NS 55ml IVPB SCH (20:55)
--- NOTE | 2016-12-02 23:45 | Infectious Diseases Prog Note ---
Assessment/Plan Problems: (1) Septic shock Assessment & Plan: Cortisol level noted. Due to UTI and septicemia. Still on pressor. 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 (3) UTI (urinary tract infection) Assessment & Plan: Due to E. coli. On ertapenem. Plan a 7-day course probably. (4) MARYAM (acute kidney injury) Assessment & Plan: Resolved. (5) Septicemia Assessment & Plan: BCx grew Proteus and CoNS. Proteus source? On ertapenem and vancomycin IV. Probably need 10-14 days of ertapenem and 5-7 days of vancomycin IV. (6) Acute respiratory failure Assessment & Plan: In the setting of septic shock. (7) HCAP (healthcare-associated pneumonia) Assessment & Plan: SCx noted. On empiric vancomycin and ertapenem. Follow-up CXR. Subjective Allergies: Coded Allergies: No Known Allergies (Unverified , 11/25/16) Objective Vital Signs Last 24 Hour Vital Signs Date Time Temp Pulse Resp B/P Pulse Ox O2 Delivery O2 Flow Rate FiO2 12/02/16 21:55 85 25 40 12/02/16 19:38 79 24 40 12/02/16 19:00 80 24 88/47 100 Mechanical Ventilator 40 12/02/16 18:30 75 22 102/45 100 Mechanical Ventilator 40 12/02/16 18:00 76 22 97/52 98 Mechanical Ventilator 40 12/02/16 17:30 72 24 92/52 100 Mechanical Ventilator 40 12/02/16 17:00 75 24 122/64 100 Mechanical Ventilator 40 12/02/16 16:42 81 22 40 12/02/16 16:30 72 18 93/49 100 Mechanical Ventilator 40 12/02/16 16:25 89/49 12/02/16 16:00 40 12/02/16 16:00 98.6 74 22 93/56 100 Mechanical Ventilator 40 12/02/16 16:00 75 12/02/16 15:30 72 20 93/54 100 Mechanical Ventilator 40 12/02/16 15:08 74 23 40 12/02/16 15:00 76 22 89/53 100 Mechanical Ventilator 40 12/02/16 14:30 75 20 86/54 98 Mechanical Ventilator 40 12/02/16 14:00 75 20 95/56 98 Mechanical Ventilator 40 12/02/16 13:30 76 22 88/51 100 Mechanical Ventilator 40 12/02/16 13:00 80 22 89/55 100 Mechanical Ventilator 40 12/02/16 12:59 77 21 40 12/02/16 12:30 78 24 86/49 100 Mechanical Ventilator 40 12/02/16 12:00 98.7 86 20 81/46 100 Mechanical Ventilator 40 12/02/16 12:00 89 12/02/16 12:00 81/46 12/02/16 11:30 98 20 86/52 100 Mechanical Ventilator 40 12/02/16 11:15 99 21 94/56 98 Mechanical Ventilator 40 12/02/16 11:04 97 22 Mechanical Ventilator 40 12/02/16 11:03 98 22 40 12/02/16 11:00 92 20 118/58 98 Mechanical Ventilator 40 12/02/16 11:00 113/69 12/02/16 10:30 93 20 113/64 99 Mechanical Ventilator 40 12/02/16 10:00 92 20 118/58 98 Mechanical Ventilator 40 12/02/16 09:30 102 22 84/49 98 Mechanical Ventilator 40 12/02/16 09:15 98 22 84/56 98 Mechanical Ventilator 40 12/02/16 09:05 102 22 40 12/02/16 09:05 98 12/02/16 09:00 40 12/02/16 09:00 96 20 94/56 100 Mechanical Ventilator 40 12/02/16 08:45 96 22 93/54 100 Mechanical Ventilator 40 12/02/16 08:30 102 18 90/55 100 Mechanical Ventilator 40 12/02/16 08:15 101 22 103/62 98 Mechanical Ventilator 40 12/02/16 08:00 101 12/02/16 08:00 40 12/02/16 08:00 98.7 82 20 90/55 100 Mechanical Ventilator 40 12/02/16 07:30 96 22 104/62 100 Mechanical Ventilator 40 12/02/16 07:00 87 18 110/71 100 Mechanical Ventilator 40 12/02/16 07:00 101/74 12/02/16 06:59 96 18 40 12/02/16 06:00 91 18 107/66 99 Mechanical Ventilator 40 12/02/16 05:30 98 18 103/66 99 Mechanical Ventilator 40 12/02/16 05:28 97 18 40 12/02/16 05:00 95 18 107/63 99 Mechanical Ventilator 40 12/02/16 04:30 93 18 107/62 99 Mechanical Ventilator 40 12/02/16 04:00 40 12/02/16 04:00 90 12/02/16 04:00 98.0 92 18 110/60 100 Mechanical Ventilator 40 12/02/16 03:33 100 19 40 12/02/16 03:30 94 18 84/57 99 Mechanical Ventilator 40 12/02/16 03:00 95 18 95/60 100 Mechanical Ventilator 40 12/02/16 02:30 95 18 82/54 100 Mechanical Ventilator 40 12/02/16 02:00 94 18 84/55 99 Mechanical Ventilator 40 12/02/16 01:46 95 18 40 12/02/16 01:30 94 18 98/67 99 Mechanical Ventilator 40 12/02/16 01:00 92 18 95/63 100 Mechanical Ventilator 40 12/02/16 00:30 93 18 85/61 100 Mechanical Ventilator 40 12/02/16 00:00 98.2 92 18 95/63 100 Mechanical Ventilator 40 12/02/16 00:00 40 12/02/16 00:00 92 Height (Feet): 5 Height (Inches): 2.00 Weight (Pounds): 198 Laboratory Tests Test 12/02/16 08:35 12/02/16 08:56 12/02/16 18:00 Sodium Level 138 mEQ/L (135-145) Potassium Level 3.7 mEQ/L (3.4-4.9) Chloride Level 104 mEQ/L (98-107) Carbon Dioxide Level 26 mEQ/L (20-30) Anion Gap 8 (5-15) Blood Urea Nitrogen 20 mg/dL (7-23) Creatinine 0.6 mg/dL (0.5-0.9) Estimat Glomerular Filtration Rate mL/min (>60) Glucose Level 176 mg/dL (74-106) H Calcium Level 8.1 mg/dL (8.6-10.2) L White Blood Count 14.3 K/UL (4.8-10.8) H Red Blood Count 3.89 M/UL (4.20-5.40) L Hemoglobin 11.4 G/DL (12.0-16.0) L Hematocrit 34.6 % (37.0-47.0) L Mean Corpuscular Volume 89 FL (80-99) Mean Corpuscular Hemoglobin 29.3 PG (27.0-31.0) Mean Corpuscular Hemoglobin Concent 33.0 G/DL (32.0-36.0) Red Cell Distribution Width 16.3 % (11.6-14.8) H Platelet Count 65 K/UL (150-450) L Mean Platelet Volume 12.9 FL (6.5-10.1) H Neutrophils (%) (Auto) % (45.0-75.0) Lymphocytes (%) (Auto) % (20.0-45.0) Monocytes (%) (Auto) % (1.0-10.0) Eosinophils (%) (Auto) % (0.0-3.0) Basophils (%) (Auto) % (0.0-2.0) Differential Total Cells Counted 100 Neutrophils % (Manual) 73 % (45-75) Lymphocytes % (Manual) 14 % (20-45) L Monocytes % (Manual) 6 % (1-10) Eosinophils % (Manual) 4 % (0-3) H Basophils % (Manual) 0 % (0-2) Band Neutrophils 3 % (0-8) Platelet Estimate Decreased L Platelet Morphology Normal Red Blood Cell Morphology Normal Cortisol PM Sample 23.1 ug/dL (3.0-12.0) H Current Medications Medications (Trade) Dose Ordered Sig/Flora Route PRN Reason Start Time Stop Time Status Last Admin Dose Admin Acetaminophen (Tylenol) 650 mg Q4H PRN ORAL fever 11/25/16 16:00 12/25/16 15:59 Chlorhexidine Gluconate (Emmie-Hex 2%) 1 applic QHS TOPIC 12/02/16 21:00 01/01/17 20:59 12/02/16 20:55 Dextrose (Dextrose 50%) STAT PRN IV Hypoglycemia 11/25/16 16:00 12/25/16 15:59 Ertapenem 1 gm/ Sodium Chloride 55 ml @ 110 mls/hr Q24H IVPB 11/30/16 21:00 12/05/16 20:59 12/02/16 20:55 Insulin Aspart (NovoLOG) EVERY 6 HOURS SUBQ 11/26/16 00:00 12/26/16 00:00 12/02/16 17:38 Metoclopramide HCl 5 mg 5 mg Q6H PRN IVP Nausea & Vomiting 11/28/16 09:45 12/28/16 09:44 11/30/16 23:10 Nitroglycerin (Ntg) 0.4 mg Q5M PRN SL Prn Chest Pain 11/25/16 16:00 12/25/16 15:59 Norepinephrine Bitartrate/ Dextrose (Levophed/D5W) 250 ml @ 0 mls/hr Q24H IV 11/25/16 17:00 12/25/16 16:59 12/01/16 13:57 Ondansetron HCl (Zofran) 4 mg Q6H PRN IVP Nausea & Vomiting 11/25/16 16:00 12/25/16 15:59 Pantoprazole (Protonix) 40 mg DAILY IVP 11/28/16 09:00 12/28/16 08:59 12/02/16 08:39 Polyethylene Glycol (Miralax) 17 gm DAILYPRN PRN ORAL Constipation 11/25/16 16:00 12/25/16 15:59 Sodium Chloride 250 ml @ 999 mls/hr ONCE PRN IV PRN SBP < 90 11/30/16 14:30 12/30/16 14:29 Vancomycin HCl 1 ea 1 ea DAILY PRN MISC PER RX PROTOCOL 11/25/16 16:45 12/25/16 16:44 Vancomycin HCl/ Dextrose (Vancomycin 1250mg/D5W 250ml) 250 ml @ 166.667 mls/hr Q24H IVPB 12/01/16 09:00 12/06/16 08:59 12/02/16 08:39 BEATRIZ FELIX Dec 02, 2016 23:45
[2016-12-03] VITALS (45 sets, daily range): BP systolic 75–112; BP diastolic 38–77
[2016-12-03] MEDS: NovoLOG Insulin Flexpen SUBQ SCH ×4 (00:12→17:41)
[2016-12-03 05:33] LABS: MEAN CORPUSCULAR HEMOGLOBIN 29.2 PG (27.0-31.0); MEAN CORPUSCULAR HGB CONC 32.8 G/DL (32.0-36.0); MEAN CORPUSCULAR VOLUME 89 FL (80-99); MEAN PLATELET VOLUME 13.1 FL (6.5-10.1); PLATELET COUNT 71 K/UL (150-450); RED BLOOD COUNT 3.38 M/UL (4.20-5.40); RED CELL DISTRIBUTION WIDTH 16.5 % (11.6-14.8); WHITE BLOOD COUNT 13.7 K/UL (4.8-10.8)
[2016-12-03 06:13] LABS: ALANINE AMINOTRANSFERASE 29 U/L (3-33); ALBUMIN/GLOBULIN RATIO 1.2 (1.0-2.7); ANION GAP 9 (5-15); ASPARTATE AMINO TRANSFERASE 28 U/L (5-40); CALCIUM 8.1 mg/dL (8.6-10.2); CARBON DIOXIDE 25 mEQ/L (20-30); CHLORIDE 106 mEQ/L (98-107); CREATININE 0.6 mg/dL (0.5-0.9); HEMOLYSIS 5; MAGNESIUM 1.7 mg/dL (1.7-2.5); PHOSPHORUS 2.4 mg/dL (2.5-4.8); POTASSIUM 3.9 mEQ/L (3.4-4.9); SODIUM 140 mEQ/L (135-145); TOTAL PROTEIN 3.8 g/dL (6.6-8.7)
[2016-12-03] MEDS: Pantoprazole Inj IVP SCH (08:50)
[2016-12-03] MEDS: Vancomycin 1250mg/D5W 250ml IVPB SCH (08:51)
[2016-12-03 09:18] LABS: ANISOCYTOSIS 1+; BAND NEUTROPHILS % (MANUAL) 2 % (0-8); BASOPHILS % (MANUAL) 0 % (0-2); EOSINOPHILS % (MANUAL) 0 % (0-3); HYPOCHROMASIA 1+; LYMPHOCYTES % (MANUAL) 8 % (20-45); NEUTROPHILS % (MANUAL) 79 % (45-75); PLATELET ESTIMATE DECREASED; PLATELET MORPHOLOGY NORMAL; TOTAL CELLS COUNTED 100
[2016-12-03 09:34] LABS: ABG ALLEN TEST POSITIVE; ABG BASE EXCESS 1.2; ABG PCO2 29.9 mmHg (35.0-45.0)
--- NOTE | 2016-12-03 10:13 | General Progress Note ---
Assessment/Plan Status: stable Assessment/Plan 1. Respiratory failure s/p intubation - continue trials for weaning off vent. 2. Sepsis 2nd to UTI - improved. WBC decreasing. 3. Renal failure 2nd to sepsis - resolved. 4. Pneumonia - improved. cont IV abx. 5. Septic Shock - in ICU. on presser and trying to meghan off. off dopamine drip. 6. H/O Basal Ganglia ischemic stroke recently 7. H/O Rt lower ext DVT - off heparin due to thrombocytopenia. Venous U/S negative for DVT. on SCD 8. Hypernatremia - resolved. 9. Thrombocytopenia - Off heparin due to Thrombocytopenia. improved platlet count. 10. Hyperlipidemia - start lipitor 20 mg in a few days when she is better and off vent. 11. DM II - On SSI 12. Sacral Pressure ulcer - cont wound care. Subjective Date patient seen: Dec 03, 2016 Time patient seen: 10:10 Constitutional: Reports: weakness HEENT: Reports: no symptoms Cardiovascular: Reports: no symptoms, other Respiratory: Reports: other - intubated Gastrointestinal/Abdominal: Reports: no symptoms Genitourinary: Reports: no symptoms Neurologic/Psychiatric: Reports: weakness Endocrine: Reports: no symptoms Hematologic/Lymphatic: Reports: no symptoms Allergies: Coded Allergies: No Known Allergies (Unverified , 11/25/16) Subjective Pt continue to improve. she is better but still intubated and on pressor. off dopamine though. Her WBC improving. Awake and respond to command by closing her eyes. trial of weaning in progress. Objective Last 24 Hour Vital Signs Date Time Temp Pulse Resp B/P Pulse Ox O2 Delivery O2 Flow Rate FiO2 12/03/16 09:08 77 22 40 12/03/16 09:08 98 12/03/16 09:00 77 21 87/38 98 Mechanical Ventilator 40 12/03/16 08:30 80 18 90/48 100 Mechanical Ventilator 40 12/03/16 08:00 70 12/03/16 08:00 98.5 74 20 89/50 99 Mechanical Ventilator 40 12/03/16 08:00 40 12/03/16 07:30 80 18 92/50 100 Mechanical Ventilator 40 12/03/16 07:12 72 11 40 12/03/16 07:00 80 18 91/62 100 Mechanical Ventilator 40 12/03/16 06:30 70 18 89/52 100 Mechanical Ventilator 40 12/03/16 06:00 72 18 90/52 100 Mechanical Ventilator 40 12/03/16 05:30 72 18 95/49 100 Mechanical Ventilator 40 12/03/16 05:00 75 18 105/46 98 Mechanical Ventilator 40 12/03/16 05:00 72 19 40 12/03/16 04:30 71 18 102/77 100 Mechanical Ventilator 40 12/03/16 04:00 71 12/03/16 04:00 98.6 70 18 90/49 100 Mechanical Ventilator 40 12/03/16 04:00 40 12/03/16 03:30 70 18 77/46 100 Mechanical Ventilator 40 12/03/16 03:10 69 18 40 12/03/16 03:00 70 18 85/45 100 Mechanical Ventilator 40 12/03/16 02:30 70 18 88/44 100 Mechanical Ventilator 40 12/03/16 02:00 71 18 82/47 100 Mechanical Ventilator 40 12/03/16 01:30 71 18 89/41 100 Mechanical Ventilator 40 12/03/16 01:25 70 18 40 12/03/16 01:00 70 18 78/45 100 Mechanical Ventilator 40 12/03/16 00:30 70 18 85/40 100 Mechanical Ventilator 40 12/03/16 00:00 70 12/03/16 00:00 98.4 70 18 75/49 100 Mechanical Ventilator 40 12/03/16 00:00 40 12/02/16 23:45 71 18 40 12/02/16 23:00 66 18 90/41 100 Mechanical Ventilator 40 12/02/16 22:30 72 18 66/41 100 Mechanical Ventilator 40 12/02/16 22:00 72 18 90/49 100 Mechanical Ventilator 40 12/02/16 21:55 85 25 40 12/02/16 21:30 73 24 75/40 100 Mechanical Ventilator 40 12/02/16 21:00 76 24 70/41 100 Mechanical Ventilator 40 12/02/16 20:00 80 12/02/16 20:00 40 12/02/16 20:00 98.6 80 24 68/24 100 Mechanical Ventilator 40 12/02/16 19:38 79 24 40 12/02/16 19:00 80 24 88/47 100 Mechanical Ventilator 40 12/02/16 18:30 75 22 102/45 100 Mechanical Ventilator 40 12/02/16 18:00 76 22 97/52 98 Mechanical Ventilator 40 12/02/16 17:30 72 24 92/52 100 Mechanical Ventilator 40 12/02/16 17:00 75 24 122/64 100 Mechanical Ventilator 40 12/02/16 16:42 81 22 40 12/02/16 16:30 72 18 93/49 100 Mechanical Ventilator 40 12/02/16 16:25 89/49 12/02/16 16:00 40 12/02/16 16:00 98.6 74 22 93/56 100 Mechanical Ventilator 40 12/02/16 16:00 75 12/02/16 15:30 72 20 93/54 100 Mechanical Ventilator 40 12/02/16 15:08 74 23 40 12/02/16 15:00 76 22 89/53 100 Mechanical Ventilator 40 12/02/16 14:30 75 20 86/54 98 Mechanical Ventilator 40 12/02/16 14:00 75 20 95/56 98 Mechanical Ventilator 40 12/02/16 13:30 76 22 88/51 100 Mechanical Ventilator 40 12/02/16 13:00 80 22 89/55 100 Mechanical Ventilator 40 12/02/16 12:59 77 21 40 12/02/16 12:30 78 24 86/49 100 Mechanical Ventilator 40 12/02/16 12:00 98.7 86 20 81/46 100 Mechanical Ventilator 40 12/02/16 12:00 89 12/02/16 12:00 81/46 12/02/16 11:30 98 20 86/52 100 Mechanical Ventilator 40 12/02/16 11:15 99 21 94/56 98 Mechanical Ventilator 40 12/02/16 11:04 97 22 Mechanical Ventilator 40 12/02/16 11:03 98 22 40 12/02/16 11:00 92 20 118/58 98 Mechanical Ventilator 40 12/02/16 11:00 113/69 12/02/16 10:30 93 20 113/64 99 Mechanical Ventilator 40 Intake and Output 12/02/16 12/03/16 19:00 07:00 Intake Total 939.93 ml 623.75 ml Output Total 580 ml 483 ml Balance 359.93 ml 140.75 ml Free Water 200 ml 200 ml IV Total 379.93 ml 63.75 ml Tube Feeding 360 ml 360 ml Output Urine Total 580 ml 480 ml Stool Total 3 ml # Bowel Movements 6 Laboratory Tests 12/02/16 18:00: Cortisol PM Sample 23.1H 12/03/16 04:00: White Blood Count 13.7H, Red Blood Count 3.38L, Hemoglobin 9.9L, Hematocrit 30.1L, Mean Corpuscular Volume 89, Mean Corpuscular Hemoglobin 29.2, Mean Corpuscular Hemoglobin Concent 32.8, Red Cell Distribution Width 16.5H, Platelet Count 71L, Mean Platelet Volume 13.1H, Neutrophils (%) (Auto) , Lymphocytes (%) (Auto) , Monocytes (%) (Auto) , Eosinophils (%) (Auto) , Basophils (%) (Auto) , Differential Total Cells Counted 100, Neutrophils % ( Manual) 79H, Lymphocytes % (Manual) 8L, Monocytes % (Manual) 11H, Eosinophils % (Manual) 0, Basophils % (Manual) 0, Band Neutrophils 2, Platelet Estimate DecreasedL, Platelet Morphology Normal, Hypochromasia 1+, Anisocytosis 1+, Sodium Level 140, Potassium Level 3.9, Chloride Level 106, Carbon Dioxide Level 25, Anion Gap 9, Blood Urea Nitrogen 22, Creatinine 0.6, Estimat Glomerular Filtration Rate , Glucose Level 127H, Calcium Level 8.1L, Phosphorus Level 2.4L , Magnesium Level 1.7, Total Bilirubin 0.4, Aspartate Amino Transf (AST/SGOT) 28 , Alanine Aminotransferase (ALT/SGPT) 29, Alkaline Phosphatase 84, Total Protein 3.8L, Albumin 2.1L, Globulin 1.7, Albumin/Globulin Ratio 1.2 12/03/16 09:15: Arterial Blood pH 7.512H, Arterial Blood Partial Pressure CO2 29.9L, Arterial Blood Partial Pressure O2 91.3, Arterial Blood HCO3 23.4, Arterial Blood Oxygen Saturation 96.4, Arterial Blood Base Excess 1.2, Isael Test Positive Height (Feet): 5 Height (Inches): 2.00 Weight (Pounds): 192 General Appearance: no apparent distress, alert EENT: normal ENT inspection Neck: non-tender, normal alignment, supple Cardiovascular: normal peripheral pulses, normal rate, regular rhythm Respiratory/Chest: chest wall non-tender, lungs clear, normal breath sounds, other - intubated Abdomen: normal bowel sounds, non tender, soft Extremities: normal range of motion, non-tender Edema: no edema noted Arm (L), no edema noted Arm (R), no edema noted Leg (L), no edema noted Leg (R), no edema noted Pedal (L), no edema noted Pedal (R), no edema noted Generalized Neurologic: alert, responsive Skin: warm/dry Lymphatic: normal anterior cervical (L), normal anterior cervical (R), normal axillary (L), normal axillary (R), normal inguinal (L), normal inguinal (R), normal other, normal posterior cervical (L), normal posterior cervical (R), normal submandibular (L), normal submandibular (R), normal supraclavicular (L), normal supraclavicular (R) TERI JACKSON Dec 03, 2016 10:13
--- NOTE | 2016-12-03 11:14 | Pulmonolgy Critical Care Note ---
Critical Care - Asmt/Plan Problems: (1) Respiratory failure (2) Septic shock (3) Acute encephalopathy (4) ARF (acute renal failure) (5) Hypernatremia (6) Diabetes mellitus Respiratory: monitor respiratory rate, adjust FIO2, CXR Cardiac: continue to monitor HR/BP Renal: F/U I&O, keep IV fluid, increase IV fluid, check electrolytes Infectious Disease: check cultures, continue antibiotics Gastrointestinal: continue feedings/current rate Endocrine: check TSH, check HgA1C, continue sliding scale insulin Hematologic: transfuse if hgb<8.5 Neurologic: keep patient comfortable Prophylaxis: Protonix, Heparin Notes 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, 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, 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 Discussed with: nurses, consultants, social work case managermanager exchange - Objective Last 24 Hour Vital Signs Date Time Temp Pulse Resp B/P Pulse Ox O2 Delivery O2 Flow Rate FiO2 12/03/16 11:00 65 21 90/48 100 Mechanical Ventilator 40 12/03/16 10:30 67 20 96/47 100 Mechanical Ventilator 40 12/03/16 10:00 71 20 102/68 98 Mechanical Ventilator 40 12/03/16 09:08 77 22 40 12/03/16 09:08 98 12/03/16 09:00 77 21 87/38 98 Mechanical Ventilator 40 12/03/16 08:30 80 18 90/48 100 Mechanical Ventilator 40 12/03/16 08:00 70 12/03/16 08:00 98.5 74 20 89/50 99 Mechanical Ventilator 40 12/03/16 08:00 40 12/03/16 07:30 80 18 92/50 100 Mechanical Ventilator 40 12/03/16 07:12 72 11 40 12/03/16 07:00 80 18 91/62 100 Mechanical Ventilator 40 12/03/16 06:30 70 18 89/52 100 Mechanical Ventilator 40 12/03/16 06:00 72 18 90/52 100 Mechanical Ventilator 40 12/03/16 05:30 72 18 95/49 100 Mechanical Ventilator 40 12/03/16 05:00 75 18 105/46 98 Mechanical Ventilator 40 12/03/16 05:00 72 19 40 12/03/16 04:30 71 18 102/77 100 Mechanical Ventilator 40 12/03/16 04:00 71 12/03/16 04:00 98.6 70 18 90/49 100 Mechanical Ventilator 40 12/03/16 04:00 40 12/03/16 03:30 70 18 77/46 100 Mechanical Ventilator 40 12/03/16 03:10 69 18 40 12/03/16 03:00 70 18 85/45 100 Mechanical Ventilator 40 12/03/16 02:30 70 18 88/44 100 Mechanical Ventilator 40 12/03/16 02:00 71 18 82/47 100 Mechanical Ventilator 40 12/03/16 01:30 71 18 89/41 100 Mechanical Ventilator 40 12/03/16 01:25 70 18 40 12/03/16 01:00 70 18 78/45 100 Mechanical Ventilator 40 12/03/16 00:30 70 18 85/40 100 Mechanical Ventilator 40 12/03/16 00:00 70 12/03/16 00:00 98.4 70 18 75/49 100 Mechanical Ventilator 40 12/03/16 00:00 40 12/02/16 23:45 71 18 40 12/02/16 23:00 66 18 90/41 100 Mechanical Ventilator 40 12/02/16 22:30 72 18 66/41 100 Mechanical Ventilator 40 12/02/16 22:00 72 18 90/49 100 Mechanical Ventilator 40 12/02/16 21:55 85 25 40 12/02/16 21:30 73 24 75/40 100 Mechanical Ventilator 40 12/02/16 21:00 76 24 70/41 100 Mechanical Ventilator 40 12/02/16 20:00 80 12/02/16 20:00 40 12/02/16 20:00 98.6 80 24 68/24 100 Mechanical Ventilator 40 12/02/16 19:38 79 24 40 12/02/16 19:00 80 24 88/47 100 Mechanical Ventilator 40 12/02/16 18:30 75 22 102/45 100 Mechanical Ventilator 40 12/02/16 18:00 76 22 97/52 98 Mechanical Ventilator 40 12/02/16 17:30 72 24 92/52 100 Mechanical Ventilator 40 12/02/16 17:00 75 24 122/64 100 Mechanical Ventilator 40 12/02/16 16:42 81 22 40 12/02/16 16:30 72 18 93/49 100 Mechanical Ventilator 40 12/02/16 16:25 89/49 12/02/16 16:00 40 12/02/16 16:00 98.6 74 22 93/56 100 Mechanical Ventilator 40 12/02/16 16:00 75 12/02/16 15:30 72 20 93/54 100 Mechanical Ventilator 40 12/02/16 15:08 74 23 40 12/02/16 15:00 76 22 89/53 100 Mechanical Ventilator 40 12/02/16 14:30 75 20 86/54 98 Mechanical Ventilator 40 12/02/16 14:00 75 20 95/56 98 Mechanical Ventilator 40 12/02/16 13:30 76 22 88/51 100 Mechanical Ventilator 40 12/02/16 13:00 80 22 89/55 100 Mechanical Ventilator 40 12/02/16 12:59 77 21 40 12/02/16 12:30 78 24 86/49 100 Mechanical Ventilator 40 12/02/16 12:00 98.7 86 20 81/46 100 Mechanical Ventilator 40 12/02/16 12:00 89 12/02/16 12:00 81/46 12/02/16 11:30 98 20 86/52 100 Mechanical Ventilator 40 12/02/16 11:15 99 21 94/56 98 Mechanical Ventilator 40 Status: sedated Condition: grave HEENT: atraumatic Neck: full ROM Lungs: chest wall tender Heart: HR/BP unstable Abdomen: soft, active bowel sounds, feeding tube Extremities: edema Decubiti: location Accucheck: 120 Critical Care - Subjective ROS Limited/Unobtainable: No ICU Day: 8 Intubation Day: 8 Condition: critical EKG Rhythm: Sinus Rhythm FI02: 40 Vent Support Breath Rate: 10 Vent Support Mode: IMV/SIMV Vent Tidal Volume: 600 Sputum Amount: Large PIP: 19 Fluids: KVO Tube Feeding Amount: 30 I&O: Intake and Output 12/02/16 12/03/16 19:00 07:00 Intake Total 939.93 ml 623.75 ml Output Total 580 ml 483 ml Balance 359.93 ml 140.75 ml Free Water 200 ml 200 ml IV Total 379.93 ml 63.75 ml Tube Feeding 360 ml 360 ml Output Urine Total 580 ml 480 ml Stool Total 3 ml # Bowel Movements 6 CXR: ET in good position ET-Tube: 7.5 ET Position: 23 Labs: Laboratory Tests Test 12/02/16 18:00 12/03/16 04:00 12/03/16 09:15 Cortisol PM Sample 23.1 ug/dL (3.0-12.0) H White Blood Count 13.7 K/UL (4.8-10.8) H Red Blood Count 3.38 M/UL (4.20-5.40) L Hemoglobin 9.9 G/DL (12.0-16.0) L Hematocrit 30.1 % (37.0-47.0) L Mean Corpuscular Volume 89 FL (80-99) Mean Corpuscular Hemoglobin 29.2 PG (27.0-31.0) Mean Corpuscular Hemoglobin Concent 32.8 G/DL (32.0-36.0) Red Cell Distribution Width 16.5 % (11.6-14.8) H Platelet Count 71 K/UL (150-450) L Mean Platelet Volume 13.1 FL (6.5-10.1) H Neutrophils (%) (Auto) % (45.0-75.0) Lymphocytes (%) (Auto) % (20.0-45.0) Monocytes (%) (Auto) % (1.0-10.0) Eosinophils (%) (Auto) % (0.0-3.0) Basophils (%) (Auto) % (0.0-2.0) Differential Total Cells Counted 100 Neutrophils % (Manual) 79 % (45-75) H Lymphocytes % (Manual) 8 % (20-45) L Monocytes % (Manual) 11 % (1-10) H Eosinophils % (Manual) 0 % (0-3) Basophils % (Manual) 0 % (0-2) Band Neutrophils 2 % (0-8) Platelet Estimate Decreased L Platelet Morphology Normal Hypochromasia 1+ Anisocytosis 1+ Sodium Level 140 mEQ/L (135-145) Potassium Level 3.9 mEQ/L (3.4-4.9) Chloride Level 106 mEQ/L (98-107) Carbon Dioxide Level 25 mEQ/L (20-30) Anion Gap 9 (5-15) Blood Urea Nitrogen 22 mg/dL (7-23) Creatinine 0.6 mg/dL (0.5-0.9) Estimat Glomerular Filtration Rate mL/min (>60) Glucose Level 127 mg/dL (74-106) H Calcium Level 8.1 mg/dL (8.6-10.2) L Phosphorus Level 2.4 mg/dL (2.5-4.8) L Magnesium Level 1.7 mg/dL (1.7-2.5) Total Bilirubin 0.4 mg/dL (0.0-1.2) Aspartate Amino Transf (AST/SGOT) 28 U/L (5-40) Alanine Aminotransferase (ALT/SGPT) 29 U/L (3-33) Alkaline Phosphatase 84 U/L (35-104) Total Protein 3.8 g/dL (6.6-8.7) L Albumin 2.1 g/dL (3.5-5.2) L Globulin 1.7 g/dL Albumin/Globulin Ratio 1.2 (1.0-2.7) Arterial Blood pH 7.512 (7.350-7.450) Arterial Blood Partial Pressure CO2 29.9 mmHg (35.0-45.0) L Arterial Blood Partial Pressure O2 91.3 mmHg (75.0-100.0) Arterial Blood HCO3 23.4 mmol/L (22.0-26.0) Arterial Blood Oxygen Saturation 96.4 % (92.0-98.0) Arterial Blood Base Excess 1.2 Isael Test Positive STEVIE GUO Dec 03, 2016 11:13
--- NOTE | 2016-12-03 11:50 | Nephrology Progress Note ---
Assessment/Plan Assessment 1) MARYAM recovered 2) Hypernatremia resolved 3) Septic shock is better 4) HCAP + UTI \5) Clinically euvolemic Plan: Continue current measures Subjective Subjective She is strill on the vent, still on TF, off of pressors Objective Objective Last 24 Hour Vital Signs Date Time Temp Pulse Resp B/P Pulse Ox O2 Delivery O2 Flow Rate FiO2 12/03/16 11:19 73 19 40 12/03/16 11:00 65 21 90/48 100 Mechanical Ventilator 40 12/03/16 10:30 67 20 96/47 100 Mechanical Ventilator 40 12/03/16 10:00 71 20 102/68 98 Mechanical Ventilator 40 12/03/16 09:08 77 22 40 12/03/16 09:08 98 12/03/16 09:00 77 21 87/38 98 Mechanical Ventilator 40 12/03/16 08:30 80 18 90/48 100 Mechanical Ventilator 40 12/03/16 08:00 70 12/03/16 08:00 98.5 74 20 89/50 99 Mechanical Ventilator 40 12/03/16 08:00 40 12/03/16 07:30 80 18 92/50 100 Mechanical Ventilator 40 12/03/16 07:12 72 11 40 12/03/16 07:00 80 18 91/62 100 Mechanical Ventilator 40 12/03/16 06:30 70 18 89/52 100 Mechanical Ventilator 40 12/03/16 06:00 72 18 90/52 100 Mechanical Ventilator 40 12/03/16 05:30 72 18 95/49 100 Mechanical Ventilator 40 12/03/16 05:00 75 18 105/46 98 Mechanical Ventilator 40 12/03/16 05:00 72 19 40 12/03/16 04:30 71 18 102/77 100 Mechanical Ventilator 40 12/03/16 04:00 71 12/03/16 04:00 98.6 70 18 90/49 100 Mechanical Ventilator 40 12/03/16 04:00 40 12/03/16 03:30 70 18 77/46 100 Mechanical Ventilator 40 12/03/16 03:10 69 18 40 12/03/16 03:00 70 18 85/45 100 Mechanical Ventilator 40 12/03/16 02:30 70 18 88/44 100 Mechanical Ventilator 40 12/03/16 02:00 71 18 82/47 100 Mechanical Ventilator 40 12/03/16 01:30 71 18 89/41 100 Mechanical Ventilator 40 12/03/16 01:25 70 18 40 12/03/16 01:00 70 18 78/45 100 Mechanical Ventilator 40 12/03/16 00:30 70 18 85/40 100 Mechanical Ventilator 40 12/03/16 00:00 70 12/03/16 00:00 98.4 70 18 75/49 100 Mechanical Ventilator 40 12/03/16 00:00 40 12/02/16 23:45 71 18 40 12/02/16 23:00 66 18 90/41 100 Mechanical Ventilator 40 12/02/16 22:30 72 18 66/41 100 Mechanical Ventilator 40 12/02/16 22:00 72 18 90/49 100 Mechanical Ventilator 40 12/02/16 21:55 85 25 40 12/02/16 21:30 73 24 75/40 100 Mechanical Ventilator 40 12/02/16 21:00 76 24 70/41 100 Mechanical Ventilator 40 12/02/16 20:00 80 12/02/16 20:00 40 12/02/16 20:00 98.6 80 24 68/24 100 Mechanical Ventilator 40 12/02/16 19:38 79 24 40 12/02/16 19:00 80 24 88/47 100 Mechanical Ventilator 40 12/02/16 18:30 75 22 102/45 100 Mechanical Ventilator 40 12/02/16 18:00 76 22 97/52 98 Mechanical Ventilator 40 12/02/16 17:30 72 24 92/52 100 Mechanical Ventilator 40 12/02/16 17:00 75 24 122/64 100 Mechanical Ventilator 40 12/02/16 16:42 81 22 40 12/02/16 16:30 72 18 93/49 100 Mechanical Ventilator 40 12/02/16 16:25 89/49 12/02/16 16:00 40 12/02/16 16:00 98.6 74 22 93/56 100 Mechanical Ventilator 40 12/02/16 16:00 75 12/02/16 15:30 72 20 93/54 100 Mechanical Ventilator 40 12/02/16 15:08 74 23 40 12/02/16 15:00 76 22 89/53 100 Mechanical Ventilator 40 12/02/16 14:30 75 20 86/54 98 Mechanical Ventilator 40 12/02/16 14:00 75 20 95/56 98 Mechanical Ventilator 40 12/02/16 13:30 76 22 88/51 100 Mechanical Ventilator 40 12/02/16 13:00 80 22 89/55 100 Mechanical Ventilator 40 12/02/16 12:59 77 21 40 12/02/16 12:30 78 24 86/49 100 Mechanical Ventilator 40 12/02/16 12:00 98.7 86 20 81/46 100 Mechanical Ventilator 40 12/02/16 12:00 89 12/02/16 12:00 81/46 Intake and Output 12/02/16 12/03/16 19:00 07:00 Intake Total 939.93 ml 623.75 ml Output Total 580 ml 483 ml Balance 359.93 ml 140.75 ml Free Water 200 ml 200 ml IV Total 379.93 ml 63.75 ml Tube Feeding 360 ml 360 ml Output Urine Total 580 ml 480 ml Stool Total 3 ml # Bowel Movements 6 Laboratory Tests 12/02/16 18:00: Cortisol PM Sample 23.1H 12/03/16 04:00: White Blood Count 13.7H, Red Blood Count 3.38L, Hemoglobin 9.9L, Hematocrit 30.1L, Mean Corpuscular Volume 89, Mean Corpuscular Hemoglobin 29.2, Mean Corpuscular Hemoglobin Concent 32.8, Red Cell Distribution Width 16.5H, Platelet Count 71L, Mean Platelet Volume 13.1H, Neutrophils (%) (Auto) , Lymphocytes (%) (Auto) , Monocytes (%) (Auto) , Eosinophils (%) (Auto) , Basophils (%) (Auto) , Differential Total Cells Counted 100, Neutrophils % ( Manual) 79H, Lymphocytes % (Manual) 8L, Monocytes % (Manual) 11H, Eosinophils % (Manual) 0, Basophils % (Manual) 0, Band Neutrophils 2, Platelet Estimate DecreasedL, Platelet Morphology Normal, Hypochromasia 1+, Anisocytosis 1+, Sodium Level 140, Potassium Level 3.9, Chloride Level 106, Carbon Dioxide Level 25, Anion Gap 9, Blood Urea Nitrogen 22, Creatinine 0.6, Estimat Glomerular Filtration Rate , Glucose Level 127H, Calcium Level 8.1L, Phosphorus Level 2.4L , Magnesium Level 1.7, Total Bilirubin 0.4, Aspartate Amino Transf (AST/SGOT) 28 , Alanine Aminotransferase (ALT/SGPT) 29, Alkaline Phosphatase 84, Total Protein 3.8L, Albumin 2.1L, Globulin 1.7, Albumin/Globulin Ratio 1.2 12/03/16 09:15: Arterial Blood pH 7.512H, Arterial Blood Partial Pressure CO2 29.9L, Arterial Blood Partial Pressure O2 91.3, Arterial Blood HCO3 23.4, Arterial Blood Oxygen Saturation 96.4, Arterial Blood Base Excess 1.2, Isael Test Positive Height (Feet): 5 Height (Inches): 2.00 Weight (Pounds): 192 General Appearance: WD/WN, no apparent distress, other EENT: PERRL/EOMI, TMs normal Neck: normal alignment, supple Cardiovascular: normal rate, regular rhythm, no JVD Respiratory/Chest: lungs clear Abdomen: normal bowel sounds, non tender Neurologic: other - lethargic ELMA GREWAL Dec 03, 2016 11:50
[2016-12-03] MEDS ORDERED: NS 275ml ONE (13:57)
[2016-12-03] MEDS ORDERED: Tubing IV Secondary IV ONE (13:57)
[2016-12-03] MEDS: Ertapenem 1gm in NS 55ml IVPB SCH (21:09)
[2016-12-03] MEDS: Dyna-Hex 2% Top Sol 8oz TOPIC SCH (21:09)
--- NOTE | 2016-12-03 23:09 | Infectious Diseases Prog Note ---
Assessment/Plan Problems: (1) Septic shock Assessment & Plan: Cortisol level noted. Due to UTI and septicemia. Still on pressor. WBC continuing to trend down. 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 (3) UTI (urinary tract infection) Assessment & Plan: Due to E. coli. On ertapenem. Plan a 7-day course probably. (4) MARYAM (acute kidney injury) Assessment & Plan: Resolved. (5) Septicemia Assessment & Plan: BCx grew Proteus and CoNS. Proteus source? On ertapenem and vancomycin IV. Probably need 10-14 days of ertapenem and 5-7 days of vancomycin IV. (6) Acute respiratory failure Assessment & Plan: In the setting of septic shock. (7) HCAP (healthcare-associated pneumonia) Assessment & Plan: SCx noted. On empiric vancomycin and ertapenem. Follow-up CXR. Subjective Allergies: Coded Allergies: No Known Allergies (Unverified , 11/25/16) Objective Vital Signs Last 24 Hour Vital Signs Date Time Temp Pulse Resp B/P Pulse Ox O2 Delivery O2 Flow Rate FiO2 12/03/16 21:14 68 18 40 12/03/16 19:30 66 24 40 12/03/16 19:00 66 20 98/45 100 Mechanical Ventilator 40 12/03/16 18:30 64 20 97/44 100 Mechanical Ventilator 40 12/03/16 18:00 67 21 95/50 100 Mechanical Ventilator 40 12/03/16 17:30 66 21 90/46 100 Mechanical Ventilator 40 12/03/16 17:27 98/49 12/03/16 17:00 68 23 98/49 100 Mechanical Ventilator 40 12/03/16 16:53 67 24 40 12/03/16 16:30 71 22 96/51 99 Mechanical Ventilator 40 12/03/16 16:00 98.1 68 20 102/53 100 Mechanical Ventilator 40 12/03/16 16:00 69 12/03/16 16:00 40 12/03/16 15:30 68 21 98/52 100 Mechanical Ventilator 40 12/03/16 15:16 74 15 40 12/03/16 15:00 67 22 106/53 100 Mechanical Ventilator 40 12/03/16 14:30 68 21 106/51 100 Mechanical Ventilator 40 12/03/16 14:00 66 20 112/49 100 Mechanical Ventilator 40 12/03/16 13:30 69 21 112/52 100 Mechanical Ventilator 40 12/03/16 13:24 65 23 40 12/03/16 13:00 67 21 97/42 100 Mechanical Ventilator 40 12/03/16 12:00 98.5 69 20 90/47 98 Mechanical Ventilator 40 12/03/16 12:00 40 12/03/16 12:00 68 12/03/16 11:30 65 21 90/50 100 Mechanical Ventilator 40 12/03/16 11:19 73 19 40 12/03/16 11:00 65 21 90/48 100 Mechanical Ventilator 40 12/03/16 10:30 67 20 96/47 100 Mechanical Ventilator 40 12/03/16 10:00 71 20 102/68 98 Mechanical Ventilator 40 12/03/16 09:08 77 22 40 12/03/16 09:08 98 12/03/16 09:00 77 21 87/38 98 Mechanical Ventilator 40 12/03/16 08:30 80 18 90/48 100 Mechanical Ventilator 40 12/03/16 08:00 70 12/03/16 08:00 98.5 74 20 89/50 99 Mechanical Ventilator 40 12/03/16 08:00 40 12/03/16 07:30 80 18 92/50 100 Mechanical Ventilator 40 12/03/16 07:12 72 11 40 12/03/16 07:00 80 18 91/62 100 Mechanical Ventilator 40 12/03/16 06:30 70 18 89/52 100 Mechanical Ventilator 40 12/03/16 06:00 72 18 90/52 100 Mechanical Ventilator 40 12/03/16 05:30 72 18 95/49 100 Mechanical Ventilator 40 12/03/16 05:00 75 18 105/46 98 Mechanical Ventilator 40 12/03/16 05:00 72 19 40 12/03/16 04:30 71 18 102/77 100 Mechanical Ventilator 40 12/03/16 04:00 71 12/03/16 04:00 98.6 70 18 90/49 100 Mechanical Ventilator 40 12/03/16 04:00 40 12/03/16 03:30 70 18 77/46 100 Mechanical Ventilator 40 12/03/16 03:10 69 18 40 12/03/16 03:00 70 18 85/45 100 Mechanical Ventilator 40 12/03/16 02:30 70 18 88/44 100 Mechanical Ventilator 40 12/03/16 02:00 71 18 82/47 100 Mechanical Ventilator 40 12/03/16 01:30 71 18 89/41 100 Mechanical Ventilator 40 12/03/16 01:25 70 18 40 12/03/16 01:00 70 18 78/45 100 Mechanical Ventilator 40 12/03/16 00:30 70 18 85/40 100 Mechanical Ventilator 40 12/03/16 00:00 70 12/03/16 00:00 98.4 70 18 75/49 100 Mechanical Ventilator 40 12/03/16 00:00 40 12/02/16 23:45 71 18 40 Height (Feet): 5 Height (Inches): 2.00 Weight (Pounds): 192 Laboratory Tests Test 12/03/16 04:00 12/03/16 09:15 White Blood Count 13.7 K/UL (4.8-10.8) H Red Blood Count 3.38 M/UL (4.20-5.40) L Hemoglobin 9.9 G/DL (12.0-16.0) L Hematocrit 30.1 % (37.0-47.0) L Mean Corpuscular Volume 89 FL (80-99) Mean Corpuscular Hemoglobin 29.2 PG (27.0-31.0) Mean Corpuscular Hemoglobin Concent 32.8 G/DL (32.0-36.0) Red Cell Distribution Width 16.5 % (11.6-14.8) H Platelet Count 71 K/UL (150-450) L Mean Platelet Volume 13.1 FL (6.5-10.1) H Neutrophils (%) (Auto) % (45.0-75.0) Lymphocytes (%) (Auto) % (20.0-45.0) Monocytes (%) (Auto) % (1.0-10.0) Eosinophils (%) (Auto) % (0.0-3.0) Basophils (%) (Auto) % (0.0-2.0) Differential Total Cells Counted 100 Neutrophils % (Manual) 79 % (45-75) H Lymphocytes % (Manual) 8 % (20-45) L Monocytes % (Manual) 11 % (1-10) H Eosinophils % (Manual) 0 % (0-3) Basophils % (Manual) 0 % (0-2) Band Neutrophils 2 % (0-8) Platelet Estimate Decreased L Platelet Morphology Normal Hypochromasia 1+ Anisocytosis 1+ Sodium Level 140 mEQ/L (135-145) Potassium Level 3.9 mEQ/L (3.4-4.9) Chloride Level 106 mEQ/L (98-107) Carbon Dioxide Level 25 mEQ/L (20-30) Anion Gap 9 (5-15) Blood Urea Nitrogen 22 mg/dL (7-23) Creatinine 0.6 mg/dL (0.5-0.9) Estimat Glomerular Filtration Rate mL/min (>60) Glucose Level 127 mg/dL (74-106) H Calcium Level 8.1 mg/dL (8.6-10.2) L Phosphorus Level 2.4 mg/dL (2.5-4.8) L Magnesium Level 1.7 mg/dL (1.7-2.5) Total Bilirubin 0.4 mg/dL (0.0-1.2) Aspartate Amino Transf (AST/SGOT) 28 U/L (5-40) Alanine Aminotransferase (ALT/SGPT) 29 U/L (3-33) Alkaline Phosphatase 84 U/L (35-104) Total Protein 3.8 g/dL (6.6-8.7) L Albumin 2.1 g/dL (3.5-5.2) L Globulin 1.7 g/dL Albumin/Globulin Ratio 1.2 (1.0-2.7) Arterial Blood pH 7.512 (7.350-7.450) Arterial Blood Partial Pressure CO2 29.9 mmHg (35.0-45.0) L Arterial Blood Partial Pressure O2 91.3 mmHg (75.0-100.0) Arterial Blood HCO3 23.4 mmol/L (22.0-26.0) Arterial Blood Oxygen Saturation 96.4 % (92.0-98.0) Arterial Blood Base Excess 1.2 Isael Test Positive Current Medications Medications (Trade) Dose Ordered Sig/Flora Route PRN Reason Start Time Stop Time Status Last Admin Dose Admin Acetaminophen (Tylenol) 650 mg Q4H PRN ORAL fever 11/25/16 16:00 12/25/16 15:59 Chlorhexidine Gluconate (Emmie-Hex 2%) 1 applic QHS TOPIC 12/02/16 21:00 01/01/17 20:59 12/03/16 21:09 Dextrose (Dextrose 50%) STAT PRN IV Hypoglycemia 11/25/16 16:00 12/25/16 15:59 Ertapenem 1 gm/ Sodium Chloride 55 ml @ 110 mls/hr Q24H IVPB 11/30/16 21:00 12/05/16 20:59 12/03/16 21:09 Insulin Aspart (NovoLOG) EVERY 6 HOURS SUBQ 11/26/16 00:00 12/26/16 00:00 12/03/16 17:41 Metoclopramide HCl 5 mg 5 mg Q6H PRN IVP Nausea & Vomiting 11/28/16 09:45 12/28/16 09:44 11/30/16 23:10 Nitroglycerin (Ntg) 0.4 mg Q5M PRN SL Prn Chest Pain 11/25/16 16:00 12/25/16 15:59 Norepinephrine Bitartrate/ Dextrose (Levophed/D5W) 250 ml @ 0 mls/hr Q24H IV 11/25/16 17:00 12/25/16 16:59 12/03/16 17:27 Ondansetron HCl (Zofran) 4 mg Q6H PRN IVP Nausea & Vomiting 11/25/16 16:00 12/25/16 15:59 Pantoprazole (Protonix) 40 mg DAILY IVP 11/28/16 09:00 12/28/16 08:59 12/03/16 08:50 Polyethylene Glycol (Miralax) 17 gm DAILYPRN PRN ORAL Constipation 11/25/16 16:00 12/25/16 15:59 Sodium Chloride 250 ml @ 999 mls/hr ONCE PRN IV PRN SBP < 90 11/30/16 14:30 12/30/16 14:29 Vancomycin HCl 1 ea 1 ea DAILY PRN MISC PER RX PROTOCOL 11/25/16 16:45 12/25/16 16:44 Vancomycin HCl/ Dextrose (Vancomycin 1250mg/D5W 250ml) 250 ml @ 166.667 mls/hr Q24H IVPB 12/01/16 09:00 12/06/16 08:59 12/03/16 08:51 BEATRIZ FELIX Dec 03, 2016 23:09
[2016-12-04] VITALS (45 sets, daily range): BP systolic 77–146; BP diastolic 41–80
[2016-12-04] MEDS: NovoLOG Insulin Flexpen SUBQ SCH ×4 (00:28→18:18)
[2016-12-04 04:46] LABS: MEAN CORPUSCULAR HEMOGLOBIN 30.8 PG (27.0-31.0); MEAN CORPUSCULAR HGB CONC 34.9 G/DL (32.0-36.0); MEAN CORPUSCULAR VOLUME 88 FL (80-99); PLATELET COUNT 83 K/UL (150-450); RED BLOOD COUNT 3.34 M/UL (4.20-5.40); RED CELL DISTRIBUTION WIDTH 16.4 % (11.6-14.8); WHITE BLOOD COUNT 14.8 K/UL (4.8-10.8)
[2016-12-04 05:12] LABS: ALANINE AMINOTRANSFERASE 27 U/L (3-33); ALBUMIN/GLOBULIN RATIO 1.2 (1.0-2.7); ANION GAP 8 (5-15); ASPARTATE AMINO TRANSFERASE 24 U/L (5-40); CALCIUM 8.2 mg/dL (8.6-10.2); CARBON DIOXIDE 26 mEQ/L (20-30); CHLORIDE 106 mEQ/L (98-107); CREATININE 0.6 mg/dL (0.5-0.9); HEMOLYSIS 5; MAGNESIUM 1.7 mg/dL (1.7-2.5); PHOSPHORUS 2.5 mg/dL (2.5-4.8); POTASSIUM 3.8 mEQ/L (3.4-4.9); SODIUM 140 mEQ/L (135-145); TOTAL PROTEIN 4.1 g/dL (6.6-8.7)
[2016-12-04 05:48] LABS: BAND NEUTROPHILS % (MANUAL) 3 % (0-8); BASOPHILS % (MANUAL) 0 % (0-2); EOSINOPHILS % (MANUAL) 0 % (0-3); LYMPHOCYTES % (MANUAL) 13 % (20-45); NEUTROPHILS % (MANUAL) 75 % (45-75); PLATELET ESTIMATE DECREASED; TOTAL CELLS COUNTED 100
[2016-12-04 05:49] LABS: ANISOCYTOSIS 1+; HYPOCHROMASIA 1+; PLATELET MORPHOLOGY NORMAL
--- NOTE | 2016-12-04 08:03 | Diagnostic Imaging Report ---
Indication: DYSPNEA Technique: One view of the chest Comparison: 11/30/2016 Findings: Stable satisfactory positions of nasogastric tube, endotracheal tube, right arm PICC. There is persistent and slightly increased hazy opacity at the left lung base. The remainder of the lungs and pleural spaces are clear. Left arm surgical clips are again noted Impression: Slightly increased left basilar hazy opacity, likely reflects increased pleural fluid and/or infiltrate, over one day
[2016-12-04] MEDS: Pantoprazole Inj IVP SCH (08:35)
[2016-12-04] MEDS: Vancomycin 1250mg/D5W 250ml IVPB SCH (08:35)
[2016-12-04 09:04] LABS: ABG ALLEN TEST POSITIVE; ABG BASE EXCESS 2.9; ABG PCO2 25.6 mmHg (35.0-45.0)
--- NOTE | 2016-12-04 10:08 | Pulmonolgy Critical Care Note ---
Critical Care - Asmt/Plan Problems: (1) Respiratory failure (2) Septic shock (3) Acute encephalopathy (4) ARF (acute renal failure) (5) Hypernatremia (6) Diabetes mellitus Respiratory: monitor respiratory rate, adjust FIO2, CXR Cardiac: continue pressors, continue to monitor HR/BP, other - add midodrine Renal: F/U I&O, keep IV fluid Infectious Disease: check cultures, continue antibiotics Gastrointestinal: continue feedings/current rate Endocrine: monitor blood sugar, check HgA1C Hematologic: monitor H/H Neurologic: PRN Ativan Prophylaxis: Protonix Disposition: keep in ICU Time Spent (Minutes): 40 Notes Reviewed: biological inspector, cardio, renal Discussed with: nurses, consultants, case management assistantvolunteer services manager - Objective Last 24 Hour Vital Signs Date Time Temp Pulse Resp B/P Pulse Ox O2 Delivery O2 Flow Rate FiO2 12/04/16 09:05 63 14 40 12/04/16 09:05 100 12/04/16 09:00 59 18 85/45 100 Mechanical Ventilator 40 12/04/16 08:30 60 18 86/43 100 Mechanical Ventilator 40 12/04/16 08:00 68 18 77/42 100 Mechanical Ventilator 40 12/04/16 08:00 66 12/04/16 08:00 40 12/04/16 07:30 98.0 72 18 97/58 100 Mechanical Ventilator 40 12/04/16 07:15 68 18 40 12/04/16 07:00 70 18 80/43 100 Mechanical Ventilator 40 12/04/16 06:30 71 18 100/50 100 Mechanical Ventilator 40 12/04/16 06:00 76 19 80/41 100 Mechanical Ventilator 40 12/04/16 05:30 72 18 93/46 100 Mechanical Ventilator 40 12/04/16 05:00 69 18 85/45 100 Mechanical Ventilator 40 12/04/16 04:57 72 18 40 12/04/16 04:00 98.2 70 18 94/63 100 Mechanical Ventilator 40 12/04/16 04:00 70 12/04/16 04:00 40 12/04/16 03:30 67 18 40 12/04/16 03:00 68 18 121/65 100 Mechanical Ventilator 40 12/04/16 02:00 68 18 103/51 100 Mechanical Ventilator 40 12/04/16 01:30 67 18 40 12/04/16 01:30 65 18 100/50 100 Mechanical Ventilator 40 7 01:00 68 18 110/50 100 Mechanical Ventilator 40 7/ 00:30 99.4 68 18 112/46 100 Mechanical Ventilator 40 12/04/16 00:00 40 7 00:00 99.4 67 18 114/45 100 Mechanical Ventilator 40 7/ 00:00 68 730/17 23:30 65 18 40 730/17 23:30 67 18 96/47 100 Mechanical Ventilator 40 7/17 23:00 67 18 103/56 100 Mechanical Ventilator 40 730/17 22:30 67 18 104/47 100 Mechanical Ventilator 40 730/17 22:00 67 18 105/47 100 Mechanical Ventilator 40 7/17 21:30 67 18 102/45 100 Mechanical Ventilator 40 7/17 21:14 68 18 40 7/17 21:00 68 18 106/59 100 Mechanical Ventilator 40 730/17 20:30 68 18 95/57 100 Mechanical Ventilator 40 12/03/16 20:00 67 12/03/16 20:00 99.0 67 18 102/48 100 Mechanical Ventilator 40 730/17 20:00 40 730/17 19:30 66 24 40 730/17 19:00 66 20 98/45 100 Mechanical Ventilator 40 7/17 18:30 64 20 97/44 100 Mechanical Ventilator 40 730/17 18:00 67 21 95/50 100 Mechanical Ventilator 40 730/17 17:30 66 21 90/46 100 Mechanical Ventilator 40 7/17 17:27 98/49 7/17 17:00 68 23 98/49 100 Mechanical Ventilator 40 730/17 16:53 67 24 40 730/17 16:30 71 22 96/51 99 Mechanical Ventilator 40 730/17 16:00 98.1 68 20 102/53 100 Mechanical Ventilator 40 730/17 16:00 69 730/17 16:00 40 7/30/17 15:30 68 21 98/52 100 Mechanical Ventilator 40 7/30/17 15:16 74 15 40 7/30/17 15:00 67 22 106/53 100 Mechanical Ventilator 40 730/17 14:30 68 21 106/51 100 Mechanical Ventilator 40 730/17 14:00 66 20 112/49 100 Mechanical Ventilator 40 12/03/16 13:30 69 21 112/52 100 Mechanical Ventilator 40 12/03/16 13:24 65 23 40 12/03/16 13:00 67 21 97/42 100 Mechanical Ventilator 40 12/03/16 12:00 98.5 69 20 90/47 98 Mechanical Ventilator 40 12/03/16 12:00 40 12/03/16 12:00 68 12/03/16 11:30 65 21 90/50 100 Mechanical Ventilator 40 12/03/16 11:19 73 19 40 12/03/16 11:00 65 21 90/48 100 Mechanical Ventilator 40 12/03/16 10:30 67 20 96/47 100 Mechanical Ventilator 40 Status: awake Condition: critical HEENT: atraumatic, normocephalic Neck: full ROM Lungs: clear Heart: HR/BP stable, HR/BP unstable Abdomen: soft, non-tender, active bowel sounds, feeding tube Extremities: no C/C/E, edema Decubiti: location Accucheck: 108 Critical Care - Subjective ROS Limited/Unobtainable: Yes ICU Day: 9 Intubation Day: 9 Interval Events: opne eyes, still on Levophed only 2 ug FI02: 40 Vent Support Breath Rate: 10 Vent Support Mode: IMV/SIMV Vent Tidal Volume: 600 Sputum Amount: Large PIP: 17 Tube Feeding Amount: 30 I&O: Intake and Output 12/03/16 12/04/16 19:00 07:00 Intake Total 702.575 ml 672.50 ml Output Total 275 ml 440 ml Balance 427.575 ml 232.50 ml Free Water 230 ml IV Total 432.575 ml 82.50 ml Tube Feeding 270 ml 360 ml Output Urine Total 275 ml 440 ml Stool Total 0 ml CXR: No change, ET in good position ET-Tube: 7.5 ET Position: 23 Labs: Laboratory Tests Test 12/04/16 04:00 12/04/16 08:55 White Blood Count 14.8 K/UL (4.8-10.8) H Corrected White Blood Count K/UL Red Blood Count 3.34 M/UL (4.20-5.40) L Hemoglobin 10.3 G/DL (12.0-16.0) L Hematocrit 29.5 % (37.0-47.0) L Mean Corpuscular Volume 88 FL (80-99) Mean Corpuscular Hemoglobin 30.8 PG (27.0-31.0) Mean Corpuscular Hemoglobin Concent 34.9 G/DL (32.0-36.0) Red Cell Distribution Width 16.4 % (11.6-14.8) H Platelet Count 83 K/UL (150-450) L Mean Platelet Volume 13.0 FL (6.5-10.1) H Neutrophils (%) (Auto) % (45.0-75.0) Lymphocytes (%) (Auto) % (20.0-45.0) Monocytes (%) (Auto) % (1.0-10.0) Eosinophils (%) (Auto) % (0.0-3.0) Basophils (%) (Auto) % (0.0-2.0) Differential Total Cells Counted 100 Neutrophils % (Manual) 75 % (45-75) Lymphocytes % (Manual) 13 % (20-45) L Monocytes % (Manual) 9 % (1-10) Eosinophils % (Manual) 0 % (0-3) Basophils % (Manual) 0 % (0-2) Band Neutrophils 3 % (0-8) Platelet Estimate Decreased L Platelet Morphology Normal Hypochromasia 1+ Anisocytosis 1+ Sodium Level 140 mEQ/L (135-145) Potassium Level 3.8 mEQ/L (3.4-4.9) Chloride Level 106 mEQ/L (98-107) Carbon Dioxide Level 26 mEQ/L (20-30) Anion Gap 8 (5-15) Blood Urea Nitrogen 20 mg/dL (7-23) Creatinine 0.6 mg/dL (0.5-0.9) Estimat Glomerular Filtration Rate mL/min (>60) Glucose Level 116 mg/dL (74-106) H Calcium Level 8.2 mg/dL (8.6-10.2) L Phosphorus Level 2.5 mg/dL (2.5-4.8) Magnesium Level 1.7 mg/dL (1.7-2.5) Total Bilirubin 0.5 mg/dL (0.0-1.2) Aspartate Amino Transf (AST/SGOT) 24 U/L (5-40) Alanine Aminotransferase (ALT/SGPT) 27 U/L (3-33) Alkaline Phosphatase 82 U/L (35-104) Total Protein 4.1 g/dL (6.6-8.7) L Albumin 2.3 g/dL (3.5-5.2) L Globulin 1.8 g/dL Albumin/Globulin Ratio 1.2 (1.0-2.7) Arterial Blood pH 7.591 (7.350-7.450) Arterial Blood Partial Pressure CO2 25.6 mmHg (35.0-45.0) L Arterial Blood Partial Pressure O2 102.8 mmHg (75.0-100.0) H Arterial Blood HCO3 24.1 mmol/L (22.0-26.0) Arterial Blood Oxygen Saturation 97.4 % (92.0-98.0) Arterial Blood Base Excess 2.9 Isael Test Positive STEVIE GUO Dec 04, 2016 10:08
--- NOTE | 2016-12-04 11:01 | Diagnostic Imaging Report ---
Indication: DYSPNEA Technique: One view of the chest Comparison: 12/03/2016 Findings: Retrocardiac consolidation and left basilar atelectasis persists. Likely small left pleural effusion, unchanged. Right lung and pleural space, left upper lung are clear. Previously reported minimal interstitial congestion is no longer evident Right arm PICC, left axillary surgical clips are again demonstrated. Stable satisfactory positions of nasogastric and endotracheal tubes. Findings are unchanged Impression: Resolved minimal interstitial congestion. Otherwise unchanged, over one day, findings as above.
--- NOTE | 2016-12-04 13:06 | Nephrology Progress Note ---
Assessment/Plan Assessment 1) MARYAM recovered 2) Hypernatremia resolved 3) Septic shock is better 4) HCAP + UTI \5) Clinically euvolemic Plan: Continue current measures Try to take her off pressor Subjective Subjective She is strill on the vent, still on TF, she is on levophed 2 mcg drip Objective Objective Last 24 Hour Vital Signs Date Time Temp Pulse Resp B/P Pulse Ox O2 Delivery O2 Flow Rate FiO2 12/04/16 12:30 74 19 99/42 100 Mechanical Ventilator 40 12/04/16 12:00 98.3 70 21 92/48 100 Mechanical Ventilator 40 12/04/16 12:00 40 12/04/16 12:00 69 12/04/16 11:30 71 20 94/46 100 Mechanical Ventilator 40 12/04/16 11:00 69 21 91/53 100 Mechanical Ventilator 40 12/04/16 10:50 69 20 40 12/04/16 10:30 64 18 95/46 100 Mechanical Ventilator 40 12/04/16 10:00 63 18 102/44 100 Mechanical Ventilator 40 12/04/16 10:00 40 12/04/16 09:30 62 18 95/50 100 Mechanical Ventilator 40 12/04/16 09:05 40 12/04/16 09:05 63 14 40 12/04/16 09:05 100 12/04/16 09:00 59 18 85/45 100 Mechanical Ventilator 40 12/04/16 08:30 60 18 86/43 100 Mechanical Ventilator 40 12/04/16 08:00 68 18 77/42 100 Mechanical Ventilator 40 12/04/16 08:00 66 12/04/16 08:00 40 12/04/16 07:30 98.0 72 18 97/58 100 Mechanical Ventilator 40 12/04/16 07:15 68 18 40 12/04/16 07:00 70 18 80/43 100 Mechanical Ventilator 40 12/04/16 06:30 71 18 100/50 100 Mechanical Ventilator 40 12/04/16 06:00 76 19 80/41 100 Mechanical Ventilator 40 12/04/16 05:30 72 18 93/46 100 Mechanical Ventilator 40 12/04/16 05:00 69 18 85/45 100 Mechanical Ventilator 40 12/04/16 04:57 72 18 40 12/04/16 04:00 98.2 70 18 94/63 100 Mechanical Ventilator 40 12/04/16 04:00 70 7/31/17 04:00 40 12/04/16 03:30 67 18 40 12/04/16 03:00 68 18 121/65 100 Mechanical Ventilator 40 12/04/16 02:00 68 18 103/51 100 Mechanical Ventilator 40 12/04/16 01:30 67 18 40 12/04/16 01:30 65 18 100/50 100 Mechanical Ventilator 40 12/04/16 01:00 68 18 110/50 100 Mechanical Ventilator 40 12/04/16 00:30 99.4 68 18 112/46 100 Mechanical Ventilator 40 12/04/16 00:00 40 12/04/16 00:00 99.4 67 18 114/45 100 Mechanical Ventilator 40 12/04/16 00:00 68 12/03/16 23:30 65 18 40 12/03/16 23:30 67 18 96/47 100 Mechanical Ventilator 40 12/03/16 23:00 67 18 103/56 100 Mechanical Ventilator 40 12/03/16 22:30 67 18 104/47 100 Mechanical Ventilator 40 12/03/16 22:00 67 18 105/47 100 Mechanical Ventilator 40 12/03/16 21:30 67 18 102/45 100 Mechanical Ventilator 40 12/03/16 21:14 68 18 40 12/03/16 21:00 68 18 106/59 100 Mechanical Ventilator 40 12/03/16 20:30 68 18 95/57 100 Mechanical Ventilator 40 12/03/16 20:00 67 12/03/16 20:00 99.0 67 18 102/48 100 Mechanical Ventilator 40 12/03/16 20:00 40 12/03/16 19:30 66 24 40 12/03/16 19:00 66 20 98/45 100 Mechanical Ventilator 40 17 18:30 64 20 97/44 100 Mechanical Ventilator 40 17 18:00 67 21 95/50 100 Mechanical Ventilator 40 12/03/17 17:30 66 21 90/46 100 Mechanical Ventilator 40 12/03/17 17:27 98/49 730/17 17:00 68 23 98/49 100 Mechanical Ventilator 40 17 16:53 67 24 40 730/17 16:30 71 22 96/51 99 Mechanical Ventilator 40 717 16:00 98.1 68 20 102/53 100 Mechanical Ventilator 40 7/30/17 16:00 69 7/30/17 16:00 40 12/03/16 15:30 68 21 98/52 100 Mechanical Ventilator 40 12/03/16 15:16 74 15 40 12/03/16 15:00 67 22 106/53 100 Mechanical Ventilator 40 12/03/16 14:30 68 21 106/51 100 Mechanical Ventilator 40 12/03/16 14:00 66 20 112/49 100 Mechanical Ventilator 40 12/03/16 13:30 69 21 112/52 100 Mechanical Ventilator 40 12/03/16 13:24 65 23 40 Intake and Output 12/03/16 12/04/16 19:00 07:00 Intake Total 702.575 ml 672.50 ml Output Total 275 ml 440 ml Balance 427.575 ml 232.50 ml Free Water 230 ml IV Total 432.575 ml 82.50 ml Tube Feeding 270 ml 360 ml Output Urine Total 275 ml 440 ml Stool Total 0 ml Laboratory Tests 12/04/16 04:00: White Blood Count 14.8H, Corrected White Blood Count , Red Blood Count 3.34L, Hemoglobin 10.3L, Hematocrit 29.5L, Mean Corpuscular Volume 88, Mean Corpuscular Hemoglobin 30.8, Mean Corpuscular Hemoglobin Concent 34.9, Red Cell Distribution Width 16.4H, Platelet Count 83L, Mean Platelet Volume 13.0H, Neutrophils (%) (Auto) , Lymphocytes (%) (Auto) , Monocytes (%) (Auto) , Eosinophils (%) (Auto) , Basophils (%) (Auto) , Differential Total Cells Counted 100, Neutrophils % (Manual) 75, Lymphocytes % (Manual) 13L, Monocytes % (Manual) 9, Eosinophils % (Manual) 0, Basophils % (Manual) 0, Band Neutrophils 3 , Platelet Estimate DecreasedL, Platelet Morphology Normal, Hypochromasia 1+, Anisocytosis 1+, Sodium Level 140, Potassium Level 3.8, Chloride Level 106, Carbon Dioxide Level 26, Anion Gap 8, Blood Urea Nitrogen 20, Creatinine 0.6, Estimat Glomerular Filtration Rate , Glucose Level 116H, Calcium Level 8.2L, Phosphorus Level 2.5, Magnesium Level 1.7, Total Bilirubin 0.5, Aspartate Amino Transf (AST/SGOT) 24, Alanine Aminotransferase (ALT/SGPT) 27, Alkaline Phosphatase 82, Total Protein 4.1L, Albumin 2.3L, Globulin 1.8, Albumin/ Globulin Ratio 1.2 12/04/16 08:55: Arterial Blood pH 7.591*H, Arterial Blood Partial Pressure CO2 25.6L, Arterial Blood Partial Pressure O2 102.8H, Arterial Blood HCO3 24.1, Arterial Blood Oxygen Saturation 97.4, Arterial Blood Base Excess 2.9, Isael Test Positive Height (Feet): 5 Height (Inches): 2.00 Weight (Pounds): 200 General Appearance: lethargic EENT: PERRL/EOMI, normal ENT inspection Neck: non-tender, normal alignment Cardiovascular: normal rate, regular rhythm Respiratory/Chest: lungs clear Abdomen: non tender Extremities: severe edema - Anasarca, other Neurologic: no motor/sensory deficits, other - lethargic ELMA GREWAL Dec 04, 2016 13:06
--- NOTE | 2016-12-04 17:18 | General Progress Note ---
Assessment/Plan Status: stable Assessment/Plan 1. Respiratory failure s/p intubation - continue trials for weaning off vent. 2. Sepsis 2nd to UTI - improved. WBC decreasing. 3. Renal failure 2nd to sepsis - resolved. 4. Pneumonia - improved. cont IV abx. 5. Septic Shock - in ICU. on presser and trying to meghan off. off dopamine drip. 6. H/O Basal Ganglia ischemic stroke recently 7. H/O Rt lower ext DVT - off heparin due to thrombocytopenia. Venous U/S negative for DVT. on SCD 8. Hypernatremia - resolved. 9. Thrombocytopenia - Off heparin due to Thrombocytopenia. improved platlet count. 10. Hyperlipidemia - start lipitor 20 mg in a few days when she is better and off vent. 11. DM II - On SSI 12. Sacral Pressure ulcer - cont wound care. Subjective Date patient seen: Dec 04, 2016 Time patient seen: 17:00 Constitutional: Reports: weakness HEENT: Reports: no symptoms Cardiovascular: Reports: no symptoms Respiratory: Reports: other - intubated Gastrointestinal/Abdominal: Reports: no symptoms Genitourinary: Reports: no symptoms Neurologic/Psychiatric: Reports: no symptoms Endocrine: Reports: no symptoms Hematologic/Lymphatic: Reports: no symptoms Allergies: Coded Allergies: No Known Allergies (Unverified , 11/25/16) Subjective Pt continue to improve. she is better but still intubated and on pressor. off dopamine though. Her WBC improving. Awake and respond to command by closing her eyes. trial of weaning in progress but unsuccessful so far. Objective Last 24 Hour Vital Signs Date Time Temp Pulse Resp B/P Pulse Ox O2 Delivery O2 Flow Rate FiO2 12/04/16 17:00 71 23 96/49 100 Mechanical Ventilator 40 12/04/16 16:58 75 21 40 12/04/16 16:30 67 23 107/80 100 Mechanical Ventilator 40 12/04/16 16:00 66 12/04/16 16:00 40 12/04/16 16:00 98.5 67 19 85/47 99 Mechanical Ventilator 40 12/04/16 15:30 67 19 86/41 100 Mechanical Ventilator 40 12/04/16 15:00 70 21 97/47 100 Mechanical Ventilator 40 12/04/16 14:48 71 24 40 12/04/16 14:30 71 20 92/45 100 Mechanical Ventilator 40 12/04/16 14:00 70 21 91/48 100 Mechanical Ventilator 40 12/04/16 13:30 72 21 85/59 100 Mechanical Ventilator 40 12/04/16 13:00 76 20 98/57 100 Mechanical Ventilator 40 12/04/16 12:40 76 24 40 12/04/16 12:30 74 19 99/42 100 Mechanical Ventilator 40 12/04/16 12:00 98.3 70 21 92/48 100 Mechanical Ventilator 40 12/04/16 12:00 40 12/04/16 12:00 69 12/04/16 11:30 71 20 94/46 100 Mechanical Ventilator 40 12/04/16 11:00 69 21 91/53 100 Mechanical Ventilator 40 12/04/16 10:50 69 20 40 12/04/16 10:30 64 18 95/46 100 Mechanical Ventilator 40 12/04/16 10:00 63 18 102/44 100 Mechanical Ventilator 40 12/04/16 10:00 40 12/04/16 09:30 62 18 95/50 100 Mechanical Ventilator 40 12/04/16 09:05 40 12/04/16 09:05 63 14 40 12/04/16 09:05 100 12/04/16 09:00 59 18 85/45 100 Mechanical Ventilator 40 12/04/16 08:30 60 18 86/43 100 Mechanical Ventilator 40 12/04/16 08:00 68 18 77/42 100 Mechanical Ventilator 40 12/04/16 08:00 66 12/04/16 08:00 40 12/04/16 07:30 98.0 72 18 97/58 100 Mechanical Ventilator 40 12/04/16 07:15 68 18 40 12/04/16 07:00 70 18 80/43 100 Mechanical Ventilator 40 12/04/16 06:30 71 18 100/50 100 Mechanical Ventilator 40 12/04/16 06:00 76 19 80/41 100 Mechanical Ventilator 40 12/04/16 05:30 72 18 93/46 100 Mechanical Ventilator 40 12/04/16 05:00 69 18 85/45 100 Mechanical Ventilator 40 12/04/16 04:57 72 18 40 12/04/16 04:00 98.2 70 18 94/63 100 Mechanical Ventilator 40 12/04/16 04:00 70 12/04/16 04:00 40 12/04/16 03:30 67 18 40 12/04/16 03:00 68 18 121/65 100 Mechanical Ventilator 40 12/04/16 02:00 68 18 103/51 100 Mechanical Ventilator 40 12/04/16 01:30 67 18 40 12/04/16 01:30 65 18 100/50 100 Mechanical Ventilator 40 12/04/16 01:00 68 18 110/50 100 Mechanical Ventilator 40 12/04/16 00:30 99.4 68 18 112/46 100 Mechanical Ventilator 40 12/04/16 00:00 40 12/04/16 00:00 99.4 67 18 114/45 100 Mechanical Ventilator 40 12/04/16 00:00 68 12/03/16 23:30 65 18 40 12/03/16 23:30 67 18 96/47 100 Mechanical Ventilator 40 12/03/16 23:00 67 18 103/56 100 Mechanical Ventilator 40 12/03/16 22:30 67 18 104/47 100 Mechanical Ventilator 40 12/03/16 22:00 67 18 105/47 100 Mechanical Ventilator 40 12/03/16 21:30 67 18 102/45 100 Mechanical Ventilator 40 12/03/16 21:14 68 18 40 12/03/16 21:00 68 18 106/59 100 Mechanical Ventilator 40 12/03/16 20:30 68 18 95/57 100 Mechanical Ventilator 40 12/03/16 20:00 67 12/03/16 20:00 99.0 67 18 102/48 100 Mechanical Ventilator 40 12/03/16 20:00 40 12/03/16 19:30 66 24 40 12/03/16 19:00 66 20 98/45 100 Mechanical Ventilator 40 12/03/16 18:30 64 20 97/44 100 Mechanical Ventilator 40 12/03/16 18:00 67 21 95/50 100 Mechanical Ventilator 40 12/03/16 17:30 66 21 90/46 100 Mechanical Ventilator 40 12/03/16 17:27 98/49 Intake and Output 12/03/16 12/04/16 19:00 07:00 Intake Total 702.575 ml 672.50 ml Output Total 275 ml 440 ml Balance 427.575 ml 232.50 ml Free Water 230 ml IV Total 432.575 ml 82.50 ml Tube Feeding 270 ml 360 ml Output Urine Total 275 ml 440 ml Stool Total 0 ml Laboratory Tests 12/04/16 04:00: White Blood Count 14.8H, Corrected White Blood Count , Red Blood Count 3.34L, Hemoglobin 10.3L, Hematocrit 29.5L, Mean Corpuscular Volume 88, Mean Corpuscular Hemoglobin 30.8, Mean Corpuscular Hemoglobin Concent 34.9, Red Cell Distribution Width 16.4H, Platelet Count 83L, Mean Platelet Volume 13.0H, Neutrophils (%) (Auto) , Lymphocytes (%) (Auto) , Monocytes (%) (Auto) , Eosinophils (%) (Auto) , Basophils (%) (Auto) , Differential Total Cells Counted 100, Neutrophils % (Manual) 75, Lymphocytes % (Manual) 13L, Monocytes % (Manual) 9, Eosinophils % (Manual) 0, Basophils % (Manual) 0, Band Neutrophils 3 , Platelet Estimate DecreasedL, Platelet Morphology Normal, Hypochromasia 1+, Anisocytosis 1+, Sodium Level 140, Potassium Level 3.8, Chloride Level 106, Carbon Dioxide Level 26, Anion Gap 8, Blood Urea Nitrogen 20, Creatinine 0.6, Estimat Glomerular Filtration Rate , Glucose Level 116H, Calcium Level 8.2L, Phosphorus Level 2.5, Magnesium Level 1.7, Total Bilirubin 0.5, Aspartate Amino Transf (AST/SGOT) 24, Alanine Aminotransferase (ALT/SGPT) 27, Alkaline Phosphatase 82, Total Protein 4.1L, Albumin 2.3L, Globulin 1.8, Albumin/ Globulin Ratio 1.2 12/04/16 08:55: Arterial Blood pH 7.591*H, Arterial Blood Partial Pressure CO2 25.6L, Arterial Blood Partial Pressure O2 102.8H, Arterial Blood HCO3 24.1, Arterial Blood Oxygen Saturation 97.4, Arterial Blood Base Excess 2.9, Isael Test Positive Height (Feet): 5 Height (Inches): 2.00 Weight (Pounds): 200 General Appearance: no apparent distress, alert EENT: normal ENT inspection Neck: non-tender, supple Cardiovascular: normal peripheral pulses, normal rate, regular rhythm Respiratory/Chest: chest wall non-tender, lungs clear, no respiratory distress , other - intubated Abdomen: normal bowel sounds, non tender, soft Extremities: normal range of motion, non-tender Edema: no edema noted Arm (L), no edema noted Arm (R), no edema noted Leg (L), no edema noted Leg (R), no edema noted Pedal (L), no edema noted Pedal (R), no edema noted Generalized Neurologic: alert, responsive Skin: warm/dry Lymphatic: normal anterior cervical (L), normal anterior cervical (R), normal axillary (L), normal axillary (R), normal inguinal (L), normal inguinal (R), normal other, normal posterior cervical (L), normal posterior cervical (R), normal submandibular (L), normal submandibular (R), normal supraclavicular (L), normal supraclavicular (R) TERI JACKSON Dec 04, 2016 17:18
[2016-12-04] MEDS: Dyna-Hex 2% Top Sol 8oz TOPIC SCH (21:00)
[2016-12-04] MEDS: Ertapenem 1gm in NS 55ml IVPB SCH (21:00)
[2016-12-05] VITALS (47 sets, daily range): BP systolic 84–117; BP diastolic 40–93
[2016-12-05] MEDS: NovoLOG Insulin Flexpen SUBQ SCH ×4 (00:02→17:23)
--- NOTE | 2016-12-05 02:04 | Wound Nurse Progress Note ---
Wound RN Progress Note Wound Consult #1 Sacral pressure ulcer UNSTAGEABLE two ulcers very close in proxmity. scattered pressure ulcer UNSTAGEABLE noted to to surrounding sacral wound. #2 Right upper buttock UNSTAGEABLE pressure ulcer. Reassessed this Pt. No further deterioration noted. Will apply Therahoney gel to wound for debridement of the yellow slough as ordered and will f/u accordingly for any changes. HAMILTON MUNGUIA RN Dec 05, 2016 02:04
--- NOTE | 2016-12-05 05:14 | Infectious Diseases Prog Note ---
Assessment/Plan Problems: (1) Septic shock Assessment & Plan: Cortisol level noted. Due to UTI and septicemia. Still on pressor. WBC back up slightly though clinically otherwise appears to be stable. 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 (3) UTI (urinary tract infection) Assessment & Plan: Due to E. coli. On ertapenem. Plan a 7-day course probably. (4) MARYAM (acute kidney injury) Assessment & Plan: Resolved. (5) Septicemia Assessment & Plan: BCx grew Proteus and CoNS. Proteus source? On ertapenem and vancomycin IV. Probably need 10-14 days of ertapenem and 5-7 days of vancomycin IV. (6) Acute respiratory failure Assessment & Plan: In the setting of septic shock. (7) HCAP (healthcare-associated pneumonia) Assessment & Plan: SCx noted. On empiric vancomycin and ertapenem. Follow-up CXR better. Assessment/Plan (Late entry for 12/04/2016). Subjective Allergies: Coded Allergies: No Known Allergies (Unverified , 11/25/16) Objective Vital Signs Last 24 Hour Vital Signs Date Time Temp Pulse Resp B/P Pulse Ox O2 Delivery O2 Flow Rate FiO2 12/05/16 05:00 64 18 101/56 100 Mechanical Ventilator 40 12/05/16 05:00 101/56 12/05/16 04:30 67 18 91/44 99 Mechanical Ventilator 40 12/05/16 04:00 40 12/05/16 04:00 92/65 12/05/16 04:00 66 12/05/16 04:00 98.3 69 19 92/69 100 Mechanical Ventilator 40 12/05/16 03:30 66 18 89/54 100 Mechanical Ventilator 40 12/05/16 03:16 60 18 40 12/05/16 03:00 68 18 103/50 100 Mechanical Ventilator 40 12/05/16 03:00 103/50 12/05/16 02:30 66 18 88/52 100 Mechanical Ventilator 40 12/05/16 02:00 94/45 12/05/16 02:00 64 18 94/45 100 Mechanical Ventilator 40 12/05/16 01:30 65 18 97/44 100 Mechanical Ventilator 40 12/05/16 01:30 62 18 40 12/05/16 01:00 95/58 12/05/16 01:00 63 18 95/58 100 Mechanical Ventilator 40 12/05/16 00:30 60 18 105/48 100 Mechanical Ventilator 40 12/05/16 00:00 98.4 60 19 111/52 100 Mechanical Ventilator 40 12/05/16 00:00 111/52 12/05/16 00:00 40 12/05/16 00:00 62 12/04/16 23:30 60 18 92/51 100 Mechanical Ventilator 40 12/04/16 23:22 61 18 40 12/04/16 23:00 95/45 12/04/16 23:00 61 18 95/45 100 Mechanical Ventilator 40 12/04/16 22:30 65 18 100/43 100 Mechanical Ventilator 40 12/04/16 22:00 91/51 12/04/16 22:00 61 18 91/51 100 Mechanical Ventilator 40 12/04/16 21:30 70 18 40 12/04/16 21:30 58 18 93/41 100 Mechanical Ventilator 40 12/04/16 21:00 63 18 84/44 100 Mechanical Ventilator 40 12/04/16 21:00 93/41 12/04/16 20:30 66 18 92/53 100 Mechanical Ventilator 40 12/04/16 20:00 66 12/04/16 20:00 98.7 65 19 88/49 100 Mechanical Ventilator 40 12/04/16 20:00 88/49 12/04/16 19:30 51 18 40 12/04/16 19:30 68 18 146/63 100 Mechanical Ventilator 40 12/04/16 19:00 64 18 92/49 100 Mechanical Ventilator 40 12/04/16 18:30 64 18 92/50 100 Mechanical Ventilator 40 12/04/16 18:17 85/47 12/04/16 18:00 70 18 85/47 100 Mechanical Ventilator 40 12/04/16 17:30 40 12/04/16 17:30 70 20 90/48 100 Mechanical Ventilator 40 12/04/16 17:00 71 23 96/49 100 Mechanical Ventilator 40 12/04/16 17:00 40 12/04/16 16:58 75 21 40 12/04/16 16:30 67 23 107/80 100 Mechanical Ventilator 40 12/04/16 16:00 66 12/04/16 16:00 40 12/04/16 16:00 98.5 67 19 85/47 99 Mechanical Ventilator 40 12/04/16 15:30 67 19 86/41 100 Mechanical Ventilator 40 12/04/16 15:00 70 21 97/47 100 Mechanical Ventilator 40 12/04/16 14:48 71 24 40 12/04/16 14:30 71 20 92/45 100 Mechanical Ventilator 40 12/04/16 14:00 70 21 91/48 100 Mechanical Ventilator 40 12/04/16 13:30 72 21 85/59 100 Mechanical Ventilator 40 12/04/16 13:00 76 20 98/57 100 Mechanical Ventilator 40 12/04/16 12:40 76 24 40 12/04/16 12:30 74 19 99/42 100 Mechanical Ventilator 40 12/04/16 12:00 98.3 70 21 92/48 100 Mechanical Ventilator 40 12/04/16 12:00 40 12/04/16 12:00 69 12/04/16 11:30 71 20 94/46 100 Mechanical Ventilator 40 12/04/16 11:00 69 21 91/53 100 Mechanical Ventilator 40 12/04/16 10:50 69 20 40 12/04/16 10:30 64 18 95/46 100 Mechanical Ventilator 40 12/04/16 10:00 63 18 102/44 100 Mechanical Ventilator 40 12/04/16 10:00 40 12/04/16 09:30 62 18 95/50 100 Mechanical Ventilator 40 12/04/16 09:05 40 12/04/16 09:05 63 14 40 12/04/16 09:05 100 12/04/16 09:00 59 18 85/45 100 Mechanical Ventilator 40 12/04/16 08:30 60 18 86/43 100 Mechanical Ventilator 40 12/04/16 08:00 68 18 77/42 100 Mechanical Ventilator 40 12/04/16 08:00 66 12/04/16 08:00 40 12/04/16 07:30 98.0 72 18 97/58 100 Mechanical Ventilator 40 12/04/16 07:15 68 18 40 12/04/16 07:00 70 18 80/43 100 Mechanical Ventilator 40 12/04/16 06:30 71 18 100/50 100 Mechanical Ventilator 40 12/04/16 06:00 76 19 80/41 100 Mechanical Ventilator 40 12/04/16 05:30 72 18 93/46 100 Mechanical Ventilator 40 Height (Feet): 5 Height (Inches): 2.00 Weight (Pounds): 200 Laboratory Tests Test 12/04/16 08:55 Arterial Blood pH 7.591 (7.350-7.450) Arterial Blood Partial Pressure CO2 25.6 mmHg (35.0-45.0) L Arterial Blood Partial Pressure O2 102.8 mmHg (75.0-100.0) H Arterial Blood HCO3 24.1 mmol/L (22.0-26.0) Arterial Blood Oxygen Saturation 97.4 % (92.0-98.0) Arterial Blood Base Excess 2.9 Isael Test Positive Current Medications Medications (Trade) Dose Ordered Sig/Flora Route PRN Reason Start Time Stop Time Status Last Admin Dose Admin Acetaminophen (Tylenol) 650 mg Q4H PRN ORAL fever 11/25/16 16:00 12/25/16 15:59 Chlorhexidine Gluconate (Emmie-Hex 2%) 1 applic QHS TOPIC 12/02/16 21:00 01/01/17 20:59 12/04/16 21:00 Dextrose (Dextrose 50%) STAT PRN IV Hypoglycemia 11/25/16 16:00 12/25/16 15:59 Ertapenem 1 gm/ Sodium Chloride 55 ml @ 110 mls/hr Q24H IVPB 11/30/16 21:00 12/09/16 20:59 12/04/16 21:00 Insulin Aspart (NovoLOG) EVERY 6 HOURS SUBQ 11/26/16 00:00 12/26/16 00:00 12/05/16 00:02 Metoclopramide HCl 5 mg 5 mg Q6H PRN IVP Nausea & Vomiting 11/28/16 09:45 12/28/16 09:44 11/30/16 23:10 Midodrine (Pro-Amatine) 2.5 mg EVERY 8 HOURS ORAL 12/04/16 14:00 01/03/17 13:59 12/04/16 21:55 Nitroglycerin (Ntg) 0.4 mg Q5M PRN SL Prn Chest Pain 11/25/16 16:00 12/25/16 15:59 Norepinephrine Bitartrate/ Dextrose (Levophed/D5W) 250 ml @ 0 mls/hr Q24H IV 11/25/16 17:00 12/25/16 16:59 12/04/16 18:17 Ondansetron HCl (Zofran) 4 mg Q6H PRN IVP Nausea & Vomiting 11/25/16 16:00 12/25/16 15:59 Pantoprazole (Protonix) 40 mg DAILY IVP 11/28/16 09:00 12/28/16 08:59 12/04/16 08:35 Polyethylene Glycol (Miralax) 17 gm DAILYPRN PRN ORAL Constipation 11/25/16 16:00 12/25/16 15:59 Sodium Chloride 250 ml @ 999 mls/hr ONCE PRN IV PRN SBP < 90 11/30/16 14:30 12/30/16 14:29 Vancomycin HCl 1 ea 1 ea DAILY PRN MISC PER RX PROTOCOL 11/25/16 16:45 12/25/16 16:44 Vancomycin HCl/ Dextrose (Vancomycin 1250mg/D5W 250ml) 250 ml @ 166.667 mls/hr Q24H IVPB 12/01/16 09:00 12/06/16 08:59 12/04/16 08:35 BEATRIZ FELIX Dec 05, 2016 05:14
[2016-12-05 05:40] LABS: MEAN CORPUSCULAR HEMOGLOBIN 30.2 PG (27.0-31.0); MEAN CORPUSCULAR VOLUME 89 FL (80-99); MEAN PLATELET VOLUME 11.3 FL (6.5-10.1); PLATELET COUNT 90 K/UL (150-450); RED BLOOD COUNT 3.15 M/UL (4.20-5.40); RED CELL DISTRIBUTION WIDTH 16.2 % (11.6-14.8); WHITE BLOOD COUNT 12.1 K/UL (4.8-10.8)
[2016-12-05 06:05] LABS: ALANINE AMINOTRANSFERASE 22 U/L (3-33); ALBUMIN/GLOBULIN RATIO 0.8 (1.0-2.7); ANION GAP 11 (5-15); ASPARTATE AMINO TRANSFERASE 24 U/L (5-40); CALCIUM 7.9 mg/dL (8.6-10.2); CARBON DIOXIDE 21 mEQ/L (20-30); CHLORIDE 105 mEQ/L (98-107); CREATININE 0.5 mg/dL (0.5-0.9); HEMOLYSIS 13; MAGNESIUM 1.6 mg/dL (1.7-2.5); PHOSPHORUS 2.7 mg/dL (2.5-4.8); POTASSIUM 3.5 mEQ/L (3.4-4.9); SODIUM 137 mEQ/L (135-145)
--- NOTE | 2016-12-05 06:48 | Nephrology Progress Note ---
Assessment/Plan Assessment 1) MARYAM recovered 2) Hypernatremia resolved 3) Septic shock is better 4) HCAP + UTI \5) Clinically euvolemic Plan: Continue current measures Try to take her off pressor Weaning from the vent Subjective Subjective She is strill on the vent, still on TF, she is still on levophed 2 mcg drip, creat is 0.5 Objective Objective Last 24 Hour Vital Signs Date Time Temp Pulse Resp B/P Pulse Ox O2 Delivery O2 Flow Rate FiO2 12/05/16 06:06 107/47 12/05/16 06:00 60 18 117/47 100 Mechanical Ventilator 40 12/05/16 05:30 64 18 92/58 100 Mechanical Ventilator 40 12/05/16 05:28 58 18 40 12/05/16 05:00 64 18 101/56 100 Mechanical Ventilator 40 12/05/16 05:00 101/56 12/05/16 04:30 67 18 91/44 99 Mechanical Ventilator 40 12/05/16 04:00 40 12/05/16 04:00 92/65 12/05/16 04:00 66 12/05/16 04:00 98.3 69 19 92/69 100 Mechanical Ventilator 40 12/05/16 03:30 66 18 89/54 100 Mechanical Ventilator 40 12/05/16 03:16 60 18 40 12/05/16 03:00 68 18 103/50 100 Mechanical Ventilator 40 12/05/16 03:00 103/50 12/05/16 02:30 66 18 88/52 100 Mechanical Ventilator 40 12/05/16 02:00 94/45 12/05/16 02:00 64 18 94/45 100 Mechanical Ventilator 40 12/05/16 01:30 65 18 97/44 100 Mechanical Ventilator 40 12/05/16 01:30 62 18 40 12/05/16 01:00 95/58 12/05/16 01:00 63 18 95/58 100 Mechanical Ventilator 40 12/05/16 00:30 60 18 105/48 100 Mechanical Ventilator 40 12/05/16 00:00 98.4 60 19 111/52 100 Mechanical Ventilator 40 12/05/16 00:00 111/52 12/05/16 00:00 40 12/05/16 00:00 62 12/04/16 23:30 60 18 92/51 100 Mechanical Ventilator 40 7/31/17 23:22 61 18 40 12/04/16 23:00 95/45 12/04/16 23:00 61 18 95/45 100 Mechanical Ventilator 40 12/04/16 22:30 65 18 100/43 100 Mechanical Ventilator 40 12/04/16 22:00 91/51 12/04/16 22:00 61 18 91/51 100 Mechanical Ventilator 40 12/04/16 21:30 70 18 40 12/04/16 21:30 58 18 93/41 100 Mechanical Ventilator 40 12/04/16 21:00 63 18 84/44 100 Mechanical Ventilator 40 12/04/16 21:00 93/41 12/04/16 20:30 66 18 92/53 100 Mechanical Ventilator 40 12/04/16 20:00 66 12/04/16 20:00 98.7 65 19 88/49 100 Mechanical Ventilator 40 12/04/16 20:00 88/49 12/04/16 19:30 51 18 40 12/04/16 19:30 68 18 146/63 100 Mechanical Ventilator 40 12/04/16 19:00 64 18 92/49 100 Mechanical Ventilator 40 12/04/16 18:30 64 18 92/50 100 Mechanical Ventilator 40 12/04/16 18:17 85/47 12/04/16 18:00 70 18 85/47 100 Mechanical Ventilator 40 12/04/16 17:30 40 12/04/16 17:30 70 20 90/48 100 Mechanical Ventilator 40 12/04/16 17:00 71 23 96/49 100 Mechanical Ventilator 40 12/04/16 17:00 40 12/04/16 16:58 75 21 40 12/04/16 16:30 67 23 107/80 100 Mechanical Ventilator 40 12/04/16 16:00 66 12/04/16 16:00 40 12/04/16 16:00 98.5 67 19 85/47 99 Mechanical Ventilator 40 12/04/16 15:30 67 19 86/41 100 Mechanical Ventilator 40 12/04/16 15:00 70 21 97/47 100 Mechanical Ventilator 40 12/04/16 14:48 71 24 40 12/04/16 14:30 71 20 92/45 100 Mechanical Ventilator 40 12/04/16 14:00 70 21 91/48 100 Mechanical Ventilator 40 12/04/16 13:30 72 21 85/59 100 Mechanical Ventilator 40 12/04/16 13:00 76 20 98/57 100 Mechanical Ventilator 40 12/04/16 12:40 76 24 40 12/04/16 12:30 74 19 99/42 100 Mechanical Ventilator 40 12/04/16 12:00 98.3 70 21 92/48 100 Mechanical Ventilator 40 12/04/16 12:00 40 12/04/16 12:00 69 12/04/16 11:30 71 20 94/46 100 Mechanical Ventilator 40 12/04/16 11:00 69 21 91/53 100 Mechanical Ventilator 40 12/04/16 10:50 69 20 40 12/04/16 10:30 64 18 95/46 100 Mechanical Ventilator 40 12/04/16 10:00 63 18 102/44 100 Mechanical Ventilator 40 12/04/16 10:00 40 12/04/16 09:30 62 18 95/50 100 Mechanical Ventilator 40 12/04/16 09:05 40 12/04/16 09:05 63 14 40 12/04/16 09:05 100 12/04/16 09:00 59 18 85/45 100 Mechanical Ventilator 40 12/04/16 08:30 60 18 86/43 100 Mechanical Ventilator 40 12/04/16 08:00 68 18 77/42 100 Mechanical Ventilator 40 12/04/16 08:00 66 12/04/16 08:00 40 12/04/16 07:30 98.0 72 18 97/58 100 Mechanical Ventilator 40 12/04/16 07:15 68 18 40 12/04/16 07:00 70 18 80/43 100 Mechanical Ventilator 40 Intake and Output 12/04/16 12/05/16 19:00 07:00 Intake Total 730.15 ml 517.5 ml Output Total 295 ml 410 ml Balance 435.15 ml 107.5 ml IV Total 490.15 ml 137.5 ml Tube Feeding 240 ml 330 ml Other 50 ml Output Urine Total 295 ml 410 ml # Bowel Movements 1 2 Laboratory Tests 12/04/16 08:55: Arterial Blood pH 7.591*H, Arterial Blood Partial Pressure CO2 25.6L, Arterial Blood Partial Pressure O2 102.8H, Arterial Blood HCO3 24.1, Arterial Blood Oxygen Saturation 97.4, Arterial Blood Base Excess 2.9, Isael Test Positive 12/05/16 04:50: White Blood Count 12.1H, Red Blood Count 3.15L, Hemoglobin 9.5L, Hematocrit 27.9L, Mean Corpuscular Volume 89, Mean Corpuscular Hemoglobin 30.2, Mean Corpuscular Hemoglobin Concent 34.0, Red Cell Distribution Width 16.2H, Platelet Count 90L, Mean Platelet Volume 11.3H, Neutrophils (%) (Auto) , Lymphocytes (%) (Auto) , Monocytes (%) (Auto) , Eosinophils (%) (Auto) , Basophils (%) (Auto) , Neutrophils % (Manual) [Pending], Lymphocytes % (Manual) [Pending], Platelet Estimate [Pending], Platelet Morphology [Pending], Sodium Level 137, Potassium Level 3.5, Chloride Level 105, Carbon Dioxide Level 21, Anion Gap 11, Blood Urea Nitrogen 18, Creatinine 0.5, Estimat Glomerular Filtration Rate , Glucose Level 112H, Calcium Level 7.9L, Phosphorus Level 2.7, Magnesium Level 1.6L, Total Bilirubin 0.6, Aspartate Amino Transf (AST/SGOT) 24 , Alanine Aminotransferase (ALT/SGPT) 22, Alkaline Phosphatase 73, Total Protein 4.0L, Albumin 1.8L, Globulin 2.2, Albumin/Globulin Ratio 0.8L Height (Feet): 5 Height (Inches): 2.00 Weight (Pounds): 194 General Appearance: WD/WN, alert EENT: PERRL/EOMI Neck: non-tender, supple Cardiovascular: normal rate, regular rhythm, no JVD Respiratory/Chest: lungs clear Extremities: severe edema Neurologic: alert ELMA GREWAL Dec 05, 2016 06:48
[2016-12-05 08:21] LABS: BAND NEUTROPHILS % (MANUAL) 1 % (0-8); LYMPHOCYTES % (MANUAL) 14 % (20-45); NEUTROPHILS % (MANUAL) 80 % (45-75); TOTAL CELLS COUNTED 100
[2016-12-05 08:22] LABS: ANISOCYTOSIS 1+; BASOPHILS % (MANUAL) 0 % (0-2); EOSINOPHILS % (MANUAL) 0 % (0-3); PLATELET ESTIMATE DECREASED; PLATELET MORPHOLOGY NORMAL
--- NOTE | 2016-12-05 08:23 | Diagnostic Imaging Report ---
Indications: DYSPNEA Technique: Portable AP chest Findings: Comparison: 12/04/16 Lung volume asymmetry has improved. Left retrocardiac opacification, left costophrenic angle indistinctness suggesting pleural effusion persist, unchanged. Right lung and pleura remain clear. Cardiac mediastinal silhouette stable. Lines and tubes remain in place, distal end of nasogastric tube remains coiled over the cardiac silhouette. IMPRESSION: Improved left lung inflation despite persistent left lower lobe atelectasis versus pneumonia Persistent suggestion of left pleural effusion Apparent hiatal hernia
[2016-12-05] MEDS: Pantoprazole Inj IVP SCH (08:25)
--- NOTE | 2016-12-05 08:34 | General Progress Note ---
Assessment/Plan Status: stable Assessment/Plan 1. Respiratory failure s/p intubation - continue trials for weaning off vent. improving and tolerating CPAP. 2. Sepsis 2nd to UTI - improved. WBC decreasing. 3. Renal failure 2nd to sepsis - resolved. 4. Pneumonia - improved. cont IV abx. 5. Septic Shock - in ICU. on presser and trying to meghan off. off dopamine drip. 6. H/O Basal Ganglia ischemic stroke recently 7. H/O Rt lower ext DVT - off heparin due to thrombocytopenia. Venous U/S negative for DVT. on SCD 8. Thrombocytopenia - Off heparin due to Thrombocytopenia. improved platlet count. 9. Hyperlipidemia - start lipitor 20 mg in a few days when she is better and off vent. 10. DM II - On SSI 11. Sacral Pressure ulcer - cont wound care. Subjective Date patient seen: Dec 05, 2016 Time patient seen: 08:30 Constitutional: Reports: weakness HEENT: Reports: no symptoms Cardiovascular: Reports: no symptoms Respiratory: Reports: no symptoms, other - intubated Gastrointestinal/Abdominal: Reports: no symptoms Genitourinary: Reports: no symptoms Neurologic/Psychiatric: Reports: no symptoms Endocrine: Reports: no symptoms Hematologic/Lymphatic: Reports: no symptoms Allergies: Coded Allergies: No Known Allergies (Unverified , 11/25/16) Subjective Pt continue to improve. she is better but still intubated and on pressor. off dopamine though. Now on CPAP and tolerating it. Her WBC improving. Awake and respond to command by closing her eyes. trial of weaning in progress. Objective Last 24 Hour Vital Signs Date Time Temp Pulse Resp B/P Pulse Ox O2 Delivery O2 Flow Rate FiO2 12/05/16 08:00 40 12/05/16 08:00 95/47 12/05/16 08:00 98.3 69 23 95/47 100 Mechanical Ventilator 40 12/05/16 08:00 69 12/05/16 07:30 73 25 103/64 99 Mechanical Ventilator 40 12/05/16 07:11 69 12 40 12/05/16 07:00 71 18 91/47 99 Mechanical Ventilator 40 12/05/16 07:00 91/47 12/05/16 06:30 68 18 90/51 100 Mechanical Ventilator 40 12/05/16 06:06 107/47 12/05/16 06:00 60 18 117/47 100 Mechanical Ventilator 40 12/05/16 05:30 64 18 92/58 100 Mechanical Ventilator 40 12/05/16 05:28 58 18 40 12/05/16 05:00 64 18 101/56 100 Mechanical Ventilator 40 12/05/16 05:00 101/56 12/05/16 04:30 67 18 91/44 99 Mechanical Ventilator 40 12/05/16 04:00 40 12/05/16 04:00 92/65 12/05/16 04:00 66 12/05/16 04:00 98.3 69 19 92/69 100 Mechanical Ventilator 40 12/05/16 03:30 66 18 89/54 100 Mechanical Ventilator 40 12/05/16 03:16 60 18 40 12/05/16 03:00 68 18 103/50 100 Mechanical Ventilator 40 12/05/16 03:00 103/50 12/05/16 02:30 66 18 88/52 100 Mechanical Ventilator 40 12/05/16 02:00 94/45 12/05/16 02:00 64 18 94/45 100 Mechanical Ventilator 40 12/05/16 01:30 65 18 97/44 100 Mechanical Ventilator 40 12/05/16 01:30 62 18 40 12/05/16 01:00 95/58 12/05/16 01:00 63 18 95/58 100 Mechanical Ventilator 40 12/05/16 00:30 60 18 105/48 100 Mechanical Ventilator 40 12/05/16 00:00 98.4 60 19 111/52 100 Mechanical Ventilator 40 12/05/16 00:00 111/52 12/05/16 00:00 40 12/05/16 00:00 62 12/04/16 23:30 60 18 92/51 100 Mechanical Ventilator 40 12/04/16 23:22 61 18 40 12/04/16 23:00 95/45 12/04/16 23:00 61 18 95/45 100 Mechanical Ventilator 40 12/04/16 22:30 65 18 100/43 100 Mechanical Ventilator 40 12/04/16 22:00 91/51 12/04/16 22:00 61 18 91/51 100 Mechanical Ventilator 40 12/04/16 21:30 70 18 40 12/04/16 21:30 58 18 93/41 100 Mechanical Ventilator 40 12/04/16 21:00 63 18 84/44 100 Mechanical Ventilator 40 12/04/16 21:00 93/41 12/04/16 20:30 66 18 92/53 100 Mechanical Ventilator 40 12/04/16 20:00 66 12/04/16 20:00 98.7 65 19 88/49 100 Mechanical Ventilator 40 12/04/16 20:00 88/49 12/04/16 19:30 51 18 40 12/04/16 19:30 68 18 146/63 100 Mechanical Ventilator 40 12/04/16 19:00 64 18 92/49 100 Mechanical Ventilator 40 12/04/16 18:30 64 18 92/50 100 Mechanical Ventilator 40 12/04/16 18:17 85/47 12/04/16 18:00 70 18 85/47 100 Mechanical Ventilator 40 12/04/16 17:30 40 12/04/16 17:30 70 20 90/48 100 Mechanical Ventilator 40 12/04/16 17:00 71 23 96/49 100 Mechanical Ventilator 40 12/04/16 17:00 40 12/04/16 16:58 75 21 40 12/04/16 16:30 67 23 107/80 100 Mechanical Ventilator 40 12/04/16 16:00 66 12/04/16 16:00 40 12/04/16 16:00 98.5 67 19 85/47 99 Mechanical Ventilator 40 12/04/16 15:30 67 19 86/41 100 Mechanical Ventilator 40 12/04/16 15:00 70 21 97/47 100 Mechanical Ventilator 40 12/04/16 14:48 71 24 40 12/04/16 14:30 71 20 92/45 100 Mechanical Ventilator 40 12/04/16 14:00 70 21 91/48 100 Mechanical Ventilator 40 12/04/16 13:30 72 21 85/59 100 Mechanical Ventilator 40 12/04/16 13:00 76 20 98/57 100 Mechanical Ventilator 40 12/04/16 12:40 76 24 40 12/04/16 12:30 74 19 99/42 100 Mechanical Ventilator 40 12/04/16 12:00 98.3 70 21 92/48 100 Mechanical Ventilator 40 12/04/16 12:00 40 12/04/16 12:00 69 12/04/16 11:30 71 20 94/46 100 Mechanical Ventilator 40 12/04/16 11:00 69 21 91/53 100 Mechanical Ventilator 40 12/04/16 10:50 69 20 40 7/31/17 10:30 64 18 95/46 100 Mechanical Ventilator 40 12/04/16 10:00 63 18 102/44 100 Mechanical Ventilator 40 12/04/16 10:00 40 12/04/16 09:30 62 18 95/50 100 Mechanical Ventilator 40 12/04/16 09:05 40 12/04/16 09:05 63 14 40 12/04/16 09:05 100 12/04/16 09:00 59 18 85/45 100 Mechanical Ventilator 40 Intake and Output 12/04/16 12/05/16 19:00 07:00 Intake Total 730.15 ml 525.0 ml Output Total 295 ml 445 ml Balance 435.15 ml 80.0 ml IV Total 490.15 ml 145.0 ml Tube Feeding 240 ml 330 ml Other 50 ml Output Urine Total 295 ml 445 ml # Bowel Movements 1 2 Laboratory Tests 12/04/16 08:55: Arterial Blood pH 7.591*H, Arterial Blood Partial Pressure CO2 25.6L, Arterial Blood Partial Pressure O2 102.8H, Arterial Blood HCO3 24.1, Arterial Blood Oxygen Saturation 97.4, Arterial Blood Base Excess 2.9, Isael Test Positive 12/05/16 04:50: White Blood Count 12.1H, Red Blood Count 3.15L, Hemoglobin 9.5L, Hematocrit 27.9L, Mean Corpuscular Volume 89, Mean Corpuscular Hemoglobin 30.2, Mean Corpuscular Hemoglobin Concent 34.0, Red Cell Distribution Width 16.2H, Platelet Count 90L, Mean Platelet Volume 11.3H, Neutrophils (%) (Auto) , Lymphocytes (%) (Auto) , Monocytes (%) (Auto) , Eosinophils (%) (Auto) , Basophils (%) (Auto) , Differential Total Cells Counted 100, Neutrophils % ( Manual) 80H, Lymphocytes % (Manual) 14L, Monocytes % (Manual) 5, Eosinophils % ( Manual) 0, Basophils % (Manual) 0, Band Neutrophils 1, Platelet Estimate DecreasedL, Platelet Morphology Normal, Anisocytosis 1+, Sodium Level 137, Potassium Level 3.5, Chloride Level 105, Carbon Dioxide Level 21, Anion Gap 11, Blood Urea Nitrogen 18, Creatinine 0.5, Estimat Glomerular Filtration Rate , Glucose Level 112H, Calcium Level 7.9L, Phosphorus Level 2.7, Magnesium Level 1.6L, Total Bilirubin 0.6, Aspartate Amino Transf (AST/SGOT) 24, Alanine Aminotransferase (ALT/SGPT) 22, Alkaline Phosphatase 73, Total Protein 4.0L, Albumin 1.8L, Globulin 2.2, Albumin/Globulin Ratio 0.8L Height (Feet): 5 Height (Inches): 2.00 Weight (Pounds): 194 General Appearance: no apparent distress, alert EENT: normal ENT inspection Neck: non-tender, normal alignment, supple Cardiovascular: normal rate, regular rhythm Respiratory/Chest: chest wall non-tender, lungs clear, normal breath sounds Abdomen: normal bowel sounds, non tender, soft Extremities: normal range of motion, non-tender Edema: no edema noted Arm (L), no edema noted Arm (R), no edema noted Leg (L), no edema noted Leg (R), no edema noted Pedal (L), no edema noted Pedal (R), no edema noted Generalized Neurologic: alert, responsive Skin: warm/dry Lymphatic: normal anterior cervical (L), normal anterior cervical (R), normal axillary (L), normal axillary (R), normal inguinal (L), normal inguinal (R), normal other, normal posterior cervical (L), normal posterior cervical (R), normal submandibular (L), normal submandibular (R), normal supraclavicular (L), normal supraclavicular (R) TERI JACKSON Dec 05, 2016 08:34
[2016-12-05 09:31] LABS: ABG ALLEN TEST POSITIVE; ABG BASE EXCESS 1.8; ABG PCO2 34.1 mmHg (35.0-45.0)
--- NOTE | 2016-12-05 09:57 | Pulmonolgy Critical Care Note ---
Critical Care - Asmt/Plan Problems: (1) Respiratory failure (2) Septic shock (3) Acute encephalopathy (4) ARF (acute renal failure) (5) Hypernatremia (6) Diabetes mellitus Respiratory: monitor respiratory rate, adjust FIO2 Cardiac: continue pressors, continue to monitor HR/BP, other - increase midodrine Renal: F/U I&O, keep IV fluid Infectious Disease: check cultures Gastrointestinal: continue feedings/current rate Endocrine: monitor blood sugar, check TSH Hematologic: transfuse if hgb<8.5 Neurologic: PRN Morphine, keep patient comfortable Affect: PRN ativan Prophylaxis: Protonix, Heparin Notes Reviewed: real estate services administrator, cardio Discussed with: nurses, consultants, case resource managermanager sound - Objective Last 24 Hour Vital Signs Date Time Temp Pulse Resp B/P Pulse Ox O2 Delivery O2 Flow Rate FiO2 12/05/16 09:12 73 24 40 12/05/16 09:11 100 12/05/16 09:00 104/49 12/05/16 09:00 68 29 93/46 100 Mechanical Ventilator 40 12/05/16 08:30 71 25 92/61 99 Mechanical Ventilator 40 12/05/16 08:00 40 12/05/16 08:00 95/47 12/05/16 08:00 98.3 69 23 95/47 100 Mechanical Ventilator 40 12/05/16 08:00 69 12/05/16 07:30 73 25 103/64 99 Mechanical Ventilator 40 12/05/16 07:11 69 12 40 12/05/16 07:00 71 18 91/47 99 Mechanical Ventilator 40 12/05/16 07:00 91/47 12/05/16 06:30 68 18 90/51 100 Mechanical Ventilator 40 12/05/16 06:06 107/47 12/05/16 06:00 60 18 117/47 100 Mechanical Ventilator 40 12/05/16 05:30 64 18 92/58 100 Mechanical Ventilator 40 12/05/16 05:28 58 18 40 12/05/16 05:00 64 18 101/56 100 Mechanical Ventilator 40 12/05/16 05:00 101/56 12/05/16 04:30 67 18 91/44 99 Mechanical Ventilator 40 12/05/16 04:00 40 12/05/16 04:00 92/65 12/05/16 04:00 66 12/05/16 04:00 98.3 69 19 92/69 100 Mechanical Ventilator 40 12/05/16 03:30 66 18 89/54 100 Mechanical Ventilator 40 12/05/16 03:16 60 18 40 12/05/16 03:00 68 18 103/50 100 Mechanical Ventilator 40 12/05/16 03:00 103/50 12/05/16 02:30 66 18 88/52 100 Mechanical Ventilator 40 12/05/16 02:00 94/45 12/05/16 02:00 64 18 94/45 100 Mechanical Ventilator 40 12/05/16 01:30 65 18 97/44 100 Mechanical Ventilator 40 12/05/16 01:30 62 18 40 12/05/16 01:00 95/58 12/05/16 01:00 63 18 95/58 100 Mechanical Ventilator 40 12/05/16 00:30 60 18 105/48 100 Mechanical Ventilator 40 12/05/16 00:00 98.4 60 19 111/52 100 Mechanical Ventilator 40 12/05/16 00:00 111/52 12/05/16 00:00 40 12/05/16 00:00 62 12/04/16 23:30 60 18 92/51 100 Mechanical Ventilator 40 12/04/16 23:22 61 18 40 12/04/16 23:00 95/45 12/04/16 23:00 61 18 95/45 100 Mechanical Ventilator 40 12/04/16 22:30 65 18 100/43 100 Mechanical Ventilator 40 12/04/16 22:00 91/51 12/04/16 22:00 61 18 91/51 100 Mechanical Ventilator 40 12/04/16 21:30 70 18 40 12/04/16 21:30 58 18 93/41 100 Mechanical Ventilator 40 12/04/16 21:00 63 18 84/44 100 Mechanical Ventilator 40 12/04/16 21:00 93/41 12/04/16 20:30 66 18 92/53 100 Mechanical Ventilator 40 12/04/16 20:00 66 12/04/16 20:00 98.7 65 19 88/49 100 Mechanical Ventilator 40 12/04/16 20:00 88/49 12/04/16 19:30 51 18 40 12/04/16 19:30 68 18 146/63 100 Mechanical Ventilator 40 12/04/16 19:00 64 18 92/49 100 Mechanical Ventilator 40 12/04/16 18:30 64 18 92/50 100 Mechanical Ventilator 40 12/04/16 18:17 85/47 12/04/16 18:00 70 18 85/47 100 Mechanical Ventilator 40 12/04/16 17:30 40 12/04/16 17:30 70 20 90/48 100 Mechanical Ventilator 40 12/04/16 17:00 71 23 96/49 100 Mechanical Ventilator 40 12/04/16 17:00 40 12/04/16 16:58 75 21 40 12/04/16 16:30 67 23 107/80 100 Mechanical Ventilator 40 12/04/16 16:00 66 12/04/16 16:00 40 12/04/16 16:00 98.5 67 19 85/47 99 Mechanical Ventilator 40 12/04/16 15:30 67 19 86/41 100 Mechanical Ventilator 40 12/04/16 15:00 70 21 97/47 100 Mechanical Ventilator 40 12/04/16 14:48 71 24 40 12/04/16 14:30 71 20 92/45 100 Mechanical Ventilator 40 12/04/16 14:00 70 21 91/48 100 Mechanical Ventilator 40 12/04/16 13:30 72 21 85/59 100 Mechanical Ventilator 40 12/04/16 13:00 76 20 98/57 100 Mechanical Ventilator 40 12/04/16 12:40 76 24 40 12/04/16 12:30 74 19 99/42 100 Mechanical Ventilator 40 12/04/16 12:00 98.3 70 21 92/48 100 Mechanical Ventilator 40 12/04/16 12:00 40 12/04/16 12:00 69 12/04/16 11:30 71 20 94/46 100 Mechanical Ventilator 40 12/04/16 11:00 69 21 91/53 100 Mechanical Ventilator 40 12/04/16 10:50 69 20 40 12/04/16 10:30 64 18 95/46 100 Mechanical Ventilator 40 12/04/16 10:00 63 18 102/44 100 Mechanical Ventilator 40 12/04/16 10:00 40 Status: awake Condition: critical HEENT: atraumatic Neck: full ROM Lungs: chest wall tender Heart: HR/BP stable, HR/BP unstable Abdomen: soft, non-tender, feeding tube Extremities: edema Decubiti: location Accucheck: 114 Critical Care - Subjective ROS Limited/Unobtainable: Yes ICU Day: 10 Intubation Day: 10 Condition: critical EKG Rhythm: Sinus Rhythm FI02: 40 Vent Support Breath Rate: 18 Vent Support Mode: CPAP Vent Tidal Volume: 600 Sputum Amount: Moderate PIP: 18 Drips: levophed drip Tube Feeding Amount: 30 I&O: Intake and Output 12/04/16 12/05/16 19:00 07:00 Intake Total 730.15 ml 525.0 ml Output Total 295 ml 445 ml Balance 435.15 ml 80.0 ml IV Total 490.15 ml 145.0 ml Tube Feeding 240 ml 330 ml Other 50 ml Output Urine Total 295 ml 445 ml # Bowel Movements 1 2 CXR: no change ET-Tube: 7.5 ET Position: 23 Labs: Laboratory Tests Test 12/05/16 04:50 12/05/16 08:20 12/05/16 09:15 White Blood Count 12.1 K/UL (4.8-10.8) H Red Blood Count 3.15 M/UL (4.20-5.40) L Hemoglobin 9.5 G/DL (12.0-16.0) L Hematocrit 27.9 % (37.0-47.0) L Mean Corpuscular Volume 89 FL (80-99) Mean Corpuscular Hemoglobin 30.2 PG (27.0-31.0) Mean Corpuscular Hemoglobin Concent 34.0 G/DL (32.0-36.0) Red Cell Distribution Width 16.2 % (11.6-14.8) H Platelet Count 90 K/UL (150-450) L Mean Platelet Volume 11.3 FL (6.5-10.1) H Neutrophils (%) (Auto) % (45.0-75.0) Lymphocytes (%) (Auto) % (20.0-45.0) Monocytes (%) (Auto) % (1.0-10.0) Eosinophils (%) (Auto) % (0.0-3.0) Basophils (%) (Auto) % (0.0-2.0) Differential Total Cells Counted 100 Neutrophils % (Manual) 80 % (45-75) H Lymphocytes % (Manual) 14 % (20-45) L Monocytes % (Manual) 5 % (1-10) Eosinophils % (Manual) 0 % (0-3) Basophils % (Manual) 0 % (0-2) Band Neutrophils 1 % (0-8) Platelet Estimate Decreased L Platelet Morphology Normal Anisocytosis 1+ Sodium Level 137 mEQ/L (135-145) Potassium Level 3.5 mEQ/L (3.4-4.9) Chloride Level 105 mEQ/L (98-107) Carbon Dioxide Level 21 mEQ/L (20-30) Anion Gap 11 (5-15) Blood Urea Nitrogen 18 mg/dL (7-23) Creatinine 0.5 mg/dL (0.5-0.9) Estimat Glomerular Filtration Rate mL/min (>60) Glucose Level 112 mg/dL (74-106) H Calcium Level 7.9 mg/dL (8.6-10.2) L Phosphorus Level 2.7 mg/dL (2.5-4.8) Magnesium Level 1.6 mg/dL (1.7-2.5) L Total Bilirubin 0.6 mg/dL (0.0-1.2) Aspartate Amino Transf (AST/SGOT) 24 U/L (5-40) Alanine Aminotransferase (ALT/SGPT) 22 U/L (3-33) Alkaline Phosphatase 73 U/L (35-104) Total Protein 4.0 g/dL (6.6-8.7) L Albumin 1.8 g/dL (3.5-5.2) L Globulin 2.2 g/dL Albumin/Globulin Ratio 0.8 (1.0-2.7) L Vancomycin Level Trough 27.7 ug/mL (5.0-12.0) H Arterial Blood pH 7.483 (7.350-7.450) Arterial Blood Partial Pressure CO2 34.1 mmHg (35.0-45.0) L Arterial Blood Partial Pressure O2 107.4 mmHg (75.0-100.0) H Arterial Blood HCO3 25.0 mmol/L (22.0-26.0) Arterial Blood Oxygen Saturation 97.2 % (92.0-98.0) Arterial Blood Base Excess 1.8 Isael Test Positive STEVIE GUO Dec 05, 2016 09:57
[2016-12-05] MEDS: Vancomycin 1250mg/D5W 250ml IVPB SCH (14:18)
[2016-12-05] MEDS ORDERED: Tubing IV Secondary IV ONE (15:43)
[2016-12-05] MEDS ORDERED: NS 275ml ONE (15:43)
--- NOTE | 2016-12-05 17:07 | Infectious Diseases Prog Note ---
Assessment/Plan Problems: (1) HCAP (healthcare-associated pneumonia) Assessment & Plan: improved on on ertapenem and vancomycin , sputum culture grew yeast, most likely contaminant. will stop vancomycin , and continue ertapenem for bacteremia treatment for two weeks . EOT 12/12/16 (2) Septic shock Assessment & Plan: improving, refractory to pressors , with no evidence of adrenal insufficiency , and normal cortisol level , blood culture grew MDR proteus mirabilis , source most likely urine infection/ possible pyelonephritis , on ertapenem , and vancomycin . one set grew staph simulans which is most likely contamination. will stop vancomycin and continue ertapenem for two weeks total. EOT 12/12/16 (3) UTI (urinary tract infection) Assessment & Plan: due to pansensitive E coli , with possible pylonephritis, on ertapenem to cover for bacteremia too (4) MARYAM (acute kidney injury) Assessment & Plan: improving, due to sepsis , ON ivf with pressors, avoid nephrotixic meds, renal is following , monitor UOP (5) Shock liver Assessment & Plan: improving, due to sepsis , screening for hepatitis is negative , monitor LFT (6) Acute respiratory failure Assessment & Plan: due to sepsis, S/P intubation , monitor ABG, and CXR , consult pulmonary for further care (7) Diabetes mellitus Assessment & Plan: hold po meds, continue to monitor blood glucose as per unit protocol, keep tight glycemic control Subjective ROS Limited/Unobtainable: Yes Allergies: Coded Allergies: No Known Allergies (Unverified , 11/25/16) Subjective she is still intubated, on mechanical ventilation , alert , tracks with her eyes , dosen't follow commands, still on minimal dose of pressor , afebrile Objective Vital Signs Last 24 Hour Vital Signs Date Time Temp Pulse Resp B/P Pulse Ox O2 Delivery O2 Flow Rate FiO2 12/05/16 16:57 68 28 40 12/05/16 16:00 40 12/05/16 16:00 98.5 75 26 96/40 97 Mechanical Ventilator 40 12/05/16 16:00 75 12/05/16 15:30 69 25 93/45 99 Mechanical Ventilator 40 12/05/16 15:18 79 29 40 12/05/16 15:00 93/46 12/05/16 15:00 68 23 93/46 99 Mechanical Ventilator 40 12/05/16 14:30 74 25 93/46 99 Mechanical Ventilator 40 12/05/16 14:00 95/47 12/05/16 14:00 75 22 94/48 100 Mechanical Ventilator 40 12/05/16 13:30 83 27 93/47 100 Mechanical Ventilator 40 12/05/16 13:00 92/45 12/05/16 13:00 82 28 92/45 97 Mechanical Ventilator 40 12/05/16 12:34 83 27 40 12/05/16 12:30 82 24 103/60 99 Mechanical Ventilator 40 12/05/16 12:00 84 12/05/16 12:00 95/44 12/05/16 12:00 40 12/05/16 12:00 98.3 83 26 95/44 97 Mechanical Ventilator 40 12/05/16 11:30 86 24 86/93 97 Mechanical Ventilator 40 12/05/16 11:00 86 25 88/40 97 Mechanical Ventilator 40 12/05/16 11:00 88/40 12/05/16 10:54 82 26 40 12/05/16 10:30 78 27 91/47 99 Mechanical Ventilator 40 12/05/16 10:00 78 27 92/49 99 Mechanical Ventilator 40 12/05/16 10:00 92/49 12/05/16 09:30 71 29 104/67 100 Mechanical Ventilator 40 12/05/16 09:12 73 24 40 12/05/16 09:11 100 12/05/16 09:00 104/49 12/05/16 09:00 68 29 93/46 100 Mechanical Ventilator 40 12/05/16 08:30 71 25 92/61 99 Mechanical Ventilator 40 12/05/16 08:00 40 12/05/16 08:00 95/47 12/05/16 08:00 98.3 69 23 95/47 100 Mechanical Ventilator 40 12/05/16 08:00 69 12/05/16 07:30 73 25 103/64 99 Mechanical Ventilator 40 12/05/16 07:11 69 12 40 12/05/16 07:00 71 18 91/47 99 Mechanical Ventilator 40 12/05/16 07:00 91/47 12/05/16 06:30 68 18 90/51 100 Mechanical Ventilator 40 12/05/16 06:06 107/47 12/05/16 06:00 60 18 117/47 100 Mechanical Ventilator 40 12/05/16 05:30 64 18 92/58 100 Mechanical Ventilator 40 12/05/16 05:28 58 18 40 12/05/16 05:00 64 18 101/56 100 Mechanical Ventilator 40 12/05/16 05:00 101/56 12/05/16 04:30 67 18 91/44 99 Mechanical Ventilator 40 12/05/16 04:00 40 12/05/16 04:00 92/65 12/05/16 04:00 66 12/05/16 04:00 98.3 69 19 92/69 100 Mechanical Ventilator 40 12/05/16 03:30 66 18 89/54 100 Mechanical Ventilator 40 12/05/16 03:16 60 18 40 12/05/16 03:00 68 18 103/50 100 Mechanical Ventilator 40 12/05/16 03:00 103/50 12/05/16 02:30 66 18 88/52 100 Mechanical Ventilator 40 12/05/16 02:00 94/45 12/05/16 02:00 64 18 94/45 100 Mechanical Ventilator 40 12/05/16 01:30 65 18 97/44 100 Mechanical Ventilator 40 12/05/16 01:30 62 18 40 12/05/16 01:00 95/58 12/05/16 01:00 63 18 95/58 100 Mechanical Ventilator 40 12/05/16 00:30 60 18 105/48 100 Mechanical Ventilator 40 12/05/16 00:00 98.4 60 19 111/52 100 Mechanical Ventilator 40 12/05/16 00:00 111/52 12/05/16 00:00 40 12/05/16 00:00 62 12/04/16 23:30 60 18 92/51 100 Mechanical Ventilator 40 12/04/16 23:22 61 18 40 12/04/16 23:00 95/45 12/04/16 23:00 61 18 95/45 100 Mechanical Ventilator 40 12/04/16 22:30 65 18 100/43 100 Mechanical Ventilator 40 12/04/16 22:00 91/51 12/04/16 22:00 61 18 91/51 100 Mechanical Ventilator 40 12/04/16 21:30 70 18 40 12/04/16 21:30 58 18 93/41 100 Mechanical Ventilator 40 12/04/16 21:00 63 18 84/44 100 Mechanical Ventilator 40 12/04/16 21:00 93/41 12/04/16 20:30 66 18 92/53 100 Mechanical Ventilator 40 12/04/16 20:00 66 12/04/16 20:00 98.7 65 19 88/49 100 Mechanical Ventilator 40 12/04/16 20:00 88/49 12/04/16 19:30 51 18 40 12/04/16 19:30 68 18 146/63 100 Mechanical Ventilator 40 12/04/16 19:00 64 18 92/49 100 Mechanical Ventilator 40 12/04/16 18:30 64 18 92/50 100 Mechanical Ventilator 40 12/04/16 18:17 85/47 12/04/16 18:00 70 18 85/47 100 Mechanical Ventilator 40 12/04/16 17:30 40 12/04/16 17:30 70 20 90/48 100 Mechanical Ventilator 40 Height (Feet): 5 Height (Inches): 2.00 Weight (Pounds): 194 General Appearance: WD/WN, no acute distress HEENT: normocephalic, atraumatic, anicteric, mucous membranes moist, no JVD Respiratory/Chest: normal breath sounds, no respiratory distress, no accessory muscle use, decreased breath sounds, expiratory wheezing Cardiovascular: normal peripheral pulses, normal rate, regular rhythm, no gallop/murmur, no JVD Abdomen: normal bowel sounds, soft, non tender, no organomegaly, non distended , no mass, no scars Extremities: no cyanosis, no clubbing Skin: no rash, no lesions Neurologic/Psychiatric: alert Musculoskeletal: normal muscle bulk, no effusion Laboratory Tests Test 12/05/16 04:50 12/05/16 08:20 12/05/16 09:15 White Blood Count 12.1 K/UL (4.8-10.8) H Red Blood Count 3.15 M/UL (4.20-5.40) L Hemoglobin 9.5 G/DL (12.0-16.0) L Hematocrit 27.9 % (37.0-47.0) L Mean Corpuscular Volume 89 FL (80-99) Mean Corpuscular Hemoglobin 30.2 PG (27.0-31.0) Mean Corpuscular Hemoglobin Concent 34.0 G/DL (32.0-36.0) Red Cell Distribution Width 16.2 % (11.6-14.8) H Platelet Count 90 K/UL (150-450) L Mean Platelet Volume 11.3 FL (6.5-10.1) H Neutrophils (%) (Auto) % (45.0-75.0) Lymphocytes (%) (Auto) % (20.0-45.0) Monocytes (%) (Auto) % (1.0-10.0) Eosinophils (%) (Auto) % (0.0-3.0) Basophils (%) (Auto) % (0.0-2.0) Differential Total Cells Counted 100 Neutrophils % (Manual) 80 % (45-75) H Lymphocytes % (Manual) 14 % (20-45) L Monocytes % (Manual) 5 % (1-10) Eosinophils % (Manual) 0 % (0-3) Basophils % (Manual) 0 % (0-2) Band Neutrophils 1 % (0-8) Platelet Estimate Decreased L Platelet Morphology Normal Anisocytosis 1+ Sodium Level 137 mEQ/L (135-145) Potassium Level 3.5 mEQ/L (3.4-4.9) Chloride Level 105 mEQ/L (98-107) Carbon Dioxide Level 21 mEQ/L (20-30) Anion Gap 11 (5-15) Blood Urea Nitrogen 18 mg/dL (7-23) Creatinine 0.5 mg/dL (0.5-0.9) Estimat Glomerular Filtration Rate mL/min (>60) Glucose Level 112 mg/dL (74-106) H Calcium Level 7.9 mg/dL (8.6-10.2) L Phosphorus Level 2.7 mg/dL (2.5-4.8) Magnesium Level 1.6 mg/dL (1.7-2.5) L Total Bilirubin 0.6 mg/dL (0.0-1.2) Aspartate Amino Transf (AST/SGOT) 24 U/L (5-40) Alanine Aminotransferase (ALT/SGPT) 22 U/L (3-33) Alkaline Phosphatase 73 U/L (35-104) Total Protein 4.0 g/dL (6.6-8.7) L Albumin 1.8 g/dL (3.5-5.2) L Globulin 2.2 g/dL Albumin/Globulin Ratio 0.8 (1.0-2.7) L Vancomycin Level Trough 27.7 ug/mL (5.0-12.0) H Arterial Blood pH 7.483 (7.350-7.450) Arterial Blood Partial Pressure CO2 34.1 mmHg (35.0-45.0) L Arterial Blood Partial Pressure O2 107.4 mmHg (75.0-100.0) H Arterial Blood HCO3 25.0 mmol/L (22.0-26.0) Arterial Blood Oxygen Saturation 97.2 % (92.0-98.0) Arterial Blood Base Excess 1.8 Iasel Test Positive Current Medications Medications (Trade) Dose Ordered Sig/Flora Route PRN Reason Start Time Stop Time Status Last Admin Dose Admin Acetaminophen (Tylenol) 650 mg Q4H PRN ORAL fever 11/25/16 16:00 12/25/16 15:59 Chlorhexidine Gluconate (Emmie-Hex 2%) 1 applic QHS TOPIC 12/02/16 21:00 01/01/17 20:59 12/04/16 21:00 Dextrose (Dextrose 50%) STAT PRN IV Hypoglycemia 11/25/16 16:00 12/25/16 15:59 Ertapenem 1 gm/ Sodium Chloride 55 ml @ 110 mls/hr Q24H IVPB 11/30/16 21:00 12/09/16 20:59 12/04/16 21:00 Insulin Aspart (NovoLOG) EVERY 6 HOURS SUBQ 11/26/16 00:00 12/26/16 00:00 12/05/16 11:43 Metoclopramide HCl 5 mg 5 mg Q6H PRN IVP Nausea & Vomiting 11/28/16 09:45 12/28/16 09:44 11/30/16 23:10 Midodrine (Pro-Amatine) 5 mg EVERY 8 HOURS ORAL 12/05/16 14:00 01/04/17 13:59 12/05/16 13:07 Nitroglycerin (Ntg) 0.4 mg Q5M PRN SL Prn Chest Pain 11/25/16 16:00 12/25/16 15:59 Norepinephrine Bitartrate/ Dextrose (Levophed/D5W) 250 ml @ 0 mls/hr Q24H IV 11/25/16 17:00 12/25/16 16:59 12/04/16 18:17 Ondansetron HCl (Zofran) 4 mg Q6H PRN IVP Nausea & Vomiting 11/25/16 16:00 12/25/16 15:59 Pantoprazole (Protonix) 40 mg DAILY IVP 11/28/16 09:00 12/28/16 08:59 12/05/16 08:25 Polyethylene Glycol (Miralax) 17 gm DAILYPRN PRN ORAL Constipation 11/25/16 16:00 12/25/16 15:59 Sodium Chloride (NS) 250 ml @ 999 mls/hr ONCE PRN IV PRN SBP < 90 11/30/16 14:30 12/30/16 14:29 Vancomycin HCl 1 ea 1 ea DAILY PRN MISC PER RX PROTOCOL 11/25/16 16:45 12/25/16 16:44 Romelia Sotelo M.D. Dec 05, 2016 17:07
[2016-12-05] MEDS: Ertapenem 1gm in NS 55ml IVPB SCH (21:16)
[2016-12-05] MEDS: Dyna-Hex 2% Top Sol 8oz TOPIC SCH (21:16)
[2016-12-06] VITALS (18 sets, daily range): BP systolic 80–130; BP diastolic 34–82
[2016-12-06] MEDS: NovoLOG Insulin Flexpen SUBQ SCH ×3 (00:22→11:23)
[2016-12-06 05:34] LABS: MEAN CORPUSCULAR HEMOGLOBIN 28.8 PG (27.0-31.0); MEAN CORPUSCULAR HGB CONC 32.4 G/DL (32.0-36.0); MEAN CORPUSCULAR VOLUME 89 FL (80-99); MEAN PLATELET VOLUME 10.8 FL (6.5-10.1); PLATELET COUNT 95 K/UL (150-450); RED BLOOD COUNT 3.09 M/UL (4.20-5.40); RED CELL DISTRIBUTION WIDTH 16.4 % (11.6-14.8); WHITE BLOOD COUNT 12.7 K/UL (4.8-10.8)
[2016-12-06 06:13] LABS: ALANINE AMINOTRANSFERASE 19 U/L (3-33); ALBUMIN/GLOBULIN RATIO 0.9 (1.0-2.7); ANION GAP 11 (5-15); ASPARTATE AMINO TRANSFERASE 21 U/L (5-40); CALCIUM 7.8 mg/dL (8.6-10.2); CARBON DIOXIDE 24 mEQ/L (20-30); CHLORIDE 107 mEQ/L (98-107); CREATININE 0.5 mg/dL (0.5-0.9); HEMOLYSIS 13; POTASSIUM 3.7 mEQ/L (3.4-4.9); SODIUM 142 mEQ/L (135-145); TOTAL PROTEIN 3.9 g/dL (6.6-8.7)
[2016-12-06 07:25] LABS: LYMPHOCYTES % (MANUAL) 11 % (20-45); NEUTROPHILS % (MANUAL) 88 % (45-75); TOTAL CELLS COUNTED 100
[2016-12-06 07:26] LABS: BAND NEUTROPHILS % (MANUAL) 0 % (0-8); BASOPHILS % (MANUAL) 0 % (0-2); EOSINOPHILS % (MANUAL) 0 % (0-3); HYPOCHROMASIA 1+; PLATELET ESTIMATE ADEQUATE; PLATELET MORPHOLOGY NORMAL
[2016-12-06 08:08] LABS: MAGNESIUM 1.9 mg/dL (1.7-2.5); PHOSPHORUS 2.2 mg/dL (2.5-4.8)
[2016-12-06 08:20] LABS: ABG ALLEN TEST POSITIVE; ABG PCO2 26.2 mmHg (35.0-45.0)
--- NOTE | 2016-12-06 08:43 | General Progress Note ---
Assessment/Plan Status: stable Assessment/Plan 1. Respiratory failure s/p intubation - continue trials for weaning off vent. improving and tolerating CPAP. 2. Sepsis 2nd to UTI - improved. WBC decreasing. 3. Renal failure 2nd to sepsis - resolved. 4. Pneumonia - improved. cont IV abx. 5. Septic Shock - in ICU. off presser. 6. H/O Basal Ganglia ischemic stroke recently 7. H/O Rt lower ext DVT - off heparin due to thrombocytopenia. Venous U/S negative for DVT. on SCD 8. Thrombocytopenia - Off heparin due to Thrombocytopenia. improved platlet count. 9. Hyperlipidemia - start lipitor 20 mg in a few days when she is better and off vent. 10. DM II - On SSI 11. Sacral Pressure ulcer - cont wound care. Subjective Date patient seen: Dec 06, 2016 Time patient seen: 08:30 Constitutional: Reports: weakness HEENT: Reports: no symptoms Cardiovascular: Reports: no symptoms Respiratory: Reports: other - intubated Gastrointestinal/Abdominal: Reports: no symptoms Genitourinary: Reports: no symptoms Neurologic/Psychiatric: Reports: no symptoms Endocrine: Reports: no symptoms Hematologic/Lymphatic: Reports: no symptoms Allergies: Coded Allergies: No Known Allergies (Unverified , 11/25/16) Subjective Pt continue to improve. she is better but still intubated. she is off pressor since last night. Awake and respond to command by closing her eyes. trial of weaning in progress. Objective Last 24 Hour Vital Signs Date Time Temp Pulse Resp B/P Pulse Ox O2 Delivery O2 Flow Rate FiO2 12/06/16 08:00 72 12/06/16 08:00 98.5 72 18 130/82 100 Mechanical Ventilator 40 12/06/16 08:00 40 12/06/16 07:00 62 18 85/62 99 Mechanical Ventilator 40 12/06/16 06:59 67 18 40 12/06/16 06:00 65 18 120/52 99 Mechanical Ventilator 40 12/06/16 05:30 66 18 40 12/06/16 05:00 70 18 85/51 99 Mechanical Ventilator 40 12/06/16 04:00 98.0 65 18 90/77 99 Mechanical Ventilator 40 12/06/16 04:00 40 12/06/16 04:00 77 12/06/16 03:00 66 18 95/77 99 Mechanical Ventilator 40 12/06/16 02:44 64 18 40 12/06/16 02:00 67 18 91/45 100 Mechanical Ventilator 40 12/06/16 01:00 69 18 89/43 98 Mechanical Ventilator 40 12/06/16 00:53 67 18 40 12/06/16 00:00 68 12/06/16 00:00 40 12/06/16 00:00 98.2 68 18 89/44 100 Mechanical Ventilator 40 12/05/16 23:51 64 18 40 12/05/16 23:30 64 18 97/50 100 Mechanical Ventilator 40 12/05/16 23:00 63 18 102/50 100 Mechanical Ventilator 40 12/05/16 22:30 65 18 98/54 100 Mechanical Ventilator 40 12/05/16 22:00 66 18 102/49 100 Mechanical Ventilator 40 12/05/16 21:59 67 17 40 12/05/16 21:30 65 18 98/47 100 Mechanical Ventilator 40 12/05/16 21:00 65 21 92/48 100 Mechanical Ventilator 40 12/05/16 20:30 64 18 100/51 100 Mechanical Ventilator 40 12/05/16 20:00 40 12/05/16 20:00 73 12/05/16 20:00 98.0 73 21 93/43 100 Mechanical Ventilator 40 12/05/16 19:44 75 22 40 12/05/16 19:00 70 29 92/47 100 Mechanical Ventilator 40 12/05/16 19:00 92/47 12/05/16 18:30 77 23 91/42 98 Mechanical Ventilator 40 12/05/16 18:13 84/47 12/05/16 18:00 84/47 12/05/16 18:00 70 29 84/47 99 Mechanical Ventilator 40 12/05/16 17:30 67 27 91/43 99 Mechanical Ventilator 40 12/05/16 17:00 91/43 12/05/16 17:00 73 30 90/50 99 Mechanical Ventilator 40 12/05/16 16:57 68 28 40 12/05/16 16:30 73 29 88/49 99 Mechanical Ventilator 40 12/05/16 16:00 40 12/05/16 16:00 93/47 12/05/16 16:00 98.5 75 26 96/40 97 Mechanical Ventilator 40 12/05/16 16:00 75 12/05/16 15:30 69 25 93/45 99 Mechanical Ventilator 40 12/05/16 15:18 79 29 40 12/05/16 15:00 93/46 12/05/16 15:00 68 23 93/46 99 Mechanical Ventilator 40 12/05/16 14:30 74 25 93/46 99 Mechanical Ventilator 40 12/05/16 14:00 95/47 12/05/16 14:00 75 22 94/48 100 Mechanical Ventilator 40 12/05/16 13:30 83 27 93/47 100 Mechanical Ventilator 40 12/05/16 13:00 92/45 12/05/16 13:00 82 28 92/45 97 Mechanical Ventilator 40 12/05/16 12:34 83 27 40 12/05/16 12:30 82 24 103/60 99 Mechanical Ventilator 40 12/05/16 12:00 84 12/05/16 12:00 95/44 12/05/16 12:00 40 12/05/16 12:00 98.3 83 26 95/44 97 Mechanical Ventilator 40 12/05/16 11:30 86 24 86/93 97 Mechanical Ventilator 40 12/05/16 11:00 86 25 88/40 97 Mechanical Ventilator 40 12/05/16 11:00 88/40 12/05/16 10:54 82 26 40 12/05/16 10:30 78 27 91/47 99 Mechanical Ventilator 40 12/05/16 10:00 78 27 92/49 99 Mechanical Ventilator 40 12/05/16 10:00 92/49 12/05/16 09:30 71 29 104/67 100 Mechanical Ventilator 40 12/05/16 09:12 73 24 40 12/05/16 09:11 100 12/05/16 09:00 104/49 12/05/16 09:00 68 29 93/46 100 Mechanical Ventilator 40 Intake and Output 12/05/16 12/06/16 19:00 07:00 Intake Total 506.25 ml 478.75 ml Output Total 875 ml 560 ml Balance -368.75 ml -81.25 ml Free Water 50 ml 100 ml IV Total 156.25 ml 18.75 ml Tube Feeding 300 ml 360 ml Output Urine Total 875 ml 560 ml # Bowel Movements 1 Laboratory Tests 12/05/16 09:15: Arterial Blood pH 7.483H, Arterial Blood Partial Pressure CO2 34.1L, Arterial Blood Partial Pressure O2 107.4H, Arterial Blood HCO3 25.0, Arterial Blood Oxygen Saturation 97.2, Arterial Blood Base Excess 1.8, Isael Test Positive 12/06/16 04:00: Arterial Blood pH 7.568*H, Arterial Blood Partial Pressure CO2 26.2L, Arterial Blood Partial Pressure O2 82.1, Arterial Blood HCO3 23.4, Arterial Blood Oxygen Saturation 96.0, Arterial Blood Base Excess 2.0, Isael Test Positive 12/06/16 05:00: White Blood Count 12.7H, Red Blood Count 3.09L, Hemoglobin 8.9L, Hematocrit 27.5L, Mean Corpuscular Volume 89, Mean Corpuscular Hemoglobin 28.8, Mean Corpuscular Hemoglobin Concent 32.4, Red Cell Distribution Width 16.4H, Platelet Count 95L, Mean Platelet Volume 10.8H, Neutrophils (%) (Auto) , Lymphocytes (%) (Auto) , Monocytes (%) (Auto) , Eosinophils (%) (Auto) , Basophils (%) (Auto) , Differential Total Cells Counted 100, Neutrophils % ( Manual) 88H, Lymphocytes % (Manual) 11L, Monocytes % (Manual) 1, Eosinophils % ( Manual) 0, Basophils % (Manual) 0, Band Neutrophils 0, Platelet Estimate Adequate, Platelet Morphology Normal, Hypochromasia 1+, Sodium Level 142, Potassium Level 3.7, Chloride Level 107, Carbon Dioxide Level 24, Anion Gap 11, Blood Urea Nitrogen 16, Creatinine 0.5, Estimat Glomerular Filtration Rate , Glucose Level 124H, Calcium Level 7.8L, Phosphorus Level 2.2L, Magnesium Level 1.9, Total Bilirubin 0.5, Aspartate Amino Transf (AST/SGOT) 21, Alanine Aminotransferase (ALT/SGPT) 19, Alkaline Phosphatase 71, Total Protein 3.9L, Albumin 1.9L, Globulin 2.0, Albumin/Globulin Ratio 0.9L, Random Vancomycin Level 22.0 Height (Feet): 5 Height (Inches): 2.00 Weight (Pounds): 196 General Appearance: no apparent distress, alert EENT: normal ENT inspection Neck: non-tender, normal alignment, supple Cardiovascular: normal peripheral pulses, normal rate, regular rhythm Respiratory/Chest: chest wall non-tender, lungs clear, normal breath sounds Abdomen: normal bowel sounds, non tender, soft Extremities: normal range of motion, non-tender Edema: no edema noted Arm (L), no edema noted Arm (R), no edema noted Leg (L), no edema noted Leg (R), no edema noted Pedal (L), no edema noted Pedal (R), no edema noted Generalized Neurologic: alert, responsive Skin: warm/dry Lymphatic: normal anterior cervical (L), normal anterior cervical (R), normal axillary (L), normal axillary (R), normal inguinal (L), normal inguinal (R), normal other, normal posterior cervical (L), normal posterior cervical (R), normal submandibular (L), normal submandibular (R), normal supraclavicular (L), normal supraclavicular (R) TERI JACKSON Dec 06, 2016 08:42
[2016-12-06] MEDS: Pantoprazole Inj IVP SCH (08:54)
[2016-12-06] MEDS ORDERED: NS 275ml ONE (11:28)
[2016-12-06] MEDS ORDERED: Tubing IV Secondary IV ONE (11:28)
--- NOTE | 2016-12-06 11:31 | Pulmonolgy Critical Care Note ---
Critical Care - Asmt/Plan Problems: (1) Respiratory failure (2) Septic shock (3) Acute encephalopathy (4) ARF (acute renal failure) (5) Hypernatremia (6) Diabetes mellitus Respiratory: monitor respiratory rate, adjust FIO2, CXR Cardiac: continue to monitor HR/BP Renal: F/U I&O, keep IV fluid Infectious Disease: check cultures Gastrointestinal: continue feedings/current rate Endocrine: monitor blood sugar, check HgA1C, continue sliding scale insulin Hematologic: monitor H/H, transfuse if hgb<8.5 Neurologic: PRN Ativan, keep patient comfortable Affect: PRN ativan Prophylaxis: Protonix Notes Reviewed: sales hunter, cardio, renal Discussed with: consultants, counseling case manager, family member Critical Care - Objective Last 24 Hour Vital Signs Date Time Temp Pulse Resp B/P Pulse Ox O2 Delivery O2 Flow Rate FiO2 12/06/16 11:00 67 14 82/54 98 Mechanical Ventilator 40 12/06/16 10:36 66 14 40 12/06/16 10:00 40 12/06/16 10:00 68 16 86/45 99 Mechanical Ventilator 40 12/06/16 09:00 76 16 97/58 99 Mechanical Ventilator 40 12/06/16 08:48 68 16 40 12/06/16 08:45 100 12/06/16 08:30 40 12/06/16 08:00 72 12/06/16 08:00 98.5 72 18 130/82 100 Mechanical Ventilator 40 12/06/16 08:00 40 12/06/16 07:00 62 18 85/62 99 Mechanical Ventilator 40 12/06/16 06:59 67 18 40 12/06/16 06:00 65 18 120/52 99 Mechanical Ventilator 40 12/06/16 05:30 66 18 40 12/06/16 05:00 70 18 85/51 99 Mechanical Ventilator 40 12/06/16 04:00 98.0 65 18 90/77 99 Mechanical Ventilator 40 12/06/16 04:00 40 12/06/16 04:00 77 12/06/16 03:00 66 18 95/77 99 Mechanical Ventilator 40 12/06/16 02:44 64 18 40 12/06/16 02:00 67 18 91/45 100 Mechanical Ventilator 40 12/06/16 01:00 69 18 89/43 98 Mechanical Ventilator 40 12/06/16 00:53 67 18 40 12/06/16 00:00 68 12/06/16 00:00 40 12/06/16 00:00 98.2 68 18 89/44 100 Mechanical Ventilator 40 12/05/16 23:51 64 18 40 12/05/16 23:30 64 18 97/50 100 Mechanical Ventilator 40 12/05/16 23:00 63 18 102/50 100 Mechanical Ventilator 40 12/05/16 22:30 65 18 98/54 100 Mechanical Ventilator 40 12/05/16 22:00 66 18 102/49 100 Mechanical Ventilator 40 12/05/16 21:59 67 17 40 12/05/16 21:30 65 18 98/47 100 Mechanical Ventilator 40 12/05/16 21:00 65 21 92/48 100 Mechanical Ventilator 40 12/05/16 20:30 64 18 100/51 100 Mechanical Ventilator 40 12/05/16 20:00 40 12/05/16 20:00 73 12/05/16 20:00 98.0 73 21 93/43 100 Mechanical Ventilator 40 12/05/16 19:44 75 22 40 12/05/16 19:00 70 29 92/47 100 Mechanical Ventilator 40 12/05/16 19:00 92/47 12/05/16 18:30 77 23 91/42 98 Mechanical Ventilator 40 12/05/16 18:13 84/47 12/05/16 18:00 84/47 12/05/16 18:00 70 29 84/47 99 Mechanical Ventilator 40 12/05/16 17:30 67 27 91/43 99 Mechanical Ventilator 40 12/05/16 17:00 91/43 12/05/16 17:00 73 30 90/50 99 Mechanical Ventilator 40 12/05/16 16:57 68 28 40 12/05/16 16:30 73 29 88/49 99 Mechanical Ventilator 40 12/05/16 16:00 40 12/05/16 16:00 93/47 12/05/16 16:00 98.5 75 26 96/40 97 Mechanical Ventilator 40 12/05/16 16:00 75 12/05/16 15:30 69 25 93/45 99 Mechanical Ventilator 40 12/05/16 15:18 79 29 40 12/05/16 15:00 93/46 12/05/16 15:00 68 23 93/46 99 Mechanical Ventilator 40 12/05/16 14:30 74 25 93/46 99 Mechanical Ventilator 40 12/05/16 14:00 95/47 12/05/16 14:00 75 22 94/48 100 Mechanical Ventilator 40 12/05/16 13:30 83 27 93/47 100 Mechanical Ventilator 40 12/05/16 13:00 92/45 12/05/16 13:00 82 28 92/45 97 Mechanical Ventilator 40 12/05/16 12:34 83 27 40 12/05/16 12:30 82 24 103/60 99 Mechanical Ventilator 40 12/05/16 12:00 84 12/05/16 12:00 95/44 12/05/16 12:00 40 12/05/16 12:00 98.3 83 26 95/44 97 Mechanical Ventilator 40 Status: awake Condition: critical HEENT: atraumatic, normocephalic Lungs: clear, chest wall tender Heart: HR/BP stable, regular Abdomen: soft, non-tender Extremities: edema Decubiti: location, stage Accucheck: 141 Critical Care - Subjective ROS Limited/Unobtainable: No ICU Day: 11 Intubation Day: 11 Condition: critical EKG Rhythm: Sinus Rhythm FI02: 40 Vent Support Breath Rate: 14 Vent Support Mode: IMV/SIMV Vent Tidal Volume: 600 Sputum Amount: Scant PIP: 19 Tube Feeding Amount: 30 I&O: Intake and Output 12/05/16 12/06/16 19:00 07:00 Intake Total 506.25 ml 478.75 ml Output Total 875 ml 560 ml Balance -368.75 ml -81.25 ml Free Water 50 ml 100 ml IV Total 156.25 ml 18.75 ml Tube Feeding 300 ml 360 ml Output Urine Total 875 ml 560 ml # Bowel Movements 1 CXR: no change ET-Tube: 7.5 ET Position: 23 Labs: Laboratory Tests Test 12/06/16 04:00 12/06/16 05:00 Arterial Blood pH 7.568 (7.350-7.450) Arterial Blood Partial Pressure CO2 26.2 mmHg (35.0-45.0) L Arterial Blood Partial Pressure O2 82.1 mmHg (75.0-100.0) Arterial Blood HCO3 23.4 mmol/L (22.0-26.0) Arterial Blood Oxygen Saturation 96.0 % (92.0-98.0) Arterial Blood Base Excess 2.0 Isael Test Positive White Blood Count 12.7 K/UL (4.8-10.8) H Red Blood Count 3.09 M/UL (4.20-5.40) L Hemoglobin 8.9 G/DL (12.0-16.0) L Hematocrit 27.5 % (37.0-47.0) L Mean Corpuscular Volume 89 FL (80-99) Mean Corpuscular Hemoglobin 28.8 PG (27.0-31.0) Mean Corpuscular Hemoglobin Concent 32.4 G/DL (32.0-36.0) Red Cell Distribution Width 16.4 % (11.6-14.8) H Platelet Count 95 K/UL (150-450) L Mean Platelet Volume 10.8 FL (6.5-10.1) H Neutrophils (%) (Auto) % (45.0-75.0) Lymphocytes (%) (Auto) % (20.0-45.0) Monocytes (%) (Auto) % (1.0-10.0) Eosinophils (%) (Auto) % (0.0-3.0) Basophils (%) (Auto) % (0.0-2.0) Differential Total Cells Counted 100 Neutrophils % (Manual) 88 % (45-75) H Lymphocytes % (Manual) 11 % (20-45) L Monocytes % (Manual) 1 % (1-10) Eosinophils % (Manual) 0 % (0-3) Basophils % (Manual) 0 % (0-2) Band Neutrophils 0 % (0-8) Platelet Estimate Adequate Platelet Morphology Normal Hypochromasia 1+ Sodium Level 142 mEQ/L (135-145) Potassium Level 3.7 mEQ/L (3.4-4.9) Chloride Level 107 mEQ/L (98-107) Carbon Dioxide Level 24 mEQ/L (20-30) Anion Gap 11 (5-15) Blood Urea Nitrogen 16 mg/dL (7-23) Creatinine 0.5 mg/dL (0.5-0.9) Estimat Glomerular Filtration Rate mL/min (>60) Glucose Level 124 mg/dL (74-106) H Calcium Level 7.8 mg/dL (8.6-10.2) L Phosphorus Level 2.2 mg/dL (2.5-4.8) L Magnesium Level 1.9 mg/dL (1.7-2.5) Total Bilirubin 0.5 mg/dL (0.0-1.2) Aspartate Amino Transf (AST/SGOT) 21 U/L (5-40) Alanine Aminotransferase (ALT/SGPT) 19 U/L (3-33) Alkaline Phosphatase 71 U/L (35-104) Total Protein 3.9 g/dL (6.6-8.7) L Albumin 1.9 g/dL (3.5-5.2) L Globulin 2.0 g/dL Albumin/Globulin Ratio 0.9 (1.0-2.7) L Random Vancomycin Level 22.0 ug/mL STEVIE GUO Dec 06, 2016 11:31
--- NOTE | 2016-12-06 11:40 | Diagnostic Imaging Report ---
Indication: DYSPNEA Technique: One view of the chest Comparison: 12/05/2016 Findings: Stable satisfactory positions of endotracheal and nasogastric tubes, right arm PICC. Left-sided pleural effusion, left basilar consolidation persists, unchanged. Right lung and pleural space remain clear. Left axillary surgical clips remain. Findings are unchanged Impression: Unchanged, over one day, findings as above.
[2016-12-06] MEDS ORDERED: Glycopyrrolate 0.2mg/ml 1ml Vial IV PRN ×2 (13:00→19:00)
[2016-12-06] MEDS ORDERED: Prochlorperazine 10mg tab ORAL PRN ×2 (13:00→19:00)
[2016-12-06] MEDS ORDERED: Narcotic Shift Volume MISC SCH ×2 (13:00→15:00)
[2016-12-06] MEDS ORDERED: Rate Change Narcotic Drip MISC PRN (13:00)
[2016-12-06] MEDS ORDERED: Morphine Sulfate 4mg/ml Inj SUBQ PRN ×2 (13:15→16:15)
[2016-12-06] MEDS ORDERED: PCA Morphine 1mg/ml 30 ML IV PRN ×2 (14:00→14:45)
[2016-12-06] MEDS ORDERED: Morphine Sulfate 10mg/ml Inj IVP ONE (14:00)
[2016-12-06] MEDS ORDERED: Artificial Tears 1.4% Op Soln BOTH EYES PRN (14:00)
--- NOTE | 2016-12-06 16:26 | Infectious Diseases Prog Note ---
Assessment/Plan Problems: (1) HCAP (healthcare-associated pneumonia) Assessment & Plan: S/P ertapenem and vancomycin , sputum culture grew yeast, most likely contaminant. now off antibiotics on comfort measures only (2) Septic shock Assessment & Plan: refractory to pressors , with no evidence of adrenal insufficiency , and normal cortisol level , blood culture grew MDR proteus mirabilis , source most likely urine infection/ possible pyelonephritis, was on ertapenem , and vancomycin . one set grew staph simulans which is most likely contamination. now off antibiotics, on comfort measures (3) UTI (urinary tract infection) Assessment & Plan: due to pansensitive E coli , with possible pyelonephritis, received ertapenem (4) MARYAM (acute kidney injury) Assessment & Plan: improved , due to sepsis (5) Shock liver Assessment & Plan: improved, due to sepsis , screening for hepatitis is negative , monitor LFT (6) Acute respiratory failure Assessment & Plan: due to sepsis, S/P intubation , monitor ABG, and CXR , consult pulmonary for further care (7) Diabetes mellitus Assessment & Plan: still npo, on comfort measures only Subjective ROS Limited/Unobtainable: Yes Allergies: Coded Allergies: No Known Allergies (Unverified , 11/25/16) Subjective she was extubated, off mechanical ventilation , on comfort measures only as per family request , dosen't follow commands, afebrile Objective Vital Signs Last 24 Hour Vital Signs Date Time Temp Pulse Resp B/P Pulse Ox O2 Delivery O2 Flow Rate FiO2 12/06/16 14:35 97.5 82 24 99/47 97 Nasal Cannula 3.0 12/06/16 14:20 Nasal Cannula 3.0 32 12/06/16 14:17 98.7 12/06/16 14:00 63 14 80/43 98 Mechanical Ventilator 40 12/06/16 13:00 67 14 89/46 98 Mechanical Ventilator 40 12/06/16 12:58 63 14 40 12/06/16 12:00 68 12/06/16 12:00 98.7 65 14 83/34 98 Mechanical Ventilator 40 12/06/16 11:00 67 14 82/54 98 Mechanical Ventilator 40 12/06/16 10:36 66 14 40 12/06/16 10:00 40 12/06/16 10:00 68 16 86/45 99 Mechanical Ventilator 40 12/06/16 09:00 76 16 97/58 99 Mechanical Ventilator 40 12/06/16 08:48 68 16 40 12/06/16 08:45 100 12/06/16 08:30 40 12/06/16 08:00 72 12/06/16 08:00 98.5 72 18 130/82 100 Mechanical Ventilator 40 12/06/16 08:00 40 12/06/16 07:00 62 18 85/62 99 Mechanical Ventilator 40 12/06/16 06:59 67 18 40 12/06/16 06:00 65 18 120/52 99 Mechanical Ventilator 40 12/06/16 05:30 66 18 40 12/06/16 05:00 70 18 85/51 99 Mechanical Ventilator 40 12/06/16 04:00 98.0 65 18 90/77 99 Mechanical Ventilator 40 12/06/16 04:00 40 12/06/16 04:00 77 12/06/16 03:00 66 18 95/77 99 Mechanical Ventilator 40 12/06/16 02:44 64 18 40 12/06/16 02:00 67 18 91/45 100 Mechanical Ventilator 40 12/06/16 01:00 69 18 89/43 98 Mechanical Ventilator 40 12/06/16 00:53 67 18 40 12/06/16 00:00 68 12/06/16 00:00 40 12/06/16 00:00 98.2 68 18 89/44 100 Mechanical Ventilator 40 12/05/16 23:51 64 18 40 12/05/16 23:30 64 18 97/50 100 Mechanical Ventilator 40 12/05/16 23:00 63 18 102/50 100 Mechanical Ventilator 40 12/05/16 22:30 65 18 98/54 100 Mechanical Ventilator 40 12/05/16 22:00 66 18 102/49 100 Mechanical Ventilator 40 12/05/16 21:59 67 17 40 12/05/16 21:30 65 18 98/47 100 Mechanical Ventilator 40 12/05/16 21:00 65 21 92/48 100 Mechanical Ventilator 40 12/05/16 20:30 64 18 100/51 100 Mechanical Ventilator 40 12/05/16 20:00 40 12/05/16 20:00 73 12/05/16 20:00 98.0 73 21 93/43 100 Mechanical Ventilator 40 12/05/16 19:44 75 22 40 12/05/16 19:00 70 29 92/47 100 Mechanical Ventilator 40 12/05/16 19:00 92/47 12/05/16 18:30 77 23 91/42 98 Mechanical Ventilator 40 12/05/16 18:13 84/47 12/05/16 18:00 84/47 12/05/16 18:00 70 29 84/47 99 Mechanical Ventilator 40 12/05/16 17:30 67 27 91/43 99 Mechanical Ventilator 40 12/05/16 17:00 91/43 12/05/16 17:00 73 30 90/50 99 Mechanical Ventilator 40 12/05/16 16:57 68 28 40 12/05/16 16:30 73 29 88/49 99 Mechanical Ventilator 40 Height (Feet): 5 Height (Inches): 2.00 Weight (Pounds): 196 General Appearance: WD/WN, no acute distress HEENT: normocephalic, atraumatic, anicteric Respiratory/Chest: respiratory distress, decreased breath sounds, crackles/ rales Cardiovascular: normal peripheral pulses, normal rate, regular rhythm, no gallop/murmur Abdomen: normal bowel sounds, soft, non tender, no organomegaly, non distended , no mass Extremities: no cyanosis, no clubbing Skin: no rash, no lesions, ulcers Neurologic/Psychiatric: unresponsiveness Laboratory Tests Test 12/06/16 04:00 12/06/16 05:00 Arterial Blood pH 7.568 (7.350-7.450) Arterial Blood Partial Pressure CO2 26.2 mmHg (35.0-45.0) L Arterial Blood Partial Pressure O2 82.1 mmHg (75.0-100.0) Arterial Blood HCO3 23.4 mmol/L (22.0-26.0) Arterial Blood Oxygen Saturation 96.0 % (92.0-98.0) Arterial Blood Base Excess 2.0 Isael Test Positive White Blood Count 12.7 K/UL (4.8-10.8) H Red Blood Count 3.09 M/UL (4.20-5.40) L Hemoglobin 8.9 G/DL (12.0-16.0) L Hematocrit 27.5 % (37.0-47.0) L Mean Corpuscular Volume 89 FL (80-99) Mean Corpuscular Hemoglobin 28.8 PG (27.0-31.0) Mean Corpuscular Hemoglobin Concent 32.4 G/DL (32.0-36.0) Red Cell Distribution Width 16.4 % (11.6-14.8) H Platelet Count 95 K/UL (150-450) L Mean Platelet Volume 10.8 FL (6.5-10.1) H Neutrophils (%) (Auto) % (45.0-75.0) Lymphocytes (%) (Auto) % (20.0-45.0) Monocytes (%) (Auto) % (1.0-10.0) Eosinophils (%) (Auto) % (0.0-3.0) Basophils (%) (Auto) % (0.0-2.0) Differential Total Cells Counted 100 Neutrophils % (Manual) 88 % (45-75) H Lymphocytes % (Manual) 11 % (20-45) L Monocytes % (Manual) 1 % (1-10) Eosinophils % (Manual) 0 % (0-3) Basophils % (Manual) 0 % (0-2) Band Neutrophils 0 % (0-8) Platelet Estimate Adequate Platelet Morphology Normal Hypochromasia 1+ Sodium Level 142 mEQ/L (135-145) Potassium Level 3.7 mEQ/L (3.4-4.9) Chloride Level 107 mEQ/L (98-107) Carbon Dioxide Level 24 mEQ/L (20-30) Anion Gap 11 (5-15) Blood Urea Nitrogen 16 mg/dL (7-23) Creatinine 0.5 mg/dL (0.5-0.9) Estimat Glomerular Filtration Rate mL/min (>60) Glucose Level 124 mg/dL (74-106) H Calcium Level 7.8 mg/dL (8.6-10.2) L Phosphorus Level 2.2 mg/dL (2.5-4.8) L Magnesium Level 1.9 mg/dL (1.7-2.5) Total Bilirubin 0.5 mg/dL (0.0-1.2) Aspartate Amino Transf (AST/SGOT) 21 U/L (5-40) Alanine Aminotransferase (ALT/SGPT) 19 U/L (3-33) Alkaline Phosphatase 71 U/L (35-104) Total Protein 3.9 g/dL (6.6-8.7) L Albumin 1.9 g/dL (3.5-5.2) L Globulin 2.0 g/dL Albumin/Globulin Ratio 0.9 (1.0-2.7) L Random Vancomycin Level 22.0 ug/mL Current Medications Medications (Trade) Dose Ordered Sig/Flora Route PRN Reason Start Time Stop Time Status Last Admin Dose Admin Acetaminophen (Tylenol) 650 mg Q4H PRN ORAL fever 12/06/16 16:00 01/05/17 15:59 Artificial Tears (Akwa-Tears) 1 drop QIDPRN PRN BOTH EYES Dry Eyes 12/07/16 14:00 01/06/17 13:59 Dextrose (Dextrose 50%) STAT PRN IV Hypoglycemia 12/06/16 16:00 01/05/17 15:59 Glycopyrrolate (Robinul) 0.1 mg Q6H PRN IV excessive secretions 12/06/16 19:00 01/05/17 18:59 Miscellaneous Medication (Narcotic Drip Rate Change) 1 ea DAILY PRN MISC To Patient Comfort 12/07/16 09:00 01/06/17 08:59 Miscellaneous Medication (Narcotic Shift Volume) 1 ea Q8HR@07,15,23 MISC 12/06/16 15:00 01/05/17 14:59 Morphine Sulfate (Morphine Sulfate) 4 mg Q3H PRN SUBQ Breakthrough pain / RR>20 12/06/16 16:15 12/13/16 16:14 Prochlorperazine (Compazine) 10 mg Q6H PRN ORAL Nausea & Vomiting 12/06/16 19:00 01/05/17 18:59 Sodium Chloride (NS) 250 ml @ 999 mls/hr PRN PRN IV PRN SBP < 90 12/06/16 14:45 01/05/17 14:44 Romelia Sotelo M.D. Dec 06, 2016 16:26
[2016-12-07] VITALS: BP 125/67
[2016-12-07 04:00] VITALS: BP 114/67
[2016-12-07 08:00] VITALS: BP 102/54
[2016-12-07] MEDS ORDERED: Rate Change Narcotic Drip MISC PRN (09:00)
[2016-12-07] MEDS ORDERED: Albuterol ud Inhalation HHN SCH (11:00)
[2016-12-07] MEDS ORDERED: Ipratropium 0.02% Inh Soln 2.5ml UD HHN SCH (11:00)
[2016-12-07] MEDS: DuoNeb 0.5-3(2.5)mg/3ml neb HHN SCH ×5 (11:40→23:53)
[2016-12-07 12:00] VITALS: BP 127/61
[2016-12-07] MEDS ORDERED: Artificial Tears 1.4% Op Soln BOTH EYES PRN (14:00)
--- NOTE | 2016-12-07 15:35 | Pulmonology Progress Note ---
Assessment/Plan Problems: (1) Septicemia (2) HCAP (healthcare-associated pneumonia) (3) Acute encephalopathy (4) ARF (acute renal failure) Assessment/Plan extubated yesterday, doing ok now swallow study. don't think she can acually chew and eat. maybe just comfort feeding. Subjective ROS Limited/Unobtainable: No Interval Events: awake, comfortable, Constitutional: Reports: no symptoms HEENT: Repors: no symptoms Respiratory: Reports: no symptoms Allergies: Coded Allergies: No Known Allergies (Unverified , 11/25/16) Objective Last 24 Hour Vital Signs Date Time Temp Pulse Resp B/P Pulse Ox O2 Delivery O2 Flow Rate FiO2 12/07/16 12:00 97.0 74 20 127/61 99 Nasal Cannula 12/07/16 11:47 74 24 99 Nasal Cannula 3.0 12/07/16 11:43 74 24 Nasal Cannula 3.0 12/07/16 09:11 Nasal Cannula 3.0 12/07/16 08:00 97.5 77 18 102/54 96 Nasal Cannula 12/07/16 04:00 97.2 77 20 114/67 99 Nasal Cannula 3.0 12/07/16 00:00 97.5 67 20 125/67 97 Nasal Cannula 3.0 12/06/16 20:00 97.4 77 26 93/50 97 Nasal Cannula 3.0 12/06/16 16:33 97.3 79 22 87/44 96 Nasal Cannula 3.0 Intake and Output 12/06/16 12/07/16 18:59 06:59 Intake Total 340 ml Output Total 300 ml 475 ml Balance 40 ml -475 ml Free Water 100 ml Tube Feeding 240 ml Output Urine Total 300 ml 475 ml General Appearance: cachetic HEENT: normocephalic, atraumatic Respiratory/Chest: chest wall non-tender, lungs clear Breasts: no masses Cardiovascular: normal peripheral pulses, normal rate Abdomen: normal bowel sounds, soft, non tender Genitourinary: normal external genitalia Extremities: no clubbing Skin: no rash Neurologic/Psychiatric: transport aide II-XII grossly normal, no motor/sensory deficits Lymphatic: no neck adenopathy Current Medications Medications (Trade) Dose Ordered Sig/Flora Route PRN Reason Start Time Stop Time Status Last Admin Dose Admin Acetaminophen (Tylenol) 650 mg Q4H PRN ORAL fever 12/06/16 16:00 01/05/17 15:59 Albuterol/ Ipratropium (DuoNeb 0.5-3(2.5)mg/3ml) 3 ml Q4HRT HHN 12/07/16 11:00 12/12/16 10:59 12/07/16 11:40 Artificial Tears (Akwa-Tears) 1 drop QIDPRN PRN BOTH EYES Dry Eyes 12/07/16 14:00 01/06/17 13:59 Dextrose (Dextrose 50%) STAT PRN IV Hypoglycemia 12/06/16 16:00 01/05/17 15:59 Glycopyrrolate (Robinul) 0.1 mg Q6H PRN IV excessive secretions 12/06/16 19:00 01/05/17 18:59 Miscellaneous Medication (Narcotic Drip Rate Change) 1 ea DAILY PRN MISC To Patient Comfort 12/07/16 09:00 01/06/17 08:59 Morphine Sulfate (Morphine Sulfate) 4 mg Q3H PRN SUBQ Breakthrough pain / RR>20 12/06/16 16:15 12/13/16 16:14 12/07/16 13:18 Prochlorperazine (Compazine) 10 mg Q6H PRN ORAL Nausea & Vomiting 12/06/16 19:00 01/05/17 18:59 Sodium Chloride (NS) 250 ml @ 999 mls/hr PRN PRN IV PRN SBP < 90 12/06/16 14:45 01/05/17 14:44 STEVIE GUO Dec 07, 2016 15:34
[2016-12-07 16:00] VITALS: BP 113/59
--- NOTE | 2016-12-07 16:32 | General Progress Note ---
Assessment/Plan Assessment/Plan 1. Respiratory failure s/p intubation - s/p terminal extubation. currently stable. breathing txt ordered. swallowing eval ordered. 2. Sepsis 2nd to UTI 3. Renal failure - resolved. 4. Pneumonia - off all abx. 5. Septic Shock - resolved. 6. H/O Basal Ganglia ischemic stroke recently 7. 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 Thrombocytopenia - improved. 9. Hyperlipidemia 10. DM II 11. Sacral Pressure ulcer - cont wound care. 12. discharge to home tomorrow. comfort care at home. Subjective Date patient seen: Dec 07, 2016 Time patient seen: 09:00 Constitutional: Reports: weakness HEENT: Reports: no symptoms Cardiovascular: Reports: no symptoms Respiratory: Reports: wheezing Gastrointestinal/Abdominal: Reports: no symptoms Genitourinary: Reports: no symptoms Neurologic/Psychiatric: Reports: weakness Endocrine: Reports: no symptoms Hematologic/Lymphatic: Reports: no symptoms Allergies: Coded Allergies: No Known Allergies (Unverified , 11/25/16) Subjective Pt is s/p terminal extubation and on confort care. Awake and respond to command by closing her eyes. patient will be discharged home with family tomorrow. Objective Last 24 Hour Vital Signs Date Time Temp Pulse Resp B/P Pulse Ox O2 Delivery O2 Flow Rate FiO2 12/07/16 16:00 97.0 63 19 113/59 100 Nasal Cannula 12/07/16 15:48 76 18 96 Nasal Cannula 3.0 12/07/16 12:00 97.0 74 20 127/61 99 Nasal Cannula 12/07/16 11:47 74 24 99 Nasal Cannula 3.0 12/07/16 11:43 74 24 Nasal Cannula 3.0 12/07/16 09:11 Nasal Cannula 3.0 12/07/16 08:00 97.5 77 18 102/54 96 Nasal Cannula 12/07/16 04:00 97.2 77 20 114/67 99 Nasal Cannula 3.0 12/07/16 00:00 97.5 67 20 125/67 97 Nasal Cannula 3.0 12/06/16 20:00 97.4 77 26 93/50 97 Nasal Cannula 3.0 12/06/16 16:33 97.3 79 22 87/44 96 Nasal Cannula 3.0 Intake and Output 12/06/16 12/07/16 19:00 07:00 Intake Total 310 ml Output Total 250 ml 475 ml Balance 60 ml -475 ml Free Water 100 ml Tube Feeding 210 ml Output Urine Total 250 ml 475 ml Height (Feet): 5 Height (Inches): 2.00 Weight (Pounds): 195 General Appearance: alert Neck: non-tender, supple Cardiovascular: normal rate, regular rhythm Respiratory/Chest: expiratory wheezing Abdomen: non tender, soft, no organomegaly Extremities: normal range of motion, non-tender Edema: no edema noted Arm (L), no edema noted Arm (R), no edema noted Leg (L), no edema noted Leg (R), no edema noted Pedal (L), no edema noted Pedal (R), no edema noted Generalized Neurologic: responsive, other - follows command Skin: warm/dry Lymphatic: normal anterior cervical (L), normal anterior cervical (R), normal axillary (L), normal axillary (R), normal inguinal (L), normal inguinal (R), normal other, normal posterior cervical (L), normal posterior cervical (R), normal submandibular (L), normal submandibular (R), normal supraclavicular (L), normal supraclavicular (R) TERI JACKSON Dec 07, 2016 16:32
[2016-12-07] MEDS ORDERED: Morphine Sulfate 2mg/ml Inj SUBQ PRN (17:15)
[2016-12-07 20:00] VITALS: BP 114/58
[2016-12-08] VITALS: BP 126/78
[2016-12-08 04:00] VITALS: BP 126/80
[2016-12-08] MEDS: DuoNeb 0.5-3(2.5)mg/3ml neb HHN SCH ×3 (07:39→15:00)
--- NOTE | 2016-12-08 07:50 | Pulmonology Progress Note ---
Assessment/Plan Assessment/Plan ASSESSMENT acute hypoxemic respiratory failure requiring intubation s/p terminal extubation septic shock -resolved sepsis with bacteremia bacteremia with Proteus HCAP UTI with E coli ARF ( due to sepsis and shock) acute encephalopathy ( 2 to sepsis) -resolved thrombocytopenia anemia hx of recent ischemic stroke DM hyperlipidemia sacral decub, un-stageable, POA Rt buttock decub un-stageable, POA PLAN OF CARE [facility] floor initially required oral intubation and pressors for HD support and ICU placement weaned from pressors unable to be weaned from vent initial blood cx + Proteus, urine cx + E coli repeated blood cx negative ,stool C dif negative, sputum cx + Martha, urine cx repeated negative was on IVF, Midodrine after pressors stopped NGT for TF family decided on terminal extubation with comfort measures s/p terminal extubation code status changed to DNR/DNI comfort measures only pain management Robinul a/emetic supplemental oxygen pulmonary toilet prn skin care bowel regimen wound care wound care nurse follows swallow evla noted - diet fro quality of life with strict aspiration precautions with 1 to 1 feeding dc plan as per PMD home with hospice services case discussed and evaluated by supervising physician Subjective Allergies: Coded Allergies: No Known Allergies (Unverified , 11/25/16) Subjective s/p terminal extubation DNR/DNI status on O2 via NC Objective Last 24 Hour Vital Signs Date Time Temp Pulse Resp B/P Pulse Ox O2 Delivery O2 Flow Rate FiO2 12/08/16 04:00 97.7 87 23 126/80 97 3.0 12/08/16 03:50 93 20 98 Nasal Cannula 3.0 32 12/08/16 03:39 91 22 96 Nasal Cannula 3.0 32 12/08/16 03:39 32 12/08/16 00:00 97.8 70 19 126/78 96 3.0 12/07/16 23:53 83 20 97 Nasal Cannula 3.0 32 12/07/16 23:44 32 12/07/16 23:43 81 22 93 Nasal Cannula 3.0 32 12/07/16 20:00 97.0 77 19 114/58 100 Endotracheal Tube 3.0 94 12/07/16 19:58 94 Nasal Cannula 3.0 32 12/07/16 19:57 Nasal Cannula 3.0 32 12/07/16 19:55 80 20 96 Nasal Cannula 3.0 32 12/07/16 19:45 32 12/07/16 19:45 78 22 94 Nasal Cannula 3.0 32 12/07/16 16:00 97.0 63 19 113/59 100 Nasal Cannula 12/07/16 15:54 78 18 97 Nasal Cannula 3.0 12/07/16 15:48 76 18 96 Nasal Cannula 3.0 12/07/16 12:00 97.0 74 20 127/61 99 Nasal Cannula 12/07/16 11:47 74 24 99 Nasal Cannula 3.0 12/07/16 11:43 74 24 Nasal Cannula 3.0 12/07/16 09:11 Nasal Cannula 3.0 12/07/16 08:00 97.5 77 18 102/54 96 Nasal Cannula Intake and Output 12/07/16 12/08/16 19:00 07:00 Output Total 475 ml 250 ml Balance -475 ml -250 ml Output Urine Total 475 ml 250 ml General Appearance: other - awake, confused, responsive HEENT: normocephalic, atraumatic, anicteric Respiratory/Chest: decreased breath sounds - mild respiratory distress Cardiovascular: normal rate, regularly irregular, other - RUE PICC intact Abdomen: soft, non tender, non distended, hypoactive bowel sounds Neurologic/Psychiatric: abnormal gait - bedridden, alert, responsive Musculoskeletal: atrophy - BLE Current Medications Medications (Trade) Dose Ordered Sig/Flora Route PRN Reason Start Time Stop Time Status Last Admin Dose Admin Acetaminophen (Tylenol) 650 mg Q4H PRN ORAL fever 12/06/16 16:00 01/05/17 15:59 Albuterol/ Ipratropium (DuoNeb 0.5-3(2.5)mg/3ml) 3 ml Q4HRT HHN 12/07/16 11:00 12/12/16 10:59 12/08/16 07:39 Artificial Tears (Akwa-Tears) 1 drop QIDPRN PRN BOTH EYES Dry Eyes 12/07/16 14:00 01/06/17 13:59 Dextrose (Dextrose 50%) STAT PRN IV Hypoglycemia 12/06/16 16:00 01/05/17 15:59 Glycopyrrolate (Robinul) 0.1 mg Q6H PRN IV excessive secretions 12/06/16 19:00 01/05/17 18:59 Miscellaneous Medication (Narcotic Drip Rate Change) 1 ea DAILY PRN MISC To Patient Comfort 12/07/16 09:00 01/06/17 08:59 Morphine Sulfate (Morphine Sulfate) 1 mg Q3H PRN SUBQ For Pain 12/07/16 17:15 12/14/16 17:14 Prochlorperazine (Compazine) 10 mg Q6H PRN ORAL Nausea & Vomiting 12/06/16 19:00 01/05/17 18:59 Sodium Chloride (NS) 250 ml @ 999 mls/hr PRN PRN IV PRN SBP < 90 12/06/16 14:45 01/05/17 14:44 Silvino (StefanieGita larios NP Dec 08, 2016 07:50
[2016-12-08 07:58] VITALS: BP 125/65
--- NOTE | 2016-12-08 08:40 | General Progress Note ---
Assessment/Plan Status: stable Assessment/Plan 1. Respiratory failure s/p intubation - s/p terminal extubation. currently stable. breathing txt improved patient breathing. swallowing eval today. 2. Sepsis 2nd to UTI 3. Renal failure - resolved. 4. Pneumonia - off all abx. 5. Septic Shock - resolved. 6. H/O Basal Ganglia ischemic stroke recently 7. 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 Thrombocytopenia - improved. 9. Hyperlipidemia 10. DM II 11. Sacral Pressure ulcer - cont wound care. 12. discharge to home tomorrow. comfort care at home with [facility] today at [phone]. Subjective Date patient seen: Dec 08, 2016 Time patient seen: 08:30 Constitutional: Reports: weakness HEENT: Reports: no symptoms Cardiovascular: Reports: no symptoms Respiratory: Reports: wheezing Gastrointestinal/Abdominal: Reports: no symptoms Genitourinary: Reports: no symptoms Neurologic/Psychiatric: Reports: no symptoms Endocrine: Reports: no symptoms Hematologic/Lymphatic: Reports: no symptoms Allergies: Coded Allergies: No Known Allergies (Unverified , 11/25/16) Subjective Pt is s/p terminal extubation and on confort care. Awake and respond to command by closing her eyes and say few words. patient will be discharged home with family today. Objective Last 24 Hour Vital Signs Date Time Temp Pulse Resp B/P Pulse Ox O2 Delivery O2 Flow Rate FiO2 12/08/16 07:58 96.6 90 23 125/65 98 Nasal Cannula 2.0 12/08/16 04:00 97.7 87 23 126/80 97 3.0 12/08/16 03:50 93 20 98 Nasal Cannula 3.0 32 12/08/16 03:39 91 22 96 Nasal Cannula 3.0 32 12/08/16 03:39 32 12/08/16 00:00 97.8 70 19 126/78 96 3.0 12/07/16 23:53 83 20 97 Nasal Cannula 3.0 32 12/07/16 23:44 32 12/07/16 23:43 81 22 93 Nasal Cannula 3.0 32 12/07/16 20:00 97.0 77 19 114/58 100 Endotracheal Tube 3.0 94 12/07/16 19:58 94 Nasal Cannula 3.0 32 12/07/16 19:57 Nasal Cannula 3.0 32 12/07/16 19:55 80 20 96 Nasal Cannula 3.0 32 12/07/16 19:45 32 12/07/16 19:45 78 22 94 Nasal Cannula 3.0 32 12/07/16 16:00 97.0 63 19 113/59 100 Nasal Cannula 12/07/16 15:54 78 18 97 Nasal Cannula 3.0 12/07/16 15:48 76 18 96 Nasal Cannula 3.0 12/07/16 12:00 97.0 74 20 127/61 99 Nasal Cannula 12/07/16 11:47 74 24 99 Nasal Cannula 3.0 12/07/16 11:43 74 24 Nasal Cannula 3.0 12/07/16 09:11 Nasal Cannula 3.0 Intake and Output 12/07/16 12/08/16 19:00 07:00 Output Total 475 ml 250 ml Balance -475 ml -250 ml Output Urine Total 475 ml 250 ml Height (Feet): 5 Height (Inches): 2.00 Weight (Pounds): 196 General Appearance: no apparent distress, alert Neck: non-tender, supple Cardiovascular: normal rate, regular rhythm Respiratory/Chest: normal breath sounds, expiratory wheezing Abdomen: normal bowel sounds, non tender, soft Extremities: normal range of motion, non-tender Edema: no edema noted Arm (L), no edema noted Arm (R), no edema noted Leg (L), no edema noted Leg (R), no edema noted Pedal (L), no edema noted Pedal (R), no edema noted Generalized Neurologic: alert, responsive Skin: warm/dry Lymphatic: normal anterior cervical (L), normal anterior cervical (R), normal axillary (L), normal axillary (R), normal inguinal (L), normal inguinal (R), normal other, normal posterior cervical (L), normal posterior cervical (R), normal submandibular (L), normal submandibular (R), normal supraclavicular (L), normal supraclavicular (R) TERI JACKSON Dec 08, 2016 08:40
[2016-12-08] MEDS ORDERED: COMPAZINE10 MG ORAL (08:42)
[2016-12-08] MEDS ORDERED: DUONEB 0.5-3(2.53 ML HHN (08:42)
[2016-12-08 12:00] VITALS: BP 115/65
--- NOTE | 2016-12-11 06:15 | Discharge Summary ---
DATE OF ADMISSION: 11/25/2016 DATE OF DISCHARGE: 12/08/2016 HISTORY AND HOSPITAL COURSE: This is an 86-year-old female, who was brought in by paramedics for C/O fever, tachycardia, Shortness of Breath, tachypnea, and respiratory failure. The patient was intubated in the emergency room and was started on IV antibiotics and admitted to the ICU. The patient was seen by ID, by Pulmonary, and Renal while in the ICU. She had acute renal failure due to sepsis. She was in septic shock and slowly improved with IV fluid and IV antibiotics and pressors. The patient was on pressor for first few days in ICU. After her sepsis improved, her blood pressure was improved and the She was extubated on 12/06/2016 and was transferred to the regular floor. She was extubated thinking it might be terminal extubation, but she did well after extubation and per family request, the patient was discharged with the hospice following two days after extubation. All of the patient's medications were stopped except the patient was only on breathing treatment and was discharged with the breathing treatment at home. DISCHARGE DIAGNOSES: 1. Respiratory failure, status post intubation. 2. Sepsis secondary to urinary tract infection. 3. Acute renal failure secondary to sepsis. 4. Pneumonia. 5. Septic shock. 6. History of basal ganglia ischemic stroke. 7. History of right lower extremity deep vein thrombosis. 8. Thrombocytopenia. 9. Hyperlipidemia. 10. Diabetes mellitus type 2. 11. Sacral pressure ulcer. DISCHARGE MEDICATIONS: Albuterol and Atrovent Duo-Neb q.4 h. p.r.n. and Compazine 10 mg q.6 h. p.r.n. DISPOSITION: The patient will be discharged home with hospice following the patient at home. John Dodge M.D. DR: REUBEN JOB#: [id number] CC: NICO
== END 2016-12-08 17:10 | disposition hospice, home (50) | DRG 870 ==
LOC: EDBD 12:44 → EMR 13:12 → EDBEDREQ 14:15 → ICU 14:26 → 4W 12-06 14:32
PROC: 0BH17EZ Insertion of Endotracheal Airway into Trachea, Via Natural or Artificial Opening (ICD-10-PCS; principal; 2016-11-25)
PROC: 5A1955Z Respiratory Ventilation, Greater than 96 Consecutive Hours (ICD-10-PCS; principal; 2016-11-25)
PROC: 06HM33Z Insertion of Infusion Device into Right Femoral Vein, Percutaneous Approach (ICD-10-PCS; principal; 2016-11-25)
PROC: 02HV33Z Insertion of Infusion Device into Superior Vena Cava, Percutaneous Approach (ICD-10-PCS; 2016-11-29)
DX: A41.9 Sepsis, unspecified organism (principal); K72.00 Acute and subacute hepatic failure without coma; J96.00 Acute respiratory failure, unspecified whether with hypoxia or hypercapnia; R65.21 Severe sepsis with septic shock; J18.9 Pneumonia, unspecified organism; N17.9 Acute kidney failure, unspecified; L89.150 Pressure ulcer of sacral region, unstageable; G93.40 Encephalopathy, unspecified; E87.0 Hyperosmolality and hypernatremia; N39.0 Urinary tract infection, site not specified; Z51.5 Encounter for palliative care; Z66 Do not resuscitate; L89.310 Pressure ulcer of right buttock, unstageable; F03.90 Unspecified dementia, unspecified severity, without behavioral disturbance, psychotic disturbance, mood disturbance, and anxiety; E86.0 Dehydration; Z86.718 Personal history of other venous thrombosis and embolism; E78.5 Hyperlipidemia, unspecified; Z86.73 Personal history of transient ischemic attack (TIA), and cerebral infarction without residual deficits; D69.6 Thrombocytopenia, unspecified; N18.9 Chronic kidney disease, unspecified; E11.22 Type 2 diabetes mellitus with diabetic chronic kidney disease; I12.9 Hypertensive chronic kidney disease with stage 1 through stage 4 chronic kidney disease, or unspecified chronic kidney disease; Z79.01 Long term (current) use of anticoagulants
CPT/HCPCS: 36415; 36569; 36600; 71010; 74000; 76775; 76937; 80048; 80053; 80202; 81001; 81003; 82248; 82436; 82533; 82550; 82803; 82962; 83605; 83735; 83880; 83930; 83935; 84100; 84133; 84300; 84439; 84484; 84550; 85007; 85025; 85610; 85730; 86705; 86709; 86803; 87040; 87070; 87081; 87086; 87181; 87205; 87324; 87340; 89050; 93005; 93970; 94002; 94003; 94640; 94664; 94760; J1815; J2765; J7620